=== PATIENT | female | born 1945 | race Caucasian/White ===

== ENCOUNTER 2016-10-07 06:43 | Day surgery (SDC) | payer MEDICARE, BC ==
[2016-10-01 14:56] VITALS: BMI 36.3
[~2016-10-07 06:43] MED LIST: LACTATED RINGERS 1,000 ML IV SCH
[2016-10-07 07:17] VITALS: RESP 18; TEMP 97.2
[2016-10-07] MEDS: LACTATED RINGERS 1,000 ML IV ONE ×2 (07:25→07:41)
[2016-10-07 07:26] LABS: Glucose,Whole Blood 101 mg/dL (75-99)
[2016-10-07] MEDS ORDERED: PROPOFOL 10 MG/ML 20 ML VIAL IV ONE (07:43)
--- NOTE | 2016-10-07 07:50 | P.GSHP ---
History of Present Illness H&P Date: 10/07/16 Chief Complaint: GERD This a 71-year-old female who presents today for EGD. She has had a history of GERD. Patient has had a previous sleeve gastrectomy. - Constitutional Constitutional: Reports as per HPI Past Medical History Past Medical History: Cancer, Diabetes Mellitus, Eye Disorder, GERD/Reflux, Hyperlipidemia, Thyroid Disorder Additional Past Medical History / Comment(s): hx glaucoma, Basal cell skin cancer, hx insufficient circulation rt leg, Hx of thyroid nodules, varicose veins, bundle branch block, SLIGHT HEAD COLD History of Any Multi-Drug Resistant Organisms: None Reported Past Surgical History: Bariatric Surgery, Breast Surgery, Cholecystectomy, Hysterectomy Additional Past Surgical History / Comment(s): Lap band-later removed, gastric sleeve, tummy tuck, skin cancer removal, upper and lower eyelids, right labia reduction 2008, bilateral reduction upper thighs 2009, thyroid biopsy, Right Thyroidectomy., Colonoscopy, Bronchoscopy, EGD. ira eye lid surgery, reducton rt labia, mult breast lumpectomy Past Anesthesia/Blood Transfusion Reactions: Family History of Problems w/ Anesthesia, Motion Sickness Additional Past Anesthesia/Blood Transfusion Reaction / Comment(s): mother= ponv Past Psychological History: No Psychological Hx Reported Smoking Status: Never smoker Past Alcohol Use History: None Reported Past Drug Use History: None Reported - Past Family History Mother Family Medical History: Cancer, Deep Vein Thrombosis (DVT) Additional Family Medical History / Comment(s): breast ca, Father Family Medical History: Cancer Additional Family Medical History / Comment(s): leukemia Daughter(s) Family Medical History: Cancer Additional Family Medical History / Comment(s): from breast ca Medications and Allergies Home Medications Medication Instructions Recorded Confirmed Type Aspirin 81 mg PO DAILY 02/01/15 10/01/16 History Atorvastatin [Lipitor] 20 mg PO DAILY 02/01/15 10/01/16 History Cholecalciferol [Vitamin D3] 2,000 unit PO DAILY 02/01/15 10/01/16 History Cyanocobalamin [Vitamin B-12] 500 mcg PO DAILY 02/01/15 10/01/16 History Losartan [Cozaar] 25 mg PO DAILY 02/01/15 10/01/16 History Omeprazole 40 mg PO AC-BRKFST 02/01/15 10/01/16 History sitaGLIPtin [Januvia] 100 mg PO DAILY 02/01/15 10/01/16 History Ranitidine HCl [Zantac] 150 mg PO HS 02/19/15 10/01/16 History Ciclesonide [Alvesco] 1 puff INHALATION BID PRN 01/08/16 10/01/16 History Glimepiride [Amaryl] 0.5 mg PO DAILY 03/14/16 10/01/16 History Multivitamin [Children's 1 each PO DAILY 03/17/16 10/01/16 History Multivitamins] Thyroid,Pork [[place] Thyroid] 15 mg PO DAILY 05/12/16 10/01/16 History Biotin Gel 1,000 mcg PO DAILY 06/24/16 10/01/16 History Calcium Carbonate [Tums] 750 mg PO DIRECTED PRN 06/24/16 10/01/16 History Allergies Allergy/AdvReac Type Severity Reaction Status Date / Time adhesive Allergy Rash/Hives Verified 09/23/16 14:48 adhesive tape Allergy Rash/Hives Verified 09/23/16 14:48 Penicillins Allergy Diarrhea Verified 09/23/16 14:48 canagliflozin [From Invokana] AdvReac BLADDER Verified 10/01/16 14:52 INFECTION metformin AdvReac Nausea & Verified 09/23/16 14:48 Vomiting Surgical - Exam Vital Signs Temp Pulse Resp BP Pulse Ox 97.2 F L 79 18 152/85 98 10/07/16 07:16 10/07/16 07:16 10/07/16 07:16 10/07/16 07:16 10/07/16 07:16 - General well developed, no distress - Eyes PERRL - ENT normal pinna - Neck no masses - Respiratory normal expansion - Abdomen Abdomen: soft, non tender Results - Labs Abnormal Lab Results - Last 24 Hours (Table) 10/07/16 Range/Units 07:23 POC Glucose (mg/dL) 101 H (75-99) mg/dL Assessment and Plan Plan: GERD. We'll perform EGD.
--- NOTE | 2016-10-07 08:08 | P.OP ---
Date of Procedure: 10/07/16 Preoperative Diagnosis: GERD Postoperative Diagnosis: GERD Procedure(s) Performed: EGD Implants: Anesthesia: MAC Surgeon: Paul Kumar Pathology: none sent Condition: stable Disposition: PACU Indications for Procedure: Operative Findings: Description of Procedure: The patient's placed on the endoscopy table in the lateral position. She received IV sedation. The gastroscope some placed oropharynx and passed into the esophagus and into the stomach. The scope was then placed through the pylorus. The first and second portion of the duodenum appeared normal. Scope was then brought back the antrum this appeared normal. Scope was then brought back through the gastric sleeve. There appeared to be no evidence of obstruction. A 20 mm balloon was placed in the gastric sleeve and brought back and forth through the sleeve without any difficulty. Just below the GE junction there was a small gastric pouch the balloon was placed at this level as well and there is no significant obstruction seen. The GE junction was at 40 cm. The distal esophagus. Minimal inflamed. The proximal esophagus appeared normal. Scope was withdrawn for patient.
[2016-10-07 08:39] VITALS: BP 133/72; PULSE 61
== END 2016-10-07 08:49 | disposition home or self-care (01) ==
LOC: ORWHC2ENDO 06:43
PROVIDERS: ATTEND Surgery
DX: K21.9 Gastro-esophageal reflux disease without esophagitis (principal); Z98.84 Bariatric surgery status; E11.9 Type 2 diabetes mellitus without complications; E78.5 Hyperlipidemia, unspecified; E07.9 Disorder of thyroid, unspecified; Z79.82 Long term (current) use of aspirin; Z79.899 Other long term (current) drug therapy; Z79.84 Long term (current) use of oral hypoglycemic drugs; Z88.0 Allergy status to penicillin; Z88.8 Allergy status to other drugs, medicaments and biological substances; Z91.09 Other allergy status, other than to drugs and biological substances
CPT/HCPCS: 43235; J2704; C1726; 43249; 99153

== ENCOUNTER 2016-10-17 05:32 | Emergency (ER) | payer MEDICARE, BC ==
[2016-10-17] MEDS ORDERED: SODIUM CHLORIDE 0.9% 1,000 ML IV STA (05:42)
[2016-10-17] MEDS ORDERED: SODIUM CHLORIDE 0.9% 500 ML IV STA (05:42)
[2016-10-17] MEDS ORDERED: FAMOTIDINE 20 MG/2 ML VIAL IV STA (05:43)
--- NOTE | 2016-10-17 05:50 | ED ---
General Adult HPI - General Source: patient, EMS, RN notes reviewed Mode of arrival: EMS Limitations: no limitations <Babar Garcia - Last Filed: 10/17/16 05:48> <eH Gonzales - Last Filed: 10/17/16 08:28> - General Chief complaint: Nausea/Vomiting/Diarrhea Stated complaint: N/V Time Seen by Provider: 10/17/16 05:37 - History of Present Illness Initial comments: Patient is a pleasant 71-year-old female presenting to the emergency department complaining of tremors. Symptoms have been present for a few months. Patient states she just decided she wanted to know why this is happening today. Patient states symptoms are intermittent. Patient states symptoms usually last for a couple of hours then go away. Tremors are diffuse. Patient has a history of a gastric sleeve and does have some chronic nausea and spitting up. No confusion. No weakness. Patient denies feeling anxious. No fevers. (Babar Garcia) - Related Data Home Medications Medication Instructions Recorded Confirmed Aspirin 81 mg PO DAILY 02/01/15 10/01/16 Atorvastatin [Lipitor] 20 mg PO DAILY 02/01/15 10/01/16 Cholecalciferol [Vitamin D3] 2,000 unit PO DAILY 02/01/15 10/01/16 Cyanocobalamin [Vitamin B-12] 500 mcg PO DAILY 02/01/15 10/01/16 Losartan [Cozaar] 25 mg PO DAILY 02/01/15 10/01/16 Omeprazole 40 mg PO AC-BRKFST 02/01/15 10/01/16 sitaGLIPtin [Januvia] 100 mg PO DAILY 02/01/15 10/17/16 Ranitidine HCl [Zantac] 150 mg PO HS 02/19/15 10/01/16 Ciclesonide [Alvesco] 1 puff INHALATION BID PRN 01/08/16 10/01/16 Glimepiride [Amaryl] 0.5 mg PO DAILY 03/14/16 10/01/16 Multivitamin [Children's 1 each PO DAILY 03/17/16 10/01/16 Multivitamins] Thyroid,Pork [[place] Thyroid] 15 mg PO DAILY 05/12/16 10/01/16 Biotin Gel 1,000 mcg PO DAILY 09/20/16 12/28/16 Calcium Carbonate [Tums] 750 mg PO DIRECTED PRN 06/24/16 10/01/16 Previous Rx's Medication Instructions Recorded Levofloxacin [Levaquin] 750 mg PO DAILY #7 tab 10/17/16 Allergies Allergy/AdvReac Type Severity Reaction Status Date / Time adhesive Allergy Rash/Hives Verified 10/17/16 05:45 adhesive tape Allergy Rash/Hives Verified 10/17/16 05:45 Penicillins Allergy Diarrhea Verified 10/17/16 05:45 canagliflozin [From Invokana] AdvReac BLADDER Verified 10/17/16 05:45 INFECTION metformin AdvReac Nausea & Verified 10/17/16 05:45 Vomiting Review of Systems ROS Other: All systems not noted in ROS Statement are negative. Constitutional: Denies: fever, chills Eyes: Denies: eye pain ENT: Denies: ear pain Respiratory: Reports: cough. Denies: dyspnea Cardiovascular: Denies: chest pain Endocrine: Reports: fatigue Gastrointestinal: Reports: nausea. Denies: abdominal pain Genitourinary: Denies: dysuria Musculoskeletal: Denies: back pain Skin: Denies: rash Neurological: Denies: headache, weakness <Babar Garcia - Last Filed: 10/17/16 05:48> ROS Other: All systems not noted in ROS Statement are negative. <He Gonzales - Last Filed: 10/17/16 08:28> ROS Statement: Those systems with pertinent positive or pertinent negative responses have been documented in the HPI. Past Medical History Past Medical History: Cancer, Diabetes Mellitus, Eye Disorder, GERD/Reflux, Hyperlipidemia, Thyroid Disorder Additional Past Medical History / Comment(s): hx glaucoma, Basal cell skin cancer, hx insufficient circulation rt leg, Hx of thyroid nodules, varicose veins, bundle branch block, SLIGHT HEAD COLD History of Any Multi-Drug Resistant Organisms: None Reported Past Surgical History: Bariatric Surgery, Breast Surgery, Cholecystectomy, Hysterectomy Additional Past Surgical History / Comment(s): Lap band-later removed, gastric sleeve, tummy tuck, skin cancer removal, upper and lower eyelids, right labia reduction 2008, bilateral reduction upper thighs 2009, thyroid biopsy, Right Thyroidectomy., Colonoscopy, Bronchoscopy, EGD. ira eye lid surgery, reducton rt labia, mult breast lumpectomy Past Anesthesia/Blood Transfusion Reactions: Family History of Problems w/ Anesthesia, Motion Sickness Additional Past Anesthesia/Blood Transfusion Reaction / Comment(s): mother= ponv Past Psychological History: No Psychological Hx Reported Smoking Status: Never smoker Past Alcohol Use History: None Reported Past Drug Use History: None Reported - Past Family History Mother Family Medical History: Cancer, Deep Vein Thrombosis (DVT) Additional Family Medical History / Comment(s): breast ca, Father Family Medical History: Cancer Additional Family Medical History / Comment(s): leukemia Daughter(s) Family Medical History: Cancer Additional Family Medical History / Comment(s): from breast ca <Babar Garcia - Last Filed: 10/17/16 05:48> General Exam Limitations: no limitations General appearance: alert, in no apparent distress Head exam: Present: atraumatic Eye exam: Present: normal appearance, PERRL, EOMI. Absent: nystagmus ENT exam: Present: normal oropharynx Neck exam: Present: normal inspection Respiratory exam: Present: normal lung sounds bilaterally Cardiovascular Exam: Present: regular rate, normal rhythm GI/Abdominal exam: Present: soft. Absent: tenderness Extremities exam: Present: normal inspection Neurological exam: Present: alert, oriented X3, CN II-XII intact, other ( Resting tremor is present). Absent: motor sensory deficit Expanded Motor strength exam: RUE: 5, LUE: 5, RLE: 5, LLE: 5 Psychiatric exam: Present: normal affect, normal mood Skin exam: Absent: rash <Babar Garcia - Last Filed: 10/17/16 05:48> Medical Decision Making - Lab Data Result diagrams: 10/17/16 05:58 10/17/16 05:58 <He Gonzales - Last Filed: 10/17/16 08:28> - Lab Data Lab Results 10/17/16 10/17/16 10/17/16 Range/Units 05:58 05:58 05:58 WBC 7.8 (3.8-10.6) k/uL RBC 4.96 (3.80-5.40) m/uL Hgb 14.8 (11.4-16.0) gm/dL Hct 46.0 (34.0-46.0) % MCV 92.7 (80.0-100.0) fL MCH 29.8 (25.0-35.0) pg MCHC 32.1 (31.0-37.0) g/dL RDW 12.6 (11.5-15.5) % Plt Count 268 (150-450) k/uL Neutrophils % (Manual) 57.0 % Band Neutrophils % 22.5 % Lymphocytes % (Manual) 14.0 % Monocytes % (Manual) 4.5 % Eosinophils % (Manual) 2.0 % Neutrophils # (Manual) 6.2 (1.3-7.7) k/uL Lymphocytes # (Manual) 1.1 (1.0-4.8) k/uL Monocytes # (Manual) 0.4 (0-1.0) k/uL Eosinophils # (Manual) 0.2 (0-0.7) k/uL Nucleated RBCs 0 (0-0) /100 WBC Large Platelets Present Polychromasia Present Anisocytosis (manual) Present PT (9.0-12.0) sec INR (<1.1) APTT (22.0-30.0) sec Sodium 144 (137-145) mmol/L Potassium 4.3 (3.5-5.1) mmol/L Chloride 108 H (98-107) mmol/L Carbon Dioxide 22 (22-30) mmol/L Anion Gap 14 mmol/L BUN 12 (7-17) mg/dL Creatinine 0.79 (0.52-1.04) mg/dL Est GFR (MDRD) Af Amer >60 (>60 ml/min/1.73 sqM) Est GFR (MDRD) Non-Af >60 (>60 ml/min/1.73 sqM) Glucose 192 H (74-99) mg/dL Calcium 9.3 (8.4-10.2) mg/dL Ionized Calcium [place] 5.1 (4.5-5.3) mg/dL Phosphorus 3.2 (2.5-4.5) mg/dL Magnesium 1.8 (1.6-2.3) mg/dL Total Bilirubin 0.7 (0.2-1.3) mg/dL AST 18 (14-36) U/L ALT 27 (9-52) U/L Alkaline Phosphatase 92 (38-126) U/L Total Creatine Kinase 54 (30-135) U/L CK-MB (CK-2) 0.9 (0.0-2.4) ng/mL CK-MB (CK-2) Rel Index 1.7 Troponin I <0.012 (0.000-0.034) ng/mL Total Protein 7.2 (6.3-8.2) g/dL Albumin 4.0 (3.5-5.0) g/dL TSH 3.260 (0.465-4.680) mIU/L Free T4 0.94 (0.78-2.19) ng/dL Free T3 pg/mL 3.0 (2.8-5.3) pg/ml Urine Color Urine Appearance (Clear) Urine pH (5.0-8.0) Ur Specific [place] (1.001-1.035) Urine Protein (Negative) Urine Glucose (UA) (Negative) Urine Ketones (Negative) Urine Blood (Negative) Urine Nitrate (Negative) Urine Bilirubin (Negative) Urine Urobilinogen (<2.0) mg/dL Ur Leukocyte Esterase (Negative) 10/17/16 10/17/16 Range/Units 05:58 06:49 WBC (3.8-10.6) k/uL RBC (3.80-5.40) m/uL Hgb (11.4-16.0) gm/dL Hct (34.0-46.0) % MCV (80.0-100.0) fL MCH (25.0-35.0) pg MCHC (31.0-37.0) g/dL RDW (11.5-15.5) % Plt Count (150-450) k/uL Neutrophils % (Manual) % Band Neutrophils % % Lymphocytes % (Manual) % Monocytes % (Manual) % Eosinophils % (Manual) % Neutrophils # (Manual) (1.3-7.7) k/uL Lymphocytes # (Manual) (1.0-4.8) k/uL Monocytes # (Manual) (0-1.0) k/uL Eosinophils # (Manual) (0-0.7) k/uL Nucleated RBCs (0-0) /100 WBC Large Platelets Polychromasia Anisocytosis (manual) PT 10.4 (9.0-12.0) sec INR 1.0 (<1.1) APTT 19.7 L (22.0-30.0) sec Sodium (137-145) mmol/L Potassium (3.5-5.1) mmol/L Chloride (98-107) mmol/L Carbon Dioxide (22-30) mmol/L Anion Gap mmol/L BUN (7-17) mg/dL Creatinine (0.52-1.04) mg/dL Est GFR (MDRD) Af Amer (>60 ml/min/1.73 sqM) Est GFR (MDRD) Non-Af (>60 ml/min/1.73 sqM) Glucose (74-99) mg/dL Calcium (8.4-10.2) mg/dL Ionized Calcium [place] (4.5-5.3) mg/dL Phosphorus (2.5-4.5) mg/dL Magnesium (1.6-2.3) mg/dL Total Bilirubin (0.2-1.3) mg/dL AST (14-36) U/L ALT (9-52) U/L Alkaline Phosphatase (38-126) U/L Total Creatine Kinase (30-135) U/L CK-MB (CK-2) (0.0-2.4) ng/mL CK-MB (CK-2) Rel Index Troponin I (0.000-0.034) ng/mL Total Protein (6.3-8.2) g/dL Albumin (3.5-5.0) g/dL TSH (0.465-4.680) mIU/L Free T4 (0.78-2.19) ng/dL Free T3 pg/mL (2.8-5.3) pg/ml Urine Color Yellow Urine Appearance Clear (Clear) Urine pH 5.5 (5.0-8.0) Ur Specific [place] 1.012 (1.001-1.035) Urine Protein Negative (Negative) Urine Glucose (UA) Trace H (Negative) Urine Ketones Negative (Negative) Urine Blood Negative (Negative) Urine Nitrate Negative (Negative) Urine Bilirubin Negative (Negative) Urine Urobilinogen <2.0 (<2.0) mg/dL Ur Leukocyte Esterase Negative (Negative) Disposition <Babar Garcia - Last Filed: 10/17/16 05:48> <He Gonzales - Last Filed: 10/17/16 08:28> Clinical Impression: Pneumonia, Tremor Disposition: HOME SELF-CARE Condition: Fair Instructions: Pneumonia (ED), Tremors (ED) Prescriptions: Levofloxacin [Levaquin] 750 mg PO DAILY #7 tab Referrals: Johann Burnette III, MD [Primary Care Provider] - 1-2 days
[2016-10-17 06:15] LABS: CH 30.2; CHCM 32.7; HDW 2.41; HGB 14.8 gm/dL (11.4-16.0); Immature Gran Flag Slight; MCH 29.8 pg (25.0-35.0); MCHC 32.1 g/dL (31.0-37.0); MCV 92.7 fL (80.0-100.0); Mean Platelet Volume 8.1; RBC 4.96 m/uL (3.80-5.40); RDW 12.6 % (11.5-15.5); WBC 7.8 k/uL (3.8-10.6); WBC (Perox) 7.67
[2016-10-17 06:18] LABS: Ionized Calcium 5.1 mg/dL (4.5-5.3)
[2016-10-17 06:27] LABS: ALT 27 U/L (9-52); AST 18 U/L (14-36); Alkaline Phosphatase 92 U/L (38-126); Anion Gap 14 mmol/L; Blood Urea Nitrogen 12 mg/dL (7-17); Calcium 9.3 mg/dL (8.4-10.2); Carbon Dioxide 22 mmol/L (22-30); Chloride 108 mmol/L (98-107); Glucose 192 mg/dL (74-99); Magnesium 1.8 mg/dL (1.6-2.3); Non-African American GFR(MDRD) >60 (>60 ml/min/1.73 sqM); Phosphorous 3.2 mg/dL (2.5-4.5); Potassium 4.3 mmol/L (3.5-5.1); Sodium 144 mmol/L (137-145); Total Bilirubin 0.7 mg/dL (0.2-1.3); Total Protein 7.2 g/dL (6.3-8.2)
[2016-10-17 06:32] LABS: Prothrombin Time 10.4 sec (9.0-12.0)
--- NOTE | 2016-10-17 06:32 | XR ---
EXAMINATION TYPE: XR chest 2V DATE OF EXAM: 10/17/2016 6:28 AM COMPARISON: NONE HISTORY: Nausea and weakness TECHNIQUE: Frontal and lateral views of the chest are obtained. FINDINGS: 2 views of the chest show some patchy pneumonic consolidation in the left lower lobe. The other lung cunningham are clear. There is no heart failure. Heart size is normal. There are no hilar mass es. There are chest leads. Bony thorax is intact. IMPRESSION: Left lower lobe pneumonia. Normal heart.
[2016-10-17 06:38] LABS: Creatine Kinase 54 U/L (30-135)
[2016-10-17 06:47] LABS: Partial Thromboplastin Time 19.7 sec (22.0-30.0)
[2016-10-17 06:51] LABS: Creatine Kinase MB 0.9 ng/mL (0.0-2.4); Troponin I <0.012 ng/mL (0.000-0.034)
[2016-10-17] MEDS ORDERED: LORazepam 2 MG/ML SYRINGE IV STA (06:51)
[2016-10-17 06:55] LABS: Add Differential Manual Differential
[2016-10-17 07:00] LABS: Appearance,Urine Clear (Clear); Bilirubin,Urine Negative (Negative); Glucose,Urine (UA) Trace (Negative); Ketones,Urine Negative (Negative); Leukocyte Esterase,Urine Negative (Negative); Nitrite,Urine Negative (Negative); PH, Urine 5.5 (5.0-8.0); Protein,Urine Negative (Negative); Specific Gravity,Urine 1.012 (1.001-1.035); UA Billing (MACRO vs. MICRO) CHEM; Urobilinogen,Urine <2.0 mg/dL (<2.0)
--- NOTE | 2016-10-17 07:01 | CT ---
EXAMINATION TYPE: CT brain wo con DATE OF EXAM: 10/17/2016 6:43 AM COMPARISON: None HISTORY: C/O tremors CT DLP: 1082 mGycm Automated exposure control for dose reduction was used. FINDINGS: Ventricles and sulci are normal for age. There is no mass effect or midline shift. There is no sign o f intracranial hemorrhage. There is hyperostosis of the frontal bone which is usually of no clinical significance. There is rounded mucosal thickening in the posterior ethmoid sinus. IMPRESSION: No acute intracranial abnormality. Posterior ethmoid sinusitis.
[2016-10-17 07:05] LABS: Band Neutrophils % 22.5 %; Nucleated Red Blood Cells 0 /100 WBC (0-0); Total Cells Counted 200
[2016-10-17 07:07] LABS: Large Platelets Present
[2016-10-17 07:08] LABS: Polychromasia Present
[2016-10-17 07:11] VITALS: RESP 16
[2016-10-17] MEDS ORDERED: LEVOFLOXACIN 750 MG TAB PO STA (08:26)
[2016-10-17] MEDS ORDERED: ACETAMINOPHEN TAB 500 MG TAB PO STA (09:02)
[2016-10-17 09:06] VITALS: BP 117/58; PULSE 100; TEMP 101.5
== END 2016-10-17 09:05 | disposition home or self-care (01) ==
LOC: EC 05:32
DX: J18.9 Pneumonia, unspecified organism (principal); R25.1 Tremor, unspecified; E11.9 Type 2 diabetes mellitus without complications; Z79.84 Long term (current) use of oral hypoglycemic drugs; E78.5 Hyperlipidemia, unspecified; K21.9 Gastro-esophageal reflux disease without esophagitis; E07.9 Disorder of thyroid, unspecified; Z98.84 Bariatric surgery status; Z79.82 Long term (current) use of aspirin; Z79.899 Other long term (current) drug therapy; Z88.0 Allergy status to penicillin
CPT/HCPCS: 36415; 70450; 71020; 80053; 81003; 82330; 82550; 82553; 83735; 84100; 84439; 84443; 84481; 84484; 85025; 85610; 85730; 96361; 96374; 99285

== ENCOUNTER → 2016-10-20 | Outpatient (CLI) | payer MEDICARE, BC ==
[2016-10-20 15:03] VITALS: BP 182/79; PULSE 82; RESP 16; TEMP 98; BMI 36.6
--- NOTE | 2016-10-20 16:39 | P.HPBAR ---
Bariatric H&P - History & Physicial H&P Date: 10/20/16 History & Physicial: Visit/CC: Stretch follow-up Patient initial contact: Initial weight: 138.799 kg Initial weight in pounds: 305.99 Height: 5 ft 2.5 in Initial BMI: 55.0 Last weight: Current weight: 92.193 kg Current weight in pounds: 203.00 Current BMI: 36.6 [place] body weight (based on NIH guidelines): 51.029 kg Excess body weight loss: 53.2% The patient is a 71 year-old F who presents for Bariatric Assessment. The patient states she feels better after a EGD with balloon dilatation. She's had minimal GERD symptoms. She's had almost no dysphagia since her EGD with balloon dilatation. Past Medical History Past Medical History: Cancer, Diabetes Mellitus, Eye Disorder, GERD/Reflux, Hyperlipidemia, Thyroid Disorder Additional Past Medical History / Comment(s): hx glaucoma, Basal cell skin cancer, hx insufficient circulation rt leg, Hx of thyroid nodules, varicose veins, bundle branch block, SLIGHT HEAD COLD History of Any Multi-Drug Resistant Organisms: None Reported Past Surgical History: Bariatric Surgery, Breast Surgery, Cholecystectomy, Hysterectomy Additional Past Surgical History / Comment(s): Lap band-later removed, gastric sleeve, tummy tuck, skin cancer removal, upper and lower eyelids, right labia reduction 2008, bilateral reduction upper thighs 2009, thyroid biopsy, Right Thyroidectomy., Colonoscopy, Bronchoscopy, EGD. ira eye lid surgery, reducton rt labia, mult breast lumpectomy Past Anesthesia/Blood Transfusion Reactions: Family History of Problems w/ Anesthesia, Motion Sickness Additional Past Anesthesia/Blood Transfusion Reaction / Comm: mother= ponv Past Psychological History: No Psychological Hx Reported Smoking Status: Never smoker Past Alcohol Use History: None Reported Past Drug Use History: None Reported - Past Family History Mother Family Medical History: Cancer, Deep Vein Thrombosis (DVT) Additional Family Medical History / Comment(s): breast ca, Father Family Medical History: Cancer Additional Family Medical History / Comment(s): leukemia Daughter(s) Family Medical History: Cancer Additional Family Medical History / Comment(s): from breast ca Surgical - Exam Vital Signs Temp Pulse Resp BP 98.0 F 82 16 182/79 10/20/16 15:00 10/20/16 15:00 10/20/16 15:00 10/20/16 15:00 - General well developed, no distress - Eyes PERRL - ENT normal pinna - Abdomen Abdomen: soft, non tender Bariatric Assessment & Plan Plan: Status post sleeve gastrectomy. Patient is known to have a small hiatal hernia. Her GERD symptoms are minimal on this admission. She'll be observed. If needed we will perform another EGD with balloon dilatation. She'll follow- up in one month. Bariatric Checklist Checklist: Plan: Checklist: EGD: 1. Hiatal hernia: 2. H. Pylori: HgbA1c: Vitamin D: Smoking: Never smoker Primary care physician referral: Psychiatry clearance: Cardiology clearance: Sleep study: Diet journal: VTE risk score: VTE risk level: Rehab needs at discharge:
== END | disposition home or self-care (01) ==
LOC: BARWHC3 13:24
PROVIDERS: ATTEND Surgery
DX: Z48.815 Encounter for surgical aftercare following surgery on the digestive system (principal); Z98.84 Bariatric surgery status; K21.9 Gastro-esophageal reflux disease without esophagitis; K44.9 Diaphragmatic hernia without obstruction or gangrene; Z68.36 Body mass index [BMI] 36.0-36.9, adult
CPT/HCPCS: 99211

== ENCOUNTER → 2016-10-27 | Outpatient (CLI) | payer MEDICARE, BC ==
--- NOTE | 2016-10-27 09:45 | XR ---
EXAMINATION TYPE: XR chest 2V DATE OF EXAM: 10/27/2016 8:31 AM HISTORY: Shortness of breath. COMPARISON: 10/17/2016 TECHNIQUE: Single view of the chest is submitted. FINDINGS: Demonstrated are scattered senescent parenchymal change. There is resolution of left lower lobe infiltrate. The heart is stable. Hilar and mediastinal structures are within normal limits. Degenerative changes are seen of the dorsal spine. IMPRESSION: 1. Chronic changes without evidence for acute pulmonary disease.
== END | disposition home or self-care (01) ==
LOC: RADXRMAIN 08:18
PROVIDERS: ATTEND Nurse Practitioner Family
DX: J18.1 Lobar pneumonia, unspecified organism (principal)
CPT/HCPCS: 71020

== ENCOUNTER → 2016-12-01 | Outpatient (CLI) | payer MEDICARE, BC ==
[2016-12-01 15:00] VITALS: BP 162/78; PULSE 73; TEMP 97.8; BMI 37.1
--- NOTE | 2016-12-01 15:51 | P.HPBAR ---
Bariatric H&P - History & Physicial H&P Date: 12/01/16 History & Physicial: Visit/CC: follow up visit Patient initial contact: Initial weight: 138.799 kg Initial weight in pounds: 305.99 Height: 5 ft 2.5 in Initial BMI: 55.0 Last weight: Current weight: 93.667 kg Current weight in pounds: 206.50 Current BMI: 37.1 [place] body weight (based on NIH guidelines): 51.029 kg Excess body weight loss: 51.4% The patient is a 71 year-old F who presents for Bariatric Assessment. Patient presents today for follow-up. She's had issues with GERD in the past. Patient has had a recent EGD with balloon dilatation her sleep. She states her GERD symptoms have improved. Review of Systems Constitutional: Reports as per HPI Past Medical History Past Medical History: Cancer, Diabetes Mellitus, Eye Disorder, GERD/Reflux, Hyperlipidemia, Thyroid Disorder Additional Past Medical History / Comment(s): hx glaucoma, Basal cell skin cancer, hx insufficient circulation rt leg, Hx of thyroid nodules, varicose veins, bundle branch block, SLIGHT HEAD COLD History of Any Multi-Drug Resistant Organisms: None Reported Past Surgical History: Bariatric Surgery, Breast Surgery, Cholecystectomy, Hysterectomy Additional Past Surgical History / Comment(s): Lap band-later removed, gastric sleeve, tummy tuck, skin cancer removal, upper and lower eyelids, right labia reduction 2008, bilateral reduction upper thighs 2009, thyroid biopsy, Right Thyroidectomy., Colonoscopy, Bronchoscopy, EGD. ira eye lid surgery, reducton rt labia, mult breast lumpectomy Past Anesthesia/Blood Transfusion Reactions: Family History of Problems w/ Anesthesia, Motion Sickness Additional Past Anesthesia/Blood Transfusion Reaction / Comm: mother= ponv Past Psychological History: No Psychological Hx Reported Smoking Status: Never smoker Past Alcohol Use History: None Reported Past Drug Use History: None Reported - Past Family History Mother Family Medical History: Cancer, Deep Vein Thrombosis (DVT) Additional Family Medical History / Comment(s): breast ca, Father Family Medical History: Cancer Additional Family Medical History / Comment(s): leukemia Daughter(s) Family Medical History: Cancer Additional Family Medical History / Comment(s): from breast ca Surgical - Exam Vital Signs Temp Pulse BP 97.8 F 73 162/78 12/01/16 14:55 12/01/16 14:55 12/01/16 14:55 - General well developed, no distress - Eyes PERRL - ENT normal pinna - Neck no masses - Respiratory normal expansion - Cardiovascular Rhythm: regular - Abdomen Abdomen: soft, non tender Bariatric Assessment & Plan Plan: Improving GERD after balloon dilatation of gastric sleeve. Patient will continue Prilosec and Zantac when necessary. She'll follow-up in one month. Bariatric Checklist Checklist: Plan: Checklist: EGD: 1. Hiatal hernia: 2. H. Pylori: HgbA1c: Vitamin D: Smoking: Never smoker Primary care physician referral: dr rodas Psychiatry clearance: Cardiology clearance: Sleep study: Diet journal: VTE risk score: VTE risk level: Rehab needs at discharge:
[2016-12-01 16:11] LABS: CH 30.3; CHCM 32.5; HCT 47.1 % (34.0-46.0); HDW 2.37; HGB 15.1 gm/dL (11.4-16.0); MCH 30.1 pg (25.0-35.0); MCHC 32.1 g/dL (31.0-37.0); MCV 93.6 fL (80.0-100.0); Mean Platelet Volume 7.8; RBC 5.03 m/uL (3.80-5.40); RDW 12.9 % (11.5-15.5)
[2016-12-01 16:16] LABS: ALT 29 U/L (9-52); AST 20 U/L (14-36); Alkaline Phosphatase 89 U/L (38-126); Anion Gap 12 mmol/L; Blood Urea Nitrogen 14 mg/dL (7-17); Calcium 9.7 mg/dL (8.4-10.2); Carbon Dioxide 28 mmol/L (22-30); Chloride 103 mmol/L (98-107); Glucose 97 mg/dL (74-99); Non-African American GFR(MDRD) >60 (>60 ml/min/1.73 sqM); Sodium 143 mmol/L (137-145); Total Bilirubin 0.6 mg/dL (0.2-1.3); Total Protein 7.9 g/dL (6.3-8.2)
[2016-12-01 17:03] LABS: Vitamin B12 882 pg/mL
[2016-12-01 20:27] LABS: Hemoglobin A1C 6.8 % (4.2-6.1)
== END | disposition home or self-care (01) ==
LOC: BARWHC3 13:48
PROVIDERS: ATTEND Surgery
DX: Z48.815 Encounter for surgical aftercare following surgery on the digestive system (principal); E44.0 Moderate protein-calorie malnutrition; E66.01 Morbid (severe) obesity due to excess calories; E55.9 Vitamin D deficiency, unspecified; Z68.37 Body mass index [BMI] 37.0-37.9, adult; K21.9 Gastro-esophageal reflux disease without esophagitis; Z79.899 Other long term (current) drug therapy; Z98.84 Bariatric surgery status
CPT/HCPCS: 84425; 80053; 82607; 83036; 84443; 84590; 85027; 82306; G0463; 99211

== ENCOUNTER 2016-12-29 08:39 | Day surgery (SDC) | payer MEDICARE, BC ==
[2016-12-26 09:22] VITALS: BMI 36.5
[2016-12-29 08:57] VITALS: RESP 16; TEMP 98.2
[2016-12-29] MEDS ORDERED: LIDOCAINE 1% 20 ML VIAL (10MG/ML) FOR IV START INTRADERMA ONE (08:57)
[2016-12-29 09:13] LABS: Glucose,Whole Blood 115 mg/dL (75-99)
[2016-12-29] MEDS ORDERED: MIDAZOLAM 2 MG/2 ML VIAL ONE (09:21)
[2016-12-29] MEDS ORDERED: fentaNYL (PF) 50 MCG/ML 2 ML AMP ONE (09:21)
[2016-12-29] MEDS ORDERED: PROPOFOL 10 MG/ML 20 ML VIAL IV ONE (09:21)
--- NOTE | 2016-12-29 09:29 | P.GSHP ---
History of Present Illness H&P Date: 12/29/16 Chief Complaint: GERD This a 71-year-old female who presents today for EGD. She has had issues with reflux. Patient's previous history of LAP-BAND conversion to gastric sleeve. - Constitutional Constitutional: Reports as per HPI Past Medical History Past Medical History: Cancer, Diabetes Mellitus, GERD/Reflux, Hyperlipidemia, Thyroid Disorder Additional Past Medical History / Comment(s): Hx of Basal cell skin cancer, thyroid nodules, Pneumonia (nov 2016) History of Any Multi-Drug Resistant Organisms: None Reported Past Surgical History: Bariatric Surgery, Breast Surgery, Cholecystectomy, Hysterectomy Additional Past Surgical History / Comment(s): Lap band-inserted and removed, gastric sleeve, tummy tuck, skin cancer removal, right labia reduction , bilateral reduction upper thighs , thyroid biopsy, Right Thyroidectomy., Colonoscopy, Bronchoscopy, EGD. ira eye lid surgery, mult breast lumpectomy. Past Anesthesia/Blood Transfusion Reactions: Family History of Problems w/ Anesthesia, Motion Sickness, Postoperative Nausea & Vomiting (PONV) Additional Past Anesthesia/Blood Transfusion Reaction / Comment(s): mother= ponv Past Psychological History: No Psychological Hx Reported Smoking Status: Never smoker Past Alcohol Use History: None Reported Past Drug Use History: None Reported - Past Family History Mother Family Medical History: Cancer, Deep Vein Thrombosis (DVT) Additional Family Medical History / Comment(s): breast ca, Father Family Medical History: Cancer Additional Family Medical History / Comment(s): leukemia Daughter(s) Family Medical History: Cancer Additional Family Medical History / Comment(s): from breast ca Medications and Allergies Home Medications Medication Instructions Recorded Confirmed Type Aspirin 81 mg PO DAILY 02/01/15 12/26/16 History Atorvastatin [Lipitor] 20 mg PO DAILY 02/01/15 12/29/16 History Cholecalciferol [Vitamin D3] 2,000 unit PO DAILY 02/01/15 12/29/16 History Cyanocobalamin [Vitamin B-12] 500 mcg PO DAILY 02/01/15 12/29/16 History Omeprazole 40 mg PO AC-BRKFST 02/01/15 12/29/16 History sitaGLIPtin [Januvia] 100 mg PO AC-LUNCH 02/01/15 12/29/16 History Ranitidine HCl [Zantac] 150 mg PO HS 02/19/15 12/29/16 History Ciclesonide [Alvesco] 1 puff INHALATION BID PRN 01/08/16 12/26/16 History Glimepiride [Amaryl] 0.5 mg PO QAM 03/14/16 12/29/16 History Thyroid,Pork [[place] Thyroid] 15 mg PO DAILY 05/12/16 12/29/16 History Calcium Carbonate [Tums] 750 mg PO QID PRN 06/24/16 12/29/16 History Biotin 5 mg PO DAILY 12/26/16 12/29/16 History Hydrocodone/Chlorphen P-Stirex 1 dose PO HS PRN 12/26/16 12/29/16 History [Hydrocodone-Chlorphen ER Susp] Losartan Potassium [Cozaar] 25 mg PO AC-LUNCH 12/26/16 12/29/16 History Multivitamins, Thera [Multivitamin 1 tab PO DAILY 12/26/16 12/29/16 History (formulary)] Allergies Allergy/AdvReac Type Severity Reaction Status Date / Time adhesive Allergy Rash/Hives Verified 12/26/16 09:05 adhesive tape Allergy Rash/Hives Verified 12/26/16 09:05 Penicillins Allergy Diarrhea Verified 12/26/16 09:05 canagliflozin [From Invokana] AdvReac BLADDER Verified 12/26/16 09:05 INFECTION metformin AdvReac Nausea & Verified 12/26/16 09:05 Vomiting Surgical - Exam Vital Signs Temp Pulse Resp BP Pulse Ox 98.2 F 81 16 168/76 98 12/29/16 08:54 12/29/16 08:54 12/29/16 08:54 12/29/16 08:54 12/29/16 08:54 - General well developed, no distress - Eyes PERRL - ENT normal pinna - Neck no masses - Respiratory normal expansion - Cardiovascular Rhythm: regular - Abdomen Abdomen: soft, non tender Results - Labs Abnormal Lab Results - Last 24 Hours (Table) 12/29/16 Range/Units 08:56 POC Glucose (mg/dL) 115 H (75-99) mg/dL Assessment and Plan Plan: GERD. We'll perform EGD.
--- NOTE | 2016-12-29 09:48 | P.OP ---
Date of Procedure: 12/29/16 Preoperative Diagnosis: GERD Postoperative Diagnosis: GERD Procedure(s) Performed: EGD with balloon dilation of gastric sleeve Anesthesia: MAC Surgeon: Paul Kumar Pathology: other (Antrum) Condition: stable Disposition: PACU Description of Procedure: The patient's placed on the endoscopy table lateral position. She received IV sedation. The gastroscope some placed oropharynx and passed into the esophagus and into the stomach. The patient previously gastrectomy. Scope was then placed through the pylorus. The first and second portion of duodenum appeared normal. The scope was then brought back the antrum there is mild inflammation. A biopsies performed. Scope was then brought back to the gastric sleeve. There is no obvious stricture. However due the patient's symptoms of GERD. A 20 mm balloon was placed across the gastric sleeve near the incisura and this was held in position for 3 minutes. The scope was then brought back slowly GE junction. There appeared to be a small hiatal hernia. The balloon was then placed across the GE junction and inflated 20 mm and held in position for 3 minutes. The balloon was then withdrawn. The distal esophagus and proximal esophagus appeared normal. Scope was withdrawn for patient.
[2016-12-29 10:38] VITALS: BP 131/75; PULSE 68
== END 2016-12-29 10:51 | disposition home or self-care (01) ==
LOC: ORWHC2ENDO 08:39
PROVIDERS: ATTEND Surgery
DX: K21.9 Gastro-esophageal reflux disease without esophagitis (principal); K29.50 Unspecified chronic gastritis without bleeding; Z98.84 Bariatric surgery status; E11.9 Type 2 diabetes mellitus without complications; Z79.84 Long term (current) use of oral hypoglycemic drugs; E78.5 Hyperlipidemia, unspecified; E07.9 Disorder of thyroid, unspecified; Z79.899 Other long term (current) drug therapy; Z88.0 Allergy status to penicillin; Z88.8 Allergy status to other drugs, medicaments and biological substances; Z79.82 Long term (current) use of aspirin; Z91.09 Other allergy status, other than to drugs and biological substances
CPT/HCPCS: 88305; 88342; 43239; 43245; J2250; J3010; J2704; 43249

== ENCOUNTER 2017-01-02 11:47 | Day surgery (SDC) | payer MEDICARE, BC ==
[2016-12-30 14:03] VITALS: BMI 36.5
[~2017-01-02 11:47] MED LIST changes: +DEXAMETHASONE SOD PHOSPHATE 10 MG/ML 1 ML VIAL IV ONE; +HEPARIN SODIUM,PORCINE 5,000 UNIT/ML 1 ML VIAL SQ ONE; +HYDROmorphone 1 MG/ML 1 ML SYRINGE IVP PRN; +MIDAZOLAM 2 MG/2 ML VIAL IV PRN; +ONDANSETRON 4 MG/2 ML VIAL IVP ONE; +Pre Op ABX Message 1 EACH MISC MISCELLANE ONE
[2017-01-02 12:06] VITALS: RESP 16; TEMP 97.5
[2017-01-02] MEDS ORDERED: LIDOCAINE 1% 20 ML VIAL (10MG/ML) FOR IV START INTRADERMA ONE (12:19)
[2017-01-02 12:30] LABS: Glucose,Whole Blood 105 mg/dL (75-99)
[2017-01-02] MEDS ORDERED: BUPIVACAIN-EPI 0.25%-1:200,000 30 ML VIAL SQ ONE (12:59)
--- NOTE | 2017-01-02 13:00 | P.GSHP ---
History of Present Illness H&P Date: 01/02/17 Chief Complaint: Multiple skin lesions of left forehead left neck and left torso This is a 71-year-old female who has a history of basal cell carcinoma. Patient is developed several new skin lesions which are suspicious she presents today for excision. Patient has a skin lesion of her left forehead, left neck 2 and left torso - Constitutional Constitutional: Reports as per HPI Past Medical History Past Medical History: Cancer, Diabetes Mellitus, GERD/Reflux, Hyperlipidemia, Thyroid Disorder Additional Past Medical History / Comment(s): Hx of Basal cell skin cancer, thyroid nodules, Pneumonia (nov 2016) History of Any Multi-Drug Resistant Organisms: None Reported Past Surgical History: Bariatric Surgery, Breast Surgery, Cholecystectomy, Hysterectomy Additional Past Surgical History / Comment(s): Lap band-inserted and removed, gastric sleeve, tummy tuck, skin cancer removal, right labia reduction , bilateral reduction upper thighs , thyroid biopsy, Right Thyroidectomy., Colonoscopy, Bronchoscopy, EGD. ira eye lid surgery, mult breast lumpectomy., EGD AND DILATION (12/29/16) Past Anesthesia/Blood Transfusion Reactions: Family History of Problems w/ Anesthesia, Motion Sickness, Postoperative Nausea & Vomiting (PONV) Additional Past Anesthesia/Blood Transfusion Reaction / Comment(s): mother= ponv Past Psychological History: No Psychological Hx Reported Smoking Status: Never smoker Past Alcohol Use History: None Reported Past Drug Use History: None Reported - Past Family History Mother Family Medical History: Cancer, Deep Vein Thrombosis (DVT) Additional Family Medical History / Comment(s): breast ca, Father Family Medical History: Cancer Additional Family Medical History / Comment(s): leukemia Daughter(s) Family Medical History: Cancer Additional Family Medical History / Comment(s): from breast ca Medications and Allergies Home Medications Medication Instructions Recorded Confirmed Type Aspirin 81 mg PO DAILY 02/01/15 01/02/17 History Atorvastatin [Lipitor] 20 mg PO DAILY 02/01/15 01/02/17 History Cholecalciferol [Vitamin D3] 2,000 unit PO DAILY 02/01/15 01/02/17 History Cyanocobalamin [Vitamin B-12] 500 mcg PO DAILY 02/01/15 01/02/17 History Omeprazole 40 mg PO AC-BRKFST 02/01/15 01/02/17 History sitaGLIPtin [Januvia] 100 mg PO AC-LUNCH 02/01/15 01/02/17 History Ranitidine HCl [Zantac] 150 mg PO HS 02/19/15 01/02/17 History Ciclesonide [Alvesco] 1 puff INHALATION BID PRN 01/08/16 01/02/17 History Glimepiride [Amaryl] 0.5 mg PO QAM 03/14/16 01/02/17 History Thyroid,Pork [[place] Thyroid] 15 mg PO DAILY 05/12/16 01/02/17 History Calcium Carbonate [Tums] 750 mg PO QID PRN 06/24/16 01/02/17 History Biotin 5 mg PO DAILY 12/26/16 01/02/17 History Hydrocodone/Chlorphen P-Stirex 1 dose PO HS PRN 12/26/16 01/02/17 History [Hydrocodone-Chlorphen ER Susp] Losartan Potassium [Cozaar] 25 mg PO AC-LUNCH 12/26/16 01/02/17 History Multivitamins, Thera [Multivitamin 1 tab PO DAILY 12/26/16 01/02/17 History (formulary)] Allergies Allergy/AdvReac Type Severity Reaction Status Date / Time adhesive Allergy Rash/Hives Verified 01/02/17 12:02 adhesive tape Allergy Rash/Hives Verified 01/02/17 12:02 Penicillins Allergy Diarrhea Verified 01/02/17 12:02 canagliflozin [From Invokana] AdvReac BLADDER Verified 01/02/17 12:02 INFECTION metformin AdvReac Nausea & Verified 01/02/17 12:02 Vomiting Surgical - Exam Vital Signs Temp Pulse Resp BP Pulse Ox 97.5 F L 83 16 167/84 97 01/02/17 12:05 01/02/17 12:05 01/02/17 12:05 01/02/17 12:05 01/02/17 12:05 - General well developed, no distress - Eyes PERRL - ENT normal pinna - Neck no masses - Respiratory normal expansion - Cardiovascular Rhythm: regular - Abdomen Abdomen: soft, non tender - Neurologic 1 cm skin lesion of left forearm, 1 cm skin lesion of left neck, 1.5 cm skin lesion of left neck, 2 cm skin lesion of left torso near lateral edge of left inframammary crease Results - Labs Abnormal Lab Results - Last 24 Hours (Table) 01/02/17 Range/Units 12:12 POC Glucose (mg/dL) 105 H (75-99) mg/dL Assessment and Plan Plan: Suspicious skin lesions. We'll perform excisional biopsy of left forehead, left neck 2 and left torso skin lesion.
[2017-01-02] MEDS ORDERED: KETAMINE 10 MG/ML 20 ML VIAL ONE (13:16)
[2017-01-02] MEDS ORDERED: LIDOCAINE 1% INJ 10MG/ML (20 ML MDV) ONE (13:16)
[2017-01-02] MEDS ORDERED: fentaNYL (PF) 50 MCG/ML 2 ML AMP ONE (13:16)
[2017-01-02] MEDS ORDERED: MIDAZOLAM 2 MG/2 ML VIAL ONE (13:16)
[2017-01-02] MEDS ORDERED: PROPOFOL 10 MG/ML 20 ML VIAL IV ONE (13:16)
--- NOTE | 2017-01-02 14:40 | P.OP ---
Date of Procedure: 01/02/17 Preoperative Diagnosis: Multiple skin lesions of left forehead, left neck and torso Postoperative Diagnosis: Defer to pathology Procedure(s) Performed: Excision of skin lesions of left forehead, left neck 2, left torso Anesthesia: MAC Surgeon: Paul Kumar Pathology: other (Multiple skin lesions) Condition: stable Disposition: PACU Description of Procedure: The patient's placed on the operating table in the supine position. She received IV sedation. Her skin lesions were prepped and draped usual sterile fashion. The skin lesion sites were anesthetized 1% local Xylocaine. The left forehead skin lesion was excised first the lesion measures pressure 1 cm diameter. Using a 15 blade in elliptical skin incision was made around the skin lesion. Cautery was then used for hemostasis. The skin lesion was sharply dissected from some taste tissues. The skin was closed with 5-0 nylon. Next the left neck skin lesions were excised. The patient had 2 skin lesions in the left neck measuring approximately 1.5 cm in diameter. Using a 15 blade the skin lesions were incised and then the subcutaneous tissue tissues were divided using electrocautery. The superior and inferior skin lesion were excised identically. Skin was closed with 3-0 Monocryl and Dermabond dressing. Next the Next the left chest wall skin lesion was examined and it was in the left lateral inframammary crease. Using a 15 blade the skin was incised there is approximately 3 x 2 cm skin lesion. The Bovie was used for hemostasis. The specimens of pathology. And then the skin was closed interrupted 3-0 Monocryl suture. Dermabond was applied. Patient top she will was sent to recovery sedation.
[2017-01-02 14:46] VITALS: BP 117/72; PULSE 83
== END 2017-01-02 15:07 | disposition home or self-care (01) ==
LOC: OR 11:47
PROVIDERS: ATTEND Surgery
DX: L82.1 Other seborrheic keratosis (principal); L57.8 Other skin changes due to chronic exposure to nonionizing radiation; L08.9 Local infection of the skin and subcutaneous tissue, unspecified; Z85.828 Personal history of other malignant neoplasm of skin; I10 Essential (primary) hypertension; E78.5 Hyperlipidemia, unspecified; E11.9 Type 2 diabetes mellitus without complications; E07.9 Disorder of thyroid, unspecified; K21.9 Gastro-esophageal reflux disease without esophagitis; Z98.84 Bariatric surgery status; Z88.0 Allergy status to penicillin; Z88.8 Allergy status to other drugs, medicaments and biological substances; Z79.84 Long term (current) use of oral hypoglycemic drugs; Z79.82 Long term (current) use of aspirin; Z79.899 Other long term (current) drug therapy; Z80.3 Family history of malignant neoplasm of breast; Z80.6 Family history of leukemia
CPT/HCPCS: 11441; 11422; 11404; 88305; J2250; J1644; J1100; J2405; J2001; J3010; J2704

== ENCOUNTER → 2017-01-12 | Outpatient (CLI) | payer MEDICARE, BC ==
[2017-01-12 08:19] VITALS: BP 148/78; PULSE 94; TEMP 98.2
[2017-01-12 08:37] VITALS: BMI 38.0
--- NOTE | 2017-01-12 08:46 | P.HPBAR ---
Bariatric H&P - History & Physicial H&P Date: 01/12/17 History & Physicial: Visit/CC: folow up visit Patient initial contact: Initial weight: 138.799 kg Initial weight in pounds: 305.99 Height: 5 ft 2.25 in Initial BMI: 55.5 Last weight: Current weight: 94.982 kg Current weight in pounds: 209.40 Current BMI: 38.0 [place] body weight (based on NIH guidelines): 50.462 kg Excess body weight loss: 49.5% The patient is a 71 year-old F who presents for Bariatric Assessment. The patient presents today for sleeve gastrectomy follow-up. She states her GERD symptoms have improved since her last EGD with balloon dilatation. Her weight has been stable at 209 pounds. Her initial preoperative weight was 306 pounds. Review of Systems Constitutional: Reports as per HPI Past Medical History Past Medical History: Cancer, Diabetes Mellitus, GERD/Reflux, Hyperlipidemia, Thyroid Disorder Additional Past Medical History / Comment(s): Hx of Basal cell skin cancer, thyroid nodules, Pneumonia (nov 2016) History of Any Multi-Drug Resistant Organisms: None Reported Past Surgical History: Bariatric Surgery, Breast Surgery, Cholecystectomy, Hysterectomy Additional Past Surgical History / Comment(s): Lap band-inserted and removed, gastric sleeve, tummy tuck, skin cancer removal, right labia reduction , bilateral reduction upper thighs , thyroid biopsy, Right Thyroidectomy., Colonoscopy, Bronchoscopy, EGD. ira eye lid surgery, mult breast lumpectomy., EGD AND DILATION (12/29/16) Past Anesthesia/Blood Transfusion Reactions: Family History of Problems w/ Anesthesia, Motion Sickness, Postoperative Nausea & Vomiting (PONV) Additional Past Anesthesia/Blood Transfusion Reaction / Comm: mother= ponv Past Psychological History: No Psychological Hx Reported Smoking Status: Never smoker Past Alcohol Use History: None Reported Past Drug Use History: None Reported - Past Family History Mother Family Medical History: Cancer, Deep Vein Thrombosis (DVT) Additional Family Medical History / Comment(s): breast ca, Father Family Medical History: Cancer Additional Family Medical History / Comment(s): leukemia Daughter(s) Family Medical History: Cancer Additional Family Medical History / Comment(s): from breast ca Surgical - Exam Vital Signs Temp Pulse BP 98.2 F 94 148/78 01/12/17 08:16 01/12/17 08:16 01/12/17 08:16 - General well developed - Eyes PERRL - Respiratory normal expansion - Cardiovascular Rhythm: regular - Abdomen Abdomen: soft, non tender Bariatric Assessment & Plan Plan: Patient is a well. Her GERD symptoms have improved. She is currently being treated with omeprazole. She'll follow-up in 2 months. Bariatric Checklist Checklist: Plan: Checklist: EGD: 1. Hiatal hernia: 2. H. Pylori: HgbA1c: Vitamin D: Smoking: Never smoker Primary care physician referral: dr rodas Psychiatry clearance: Cardiology clearance: Sleep study: Diet journal: VTE risk score: VTE risk level: Rehab needs at discharge:
== END | disposition home or self-care (01) ==
LOC: BARWHC3 08:00
PROVIDERS: ATTEND Surgery
DX: Z09 Encounter for follow-up examination after completed treatment for conditions other than malignant neoplasm (principal); E11.9 Type 2 diabetes mellitus without complications; E78.5 Hyperlipidemia, unspecified; Z98.84 Bariatric surgery status; Z85.828 Personal history of other malignant neoplasm of skin
CPT/HCPCS: 99211

== ENCOUNTER 2017-01-29 13:21 | Inpatient (IN) | payer MEDICARE, BC ==
[2017-01-29] MEDS ORDERED: ONDANSETRON 4 MG/2 ML VIAL IVP STA (13:40)
[2017-01-29] MEDS ORDERED: SODIUM CHLORIDE 0.9% 1,000 ML IV STA (13:40)
--- NOTE | 2017-01-29 13:46 | ED ---
Nausea/Vomiting/Diarrhea HPI - General Source: patient, RN notes reviewed Mode of arrival: ambulatory Limitations: no limitations <Domo Lewis - Last Filed: 01/29/17 14:57> <Faustino Manning - Last Filed: 01/29/17 15:03> - General Chief complaint: Nausea/Vomiting/Diarrhea Stated complaint: vomiting-sent by Dr. Aceves Seen by Provider: 01/29/17 13:33 - History of Present Illness Initial comments: 72-year-old female presents emergency Department chief complaint nausea vomiting started last night. Patient states has been persistent. Patient states every time she tries to eat or drink some liquids back up. Patient has no specific abdominal pain. Patient has had gastric surgery in which she'll LAP -BAND and then a gastric sleeve by Dr. Kumar. She also had multiple other abdominal surgeries including cholecystectomy and hysterectomy. Patient states that she's had no fever but states that she has had some chills very achy feeling. Patient denies any chest pain or shortness of breath. Patient denies headache, dizziness. She states she just generally does not feel well. (Domo Lewis) - Related Data Home Medications Medication Instructions Recorded Confirmed Aspirin 81 mg PO DAILY 02/01/15 01/29/17 Atorvastatin [Lipitor] 20 mg PO DAILY 02/01/15 01/29/17 Cholecalciferol [Vitamin D3] 1,000 unit PO DAILY 02/01/15 01/29/17 Cyanocobalamin [Vitamin B-12] 500 mcg PO DAILY 02/01/15 01/29/17 Omeprazole 40 mg PO DAILY 02/01/15 01/29/17 sitaGLIPtin [Januvia] 100 mg PO DAILY 02/01/15 01/29/17 Ranitidine HCl [Zantac] 150 mg PO HS 02/19/15 01/29/17 Ciclesonide [Alvesco] 1 puff INHALATION RT-BID PRN 01/08/16 01/29/17 Glimepiride [Amaryl] 0.5 mg PO QAM 03/14/16 01/29/17 Thyroid,Pork [[place] Thyroid] 15 mg PO DAILY 05/12/16 01/29/17 Calcium Carbonate [Tums] 750 mg PO QID PRN 09/20/16 04/27/17 Biotin 5 mg PO DAILY 12/26/16 01/29/17 Losartan Potassium [Cozaar] 25 mg PO DAILY 12/26/16 01/29/17 Multivitamins, Thera [Multivitamin 1 tab PO DAILY 12/26/16 01/29/17 (formulary)] Allergies Allergy/AdvReac Type Severity Reaction Status Date / Time adhesive Allergy Rash/Hives Verified 01/29/17 14:15 adhesive tape Allergy Rash/Hives Verified 01/29/17 14:15 Penicillins Allergy Diarrhea Verified 01/29/17 14:15 canagliflozin [From Invokana] AdvReac BLADDER Verified 01/29/17 14:15 INFECTION metformin AdvReac Nausea & Verified 01/29/17 14:15 Vomiting Review of Systems ROS Other: All systems not noted in ROS Statement are negative. <Domo Lewis - Last Filed: 01/29/17 14:57> ROS Other: All systems not noted in ROS Statement are negative. <Faustino Manning - Last Filed: 01/29/17 15:03> ROS Statement: Those systems with pertinent positive or pertinent negative responses have been documented in the HPI. Past Medical History Past Medical History: Cancer, Diabetes Mellitus, GERD/Reflux, Hyperlipidemia, Thyroid Disorder Additional Past Medical History / Comment(s): Hx of Basal cell skin cancer, thyroid nodules, Pneumonia (nov 2016) History of Any Multi-Drug Resistant Organisms: None Reported Past Surgical History: Bariatric Surgery, Breast Surgery, Cholecystectomy, Hysterectomy Additional Past Surgical History / Comment(s): Lap band-inserted and removed, gastric sleeve, tummy tuck, skin cancer removal, right labia reduction , bilateral reduction upper thighs , thyroid biopsy, Right Thyroidectomy., Colonoscopy, Bronchoscopy, EGD. ira eye lid surgery, mult breast lumpectomy., EGD AND DILATION (12/29/16) Past Anesthesia/Blood Transfusion Reactions: Family History of Problems w/ Anesthesia, Motion Sickness, Postoperative Nausea & Vomiting (PONV) Additional Past Anesthesia/Blood Transfusion Reaction / Comment(s): mother= ponv Past Psychological History: No Psychological Hx Reported Smoking Status: Never smoker Past Alcohol Use History: None Reported Past Drug Use History: None Reported - Past Family History Mother Family Medical History: Cancer, Deep Vein Thrombosis (DVT) Additional Family Medical History / Comment(s): breast ca, Father Family Medical History: Cancer Additional Family Medical History / Comment(s): leukemia Daughter(s) Family Medical History: Cancer Additional Family Medical History / Comment(s): from breast ca <Domo Lewis - Last Filed: 01/29/17 14:57> General Exam Limitations: no limitations General appearance: alert, in no apparent distress ENT exam: Present: normal oropharynx Neck exam: Present: normal inspection, full ROM. Absent: tenderness, meningismus, lymphadenopathy Respiratory exam: Present: normal lung sounds bilaterally. Absent: respiratory distress, wheezes, rales, rhonchi, stridor Cardiovascular Exam: Present: regular rate, normal rhythm, normal heart sounds. Absent: systolic murmur, diastolic murmur, rubs, gallop, clicks GI/Abdominal exam: Present: soft, tenderness (Minimal diffuse), normal bowel sounds. Absent: distended, guarding, rebound, rigid Back exam: Absent: CVA tenderness (R), CVA tenderness (L) Skin exam: Present: warm, dry, intact, normal color. Absent: rash <Domo Lewis M - Last Filed: 01/29/17 14:57> General appearance: alert, in no apparent distress Head exam: Present: atraumatic, normocephalic, normal inspection Eye exam: Present: normal appearance, PERRL, EOMI. Absent: scleral icterus, conjunctival injection, periorbital swelling ENT exam: Present: normal exam, mucous membranes moist Neck exam: Present: normal inspection. Absent: tenderness, meningismus, lymphadenopathy Respiratory exam: Present: normal lung sounds bilaterally. Absent: respiratory distress, wheezes, rales, rhonchi, stridor Cardiovascular Exam: Present: regular rate, normal rhythm, normal heart sounds. Absent: systolic murmur, diastolic murmur, rubs, gallop, clicks GI/Abdominal exam: Present: soft, normal bowel sounds. Absent: distended, tenderness, guarding, rebound, rigid Extremities exam: Present: normal inspection, full ROM, normal capillary refill. Absent: tenderness, pedal edema, joint swelling, calf tenderness Back exam: Present: normal inspection Neurological exam: Present: alert, oriented X3, CN II-XII intact Psychiatric exam: Present: normal affect, normal mood Skin exam: Present: warm, dry, intact, normal color. Absent: rash <Roskopp,Faustino B - Last Filed: 01/29/17 15:03> Course <Domo Lewis - Last Filed: 01/29/17 14:57> <Faustino Manning - Last Filed: 01/29/17 15:03> Vital Signs 01/29/17 13:29 Temperature 98.0 F Pulse Rate 108 H Respiratory 18 Rate Blood Pressure 104/58 O2 Sat by Pulse 95 Oximetry - Reevaluation(s) Reevaluation #1: 01/29/17 15:03 Patient has improvement with breathing treatments (Faustino Manning) Medical Decision Making - Lab Data Result diagrams: 01/29/17 14:03 01/29/17 14:03 <Domo Lewis - Last Filed: 01/29/17 14:57> - Lab Data Result diagrams: 01/29/17 14:03 01/29/17 14:03 <Faustino Manning - Last Filed: 01/29/17 15:03> - Medical Decision Making 72-year-old female presented emergency department for nausea vomiting not feeling well, shaking. Patient appears to have left lower lobe pneumonia. Patient does have an elevated white count. Patient is dehydrated. Patient states she is feeling somewhat improved but not much better. Patient be admitted this time for IV hydration, IV antibiotics. (Domo Lewis) 72 female the ER for nausea vomiting cough congestion x-ray positive for nausea , patient will be admitted for IV antibiotics. She was symptom control (Faustino Manning) - Lab Data Lab Results 01/29/17 01/29/17 01/29/17 Range/Units 13:45 14:03 14:03 WBC 14.6 H (3.8-10.6) k/uL RBC 4.82 (3.80-5.40) m/uL Hgb 14.5 (11.4-16.0) gm/dL Hct 43.7 (34.0-46.0) % MCV 90.7 (80.0-100.0) fL MCH 30.2 (25.0-35.0) pg MCHC 33.3 (31.0-37.0) g/dL RDW 13.1 (11.5-15.5) % Plt Count 237 (150-450) k/uL Sodium 140 (137-145) mmol/L Potassium 4.3 (3.5-5.1) mmol/L Chloride 106 (98-107) mmol/L Carbon Dioxide 22 (22-30) mmol/L Anion Gap 12 mmol/L BUN 14 (7-17) mg/dL Creatinine 0.93 (0.52-1.04) mg/dL Est GFR (MDRD) Af Amer >60 (>60 ml/min/1.73 sqM) Est GFR (MDRD) Non-Af 59 (>60 ml/min/1.73 sqM) Glucose 221 H (74-99) mg/dL Calcium 9.7 (8.4-10.2) mg/dL Total Bilirubin 1.4 H (0.2-1.3) mg/dL AST 55 H (14-36) U/L ALT 50 (9-52) U/L Alkaline Phosphatase 83 (38-126) U/L Troponin I (0.000-0.034) ng/mL Total Protein 7.4 (6.3-8.2) g/dL Albumin 4.1 (3.5-5.0) g/dL Amylase 72 (30-110) U/L Lipase 107 (23-300) U/L Urine Color Urine Appearance (Clear) Urine pH (5.0-8.0) Ur Specific [place] (1.001-1.035) Urine Protein (Negative) Urine Glucose (UA) (Negative) Urine Ketones (Negative) Urine Blood (Negative) Urine Nitrite (Negative) Urine Bilirubin (Negative) Urine Urobilinogen (<2.0) mg/dL Ur Leukocyte Esterase (Negative) Urine RBC (0-5) /hpf Urine WBC (0-5) /hpf Ur Squamous Epith Cells (0-4) /hpf Hyaline Casts (0-2) /lpf Urine Mucus (None) /hpf Influenza Type A RNA Not Detected (Not Detectd) Influenza Type B (PCR) Not Detected (Not Detectd) 01/29/17 01/29/17 Range/Units 14:03 14:03 WBC (3.8-10.6) k/uL RBC (3.80-5.40) m/uL Hgb (11.4-16.0) gm/dL Hct (34.0-46.0) % MCV (80.0-100.0) fL MCH (25.0-35.0) pg MCHC (31.0-37.0) g/dL RDW (11.5-15.5) % Plt Count (150-450) k/uL Sodium (137-145) mmol/L Potassium (3.5-5.1) mmol/L Chloride (98-107) mmol/L Carbon Dioxide (22-30) mmol/L Anion Gap mmol/L BUN (7-17) mg/dL Creatinine (0.52-1.04) mg/dL Est GFR (MDRD) Af Amer (>60 ml/min/1.73 sqM) Est GFR (MDRD) Non-Af (>60 ml/min/1.73 sqM) Glucose (74-99) mg/dL Calcium (8.4-10.2) mg/dL Total Bilirubin (0.2-1.3) mg/dL AST (14-36) U/L ALT (9-52) U/L Alkaline Phosphatase (38-126) U/L Troponin I <0.012 (0.000-0.034) ng/mL Total Protein (6.3-8.2) g/dL Albumin (3.5-5.0) g/dL Amylase (30-110) U/L Lipase (23-300) U/L Urine Color Yellow Urine Appearance Cloudy H (Clear) Urine pH 7.0 (5.0-8.0) Ur Specific [place] 1.016 (1.001-1.035) Urine Protein 1+ H (Negative) Urine Glucose (UA) Negative (Negative) Urine Ketones 2+ H (Negative) Urine Blood Negative (Negative) Urine Nitrite Negative (Negative) Urine Bilirubin Negative (Negative) Urine Urobilinogen <2.0 (<2.0) mg/dL Ur Leukocyte Esterase Negative (Negative) Urine RBC 1 (0-5) /hpf Urine WBC 3 (0-5) /hpf Ur Squamous Epith Cells 4 (0-4) /hpf Hyaline Casts 13 H (0-2) /lpf Urine Mucus Rare H (None) /hpf Influenza Type A RNA (Not Detectd) Influenza Type B (PCR) (Not Detectd) Disposition <Domo Lewis - Last Filed: 01/29/17 14:57> <Faustino Manning - Last Filed: 01/29/17 15:03> Clinical Impression: Left lower lobe pneumonia, Dehydration, Nausea & vomiting Disposition: ADMITTED IP TO THIS [facility] Condition: Fair Referrals: Johann Burnette III, MD [Primary Care Provider] - 1-2 days
[2017-01-29 14:24] LABS: ALT 50 U/L (9-52); AST 55 U/L (14-36); Alkaline Phosphatase 83 U/L (38-126); Amylase 72 U/L (30-110); Anion Gap 12 mmol/L; Appearance,Urine Cloudy (Clear); Bilirubin,Urine Negative (Negative); Blood Urea Nitrogen 14 mg/dL (7-17); Calcium 9.7 mg/dL (8.4-10.2); Carbon Dioxide 22 mmol/L (22-30); Chloride 106 mmol/L (98-107); Glucose 221 mg/dL (74-99); Glucose,Urine (UA) Negative (Negative); Ketones,Urine 2+ (Negative); Leukocyte Esterase,Urine Negative (Negative); Mucus,Urine Rare /hpf; Nitrite,Urine Negative (Negative); Non-African American GFR(MDRD) 59 (>60 ml/min/1.73 sqM); Particle Count 7159; Potassium 4.3 mmol/L (3.5-5.1); Protein,Urine 1+ (Negative); RBC,Urine 1 /hpf (0-5); Sodium 140 mmol/L (137-145); Specific Gravity,Urine 1.016 (1.001-1.035); Squamous Epithelial Cell,Urine 4 /hpf (0-4); Total Bilirubin 1.4 mg/dL (0.2-1.3); Total Protein 7.4 g/dL (6.3-8.2); UA Billing (MACRO vs. MICRO) MICRO; Urobilinogen,Urine <2.0 mg/dL (<2.0); WBC,Urine 3 /hpf (0-5)
[2017-01-29 14:38] LABS: CH 29.9; CHCM 33.1; HCT 43.7 % (34.0-46.0); HDW 2.31; HGB 14.5 gm/dL (11.4-16.0); Immature Gran Flag Moderate; MCH 30.2 pg (25.0-35.0); MCHC 33.3 g/dL (31.0-37.0); MCV 90.7 fL (80.0-100.0); RBC 4.82 m/uL (3.80-5.40); RDW 13.1 % (11.5-15.5); WBC 14.6 k/uL (3.8-10.6); WBC (Perox) 14.78
--- NOTE | 2017-01-29 14:43 | XR ---
EXAMINATION TYPE: XR KUB DATE OF EXAM: 01/29/2017 2:29 PM COMPARISON: NONE INDICATION: Pain TECHNIQUE: Single view abdomen upright view FINDINGS: There is limited bowel gas present. No suspicious air-fluid levels are present. Psoas margins are normal. No organomegaly is present. IMPRESSION: 1. Unremarkable Abdomen
--- NOTE | 2017-01-29 14:44 | XR ---
EXAMINATION TYPE: XR chest 2V DATE OF EXAM: 01/29/2017 2:29 PM COMPARISON: 10/27/2016 HISTORY: 72-year-old female with pain TECHNIQUE: PA and lateral views FINDINGS: The cardiomediastinal silhouette, aorta, and pulmonary vasculature are within normal limits. Mild int erstitial prominence has a chronic appearance. However, there is patchy infiltrate seen at the lower left lung new from prior. No pleural effusion. IMPRESSION: Correlate for developing left basilar pneumonia.
[2017-01-29] MEDS ORDERED: LEVOFLOXACIN 750MG-D5W PMX 750 MG in DEXTROSE/WATER 1 150ML.BAG IVPB STA (14:58)
[2017-01-29] MEDS ORDERED: PNEUMONIA PROTOCOL UTILIZED 1 EACH MISC PO PRN (14:58)
[2017-01-29 15:04] LABS: Add Differential Manual Differential
[2017-01-29 15:08] LABS: Nucleated Red Blood Cells 0 /100 WBC (0-0); Total Cells Counted 100
[2017-01-29 15:09] LABS: Manual Review Performed
[2017-01-29] MEDS: SODIUM CHLORIDE 0.9% 1,000 ML IV SCH (15:35)
[2017-01-29] MEDS: ALBUTEROL NEBULIZED 2.5 MG/3 ML INHALATION PRN ×2 (15:58→19:26)
[2017-01-29 17:03] LABS: Glucose,Whole Blood 179 mg/dL (75-99)
[2017-01-29] MEDS: INSULIN LISPRO (humaLOG) 300 UNIT/3 ML VIAL SQ SCH ×2 (17:49→21:38)
[2017-01-29 18:49] VITALS: BMI 37.2
[2017-01-29 18:49] LABS: Hemoglobin A1C 6.9 % (4.2-6.1)
[2017-01-29 18:57] LABS: INR 1.1 (<1.1); Prothrombin Time 11.3 sec (9.0-12.0)
[2017-01-29] MEDS ORDERED: CALCIUM CARBONATE 500 MG CHEWABLE PO PRN (19:00)
[2017-01-29] MEDS ORDERED: SODIUM CHLORIDE 0.9% 500 ML IV ONE (19:13)
[2017-01-29 20:32] LABS: Glucose,Whole Blood 126 mg/dL (75-99)
[2017-01-29] MEDS: PANTOPRAZOLE 40 MG TABLET PO SCH (20:53)
[2017-01-29] MEDS ORDERED: FAMOTIDINE 20 MG TAB PO SCH (21:00)
[2017-01-30] MEDS: SODIUM CHLORIDE 0.9% 1,000 ML IV SCH ×2 (03:43→12:06)
[2017-01-30] MEDS ORDERED: THYROID, PORK 30 MG TAB PO SCH (06:30)
[2017-01-30 07:44] LABS: Glucose,Whole Blood 86 mg/dL (75-99)
[2017-01-30 08:40] VITALS: BP 123/69; PULSE 88; RESP 19; TEMP 98.4
[2017-01-30] MEDS ORDERED: GLIMEPIRIDE 0.5 MG TAB PO SCH (09:00)
[2017-01-30] MEDS ORDERED: ASPIRIN 81 MG CHEW PO SCH (09:00)
[2017-01-30] MEDS ORDERED: ATORVASTATIN 20 MG TAB PO SCH (09:00)
[2017-01-30] MEDS ORDERED: LOSARTAN 25 MG TAB PO SCH (09:00)
[2017-01-30] MEDS ORDERED: NON-FORMULARY DRUG (Biotin [Biotin] 5 MG) PO SCH (09:00)
[2017-01-30] MEDS ORDERED: LINAGLIPTIN 5 MG TABLET PO SCH (09:00)
[2017-01-30] MEDS: INSULIN LISPRO (humaLOG) 300 UNIT/3 ML VIAL SQ SCH ×2 (09:22→12:04)
[2017-01-30] MEDS: PANTOPRAZOLE 40 MG TABLET PO SCH (09:24)
--- NOTE | 2017-01-30 10:35 | XR ---
EXAMINATION TYPE: XR chest 2V DATE OF EXAM: 01/30/2017 10:13 AM COMPARISON: 01/29/2017 TECHNIQUE: PA and lateral views submitted. HISTORY: Pneumonia FINDINGS: Subsegmental consolidation persists within the left lower lobe. No pleural effusion or pneumothorax. Heart size normal. No overt failure. Hypertrophic and degenerative change of the spine. IMPRESSION: 1. There are persistent subsegmental changes involving the left lower lobe. Atelectasis versus early infiltrate. Correlate clinically.
[2017-01-30] MEDS ORDERED: CYANOCOBALAMIN 500 MCG TAB PO SCH (12:00)
[2017-01-30] MEDS ORDERED: MULTIVITAMINS, THERA 1 EACH TAB PO SCH (12:00)
[2017-01-30] MEDS ORDERED: CHOLECALCIFEROL 1,000 UNIT TAB PO SCH (12:00)
[2017-01-30 12:01] LABS: Glucose,Whole Blood 106 mg/dL (75-99)
--- NOTE | 2017-01-30 13:19 | HP ---
DATE OF ADMISSION: 01/29/2017 This dictation is both H&P and discharge summary. HISTORY AND PHYSICAL EXAMINATION/DISCHARGE SUMMARY: The patient is a 72-year-old came in with complaints of nausea, vomiting which started yesterday, which lasted for about 12 hours. Denied any abdominal pain. Patient had gastroesophageal sleeve surgery because of which she called Dr. Kumar who asked her to go to the ER and get IV fluid hydration and patient was found to have low-grade fever and some atelectasis on the chest x-ray of the lung, because of which patient was admitted for possibility of pneumonia. Although I looked up the images of the chest x-ray. My suspicion is low for pneumonia and patient does not have any clinical signs of symptoms. Patient has very minimal cough with whitish sputum production. Patient has an atelectasis in the left lower lung field. Patient does not have any clinical bronchophony or egophony. Patient mostly does not have pneumonia. Her low-grade fever may be related to gastroenteritis and lactic acidosis, may be related to intravascular volume depletion. She received IV fluids and nausea, vomiting, resolved. Patient will be discharge today. We will empirically give her 5 more days of levofloxacin. Although the suspicion is low, I cannot completely rule out pneumonia. Because of that reason, I will go ahead and give her 5 more days of antibiotic completing seven day course of therapy. REVIEW OF SYSTEMS: CONSTITUTIONAL: No fever, no malaise, no fatigue. HEENT: No recent visual problems or hearing problems. Denied any sore throat. CARDIOVASCULAR: No chest pain, orthopnea, PND, no palpitations, no syncope. PULMONARY: As described in HPI. GASTROINTESTINAL: As described in HPI. NEUROLOGICAL: No headaches, no weakness, no numbness. HEMATOLOGICAL: Denies any bleeding or petechiae. GENITOURINARY: Denies any burning micturition, frequency, or urgency. MUSCULOSKELETAL/RHEUMATOLOGICAL: Denies any joint pain, swelling, or any muscle pain. ENDOCRINE: Denies any polyuria or polydipsia. The rest of the 14 point review of systems is negative. Medications: 1. Aspirin. 2. Atorvastatin. 3. Cyanocobalamin. 4. Omeprazole. 5. Januvia. 6. Ranitidine. 7. ( ). 8. Glimepiride. 9. [place] thyroid. 10. Calcium bicarbonate. 11. Losartan. 12. Multivitamins. ALLERGIES: ADHESIVE TAPE, PENICILLIN, INVOKANA, METFORMIN. PAST MEDICAL HISTORY: Significant for diabetes mellitus, gastroesophageal reflux disease, hyperlipidemia, hypothyroidism. Patient has basal cell cancer and thyroid nodule in the past. Patient had of bariatric surgery, breast surgery, gastric band surgery followed by gastric sleeve. SOCIAL HISTORY: Denied any smoking, alcohol abuse or any drug abuse. FAMILY HISTORY: Mother had DVT and breast cancer. Father had leukemia and daughter of breast cancer. PHYSICAL EXAMINATION: Temperature 98.4, pulse of 88, respiratory rate of 19, blood pressure is 123/69, saturating at 94% on room air. GENERAL: The patient is alert and oriented x3, not in any acute distress. Well developed, well nourished. HEENT: Pupils are round and equally reacting to light. EOMI. No scleral icterus. No conjunctival pallor. Normocephalic, atraumatic. No pharyngeal erythema. No thyromegaly. CARDIOVASCULAR: S1 and S2 present. No murmurs, rubs, or gallops. PULMONARY: Chest is clear to auscultation, no wheezing or crackles. ABDOMEN: Soft, nontender, nondistended, normoactive bowel sounds. No palpable organomegaly. MUSCULOSKELETAL: No joint swelling or deformity. EXTREMITIES: No cyanosis, clubbing, or pedal edema. NEUROLOGICAL: Gross neurological examination did not reveal any focal deficits. SKIN: No rashes. LABORATORY DATA: CBC, CMP are abnormal for leukocytosis of 14,600, which is reactive secondary to gastroenteritis, UA showed rare mucus, 2+ ketones, which appears to be starvation ketosis, hemoglobin Alc is 6.9, lactic acid yesterday was 2.4, now 1.0. ASSESSMENT AND PLAN: 1. Systemic inflammatory syndrome secondary to probable gastroenteritis which resolved at this point of time and patient will be discharged today to follow up with primary care physician Dr. Tray Burnette as an outpatient. 2. Low probability of community-acquired pneumonia, empiric antibiotics as mentioned above. 3. Type 2 diabetes mellitus. 4. Patient's blood sugars are fairly controlled and hemoglobin A1C is at the target of 6.9 and patient will continue her home regimen. Follow with Dr. Burnette as outpatient and ADA 1800 calorie diet. 5. Gastroesophageal reflux disease. 6. Possible hypertension. 7. Hyperthyroidism. Patient will be discharged today. DISCHARGE DIET: Cardiac and ADA 1800 calorie diet. Follow-up with Dr. Tray Burnette in 3 to 5 days and patient will be discharged on very on 5 more days of levofloxacin as mentioned above. This dictation is both H&P and discharge summary. As mentioned above my suspicion is significantly low for pneumonia.
[2017-01-30] MEDS ORDERED: LEVOFLOXACIN 750MG-D5W PMX 750 MG in DEXTROSE/WATER 1 150ML.BAG IVPB SCH (15:00)
[2017-01-31] MEDS ORDERED: LEVOFLOXACIN 750 MG TAB PO SCH (09:00)
== END 2017-01-30 14:16 | disposition home or self-care (01) | DRG 391 ==
LOC: EC 13:21 → 4MS4W 15:03
PROVIDERS: ADMIT Hospitalist; ATTEND Hospitalist
DX: K52.9 Noninfective gastroenteritis and colitis, unspecified (principal); J18.9 Pneumonia, unspecified organism; J98.11 Atelectasis; E11.9 Type 2 diabetes mellitus without complications; E86.0 Dehydration; E03.9 Hypothyroidism, unspecified; E78.5 Hyperlipidemia, unspecified; K21.9 Gastro-esophageal reflux disease without esophagitis; I10 Essential (primary) hypertension; Z79.82 Long term (current) use of aspirin; Z79.899 Other long term (current) drug therapy; Z79.84 Long term (current) use of oral hypoglycemic drugs; Z85.828 Personal history of other malignant neoplasm of skin; Z88.0 Allergy status to penicillin; Z88.8 Allergy status to other drugs, medicaments and biological substances
CPT/HCPCS: 36415; 71020; 74000; 80053; 81001; 82150; 83036; 83605; 83690; 84484; 85025; 85610; 87040; 87502; 94640; 96361; 96365; 96366; 96375; 99285

== ENCOUNTER → 2017-02-04 | Outpatient (CLI) | payer MEDICARE, BC ==
--- NOTE | 2017-02-04 12:29 | XR ---
EXAMINATION TYPE: XR chest 2V DATE OF EXAM: 02/04/2017 9:59 AM COMPARISON: Prior chest x-ray 30 January 2017 HISTORY: Lobar pneumonia TECHNIQUE: Frontal and lateral views of the chest are obtained. FINDINGS: There is no pleural effusion, or pneumothorax seen. The cardiac silhouette size is within normal limits. Patient is rotated. Patchy density again noted at the left lung base. The osseous s tructures are intact. IMPRESSION: There is some improvement in aeration as compared to prior exam.
== END | disposition home or self-care (01) ==
LOC: RADXRMAIN 09:46
PROVIDERS: ATTEND Nurse Practitioner Family
DX: J18.1 Lobar pneumonia, unspecified organism (principal)
CPT/HCPCS: 71020

== ENCOUNTER → 2017-02-10 | Outpatient (CLI) | payer MEDICARE, BC ==
--- NOTE | 2017-02-10 11:35 | XR ---
EXAMINATION TYPE: XR chest 2V DATE OF EXAM: 02/10/2017 9:51 AM COMPARISON: Prior chest x-ray 04 Feb 2017 HISTORY: Asthma, lobar pneumonia TECHNIQUE: Frontal and lateral views of the chest are obtained. FINDINGS: There is improved aeration as compared to previous exam. No other significant changes. IMPRESSION: Improved aeration.
== END | disposition home or self-care (01) ==
LOC: RADXRMAIN 09:37
PROVIDERS: ATTEND Family Medicine
DX: J45.909 Unspecified asthma, uncomplicated (principal); J18.1 Lobar pneumonia, unspecified organism
CPT/HCPCS: 71020

== ENCOUNTER → 2017-02-27 | Outpatient (CLI) | payer MEDICARE, BC ==
--- NOTE | 2017-02-27 13:08 | CT ---
EXAMINATION TYPE: CT chest wo con DATE OF EXAM: 02/27/2017 12:03 PM COMPARISON: NONE HISTORY: Abnormal findings on lung field CT DLP: 556.4 mGycm Automated exposure control for dose reduction was used. FINDINGS: Patient is status post right hemithyroidectomy, suspect goiter present on the left. There are coronar y artery calcifications, possible mitral annular calcification, aortic root calcification. Pulmonary artery is somewhat prominent. Postop change noted to the gastroesophageal junction, there may be dist al esophageal dilation or hiatal hernia. Minimal bronchiectasis present at the left lung base. No significant residual airspace disease. No en dobronchial lesion, pleural or pericardial effusion. Patient is post cholecystectomy. No mediastinal, axillary, or hilar adenopathy. Degenerative disc changes in the visualized spine. IMPRESSION: BRONCHIECTASIS. POSTOP CHANGES. CORRELATE FOR POSSIBLE PULMONARY ARTERY HYPERTENSION. CORONARY ARTERY DISEASE AND ADDITIONAL FINDINGS ABOVE.
== END | disposition home or self-care (01) ==
LOC: RADCTMAIN 11:30
PROVIDERS: ATTEND Family Medicine
DX: J47.9 Bronchiectasis, uncomplicated (principal); I25.10 Atherosclerotic heart disease of native coronary artery without angina pectoris
CPT/HCPCS: 71250

== ENCOUNTER 2017-03-13 09:20 | Inpatient (IN) | payer MEDICARE, BC ==
[2017-03-13] MEDS ORDERED: SODIUM CHLORIDE 0.9% 1,000 ML IV STA (10:13)
[2017-03-13] MEDS ORDERED: ONDANSETRON 4 MG/2 ML VIAL IVP STA (10:13)
[2017-03-13] MEDS ORDERED: SODIUM CHLORIDE 0.9% 500 ML IV STA (10:13)
[2017-03-13] MEDS ORDERED: PANTOPRAZOLE 40 MG/10 ML VIAL IVP STA (10:14)
[2017-03-13] MEDS ORDERED: ACETAMINOPHEN IV (For NPO) 1,000 MG in SALINE 100 100ML.BAG IVPB STA (10:20)
--- NOTE | 2017-03-13 10:20 | ED ---
General Adult HPI <Chivo Koroma - Last Filed: 03/13/17 12:16> - General Source: patient, RN notes reviewed Mode of arrival: ambulatory Limitations: no limitations <Alec Lopez - Last Filed: 03/13/17 12:39> - General Chief complaint: Nausea/Vomiting/Diarrhea Stated complaint: Vomiting Time Seen by Provider: 03/13/17 10:07 - History of Present Illness Initial comments: Patient 72-year-old female who presents emergency room today with a chief complaint of increased abdominal pain with symptoms of nausea vomiting. Does admit to a history of a gastric sleeve. States that she's had some symptoms of nausea vomiting that started yesterday. Does admit to some acid reflux type pain locally to the epigastric area that radiates up. Patient does admit that she had similar symptoms approximately a month ago was hospitalized due to sepsis and pneumonia at that time. Patient denies any other complaints or symptoms at this time. Patient denies any recent shortness of breath, chest pain , back pain, numbness or tingling, dysuria or hematuria, constipation or diarrhea, headaches or visual changes, or any other complaints. (Alec Lopez) - Related Data Home Medications Medication Instructions Recorded Confirmed Aspirin 81 mg PO DAILY 02/01/15 03/13/17 Atorvastatin [Lipitor] 20 mg PO DAILY 02/01/15 03/13/17 Cyanocobalamin [Vitamin B-12] 500 mcg PO DAILY 02/01/15 03/13/17 Omeprazole 40 mg PO DAILY 02/01/15 03/13/17 sitaGLIPtin [Januvia] 100 mg PO DAILY 02/01/15 03/13/17 Ranitidine HCl [Zantac] 150 mg PO HS 02/19/15 03/13/17 Ciclesonide [Alvesco] 1 puff INHALATION RT-BID PRN 01/08/16 03/13/17 Glimepiride [Amaryl] 0.5 mg PO QAM 03/14/16 03/13/17 Thyroid,Pork [[place] Thyroid] 15 mg PO DAILY 05/12/16 03/13/17 Calcium Carbonate [Tums] 750 mg PO QID PRN 06/24/16 03/13/17 Losartan Potassium [Cozaar] 25 mg PO DAILY 03/24/17 06/09/17 Multivitamins, Thera [Multivitamin 1 tab PO DAILY 12/26/16 03/13/17 (formulary)] Biotin 10,000 mcg PO DAILY 03/13/17 03/13/17 Cholecalciferol (Vitamin D3) 10,000 unit PO DAILY 03/13/17 03/13/17 [Vitamin D3] Allergies Allergy/AdvReac Type Severity Reaction Status Date / Time adhesive Allergy Rash/Hives Verified 03/13/17 10:17 adhesive tape Allergy Rash/Hives Verified 03/13/17 10:17 Penicillins Allergy Diarrhea Verified 03/13/17 10:17 canagliflozin [From Invokana] AdvReac BLADDER Verified 03/13/17 10:17 INFECTION metformin AdvReac Nausea & Verified 03/13/17 10:17 Vomiting Review of Systems ROS Other: All systems not noted in ROS Statement are negative. <Chivo Koroma - Last Filed: 03/13/17 12:16> ROS Other: All systems not noted in ROS Statement are negative. <Alec Lopez - Last Filed: 03/13/17 12:39> ROS Statement: Those systems with pertinent positive or pertinent negative responses have been documented in the HPI. Past Medical History Past Medical History: Cancer, Diabetes Mellitus, GERD/Reflux, Hyperlipidemia, Pneumonia, Thyroid Disorder Additional Past Medical History / Comment(s): Hx of Basal cell skin cancer, thyroid nodules, Pneumonia (nov 2016) History of Any Multi-Drug Resistant Organisms: None Reported Past Surgical History: Bariatric Surgery, Breast Surgery, Cholecystectomy, Hysterectomy Additional Past Surgical History / Comment(s): Lap band-inserted and removed, gastric sleeve, tummy tuck, skin cancer removal, right labia reduction , bilateral reduction upper thighs , thyroid biopsy, Right Thyroidectomy., Colonoscopy, Bronchoscopy, EGD. ira eye lid surgery, mult breast lumpectomy., EGD AND DILATION (12/29/16) Past Anesthesia/Blood Transfusion Reactions: Family History of Problems w/ Anesthesia, Motion Sickness, Postoperative Nausea & Vomiting (PONV) Additional Past Anesthesia/Blood Transfusion Reaction / Comment(s): mother= ponv Past Psychological History: No Psychological Hx Reported Smoking Status: Never smoker Past Alcohol Use History: None Reported Past Drug Use History: None Reported - Past Family History Mother Family Medical History: Cancer, Deep Vein Thrombosis (DVT) Additional Family Medical History / Comment(s): breast ca, Father Family Medical History: Cancer Additional Family Medical History / Comment(s): leukemia Daughter(s) Family Medical History: Cancer Additional Family Medical History / Comment(s): from breast ca <Alec Lopez - Last Filed: 03/13/17 12:39> General Exam <Chivo Koroma - Last Filed: 03/13/17 12:16> Limitations: no limitations <Alec Lopez - Last Filed: 03/13/17 12:39> - General Exam Comments Initial Comments: General: The patient is awake and alert, in no distress, and does not appear acutely ill. Eye: Pupils are equal, round and reactive to light, extra-ocular movements are intact. No nystagmus. There is normal conjunctiva bilaterally. No signs of icterus. Ears, nose, mouth and throat: There are moist mucous membranes and no oral lesions. Neck: The neck is supple, there is no tenderness or JVD. Cardiovascular: There is a regular rate and rhythm. No murmur, rub or gallop is appreciated. Respiratory: Lungs are clear to auscultation, respirations are non-labored, breath sounds are equal. No wheezes, stridor, rales, or rhonchi. Gastrointestinal: Normal appearance them. Normal bowel sounds. Abdomen soft on palpation. Patient does have tenderness epigastric. No rebound tenderness. No guarding. No CVA tenderness. Musculoskeletal: Normal ROM, no tenderness. Strength 5/5. Sensation intact. Pulses equal bilaterally 2+. Neurological: A&O x 3. CN II-XII intact, There are no obvious motor or sensory deficits. Coordination appears grossly intact. Speech is normal. Skin: Skin is warm and dry and no rashes or lesions are noted. Psychiatric: Cooperative, appropriate mood & affect, normal judgment. (Alec Lopez) Medical Decision Making - Lab Data Result diagrams: 03/13/17 10:20 03/13/17 10:20 <Chivo Koroma - Last Filed: 03/13/17 12:16> - Lab Data Result diagrams: 03/13/17 10:20 03/13/17 10:20 <Alec Lopez - Last Filed: 03/13/17 12:39> - Medical Decision Making The patient was seen and examined. All diagnostics were reviewed. This felt as though she would benefit from admission to the hospital. The case will be discussed with internal medicine in the near future. The case is discussed with the PA and I agree with the findings as documented. (Chivo Koroma) - Lab Data Lab Results 03/13/17 03/13/17 03/13/17 Range/Units 10:20 10:20 10:20 WBC 14.2 H (3.8-10.6) k/uL RBC 5.10 (3.80-5.40) m/uL Hgb 15.5 (11.4-16.0) gm/dL Hct 47.8 H (34.0-46.0) % MCV 93.8 (80.0-100.0) fL MCH 30.4 (25.0-35.0) pg MCHC 32.5 (31.0-37.0) g/dL RDW 13.3 (11.5-15.5) % Plt Count 202 (150-450) k/uL Neutrophils % 91 % Lymphocytes % 4 % Monocytes % 4 % Eosinophils % 1 % Basophils % 0 % Neutrophils # 12.8 H (1.3-7.7) k/uL Lymphocytes # 0.5 L (1.0-4.8) k/uL Monocytes # 0.5 (0-1.0) k/uL Eosinophils # 0.2 (0-0.7) k/uL Basophils # 0.0 (0-0.2) k/uL Manual Slide Review Performed Poikilocytosis (manual Present PT (9.0-12.0) sec INR (<1.1) APTT (22.0-30.0) sec Sodium 141 (137-145) mmol/L Potassium 4.2 (3.5-5.1) mmol/L Chloride 106 (98-107) mmol/L Carbon Dioxide 21 L (22-30) mmol/L Anion Gap 14 mmol/L BUN 13 (7-17) mg/dL Creatinine 0.78 (0.52-1.04) mg/dL Est GFR (MDRD) Af Amer >60 (>60 ml/min/1.73 sqM) Est GFR (MDRD) Non-Af >60 (>60 ml/min/1.73 sqM) Glucose 169 H (74-99) mg/dL Plasma Lactic Acid Evin (0.7-2.0) mmol/L Calcium 9.5 (8.4-10.2) mg/dL Total Bilirubin 1.2 (0.2-1.3) mg/dL AST 24 (14-36) U/L ALT 19 (9-52) U/L Alkaline Phosphatase 86 (38-126) U/L Total Creatine Kinase 76 (30-135) U/L CK-MB (CK-2) 1.5 (0.0-2.4) ng/mL CK-MB (CK-2) Rel Index 2.0 Troponin I <0.012 (0.000-0.034) ng/mL Total Protein 7.6 (6.3-8.2) g/dL Albumin 4.3 (3.5-5.0) g/dL Amylase 79 (30-110) U/L Urine Color Urine Appearance (Clear) Urine pH (5.0-8.0) Ur Specific [place] (1.001-1.035) Urine Protein (Negative) Urine Glucose (UA) (Negative) Urine Ketones (Negative) Urine Blood (Negative) Urine Nitrite (Negative) Urine Bilirubin (Negative) Urine Urobilinogen (<2.0) mg/dL Ur Leukocyte Esterase (Negative) Urine RBC (0-5) /hpf Urine WBC (0-5) /hpf Ur Squamous Epith Cells (0-4) /hpf Urine Mucus (None) /hpf 03/13/17 03/13/17 03/13/17 Range/Units 10:20 10:20 11:33 WBC (3.8-10.6) k/uL RBC (3.80-5.40) m/uL Hgb (11.4-16.0) gm/dL Hct (34.0-46.0) % MCV (80.0-100.0) fL MCH (25.0-35.0) pg MCHC (31.0-37.0) g/dL RDW (11.5-15.5) % Plt Count (150-450) k/uL Neutrophils % % Lymphocytes % % Monocytes % % Eosinophils % % Basophils % % Neutrophils # (1.3-7.7) k/uL Lymphocytes # (1.0-4.8) k/uL Monocytes # (0-1.0) k/uL Eosinophils # (0-0.7) k/uL Basophils # (0-0.2) k/uL Manual Slide Review Poikilocytosis (manual PT 10.0 (9.0-12.0) sec INR 1.0 (<1.1) APTT 18.1 L (22.0-30.0) sec Sodium (137-145) mmol/L Potassium (3.5-5.1) mmol/L Chloride (98-107) mmol/L Carbon Dioxide (22-30) mmol/L Anion Gap mmol/L BUN (7-17) mg/dL Creatinine (0.52-1.04) mg/dL Est GFR (MDRD) Af Amer (>60 ml/min/1.73 sqM) Est GFR (MDRD) Non-Af (>60 ml/min/1.73 sqM) Glucose (74-99) mg/dL Plasma Lactic Acid Evin 2.1 H (0.7-2.0) mmol/L Calcium (8.4-10.2) mg/dL Total Bilirubin (0.2-1.3) mg/dL AST (14-36) U/L ALT (9-52) U/L Alkaline Phosphatase (38-126) U/L Total Creatine Kinase (30-135) U/L CK-MB (CK-2) (0.0-2.4) ng/mL CK-MB (CK-2) Rel Index Troponin I (0.000-0.034) ng/mL Total Protein (6.3-8.2) g/dL Albumin (3.5-5.0) g/dL Amylase (30-110) U/L Urine Color Yellow Urine Appearance Cloudy H (Clear) Urine pH 6.5 (5.0-8.0) Ur Specific [place] 1.025 (1.001-1.035) Urine Protein 1+ H (Negative) Urine Glucose (UA) Negative (Negative) Urine Ketones Negative (Negative) Urine Blood Negative (Negative) Urine Nitrite Negative (Negative) Urine Bilirubin Negative (Negative) Urine Urobilinogen <2.0 (<2.0) mg/dL Ur Leukocyte Esterase Negative (Negative) Urine RBC 1 (0-5) /hpf Urine WBC 2 (0-5) /hpf Ur Squamous Epith Cells 7 H (0-4) /hpf Urine Mucus Rare H (None) /hpf Disposition <Chivo Koroma - Last Filed: 03/13/17 12:16> Time of Disposition: 12:09 <Alec Lopez - Last Filed: 03/13/17 12:39> Clinical Impression: Pneumonia Disposition: ADMITTED IP TO THIS HOSP Condition: Good Referrals: Johann Burnette III, MD [Primary Care Provider] - 1-2 days
[2017-03-13] MEDS ORDERED: ACETAMINOPHEN IV (For NPO) 1,000 MG in SALINE 1 100ML.BAG IVPB STA (10:27)
[2017-03-13 10:42] LABS: Basophils % (A) 0 %; CH 30.7; CHCM 32.8; Eosinophils # (A) 0.2 k/uL (0-0.7); Eosinophils % (A) 1 %; HCT 47.8 % (34.0-46.0); HDW 2.32; HGB 15.5 gm/dL (11.4-16.0); Immature Gran Flag Slight; Luc # (Auto) 0.08; Luc % (Auto) 1; Lymphocytes # (A) 0.5 k/uL (1.0-4.8); Lymphocytes % (A) 4 %; MCH 30.4 pg (25.0-35.0); MCHC 32.5 g/dL (31.0-37.0); MCV 93.8 fL (80.0-100.0); Mean Platelet Volume 7.3; Monocytes # (A) 0.5 k/uL (0-1.0); Monocytes % (A) 4 %; Neutrophils # (A) 12.8 k/uL (1.3-7.7); Neutrophils % (A) 91 %; RDW 13.3 % (11.5-15.5); WBC 14.2 k/uL (3.8-10.6); WBC (Perox) 13.68
--- NOTE | 2017-03-13 11:00 | XR ---
EXAMINATION TYPE: XR chest 2V DATE OF EXAM: 03/13/2017 COMPARISON: Chest x-ray February 10, 2017. HISTORY: Chest pain per order. Fever. TECHNIQUE: Frontal and lateral views of the chest are obtained. FINDINGS: There is new airspace opacity left lower lung confirmed on 2 views more prominent in the l ingula of the left lower lobe component is suspected. No pleural effusion or pneumothorax is seen bi laterally. New silhouetting of left heart border is noted. Right lung remains clear. The cardiac silh ouette size is within normal limits. The osseous structures are intact. IMPRESSION: New lingular and to lesser degree left lower lobe infiltrates.
[2017-03-13 11:02] LABS: ALT 19 U/L (9-52); AST 24 U/L (14-36); Alkaline Phosphatase 86 U/L (38-126); Amylase 79 U/L (30-110); Anion Gap 14 mmol/L; Blood Urea Nitrogen 13 mg/dL (7-17); Calcium 9.5 mg/dL (8.4-10.2); Carbon Dioxide 21 mmol/L (22-30); Chloride 106 mmol/L (98-107); Glucose 169 mg/dL (74-99); Non-African American GFR(MDRD) >60 (>60 ml/min/1.73 sqM); Potassium 4.2 mmol/L (3.5-5.1); Sodium 141 mmol/L (137-145); Total Bilirubin 1.2 mg/dL (0.2-1.3); Total Protein 7.6 g/dL (6.3-8.2)
[2017-03-13 11:03] LABS: Manual Review Performed
--- NOTE | 2017-03-13 11:04 | XR ---
Abdomen HISTORY: Nausea and vomiting and fever Comparison to chest x-ray same date Frontal view of the abdomen on 2 images There is abnormal increased density seen along the lingula. Surgical clips are present in the right u pper quadrant. There is no pneumoperitoneum or bowel obstruction. The right hemidiaphragm is elevated . No bowel obstruction or pneumoperitoneum IMPRESSION: Left upper lobe pneumonia. Follow-up is recommended.
[2017-03-13 11:05] LABS: Creatine Kinase 76 U/L (30-135)
[2017-03-13 11:16] LABS: Partial Thromboplastin Time 18.1 sec (22.0-30.0)
[2017-03-13 11:17] LABS: Creatine Kinase MB 1.5 ng/mL (0.0-2.4); Troponin I <0.012 ng/mL (0.000-0.034)
[2017-03-13 11:53] LABS: Appearance,Urine Cloudy (Clear); Bilirubin,Urine Negative (Negative); Glucose,Urine (UA) Negative (Negative); Ketones,Urine Negative (Negative); Leukocyte Esterase,Urine Negative (Negative); Mucus,Urine Rare /hpf; Nitrite,Urine Negative (Negative); PH, Urine 6.5 (5.0-8.0); Particle Count 5030; Protein,Urine 1+ (Negative); RBC,Urine 1 /hpf (0-5); Specific Gravity,Urine 1.025 (1.001-1.035); Squamous Epithelial Cell,Urine 7 /hpf (0-4); UA Billing (MACRO vs. MICRO) MICRO; Urobilinogen,Urine <2.0 mg/dL (<2.0); WBC,Urine 2 /hpf (0-5)
[2017-03-13] MEDS ORDERED: LEVOFLOXACIN 750MG-D5W PMX 750 MG in DEXTROSE/WATER 1 150ML.BAG IVPB STA (12:10)
[2017-03-13] MEDS ORDERED: PNEUMONIA PROTOCOL UTILIZED 1 EACH MISC PO PRN (12:10)
[2017-03-13] MEDS ORDERED: IV VANCOMYCIN PER PHARMACY 1 EACH MISC MISCELLANE PRN ×2 (12:20→12:21)
[2017-03-13] MEDS ORDERED: VANCOMYCIN 1,000 MG in SODIUM CHLORIDE 0.9% 250 ML IVPB STA (12:20)
[2017-03-13] MEDS ORDERED: VANCOMYCIN 1,500 MG in SODIUM CHLORIDE 0.9% 250 ML IVPB STA (12:21)
[2017-03-13] MEDS ORDERED: SODIUM CHLORIDE 0.9% 500 ML IV ONE (12:31)
[2017-03-13 14:04] LABS: Glucose,Whole Blood 153 mg/dL (75-99)
[2017-03-13] MEDS: INSULIN LISPRO (humaLOG) 300 UNIT/3 ML VIAL SQ SCH ×2 (17:37→22:43)
[2017-03-13 17:39] LABS: Glucose,Whole Blood 107 mg/dL (75-99)
[2017-03-13 21:06] LABS: Glucose,Whole Blood 109 mg/dL (75-99)
[2017-03-13] MEDS ORDERED: ALPRAZolam 0.25 MG TAB PO PRN (23:18)
[2017-03-13] MEDS ORDERED: HYDROmorphone 1 MG/ML 1 ML SYRINGE IVP PRN (23:18)
[2017-03-13] MEDS ORDERED: HYDROcodone/APAP 5-325MG 1 EACH TAB PO PRN (23:18)
[2017-03-13] MEDS ORDERED: TEMAZEPAM 15 MG CAP PO PRN (23:18)
[2017-03-14] MEDS: VANCOMYCIN 1,500 MG in SODIUM CHLORIDE 0.9% 250 ML IVPB SCH ×2 (00:23→16:27)
[2017-03-14] MEDS: PANTOPRAZOLE 40 MG/10 ML VIAL IVP SCH ×3 (00:23→21:38)
[2017-03-14] MEDS: CALCIUM CARBONATE 500 MG CHEWABLE PO PRN ×4 (04:15→18:40)
[2017-03-14] MEDS: THYROID, PORK 30 MG TAB PO SCH (06:33)
[2017-03-14 07:20] LABS: Glucose,Whole Blood 100 mg/dL (75-99)
[2017-03-14] MEDS: LEVALBUTEROL NEB (CONC) 1.25 MG/0.5 ML AMP INHALATION SCH ×3 (07:28→19:37)
[2017-03-14] MEDS ORDERED: PANTOPRAZOLE 40 MG TABLET PO SCH (07:30)
[2017-03-14] MEDS: INSULIN LISPRO (humaLOG) 300 UNIT/3 ML VIAL SQ SCH ×4 (08:28→21:39)
--- NOTE | 2017-03-14 08:39 | HP ---
DATE OF ADMISSION: 03/13/2017 CHIEF COMPLAINT: Vomiting, and as well as cough and shaking chills. HISTORY OF PRESENT ILLNESS: This 72-year-old woman with a past history of multiple medical problems including hyperlipidemia, history of degenerative joint disease. History of bariatric surgery history of gastric surgery, lap bandings have been removed, history of colonoscopy, history of EGD being followed by Dr. Burnette in the outpatient setting, was recently admitted with pneumonia. The patient vomiting. The patient also had surgery and gastric dilatation by Dr. Kumar. The patient also shaking and chills and the patient was came to [facility] and was admitted for further evaluation and treatment. The patient also had evidence of pneumonia in the left lingular area and left lower lobe and the patient admitted to the hospital for further evaluation and treatment. There is no history of fever, rigors or chills. No history of headache, loss of consciousness or seizures at this time. PAST MEDICAL HISTORY: History of history of bariatric surgery, history of gastric sleeve band, lap band, diabetes, GERD, pneumonia, hypothyroidism, basal cell carcinoma history, history of sepsis. Medications prior to admission home medications are: 1. Alvesco 1 puff b.i.d. p.r.n. 2. TUMS 750 mg q.i.d. p.r.n. 3. Januvia 100 mg p.o. daily. 4. Armor thyroid 150 mg p.o. daily. 5. Zantac 150 mg q6h p.r.n. 6. Omeprazole 40 mg p.o. b.i.d. 7. Multivitamins one p.o. daily. 9. Amaryl 0.5 mg in the morning. . 10. Vitamin B12 500 mcg p.o. daily. 11. Vitamin D3 10,000 daily. 12. Biotin 10,000 daily. 13. Lipitor 20 mg daily. 14. Aspirin 81 mg daily. ALLERGIES: ADHESIVE TAPES, PENICILLIN, INVOKANA, METFORMIN. FAMILY HISTORY: History of cancer, DVT, breast cancer. SOCIAL HISTORY: No history of smoking, no history of alcohol intake. REVIEW OF SYSTEMS: ENT: No diminished hearing or diminished vision. CARDIOVASCULAR: No angina or palpitations. RESPIRATORY: No cough. No hemoptysis. GI: As mentioned earlier. : No dysuria. Nervous system: No numbness or weakness. ALLERGY/IMMUNOLOGY: No asthma or hayfever. MUSCULOSKELETAL: As mentioned earlier. HEMATOLOGY/ONCOLOGY: No history of anemia. ENDOCRINE: Diabetes mellitus. CONSTITUTIONAL: As mentioned earlier. DERMATOLOGY: Negative. RHEUMATOLOGY: Negative. PSYCHIATRY: As mentioned earlier. PHYSICAL EXAMINATION: The patient is alert and oriented times three. Pulse is 86. Blood pressure 96/54, respiratory rate 16, temperature 98.7. Pulse ox is 95% on room air. HEENT: Conjunctivae normal. NECK: No jugular venous distention. CARDIOVASCULAR: S1, S2 muffled. RESPIRATORY: breath sounds diminished at the bases. Bilateral scattered rhonchi and crackles. ABDOMEN: Soft, nontender. No mass palpable. Legs: No edema. No swelling. CENTRAL NERVOUS SYSTEM: Higher functions as mentioned. Moves all four limbs. LYMPHATICS: No lymph nodes palpable in the neck, axillae or groin. SKIN: No ulcer, rash or bleeding. LABS: WBC 14.2, hemoglobin is 15.5, sodium 141, potassium 4.2, plasma lactic acid 2.1. ASSESSMENT: 1. Left-sided pneumonia, left lower lobe and left lingular area with systemic inflammatory response syndrome. 2. Vomiting, possibly gastroesophageal reflux disease. 3. Increased WBC. 4. Diabetes mellitus type 2. 5. Increased plasma lactic acid. 6. History of gastroesophageal reflux disease. 7. History of hyperlipidemia. 8. History of pneumonia, possibly aspiration. 9. History of basal cell carcinoma. 10. History of thyroid nodule. 11. History of bariatric surgery with lap band and subsequent gastric sleeve. 12. Esophagogastroduodenoscopy and dilatations. 13. Obesity with body mass index of 37.9. 14. FULL CODE. RECOMMENDATIONS AND DISCUSSION: In this 72 -year-old woman who presented with multiple complex medical issues, we will monitor the patient closely, continue the current medications. Continue symptomatic treatment. We will continue with broad-spectrum IV antibiotics. Continue to monitor. Would also recommend proton pump inhibitors. Other than that, I would also recommend pulmonary consultation and surgery consultation as well. Prognosis guarded because of multiple complex medical issues. Further recommendations to follow. A copy of this will be forwarded to Dr. Burnette who is the primary physician. She orders for further details. JUDY
[2017-03-14] MEDS ORDERED: NON-FORMULARY DRUG (Biotin [Biotin] 10,000 MCG) PO SCH (09:00)
[2017-03-14] MEDS ORDERED: GLIMEPIRIDE 0.5 MG TAB PO SCH (09:00)
[2017-03-14] MEDS ORDERED: NICOTINE 14MG/24HR PATCH TRANSDERM SCH (09:00)
[2017-03-14 09:26] LABS: Anion Gap 8 mmol/L; Blood Urea Nitrogen 10 mg/dL (7-17); Calcium 8.8 mg/dL (8.4-10.2); Carbon Dioxide 23 mmol/L (22-30); Chloride 109 mmol/L (98-107); Glucose 101 mg/dL (74-99); Non-African American GFR(MDRD) >60 (>60 ml/min/1.73 sqM); Potassium 3.9 mmol/L (3.5-5.1); Sodium 140 mmol/L (137-145)
[2017-03-14 09:56] LABS: Basophils % (A) 0 %; CH 30.3; Eosinophils # (A) 0.1 k/uL (0-0.7); Eosinophils % (A) 1 %; HCT 38.6 % (34.0-46.0); HDW 2.38; HGB 12.9 gm/dL (11.4-16.0); Luc # (Auto) 0.19; Luc % (Auto) 2; Lymphocytes # (A) 2.4 k/uL (1.0-4.8); Lymphocytes % (A) 21 %; MCH 30.7 pg (25.0-35.0); MCHC 33.4 g/dL (31.0-37.0); Mean Platelet Volume 7.5; Monocytes # (A) 0.4 k/uL (0-1.0); Monocytes % (A) 4 %; Neutrophils # (A) 8.4 k/uL (1.3-7.7); Neutrophils % (A) 73 %; RBC 4.19 m/uL (3.80-5.40); WBC 11.5 k/uL (3.8-10.6); WBC (Perox) 12.25
--- NOTE | 2017-03-14 10:08 | P.GSCN ---
History of Present Illness Consult date: 03/14/17 Reason for Consult: Reflux History of present illness: Patient is known to our service. She underwent prior laparoscopic gastric banding and subsequent conversion to sleeve gastrectomy. Apparently she has had intermittent issues of chronic reflux. She has had at least 2 upper endoscopies this year alone where she had dilations performed. She describes ongoing complaints of frequent reflux disease. This usually happens at night. She has had frequent pneumonias. She was hospitalized this admission with a left lower lobe pneumonia. We were consulted for the possibility of aspiration pneumonia and possible upper endoscopy. Patient denies abdominal pain. No chest pain. Review of Systems The patient denies any acute changes in his vision or hearing, no dysphagia or odynophagia, no chest pain, no dysuria or hematuria, no headache, no runny nose , no rectal bleeding or melena, no unexplained weight loss Past Medical History Past Medical History: Cancer, Diabetes Mellitus, GERD/Reflux, Hyperlipidemia, Pneumonia, Thyroid Disorder Additional Past Medical History / Comment(s): Hx of Basal cell skin cancer, thyroid nodules, Pneumonia (nov 2016) History of Any Multi-Drug Resistant Organisms: None Reported Past Surgical History: Bariatric Surgery, Breast Surgery, Cholecystectomy, Hysterectomy Additional Past Surgical History / Comment(s): Lap band-inserted and removed, gastric sleeve, tummy tuck, skin cancer removal, right labia reduction , bilateral reduction upper thighs , thyroid biopsy, Right Thyroidectomy., Colonoscopy, Bronchoscopy, EGD. ira eye lid surgery, mult breast lumpectomy., EGD AND DILATION (12/29/16) Past Anesthesia/Blood Transfusion Reactions: Family History of Problems w/ Anesthesia, Motion Sickness, Postoperative Nausea & Vomiting (PONV) Additional Past Anesthesia/Blood Transfusion Reaction / Comm: mother= ponv Past Psychological History: No Psychological Hx Reported Smoking Status: Never smoker Past Alcohol Use History: None Reported Past Drug Use History: None Reported - Past Family History Mother Family Medical History: Cancer, Deep Vein Thrombosis (DVT) Additional Family Medical History / Comment(s): breast ca, Father Family Medical History: Cancer Additional Family Medical History / Comment(s): leukemia Daughter(s) Family Medical History: Cancer Additional Family Medical History / Comment(s): from breast ca Medications and Allergies Home Medications Medication Instructions Recorded Confirmed Type Aspirin 81 mg PO DAILY 02/01/15 03/13/17 History Atorvastatin [Lipitor] 20 mg PO DAILY 02/01/15 03/13/17 History Cyanocobalamin [Vitamin B-12] 500 mcg PO DAILY 02/01/15 03/13/17 History Omeprazole 40 mg PO DAILY 02/01/15 03/13/17 History sitaGLIPtin [Januvia] 100 mg PO DAILY 02/01/15 03/13/17 History Ranitidine HCl [Zantac] 150 mg PO HS 02/19/15 03/13/17 History Ciclesonide [Alvesco] 1 puff INHALATION RT-BID PRN 01/08/16 03/13/17 History Glimepiride [Amaryl] 0.5 mg PO QAM 03/14/16 03/13/17 History Thyroid,Pork [[place] Thyroid] 15 mg PO DAILY 05/12/16 03/13/17 History Calcium Carbonate [Tums] 750 mg PO QID PRN 06/24/16 03/13/17 History Losartan Potassium [Cozaar] 25 mg PO DAILY 12/26/16 03/13/17 History Multivitamins, Thera [Multivitamin 1 tab PO DAILY 12/26/16 03/13/17 History (formulary)] Biotin 10,000 mcg PO DAILY 03/13/17 03/13/17 History Cholecalciferol (Vitamin D3) 10,000 unit PO DAILY 03/13/17 03/13/17 History [Vitamin D3] Allergies Allergy/AdvReac Type Severity Reaction Status Date / Time adhesive Allergy Rash/Hives Verified 03/13/17 10:17 adhesive tape Allergy Rash/Hives Verified 03/13/17 10:17 Penicillins Allergy Diarrhea Verified 03/13/17 10:17 canagliflozin [From Invokana] AdvReac BLADDER Verified 03/13/17 10:17 INFECTION metformin AdvReac Nausea & Verified 03/13/17 10:17 Vomiting Surgical - Exam Vital Signs Temp Pulse Resp BP Pulse Ox 100.3 F H 105 H 18 104/70 95 03/13/17 09:39 03/13/17 09:39 03/13/17 09:39 03/13/17 09:39 03/13/17 09:39 Physical exam: General: Well-developed, well-nourished HEENT: Normocephalic, sclerae nonicteric Abdomen: Nontender, nondistended Extremities: No edema Neuro: Alert and oriented Results - Labs 03/14/17 08:12 03/14/17 08:12 Abnormal Lab Results - Last 24 Hours (Table) 03/13/17 03/13/17 03/13/17 Range/Units 10:20 10:20 10:20 WBC 14.2 H (3.8-10.6) k/uL Hct 47.8 H (34.0-46.0) % Neutrophils # 12.8 H (1.3-7.7) k/uL Lymphocytes # 0.5 L (1.0-4.8) k/uL APTT (22.0-30.0) sec Chloride (98-107) mmol/L Carbon Dioxide 21 L (22-30) mmol/L Glucose 169 H (74-99) mg/dL POC Glucose (mg/dL) (75-99) mg/dL Hemoglobin A1c (4.2-6.1) % Plasma Lactic Acid Evin 2.1 H (0.7-2.0) mmol/L Urine Appearance (Clear) Urine Protein (Negative) Ur Squamous Epith Cells (0-4) /hpf Urine Mucus (None) /hpf 03/13/17 03/13/17 03/13/17 Range/Units 10:20 10:20 11:33 WBC (3.8-10.6) k/uL Hct (34.0-46.0) % Neutrophils # (1.3-7.7) k/uL Lymphocytes # (1.0-4.8) k/uL APTT 18.1 L (22.0-30.0) sec Chloride (98-107) mmol/L Carbon Dioxide (22-30) mmol/L Glucose (74-99) mg/dL POC Glucose (mg/dL) (75-99) mg/dL Hemoglobin A1c 7.0 H (4.2-6.1) % Plasma Lactic Acid Evin (0.7-2.0) mmol/L Urine Appearance Cloudy H (Clear) Urine Protein 1+ H (Negative) Ur Squamous Epith Cells 7 H (0-4) /hpf Urine Mucus Rare H (None) /hpf 03/13/17 03/13/17 03/13/17 Range/Units 14:01 17:36 21:05 WBC (3.8-10.6) k/uL Hct (34.0-46.0) % Neutrophils # (1.3-7.7) k/uL Lymphocytes # (1.0-4.8) k/uL APTT (22.0-30.0) sec Chloride (98-107) mmol/L Carbon Dioxide (22-30) mmol/L Glucose (74-99) mg/dL POC Glucose (mg/dL) 153 H 107 H 109 H (75-99) mg/dL Hemoglobin A1c (4.2-6.1) % Plasma Lactic Acid Evin (0.7-2.0) mmol/L Urine Appearance (Clear) Urine Protein (Negative) Ur Squamous Epith Cells (0-4) /hpf Urine Mucus (None) /hpf 03/14/17 03/14/17 03/14/17 Range/Units 07:02 08:12 08:12 WBC 11.5 H (3.8-10.6) k/uL Hct (34.0-46.0) % Neutrophils # 8.4 H (1.3-7.7) k/uL Lymphocytes # (1.0-4.8) k/uL APTT (22.0-30.0) sec Chloride 109 H (98-107) mmol/L Carbon Dioxide (22-30) mmol/L Glucose 101 H (74-99) mg/dL POC Glucose (mg/dL) 100 H (75-99) mg/dL Hemoglobin A1c (4.2-6.1) % Plasma Lactic Acid Evin (0.7-2.0) mmol/L Urine Appearance (Clear) Urine Protein (Negative) Ur Squamous Epith Cells (0-4) /hpf Urine Mucus (None) /hpf Diabetes panel 03/13/17 03/13/17 03/14/17 Range/Units 10:20 10:20 08:12 Sodium 141 140 (137-145) mmol/L Potassium 4.2 3.9 (3.5-5.1) mmol/L Chloride 106 109 H (98-107) mmol/L Carbon Dioxide 21 L 23 (22-30) mmol/L BUN 13 10 (7-17) mg/dL Creatinine 0.78 0.79 (0.52-1.04) mg/dL Glucose 169 H 101 H (74-99) mg/dL Hemoglobin A1c 7.0 H (4.2-6.1) % Calcium 9.5 8.8 (8.4-10.2) mg/dL AST 24 (14-36) U/L ALT 19 (9-52) U/L Alkaline Phosphatase 86 (38-126) U/L Total Protein 7.6 (6.3-8.2) g/dL Albumin 4.3 (3.5-5.0) g/dL Calcium panel 03/13/17 03/14/17 Range/Units 10:20 08:12 Calcium 9.5 8.8 (8.4-10.2) mg/dL Albumin 4.3 (3.5-5.0) g/dL Pituitary panel 03/13/17 03/14/17 Range/Units 10:20 08:12 Sodium 141 140 (137-145) mmol/L Potassium 4.2 3.9 (3.5-5.1) mmol/L Chloride 106 109 H (98-107) mmol/L Carbon Dioxide 21 L 23 (22-30) mmol/L BUN 13 10 (7-17) mg/dL Creatinine 0.78 0.79 (0.52-1.04) mg/dL Glucose 169 H 101 H (74-99) mg/dL Calcium 9.5 8.8 (8.4-10.2) mg/dL Adrenal panel 03/13/17 03/14/17 Range/Units 10:20 08:12 Sodium 141 140 (137-145) mmol/L Potassium 4.2 3.9 (3.5-5.1) mmol/L Chloride 106 109 H (98-107) mmol/L Carbon Dioxide 21 L 23 (22-30) mmol/L BUN 13 10 (7-17) mg/dL Creatinine 0.78 0.79 (0.52-1.04) mg/dL Glucose 169 H 101 H (74-99) mg/dL Calcium 9.5 8.8 (8.4-10.2) mg/dL Total Bilirubin 1.2 (0.2-1.3) mg/dL AST 24 (14-36) U/L ALT 19 (9-52) U/L Alkaline Phosphatase 86 (38-126) U/L Total Protein 7.6 (6.3-8.2) g/dL Albumin 4.3 (3.5-5.0) g/dL Assessment and Plan (1) GERD (gastroesophageal reflux disease) Narrative/Plan: Continue diet for now. We'll tentative schedule for upper endoscopy with possible dilation on Thursday. Status: Acute
[2017-03-14] MEDS: CHOLECALCIFEROL 1,000 UNIT TAB PO SCH (10:26)
[2017-03-14] MEDS: CYANOCOBALAMIN 500 MCG TAB PO SCH (10:27)
[2017-03-14] MEDS: LINAGLIPTIN 5 MG TABLET PO SCH (10:27)
[2017-03-14] MEDS: ASPIRIN 81 MG CHEW PO SCH (10:27)
[2017-03-14] MEDS: LOSARTAN 25 MG TAB PO SCH (10:27)
[2017-03-14] MEDS: ATORVASTATIN 20 MG TAB PO SCH (10:27)
[2017-03-14] MEDS: MULTIVITAMINS, THERA 1 EACH TAB PO SCH (10:27)
[2017-03-14] MEDS: GLIMEPIRIDE 1 MG TAB PO SCH (11:00)
[2017-03-14 11:36] LABS: Glucose,Whole Blood 120 mg/dL (75-99)
[2017-03-14] MEDS: LEVOFLOXACIN 750MG-D5W PMX 750 MG in DEXTROSE/WATER 1 150ML.BAG IVPB SCH (13:55)
--- NOTE | 2017-03-14 13:56 | P.CNPUL ---
History of Present Illness Consult date: 03/14/17 Reason for consult: pneumonia History of present illness: 72-year-old female patient is presenting to the hospital because of a increased nausea and vomiting abdominal discomfort. The patient was throwing up bilious material. She has had similar events in the past and the last bout occurred around January 2017. Noted the patient has had previous pediatric surgeries. She initially had the lap band and following that the patient had a gastric sleeve procedure. She's been having on and off symptoms of nausea vomiting and this recurred again yesterday. She admits also to have some acid reflux and some epigastric discomfort. Noted the patient has been admitted for a similar complaint in the past and back then she had a left lower lobe pneumonia/lingular pneumonia. The same suspected today knowing that the chest x -ray showing a infiltration of the left cardiac border involving the lingular and the left lower lobe segment. She is a bit congested and slightly short of breath. No significant sputum production. No hypoxemia. No pleurisy or chest pain. CAT scan of the chest that was done on 02/27/2017 was essentially within normal limits. Aspiration in this setting is suspected based on the above- mentioned clinical scenario. Patient is currently on Levaquin. Hemodynamically stable. No hemoptysis. Note that the patient last endoscopy was done on 12/29/2016 and at that time the patient was found not to have any obvious stricture. There was evidence of GERD. A balloon dilatation was done across the gastric sleeve and across the GE junction. Review of Systems All systems: negative Constitutional: Denies chills, Denies fever Eyes: denies blurred vision, denies pain Ears, nose, mouth and throat: Denies headache, Denies sore throat Cardiovascular: Denies chest pain, Denies shortness of breath Respiratory: Denies cough Gastrointestinal: Denies abdominal pain, Denies diarrhea, Denies nausea, Denies vomiting Genitourinary: Denies dysuria, Denies hematuria Musculoskeletal: Denies myalgias Integumentary: Denies pruritus, Denies rash Neurological: Denies numbness, Denies weakness Psychiatric: Denies anxiety, Denies depression Endocrine: Denies fatigue, Denies weight change Past Medical History Past Medical History: Cancer, Diabetes Mellitus, GERD/Reflux, Hyperlipidemia, Pneumonia, Thyroid Disorder Additional Past Medical History / Comment(s): Hx of Basal cell skin cancer, thyroid nodules, Pneumonia (nov 2016), morbid obesity with a previous. It surgery involving an initial lab and following that the patient had gastric sleeve, esophageal stricture status post balloon dilatation, GERD History of Any Multi-Drug Resistant Organisms: None Reported Past Surgical History: Bariatric Surgery, Breast Surgery, Cholecystectomy, Hysterectomy Additional Past Surgical History / Comment(s): Lap band-inserted and removed, gastric sleeve, tummy tuck, skin cancer removal, right labia reduction , bilateral reduction upper thighs , thyroid biopsy, Right Thyroidectomy., Colonoscopy, Bronchoscopy, EGD. ira eye lid surgery, mult breast lumpectomy., EGD AND DILATION (12/29/16) Past Anesthesia/Blood Transfusion Reactions: Family History of Problems w/ Anesthesia, Motion Sickness, Postoperative Nausea & Vomiting (PONV) Additional Past Anesthesia/Blood Transfusion Reaction / Comment(s): mother= ponv Past Psychological History: No Psychological Hx Reported Smoking Status: Never smoker Past Alcohol Use History: None Reported Past Drug Use History: None Reported - Past Family History Mother Family Medical History: Cancer, Deep Vein Thrombosis (DVT) Additional Family Medical History / Comment(s): breast ca, Father Family Medical History: Cancer Additional Family Medical History / Comment(s): leukemia Daughter(s) Family Medical History: Cancer Additional Family Medical History / Comment(s): from breast ca Medications and Allergies Home Medications Medication Instructions Recorded Confirmed Type Aspirin 81 mg PO DAILY 02/01/15 03/13/17 History Atorvastatin [Lipitor] 20 mg PO DAILY 02/01/15 03/13/17 History Cyanocobalamin [Vitamin B-12] 500 mcg PO DAILY 02/01/15 03/13/17 History Omeprazole 40 mg PO DAILY 02/01/15 03/13/17 History sitaGLIPtin [Januvia] 100 mg PO DAILY 02/01/15 03/13/17 History Ranitidine HCl [Zantac] 150 mg PO HS 02/19/15 03/13/17 History Ciclesonide [Alvesco] 1 puff INHALATION RT-BID PRN 01/08/16 03/13/17 History Glimepiride [Amaryl] 0.5 mg PO QAM 03/14/16 03/13/17 History Thyroid,Pork [[place] Thyroid] 15 mg PO DAILY 05/12/16 03/13/17 History Calcium Carbonate [Tums] 750 mg PO QID PRN 06/24/16 03/13/17 History Losartan Potassium [Cozaar] 25 mg PO DAILY 12/26/16 03/13/17 History Multivitamins, Thera [Multivitamin 1 tab PO DAILY 12/26/16 03/13/17 History (formulary)] Biotin 10,000 mcg PO DAILY 03/13/17 03/13/17 History Cholecalciferol (Vitamin D3) 10,000 unit PO DAILY 03/13/17 03/13/17 History [Vitamin D3] Allergies Allergy/AdvReac Type Severity Reaction Status Date / Time adhesive Allergy Rash/Hives Verified 03/13/17 10:17 adhesive tape Allergy Rash/Hives Verified 03/13/17 10:17 Penicillins Allergy Diarrhea Verified 03/13/17 10:17 canagliflozin [From Invokana] AdvReac BLADDER Verified 03/13/17 10:17 INFECTION metformin AdvReac Nausea & Verified 03/13/17 10:17 Vomiting Physical Exam Vitals: Vital Signs Temp Pulse Pulse Resp BP BP Pulse Ox 03/14/17 07:40 84 03/14/17 07:30 84 03/14/17 07:00 97.4 F L 81 16 126/69 95 03/13/17 23:00 98.6 F 75 17 112/57 95 03/13/17 13:55 98.7 F 86 16 96/55 95/55 95 Intake and Output 03/13/17 03/14/17 03/14/17 22:59 06:59 14:59 Other: Voiding Method Toilet # Voids 1 1 1 The patient appeared well nourished and normally developed. Vital signs as documented. Head exam is unremarkable. No scleral icterus or corneal arcus noted. Neck is without jugular venous distension, thyromegaly, or carotid bruits. Carotid upstrokes are brisk bilaterally. Lungs are clear to auscultation and percussion. Cardiac exam reveals the PMI to be normally sized and situated. Rhythm is regular. First and second heart sounds normal. No murmurs, rubs or gallops. Abdominal exam reveals normal bowel sounds, no masses , no organomegaly and no aortic enlargement. Extremities are nonedematous and both femoral and pedal pulses are normal. Results - Laboratory Findings CBC and BMP: 03/14/17 08:12 03/14/17 08:12 PT/INR, D-dimer PT 10.0 sec (9.0-12.0) 03/13/17 10:20 INR 1.0 (<1.1) 03/13/17 10:20 Abnormal lab findings: Abnormal Labs 03/13/17 03/13/17 03/13/17 10:20 10:20 10:20 WBC 14.2 H Hct 47.8 H Neutrophils # 12.8 H Lymphocytes # 0.5 L APTT Chloride Carbon Dioxide 21 L Glucose 169 H POC Glucose (mg/dL) Hemoglobin A1c Plasma Lactic Acid Evin 2.1 H Urine Appearance Urine Protein Ur Squamous Epith Cells Urine Mucus 03/13/17 03/13/17 03/13/17 10:20 10:20 11:33 WBC Hct Neutrophils # Lymphocytes # APTT 18.1 L Chloride Carbon Dioxide Glucose POC Glucose (mg/dL) Hemoglobin A1c 7.0 H Plasma Lactic Acid Evin Urine Appearance Cloudy H Urine Protein 1+ H Ur Squamous Epith Cells 7 H Urine Mucus Rare H 03/13/17 03/13/17 03/13/17 14:01 17:36 21:05 WBC Hct Neutrophils # Lymphocytes # APTT Chloride Carbon Dioxide Glucose POC Glucose (mg/dL) 153 H 107 H 109 H Hemoglobin A1c Plasma Lactic Acid Evin Urine Appearance Urine Protein Ur Squamous Epith Cells Urine Mucus 03/14/17 03/14/17 03/14/17 07:02 08:12 08:12 WBC 11.5 H Hct Neutrophils # 8.4 H Lymphocytes # APTT Chloride 109 H Carbon Dioxide Glucose 101 H POC Glucose (mg/dL) 100 H Hemoglobin A1c Plasma Lactic Acid Evin Urine Appearance Urine Protein Ur Squamous Epith Cells Urine Mucus 03/14/17 11:34 WBC Hct Neutrophils # Lymphocytes # APTT Chloride Carbon Dioxide Glucose POC Glucose (mg/dL) 120 H Hemoglobin A1c Plasma Lactic Acid Evin Urine Appearance Urine Protein Ur Squamous Epith Cells Urine Mucus - Diagnostic Findings Chest x-ray: image reviewed Assessment and Plan Plan: Assessment 1 recurrent left lower lobe/lingular infiltration. Rule out episodes of aspiration based on the above-mentioned gastrointestinal complications postoperative surgery. 2 morbid obesity with a previous. It surgery involving an initial lab been and following that the patient a gastric sleeve 3 EGD and balloon dilatation of a gastric sleeve performed in December 2016 4 GERD 5 suspect recurrent aspiration 6 skin cancer resected 7 thyroid nodules 8 hyperlipidemia Plan Continue current treatment. EGD within next 24-48 hours. Modified barium swallow to rule out any aspiration. Continue same antibiotic coverage. Repeat chest x-ray with next 24 hours. We will continue to follow. Condition is stable for now.
[2017-03-14 16:58] LABS: Glucose,Whole Blood 102 mg/dL (75-99)
[2017-03-14 21:39] LABS: Glucose,Whole Blood 105 mg/dL (75-99)
[2017-03-15] MEDS: CALCIUM CARBONATE 500 MG CHEWABLE PO PRN ×2 (05:26→20:56)
[2017-03-15] MEDS: THYROID, PORK 30 MG TAB PO SCH (06:41)
[2017-03-15 07:36] LABS: Glucose,Whole Blood 101 mg/dL (75-99)
[2017-03-15] MEDS: LEVALBUTEROL NEB (CONC) 1.25 MG/0.5 ML AMP INHALATION SCH ×3 (08:09→20:28)
[2017-03-15] MEDS: LINAGLIPTIN 5 MG TABLET PO SCH (08:49)
[2017-03-15] MEDS: LOSARTAN 25 MG TAB PO SCH (08:49)
[2017-03-15] MEDS: CYANOCOBALAMIN 500 MCG TAB PO SCH (08:49)
[2017-03-15] MEDS: MULTIVITAMINS, THERA 1 EACH TAB PO SCH (08:49)
[2017-03-15] MEDS: ATORVASTATIN 20 MG TAB PO SCH (08:49)
[2017-03-15] MEDS: CHOLECALCIFEROL 1,000 UNIT TAB PO SCH (08:49)
[2017-03-15] MEDS: ASPIRIN 81 MG CHEW PO SCH (08:49)
[2017-03-15] MEDS: GLIMEPIRIDE 1 MG TAB PO SCH (08:49)
[2017-03-15] MEDS: PANTOPRAZOLE 40 MG/10 ML VIAL IVP SCH ×2 (08:50→20:52)
[2017-03-15] MEDS: VANCOMYCIN 1,500 MG in SODIUM CHLORIDE 0.9% 250 ML IVPB SCH ×2 (08:50→23:40)
[2017-03-15] MEDS: INSULIN LISPRO (humaLOG) 300 UNIT/3 ML VIAL SQ SCH ×4 (08:50→21:26)
[2017-03-15 09:05] LABS: Basophils % (A) 0 %; CH 30.6; CHCM 32.6; Eosinophils # (A) 0.2 k/uL (0-0.7); Eosinophils % (A) 3 %; HCT 37.9 % (34.0-46.0); HDW 2.27; Luc # (Auto) 0.13; Luc % (Auto) 2; Lymphocytes # (A) 1.6 k/uL (1.0-4.8); Lymphocytes % (A) 20 %; MCH 29.9 pg (25.0-35.0); MCHC 31.8 g/dL (31.0-37.0); MCV 94.1 fL (80.0-100.0); Mean Platelet Volume 7.3; Monocytes # (A) 0.5 k/uL (0-1.0); Monocytes % (A) 6 %; Neutrophils # (A) 5.4 k/uL (1.3-7.7); Neutrophils % (A) 69 %; RBC 4.02 m/uL (3.80-5.40); RDW 13.3 % (11.5-15.5); WBC 7.8 k/uL (3.8-10.6); WBC (Perox) 8.47
[2017-03-15 09:22] LABS: Anion Gap 9 mmol/L; Blood Urea Nitrogen 8 mg/dL (7-17); Calcium 8.9 mg/dL (8.4-10.2); Carbon Dioxide 24 mmol/L (22-30); Chloride 108 mmol/L (98-107); Glucose 108 mg/dL (74-99); Non-African American GFR(MDRD) >60 (>60 ml/min/1.73 sqM); Potassium 3.9 mmol/L (3.5-5.1); Sodium 141 mmol/L (137-145)
--- NOTE | 2017-03-15 09:38 | PN ---
DATE OF SERVICE: 03/14/2017 This 72-year-old woman presented with multiple medical including vomiting as well as coughing. Possible pneumonia. Dr. Christensen is following the patient closely, Dr. Mai as well. Otherwise we are planning EGD and possible dilatation because of the recurrent symptoms. No chest pain or palpitations. No fever. On exam, alert, oriented x3. Pulse is 84, blood pressure 130/72, respirations 16, temperature 97.3, pulse ox 94% on room air. HEENT: Conjunctivae normal. NECK: Supple. No JVD. CARDIOVASCULAR: S1 and S2 muffled. LUNGS: Breath sounds diminished at the bases. Bilateral scattered rhonchi and crackles. Coarse expiratory wheeze. ABDOMEN: Soft. Nontender. EXTREMITIES: Legs no edema. BULB WEEDER: No focal deficits. LABS: 11.5, hemoglobin 12. ASSESSMENT: 1. Left-sided pneumonia, left lower lobe and left lingular area with systemic inflammatory response syndrome. 2. Vomiting, possibly gastroesophageal reflux disease. 3. Increased WBC. 4. Diabetes mellitus type 2. 5. Increased plasma lactic acid. 6. History of gastroesophageal reflux disease. 7. History of hyperlipidemia. 8. History of pneumonia, possibly aspiration. 9. History of basal cell carcinoma. 10. History of thyroid nodule. 11. History of bariatric sleeve with lap band and subsequent gastric sleeve. 12. Esophagogastroduodenoscopy and dilatation. 13. Obesity with body mass index of 37.9. 14. FULL CODE. RECOMMENDATIONS: In this 72-year-old woman who presented with multiple complex medical issues, we will monitor the patient closely, continue with the current medications, continue with the symptomatic treatment. Otherwise at this time I would recommend continue with empiric antibiotics. Dr. Christensen's input is appreciated. Guarded prognosis due to multiple complex medical issues. Further recommendations to follow.
[2017-03-15] MEDS: LEVOFLOXACIN 750MG-D5W PMX 750 MG in DEXTROSE/WATER 1 150ML.BAG IVPB SCH (12:13)
[2017-03-15 12:14] LABS: Glucose,Whole Blood 88 mg/dL (75-99)
--- NOTE | 2017-03-15 12:48 | P.PN ---
Subjective Principal diagnosis: GERD Patient doing about the same. Denies vomiting. Some reflux last night. Objective - Vital Signs Vital signs: Vital Signs Temp 97.4 F L 03/15/17 07:00 Pulse 74 03/15/17 07:00 Resp 16 03/15/17 07:00 BP 133/76 03/15/17 07:00 Pulse Ox 95 03/15/17 07:00 Intake & Output 03/14/17 03/15/17 03/15/17 18:59 06:59 18:59 Intake Total 600 240 Balance 600 240 Intake: Oral 600 240 Other: # Voids 2 1 - Exam Abdomen: Soft, nontender, nondistended - Labs CBC & Chem 7: 03/15/17 07:47 03/15/17 07:47 Labs: Abnormal Lab Results - Last 24 Hours (Table) 03/14/17 03/14/17 03/15/17 Range/Units 16:55 20:57 07:04 Chloride (98-107) mmol/L Glucose (74-99) mg/dL POC Glucose (mg/dL) 102 H 105 H 101 H (75-99) mg/dL 03/15/17 Range/Units 07:47 Chloride 108 H (98-107) mmol/L Glucose 108 H (74-99) mg/dL POC Glucose (mg/dL) (75-99) mg/dL Microbiology - Last 24 Hours (Table) 03/13/17 10:20 Blood Culture - Preliminary Blood No Growth after 48 hours 03/14/17 11:15 Gram Stain - Preliminary Sputum Assessment and Plan (1) GERD (gastroesophageal reflux disease) Narrative/Plan: We'll schedule for upper endoscopy tomorrow. Status: Acute
--- NOTE | 2017-03-15 13:17 | P.PN ---
Subjective 72-year-old female patient is presenting to the hospital because of a increased nausea and vomiting abdominal discomfort. The patient was throwing up bilious material. She has had similar events in the past and the last bout occurred around January 2017. Noted the patient has had previous pediatric surgeries. She initially had the lap band and following that the patient had a gastric sleeve procedure. She's been having on and off symptoms of nausea vomiting and this recurred again yesterday. She admits also to have some acid reflux and some epigastric discomfort. Noted the patient has been admitted for a similar complaint in the past and back then she had a left lower lobe pneumonia/lingular pneumonia. The same suspected today knowing that the chest x -ray showing a infiltration of the left cardiac border involving the lingular and the left lower lobe segment. She is a bit congested and slightly short of breath. No significant sputum production. No hypoxemia. No pleurisy or chest pain. CAT scan of the chest that was done on 02/27/2017 was essentially within normal limits. Aspiration in this setting is suspected based on the above- mentioned clinical scenario. Patient is currently on Levaquin. Hemodynamically stable. No hemoptysis. Note that the patient last endoscopy was done on 12/29/2016 and at that time the patient was found not to have any obvious stricture. There was evidence of GERD. A balloon dilatation was done across the gastric sleeve and across the GE junction. On 03/15/2017 the patient has no new complaints. She'll be having an EGD tomorrow. The patient will also have a follow-up chest x-ray in the morning. Afebrile.Further distress at this point. Objective - Vital Signs Vital signs: Vital Signs Temp 97.4 F L 03/15/17 07:00 Pulse 74 03/15/17 07:00 Resp 16 03/15/17 07:00 BP 133/76 03/15/17 07:00 Pulse Ox 95 03/15/17 07:00 Intake & Output 03/14/17 03/15/17 03/15/17 18:59 06:59 18:59 Intake Total 600 240 Balance 600 240 Intake: Oral 600 240 Other: # Voids 2 1 - Exam The patient appeared well nourished and normally developed. Vital signs as documented. Head exam is unremarkable. No scleral icterus or corneal arcus noted. Neck is without jugular venous distension, thyromegaly, or carotid bruits. Carotid upstrokes are brisk bilaterally. Lungs are clear to auscultation and percussion. Cardiac exam reveals the PMI to be normally sized and situated. Rhythm is regular. First and second heart sounds normal. No murmurs, rubs or gallops. Abdominal exam reveals normal bowel sounds, no masses , no organomegaly and no aortic enlargement. Extremities are nonedematous and both femoral and pedal pulses are normal. - Labs CBC & Chem 7: 03/15/17 07:47 03/15/17 07:47 Labs: Abnormal Lab Results - Last 24 Hours (Table) 03/14/17 03/14/17 03/15/17 Range/Units 16:55 20:57 07:04 Chloride (98-107) mmol/L Glucose (74-99) mg/dL POC Glucose (mg/dL) 102 H 105 H 101 H (75-99) mg/dL 03/15/17 Range/Units 07:47 Chloride 108 H (98-107) mmol/L Glucose 108 H (74-99) mg/dL POC Glucose (mg/dL) (75-99) mg/dL Microbiology - Last 24 Hours (Table) 03/13/17 10:20 Blood Culture - Preliminary Blood No Growth after 48 hours 03/14/17 11:15 Gram Stain - Preliminary Sputum Assessment and Plan Plan: Assessment 1 recurrent left lower lobe/lingular infiltration. Rule out episodes of aspiration based on the above-mentioned gastrointestinal complications postoperative surgery. 2 morbid obesity with a previous. It surgery involving an initial lab been and following that the patient a gastric sleeve 3 EGD and balloon dilatation of a gastric sleeve performed in December 2016 4 GERD 5 suspect recurrent aspiration 6 skin cancer resected 7 thyroid nodules 8 hyperlipidemia Plan Continue current treatment. EGD in a.m. Follow-up chest x-ray in a.m. Echocardiogram in a.m.
[2017-03-15] MEDS ORDERED: ACETAMINOPHEN TAB 325 MG TAB PO PRN (15:58)
[2017-03-15 17:11] LABS: Glucose,Whole Blood 88 mg/dL (75-99)
[2017-03-15 21:14] LABS: Glucose,Whole Blood 132 mg/dL (75-99)
[2017-03-15] MEDS ORDERED: VANCOMYCIN TROUGH DUE 1 EACH MISC MISCELLANE ONE (23:00)
[2017-03-16 02:33] LABS: Glucose,Whole Blood 103 mg/dL (75-99)
[2017-03-16] MEDS: THYROID, PORK 30 MG TAB PO SCH (04:56)
[2017-03-16 07:27] LABS: Glucose,Whole Blood 116 mg/dL (75-99)
[2017-03-16 07:39] VITALS: PULSE 76; RESP 19; TEMP 96.5
--- NOTE | 2017-03-16 08:07 | XR ---
EXAMINATION TYPE: XR chest 2V DATE OF EXAM: 03/16/2017 COMPARISON: Prior chest x-ray 03/13/2017 HISTORY: Follow-up pneumonia TECHNIQUE: Frontal and lateral views of the chest are obtained. FINDINGS: There is no pleural effusion, or pneumothorax seen. There is improvement in aeration. The cardiac silhouette size is within normal limits. Prominent lung volume could be indicative of COPD. The osseous structures are intact. IMPRESSION: There is improvement in aeration.
[2017-03-16] MEDS: LEVALBUTEROL NEB (CONC) 1.25 MG/0.5 ML AMP INHALATION SCH (08:24)
[2017-03-16 08:38] LABS: Basophils % (A) 1 %; CH 30.5; CHCM 33.7; Eosinophils # (A) 0.3 k/uL (0-0.7); Eosinophils % (A) 5 %; HCT 39.9 % (34.0-46.0); HDW 2.44; HGB 13.4 gm/dL (11.4-16.0); Luc # (Auto) 0.19; Luc % (Auto) 3; Lymphocytes # (A) 1.5 k/uL (1.0-4.8); Lymphocytes % (A) 24 %; MCH 30.6 pg (25.0-35.0); MCHC 33.7 g/dL (31.0-37.0); Mean Platelet Volume 6.8; Monocytes # (A) 0.4 k/uL (0-1.0); Monocytes % (A) 6 %; Neutrophils % (A) 62 %; RBC 4.39 m/uL (3.80-5.40); RDW 12.8 % (11.5-15.5); WBC 6.5 k/uL (3.8-10.6); WBC (Perox) 6.81
[2017-03-16 09:04] LABS: Anion Gap 12 mmol/L; Blood Urea Nitrogen 11 mg/dL (7-17); Calcium 9.4 mg/dL (8.4-10.2); Carbon Dioxide 24 mmol/L (22-30); Chloride 106 mmol/L (98-107); Glucose 116 mg/dL (74-99); Non-African American GFR(MDRD) >60 (>60 ml/min/1.73 sqM); Potassium 4.2 mmol/L (3.5-5.1); Sodium 142 mmol/L (137-145)
[2017-03-16] MEDS: ASPIRIN 81 MG CHEW PO SCH (09:09)
[2017-03-16] MEDS: INSULIN LISPRO (humaLOG) 300 UNIT/3 ML VIAL SQ SCH ×2 (09:09→12:29)
[2017-03-16] MEDS: PANTOPRAZOLE 40 MG/10 ML VIAL IVP SCH (09:12)
--- NOTE | 2017-03-16 10:46 | ECHOF ---
Referral Reason:Look for pulmonary hypertension MEASUREMENTS -------- HEIGHT: 160.0 cm WEIGHT: 95.3 kg BP: 153/85 RVIDd: 2.9 cm (< 3.3) IVSd: 1.2 cm (0.6 - 1.1) LVIDd: 4.1 cm (3.9 - 5.3) LVPWd: 1.3 cm (0.6 - 1.1) IVSs: 1.6 cm LVIDs: 2.5 cm LVPWs: 1.6 cm LA Diam: 3.7 cm (2.7 - 3.8) LAESV Index (A-L): 24.90 ml/m Ao Diam: 3.3 cm (2.0 - 3.7) AV Cusp: 2.3 cm (1.5 - 2.6) MV EXCURSION: 11.388 mm (> 18.000) MV EF SLOPE: 29 mm/s (70 - 150) EPSS: 0.4 cm MV E Ar: 0.90 m/s MV DecT: 259 ms MV A Ar: 1.23 m/s MV E/A Ratio: 0.73 RAP: 5.00 mmHg RVSP: 21.42 mmHg FINDINGS -------- Sinus rhythm. This was a technically good study. The left ventricular size is normal. There is mild concentric left ventricular hypertrophy. Overall left ventricular systolic function is normal with, an EF between 60 - 65 %. The right ventricle is normal in size and function. Normal LA size by volume 22+/-6 ml/m2. The right atrium is normal in size. The aortic valve is trileaflet and appears structurally normal. Mild mitral annular calcification present. No regurgitation noted The pulmonic valve was not well visualized. The aortic root size is normal. Normal inferior vena cava with normal inspiratory collapse consistent with estimated right atrial pressure of 5 mmHg. The pericardium is normal. CONCLUSIONS -------- 1. Sinus rhythm. 2. Mild mitral annular calcification present. 3. No regurgitation noted 4. The pulmonic valve was not well visualized. 5. The aortic root size is normal. 6. Normal inferior vena cava with normal inspiratory collapse consistent with estimated right atrial pressure of 5 mmHg. 7. The pericardium is normal. 8. This was a technically good study. 9. The left ventricular size is normal. 10. There is mild concentric left ventricular hypertrophy. 11. Overall left ventricular systolic function is normal with, an EF between 60 - 65 %. 12. The right ventricle is normal in size and function. 13. Normal LA size by volume 22+/-6 ml/m2. 14. The right atrium is normal in size. 15. The aortic valve is trileaflet and appears structurally normal. DIRECTOR OF CASEWORK DEPARTMENT: Marine Noyola RDCS
[2017-03-16] MEDS ORDERED: IV FLUID CONTINUATION 1,000 ML IV ONE (11:41)
[2017-03-16] MEDS ORDERED: LIDOCAINE 1% INJ 10MG/ML (20 ML MDV) ONE (11:42)
[2017-03-16] MEDS ORDERED: PROPOFOL 10 MG/ML 20 ML VIAL IV ONE (11:42)
[2017-03-16 11:44] VITALS: BP 126/69
--- NOTE | 2017-03-16 12:02 | P.OP ---
Date of Procedure: 03/16/17 Preoperative Diagnosis: Pneumonia Postoperative Diagnosis: Mild dysphagia Procedure(s) Performed: EGD with balloon dilatation Implants: Anesthesia: KELVIN Surgeon: Paul Kumar Pathology: none sent Condition: stable Disposition: PACU Indications for Procedure: Operative Findings: Description of Procedure: The patient's placed on the endoscopy table in the lateral position. She received IV sedation. The gastroscope some placed oropharynx passed in the esophagus and into the stomach. The patient appears gastric sleeve. Scope was positioned into the pylorus and into the first and second portion of duodenum. There is no evidence of any gastric outlet obstruction first second portion duodenum appeared normal. The scope summer back and the antrum this. Scope was then brought back and at the angle of His sure there is a slight angle of the gastric sleeve. There is no obstruction however. Scope summer brought back on within the gastric sleeve and into the level of GE junction. At this point a 20 mm balloon was placed across the level of the incisura. The balloon was held position for 3 minutes. There is no evidence of any obvious fracture. This the balloon was then withdrawn. The scope was withdrawn. The remainder of the gastric sleeve appeared normal. The GE junction was at 40 cm. The distal esophagus appeared normal. The proximal esophagus appeared normal. Scope was withdrawn for patient.
[2017-03-16 12:21] LABS: Glucose,Whole Blood 89 mg/dL (75-99)
[2017-03-16] MEDS: LEVOFLOXACIN 750MG-D5W PMX 750 MG in DEXTROSE/WATER 1 150ML.BAG IVPB SCH (12:27)
--- NOTE | 2017-03-16 13:19 | P.PN ---
Subjective Principal diagnosis: Recurrent left lower lobe pneumonia 72-year-old female patient is presenting to the hospital because of a increased nausea and vomiting abdominal discomfort. The patient was throwing up bilious material. She has had similar events in the past and the last bout occurred around January 2017. Noted the patient has had previous bariatric surgeries. She initially had the lap band and following that the patient had a gastric sleeve procedure. She's been having on and off symptoms of nausea vomiting and this recurred again yesterday. She admits also to have some acid reflux and some epigastric discomfort. Noted the patient has been admitted for a similar complaint in the past and back then she had a left lower lobe pneumonia/lingular pneumonia. The same suspected today knowing that the chest x -ray showing a infiltration of the left cardiac border involving the lingular and the left lower lobe segment. She is a bit congested and slightly short of breath. No significant sputum production. No hypoxemia. No pleurisy or chest pain. CAT scan of the chest that was done on 02/27/2017 was essentially within normal limits. Aspiration in this setting is suspected based on the above- mentioned clinical scenario. Patient is currently on Levaquin. Hemodynamically stable. No hemoptysis. Note that the patient last endoscopy was done on 12/29/2016 and at that time the patient was found not to have any obvious stricture. There was evidence of GERD. A balloon dilatation was done across the gastric sleeve and across the GE junction. On 03/15/2017 the patient has no new complaints. She'll be having an EGD tomorrow. The patient will also have a follow-up chest x-ray in the morning. Afebrile.Further distress at this point. On 03/16/2017, patient seems to be doing well, her chest x-ray showed definite improvement in aeration of the left lower lobe, no evidence of infiltrate noted. Clinically the patient is doing well, and the relatively asymptomatic. CBC is normal basic metabolic profile is normal. Patient is likely to have further GI workup ostomy EGD today. Objective - Vital Signs Vital signs: Vital Signs Temp 96.5 F L 03/16/17 11:44 Pulse 76 03/16/17 11:44 Resp 19 03/16/17 11:44 BP 126/69 03/16/17 11:44 Pulse Ox 97 03/16/17 11:44 Intake & Output 03/15/17 03/16/17 03/16/17 18:59 06:59 18:59 Intake Total 560 450 50 Balance 560 450 50 Intake: IV 50 Oral 560 200 Lipid 250 Vancomycin 1,500 mg In 250 Sodium Chloride 0.9% 250 ml @ 125 mls/hr IVPB Q16H [facility] Rx#:[id number] Other: # Voids 2 2 - Exam Physical Exam: Revealed a 72-year-old female in no distress. HEENT:[Neck is supple.] [No neck masses.] [No thyromegaly.] [No JVD.] Chest: [Clear throughout, no crackles, no rhonchi, no wheezes.] Cardiac Exam: [Normal S1 and S2, no S3 gallop, no murmur.] Abdomen: [Soft, nontender, no megaly, no rebound, no guarding, normal bowel sounds.] Extremities: [No clubbing, no edema, no cyanosis.] Neurological Exam: [No focal neurologic deficit.] - Labs CBC & Chem 7: 03/16/17 08:05 03/16/17 08:05 Labs: Abnormal Lab Results - Last 24 Hours (Table) 03/15/17 03/16/17 03/16/17 Range/Units 21:12 02:30 07:25 Glucose (74-99) mg/dL POC Glucose (mg/dL) 132 H 103 H 116 H (75-99) mg/dL 03/16/17 Range/Units 08:05 Glucose 116 H (74-99) mg/dL POC Glucose (mg/dL) (75-99) mg/dL Microbiology - Last 24 Hours (Table) 03/13/17 10:20 Blood Culture - Preliminary Blood No Growth after 72 hours Assessment and Plan Plan: 1 recurrent left lower lobe/lingular infiltration. Rule out episodes of aspiration based on the above-mentioned gastrointestinal complications postoperative surgery. 2 morbid obesity with a previous. It surgery involving an initial lab been and following that the patient a gastric sleeve 3 EGD and balloon dilatation of a gastric sleeve performed in December 2016 4 GERD 5 suspect recurrent aspiration 6 skin cancer resected 7 thyroid nodules 8 hyperlipidemia Recommendation: Continue present treatment plan, x-ray is reassuring, her echocardiogram is relatively unremarkable, EGD is pending, consider discharge planning in the next 24 hours. Time with Patient: Less than 30
[2017-03-16] MEDS: GLIMEPIRIDE 1 MG TAB PO SCH (13:28)
[2017-03-16] MEDS: CHOLECALCIFEROL 1,000 UNIT TAB PO SCH (13:29)
[2017-03-16] MEDS: LOSARTAN 25 MG TAB PO SCH (13:29)
[2017-03-16] MEDS: MULTIVITAMINS, THERA 1 EACH TAB PO SCH (13:29)
[2017-03-16] MEDS: CYANOCOBALAMIN 500 MCG TAB PO SCH (13:29)
[2017-03-16] MEDS: LINAGLIPTIN 5 MG TABLET PO SCH (13:29)
[2017-03-16] MEDS: ATORVASTATIN 20 MG TAB PO SCH (13:29)
[2017-03-16] MEDS ORDERED: VANCOMYCIN 1,750 MG in SODIUM CHLORIDE 0.9% 250 ML IVPB SCH (14:00)
--- NOTE | 2017-03-16 14:14 | FL ---
EXAMINATION TYPE: FL barium swallow w video DATE OF EXAM: 03/16/2017 COMPARISON: NONE HISTORY: Silent aspiration TECHNIQUE: Fluoroscopy. FINDINGS: Fluoroscopic guidance was provided for the procedure performed in conjunction with the [facility] pathology department. Please see complete report forthcoming from the Speech Pathology departmen t. Various consistencies from thin liquid to solids were administered. Exam was somewhat limited to compensate for patient's history of gastric bypass. No aspiration or penetration was evident. No significant pooling was observed in the vallecula. There was normal propulsion of the bolus. IMPRESSION: 1. Unremarkable modified barium swallow as performed.
--- NOTE | 2017-03-16 15:32 | PN ---
DATE OF SERVICE: 03/15/2017 This 72-year-old woman was admitted with multiple medical problems including left side pneumonia, suspected aspiration. The patient also suspected to have gastroesophageal stenosis also. No chest pain, no palpitations. No fever. On exam, alert and oriented x3. Pulse 77, blood pressure 153/85, respirations 18, temperature 97.4, pulse ox 97% on room air. HEENT: Conjunctivae normal. Oral mucosa moist. NECK: No jugular venous distention. No carotid bruit. CARDIOVASCULAR: S1 and S2. RESPIRATORY: Breath sounds diminished at the bases. A few scattered rhonchi, much improved. ABDOMEN: Soft, nontender. LEGS: No edema. NERVOUS SYSTEM: No focal deficits. LABS: CBC within normal limits. Otherwise glucose 132. Vancomycin 12. ASSESSMENT: 1. Left-sided pneumonia, left lower lobe infiltrate with systemic inflammatory response syndrome, possibly aspiration. 2. Vomiting, possible acute gastroesophageal reflux disease. 3. Rule out gastroesophageal stenosis. 4. Increased WBC. 5. Diabetes mellitus type 2. 6. Increased plasma lactic acid. 7. History of gastroesophageal reflux disease. 8. History of hyperlipidemia. 9. History of pneumonia, possibly aspiration. 10. History of basal cell carcinoma. 11. History of thyroid nodules. 12. History of bariatric sleeve with lap band and subsequent gastric sleeve. 13. Esophagogastroduodenoscopy and dilatation history. 14. Obesity with body mass index of 37.9. 15. FULL CODE. RECOMMENDATIONS AND DISCUSSION: I recommend to continue the current medications, continue monitoring and symptomatic treatment. Dr. Christensen is planning esophagogastroduodenoscopy tomorrow. Continue to monitor. Possible dilatation. Continue the antibiotics. The pulmonary ( ) is improving significantly. Further recommendations to follow.
--- NOTE | 2017-03-17 10:26 | DS ---
DATE OF ADMISSION: 03/13/2017 DATE OF DISCHARGE: 03/16/2017 FINAL DIAGNOSES: 1. Left sided pneumonia. Left lower lobe infiltrate with systemic inflammatory response syndrome, possibly aspiration pneumonia. 2. Vomiting, possible acute gastroesophageal reflux disease. 3. Status post EGD and dilatation by Dr. Kumar. 4. Increased WBC. 5. Diabetes mellitus, type 2. 6. Increased plasma lactic acid. 7. Gastroesophageal reflux disease. 8. Hyperlipidemia. 9. History of pneumonia, possibly aspiration. 10. History of basal cell carcinoma. 11. History of thyroid nodules. 12. History of bariatric surgery with the lab band and subsequently gastric sleeve. 13. History of EGD and dilatations previously. 14. Obesity with body mass index of 37.9. 15. FULL CODE. DISCHARGE DISPOSITION: The patient will be discharged in a stable condition with guarded prognosis. HISTORY OF PRESENT ILLNESS: This 72 -year-old woman with past medical history of multiple medical problems, admitted with pneumonia. The patient underwent EGD and dilatation by Dr. Kumar. Symptomatically improved significantly. Barium swallow was also done, which showed no acute abnormality. A 2-D echo with Doppler showed ejection fraction 60 to 65%. The patient will be discharged in a stable condition with guarded prognosis with the following advice and medications. On exam, vital signs stable. Cardiovascular: S1, S2. Abdomen: Soft. Central nervous system: No focal deficits. 1. Discharge diet is cardiac. 2. Activity limited until follow-up. 3. Follow-up with Dr. Burnette in 2 to 3 days. 4. Follow-up with Dr. Kumar as recommended. 5. Aspirin 81 mg p.o. daily. 6. Lipitor 20 mg daily. 7. Biotin 10,000 daily. 8. TUMS 750 p.o. q.i.d. 9. Vitamin D3 10,000. 10. Alvesco 1 puff p.r.n. 11. Vitamin B12 500 mcg p.o. daily. 12. Amaryl 0.5 mg in the morning.. 13. Levaquin 500 mg p.o. daily for 3 days. 14. Cozaar 25 mg p.o. daily. 15. Multivitamin one p.o. daily. 16. Omeprazole 40 mg daily. 17. Zantac 150 mg q.h.s. 18. Januvia 100 mg p.o. daily. 19. [place] Thyroid 150 mg p.o. daily. Once again, the patient will be discharged in a stable condition with guarded prognosis.
== END 2017-03-16 14:01 | disposition home or self-care (01) | DRG 179 ==
LOC: EC 09:20 → 4MS4W 12:20
PROVIDERS: ADMIT Hospitalist; ATTEND Hospitalist
PROC: 0D768ZZ Dilation of Stomach, Via Natural or Artificial Opening Endoscopic (ICD-10-PCS; principal; 2017-03-16 07:30)
DX: J69.0 Pneumonitis due to inhalation of food and vomit (principal); E66.01 Morbid (severe) obesity due to excess calories; E11.9 Type 2 diabetes mellitus without complications; R13.10 Dysphagia, unspecified; E78.5 Hyperlipidemia, unspecified; K21.9 Gastro-esophageal reflux disease without esophagitis; E03.9 Hypothyroidism, unspecified; E04.1 Nontoxic single thyroid nodule; M19.91 Primary osteoarthritis, unspecified site; Z85.828 Personal history of other malignant neoplasm of skin; Z98.84 Bariatric surgery status; Z68.37 Body mass index [BMI] 37.0-37.9, adult; Z87.01 Personal history of pneumonia (recurrent); Z79.82 Long term (current) use of aspirin; Z79.84 Long term (current) use of oral hypoglycemic drugs; Z79.899 Other long term (current) drug therapy; Z88.0 Allergy status to penicillin; Z88.8 Allergy status to other drugs, medicaments and biological substances; Z91.048 Other nonmedicinal substance allergy status
CPT/HCPCS: 36415; 43249; 71020; 74000; 74230; 80048; 80053; 80202; 81001; 82150; 82550; 82553; 83036; 83605; 84484; 85025; 85610; 85730; 87040; 87070; 87205; 93005; 93306; 94640; 96361; 96365; 96375; 99285

== ENCOUNTER → 2017-04-20 | Outpatient (CLI) | payer MEDICARE, BC ==
--- NOTE | 2017-04-20 12:50 | US ---
EXAMINATION TYPE: US thyroid st tissue head/neck DATE OF EXAM: 04/20/2017 COMPARISON: 01/21/2016 CLINICAL HISTORY: E04.1 Thyroid Nodule. GLAND SIZE: Right Lobe: Surgically absent cm Left Lobe: 5.3 x 1.7 x 1.9 cm Overall Parenchyma: heterogeneous Isthmus Thickness: cm NODULES RIGHT: # of nodules measured on right: surgically absent LEFT: # of nodules measured on left: 3 1. 0.8 X 0.5 x 0.8 cm hypoechoic solid nodule at the lower pole with well-defined margins; . This nodule is wider than tall and shows intranodular vascularity. Prior size: 0.7 x 0.5 x 0.6 cm 2. 1.6 X 1.0 x 1.0 cm hypoechoic solid nodule at the mid pole with well-defined margins; . This nod ule is wider than tall and shows no intranodular vascularity. Prior size: unsure if this correlates with prior 3. 1.1 X 0.7 x 0.7 cm hypoechoic solid nodule at the lower pole with well-defined margins; . This nodule is wider than tall and shows no intranodular vascularity. Prior size: 0.8 x 0.7 x 0.8 cm ISTHMUS: # of nodules measured in the isthmus: 0 Bilateral neck scanned, no evidence of lymphadenopathy. Left lobe is diffusely heterogeneous, difficulty in discerning separate nodules. IMPRESSION: Enlarged and heterogenous left thyroid lobe with areas of nodularity as discussed above.
--- NOTE | 2017-04-21 14:04 | MM ---
Reason for exam: screening (asymptomatic). Last mammogram was performed 1 year and 3 months ago. History: Patient is postmenopausal and has history of other cancer at age 67. Family history of premenopausal breast cancer in mother at age 45 and premenopausal breast cancer in daughter at age 27. Benign left mammotome panel of the left breast, January 07, 2011. Benign excisional biopsy of the left breast, January 05, 2007. Benign stereotactic core biopsy of the left breast, February 22, 1998. Core biopsy of the right breast. Excisional biopsy of the left breast. Excisional biopsy of the right breast. Took hormonal contraceptives for 4 years beginning at age 21. Took estrogen for 6 years beginning at age 48. Physical Findings: A clinical breast exam by your physician is recommended on an annual basis and results should be correlated with mammographic findings. MG 3D Screening Mammo W/Cad Bilateral CC and MLO view(s) were taken. Prior study comparison: January 21, 2016, bilateral MG 3d screening mammo w/cad. January 25, 2015, right breast MG work up mamm w CAD RT. The breast tissue is almost entirely fat. Finding: There are typically benign grouped/clustered calcifications in the right breast. Previous mammotome biopsy in the left breast. No significant changes in finding since January 21, 2016 and January 25, 2015. ASSESSMENT: Benign, BI-RAD 2 RECOMMENDATION: Routine screening mammogram of both breasts in 1 year.
== END | disposition home or self-care (01) ==
LOC: RADMAMWWP 11:27
PROVIDERS: ATTEND Surgery
DX: Z12.31 Encounter for screening mammogram for malignant neoplasm of breast (principal); E04.2 Nontoxic multinodular goiter
CPT/HCPCS: 77063; 76536; G0202

== ENCOUNTER → 2017-04-27 | Outpatient (CLI) | payer MEDICARE, BC ==
[2017-04-27 13:36] VITALS: BP 161/75; PULSE 72; RESP 16; TEMP 98.2; BMI 36.8
--- NOTE | 2017-04-27 17:16 | P.HPBAR ---
Bariatric H&P - History & Physicial H&P Date: 04/27/17 History & Physicial: Visit/CC: Sleeve follow-up Patient initial contact: Initial weight: 138.799 kg Initial weight in pounds: 305.99 Height: 5 ft 2.5 in Initial BMI: 55.0 Last weight: Current weight: 92.986 kg Current weight in pounds: 205.00 Current BMI: 36.8 [place] body weight (based on NIH guidelines): 51.029 kg Excess body weight loss: 52.1% The patient is a 72 year-old F who presents for Bariatric Assessment. Patient resents today for sleeve gastric a fall. She states she's had slightly worsened GERD and dysphagia. Past Medical History Past Medical History: Cancer, Diabetes Mellitus, GERD/Reflux, Hyperlipidemia, Pneumonia, Thyroid Disorder Additional Past Medical History / Comment(s): Hx of Basal cell skin cancer, thyroid nodules, Pneumonia (nov 2016), morbid obesity with a previous. It surgery involving an initial lab and following that the patient had gastric sleeve, esophageal stricture status post balloon dilatation, GERD History of Any Multi-Drug Resistant Organisms: None Reported Past Surgical History: Bariatric Surgery, Breast Surgery, Cholecystectomy, Hysterectomy Additional Past Surgical History / Comment(s): Lap band-inserted and removed, gastric sleeve, tummy tuck, skin cancer removal, right labia reduction , bilateral reduction upper thighs , thyroid biopsy, Right Thyroidectomy., Colonoscopy, Bronchoscopy, EGD. ira eye lid surgery, mult breast lumpectomy., EGD AND DILATION (12/29/16) Past Anesthesia/Blood Transfusion Reactions: Family History of Problems w/ Anesthesia, Motion Sickness, Postoperative Nausea & Vomiting (PONV) Additional Past Anesthesia/Blood Transfusion Reaction / Comm: mother= ponv Past Psychological History: No Psychological Hx Reported Smoking Status: Never smoker Past Alcohol Use History: None Reported Past Drug Use History: None Reported - Past Family History Mother Family Medical History: Cancer, Deep Vein Thrombosis (DVT) Additional Family Medical History / Comment(s): breast ca, Father Family Medical History: Cancer Additional Family Medical History / Comment(s): leukemia Daughter(s) Family Medical History: Cancer Additional Family Medical History / Comment(s): from breast ca Surgical - Exam Vital Signs Temp Pulse Resp BP 98.2 F 72 16 161/75 04/27/17 13:34 04/27/17 13:34 04/27/17 13:34 04/27/17 13:34 - General well developed - Abdomen Abdomen: soft, non tender Bariatric Assessment & Plan Plan: Status post sleeve gastrectomy. Patient's GERD and dysphagia symptoms of increased. She'll be scheduled for EGD with balloon dilatation of gastric sleeve. Bariatric Checklist Checklist: Plan: Checklist: EGD: 1. Hiatal hernia: 2. H. Pylori: HgbA1c: Vitamin D: Smoking: Never smoker Primary care physician referral: dr rodas Psychiatry clearance: Cardiology clearance: Sleep study: Diet journal: VTE risk score: VTE risk level: Rehab needs at discharge:
== END | disposition home or self-care (01) ==
LOC: BARWHC3 13:02
PROVIDERS: ATTEND Surgery
DX: Z48.815 Encounter for surgical aftercare following surgery on the digestive system (principal); K21.9 Gastro-esophageal reflux disease without esophagitis; Z98.84 Bariatric surgery status
CPT/HCPCS: 99211

== ENCOUNTER 2017-05-07 06:44 | Day surgery (SDC) | payer MEDICARE, BC ==
[2017-05-04 13:23] VITALS: BMI 36.3
[~2017-05-07 06:44] MED LIST changes: -DEXAMETHASONE SOD PHOSPHATE 10 MG/ML 1 ML VIAL IV ONE; -HEPARIN SODIUM,PORCINE 5,000 UNIT/ML 1 ML VIAL SQ ONE; -HYDROmorphone 1 MG/ML 1 ML SYRINGE IVP PRN; +LIDOCAINE 1% 20 ML VIAL (10MG/ML) FOR IV START INTRADERMA PRN; -MIDAZOLAM 2 MG/2 ML VIAL IV PRN; -ONDANSETRON 4 MG/2 ML VIAL IVP ONE; -Pre Op ABX Message 1 EACH MISC MISCELLANE ONE
[2017-05-07 07:14] VITALS: TEMP 97
[2017-05-07 07:17] LABS: Glucose,Whole Blood 96 mg/dL (75-99)
[2017-05-07] MEDS ORDERED: PROPOFOL 10 MG/ML 20 ML VIAL IV ONE (07:46)
[2017-05-07] MEDS ORDERED: LIDOCAINE 1% INJ 10MG/ML (20 ML MDV) ONE (07:46)
--- NOTE | 2017-05-07 07:53 | P.GSHP ---
History of Present Illness H&P Date: 05/07/17 Chief Complaint: Dysphagia 's is a 72-year-old female who presents today for EGD. She's had issues with some dysphagia and GERD. Patient previous history of sleeve gastrectomy Past Medical History Past Medical History: Cancer, Diabetes Mellitus, GERD/Reflux, Hyperlipidemia, Pneumonia, Thyroid Disorder Additional Past Medical History / Comment(s): Hx of Basal cell skin cancer, thyroid nodules, Pneumonia (nov 2016), esophageal stricture status post balloon dilatation, GERD History of Any Multi-Drug Resistant Organisms: None Reported Past Surgical History: Bariatric Surgery, Breast Surgery, Cholecystectomy, Hysterectomy Additional Past Surgical History / Comment(s): Lap band-inserted and removed, gastric sleeve, tummy tuck, skin cancer removal, right labia reduction , bilateral reduction upper thighs , thyroid biopsy, Right Thyroidectomy, Colonoscopy, Bronchoscopy, EGD. ira eye lid surgery, mult breast bx, EGD AND DILATION (12/29/16) Past Anesthesia/Blood Transfusion Reactions: Family History of Problems w/ Anesthesia, Motion Sickness, Postoperative Nausea & Vomiting (PONV) Additional Past Anesthesia/Blood Transfusion Reaction / Comment(s): mother= ponv Smoking Status: Never smoker - Past Family History Mother Family Medical History: Cancer, Deep Vein Thrombosis (DVT) Additional Family Medical History / Comment(s): breast ca, Father Family Medical History: Cancer Additional Family Medical History / Comment(s): leukemia Daughter(s) Family Medical History: Cancer Additional Family Medical History / Comment(s): from breast ca Medications and Allergies Home Medications Medication Instructions Recorded Confirmed Type Aspirin 81 mg PO DAILY 02/01/15 05/07/17 History Atorvastatin [Lipitor] 20 mg PO DAILY 02/01/15 05/07/17 History Cyanocobalamin [Vitamin B-12] 500 mcg PO DAILY 02/01/15 05/07/17 History Omeprazole 40 mg PO DAILY 02/01/15 05/07/17 History sitaGLIPtin [Januvia] 100 mg PO DAILY 02/01/15 05/07/17 History Ranitidine HCl [Zantac] 150 mg PO HS 02/19/15 05/07/17 History Ciclesonide [Alvesco] 1 puff INHALATION RT-BID PRN 01/08/16 05/07/17 History Glimepiride [Amaryl] 0.5 mg PO QAM 03/14/16 05/07/17 History Thyroid,Pork [[place] Thyroid] 15 mg PO DAILY 05/12/16 05/07/17 History Calcium Carbonate [Tums] 750 mg PO QID PRN 06/24/16 05/07/17 History Losartan Potassium [Cozaar] 25 mg PO DAILY 12/26/16 05/07/17 History Multivitamins, Thera [Multivitamin 1 tab PO DAILY 12/26/16 05/07/17 History (formulary)] Biotin 10,000 mcg PO DAILY 03/13/17 05/07/17 History Cholecalciferol (Vitamin D3) 10,000 unit PO DAILY 03/13/17 05/07/17 History [Vitamin D3] Metoprolol Tartrate [Lopressor] 12.5 mg PO QAM 05/04/17 05/07/17 History Ondansetron [Zofran] 4 mg PO Q8HR PRN 05/04/17 05/07/17 History Allergies Allergy/AdvReac Type Severity Reaction Status Date / Time adhesive Allergy Rash/Hives Verified 05/04/17 13:08 adhesive tape Allergy Rash/Hives Verified 05/04/17 13:08 Penicillins Allergy Diarrhea Verified 05/04/17 13:08 canagliflozin [From Invokana] AdvReac BLADDER Verified 05/04/17 13:09 INFECTION metformin AdvReac Nausea & Verified 05/04/17 13:09 Vomiting/diarrhea/stomach cramps Surgical - Exam Vital Signs Temp Pulse Resp BP Pulse Ox 97.0 F L 78 18 151/72 99 05/07/17 07:06 05/07/17 07:06 05/07/17 07:06 05/07/17 07:06 05/07/17 07:06 - General well developed, no distress - Eyes PERRL - ENT normal pinna - Neck no masses - Respiratory normal expansion - Cardiovascular Rhythm: regular - Abdomen Abdomen: soft, non tender Assessment and Plan Plan: Dysphagia, GERD. We'll perform EGD.
--- NOTE | 2017-05-07 08:06 | P.OP ---
Date of Procedure: 05/07/17 Preoperative Diagnosis: Dysphagia Postoperative Diagnosis: Hiatal hernia No significant sleeve obstruction Procedure(s) Performed: EGD with dilation Implants: Anesthesia: MAC Surgeon: Paul Kumar Pathology: other (Antrum) Condition: stable Disposition: PACU Indications for Procedure: Operative Findings: Description of Procedure: The patient's placed on the endoscopy table in the lateral position. She received IV sedation. The gastroscope some placed oropharynx passed into the esophagus and into the stomach. Scope was then placed through the pylorus. First and second portion duodenum appeared normal. There is no evidence of pyloric obstruction. A biopsy the antrum was performed. The antrum appeared minimally inflamed. The scope was then brought back through the gastric sleeve. There is no evidence of any significant obstruction. A 20 mm balloon was placed across the lower part of the sleeve which cover the incisura. The sleeve was dilated this area. There is no evidence of any obstruction. The sleeve was then examined and the remainder some appeared normal. The patient had a hiatal hernia. The proximal sleeve was dilated. There is no significant obstruction. The GE junction was dilated. And once again there is no significant obstruction. The GE junction was at 36 cm. The scope was then withdrawn. There is no evidence of any injury to the stomach or esophagus. Patient top procedure well and sent to recovery in stable condition.
[2017-05-07 08:19] LABS: Glucose,Whole Blood 100 mg/dL (75-99)
[2017-05-07 08:28] VITALS: BP 144/83; PULSE 57; RESP 18
== END 2017-05-07 08:38 | disposition home or self-care (01) ==
LOC: ORWHC2ENDO 06:44
PROVIDERS: ATTEND Surgery
DX: K29.50 Unspecified chronic gastritis without bleeding (principal); K44.9 Diaphragmatic hernia without obstruction or gangrene; R13.10 Dysphagia, unspecified; K21.9 Gastro-esophageal reflux disease without esophagitis; Z98.84 Bariatric surgery status; Z87.19 Personal history of other diseases of the digestive system; E11.9 Type 2 diabetes mellitus without complications; E78.5 Hyperlipidemia, unspecified; I10 Essential (primary) hypertension; E04.1 Nontoxic single thyroid nodule; Z85.828 Personal history of other malignant neoplasm of skin; Z79.82 Long term (current) use of aspirin; Z79.899 Other long term (current) drug therapy; Z88.0 Allergy status to penicillin; Z91.048 Other nonmedicinal substance allergy status
CPT/HCPCS: 88305; 88342; 43239; 43249; J2001; J2704; C1726

== ENCOUNTER 2017-06-12 09:56 | Inpatient (IN) | payer MEDICARE, BC ==
[2017-06-12] MEDS ORDERED: ACETAMINOPHEN TAB 500 MG TAB PO STA (11:17)
[2017-06-12] MEDS ORDERED: SODIUM CHLORIDE 0.9% 500 ML IV STA (11:17)
[2017-06-12] MEDS ORDERED: IPRATROPIUM-ALBUTEROL 3 ML NEB INHALATION STA (11:17)
[2017-06-12] MEDS ORDERED: KETOROLAC 30 MG/ML 1 ML VIAL IVP STA (11:18)
--- NOTE | 2017-06-12 11:22 | ED ---
General Adult HPI - General Chief complaint: Upper Respiratory Infection Stated complaint: Poss Pneumonia Time Seen by Provider: 06/12/17 11:12 Source: patient Mode of arrival: ambulatory Limitations: no limitations - History of Present Illness Initial comments: This 72-year-old white female presents with the complaint of not feeling well. She apparently developed some chills in the middle of the night. This has persisted. She denies any known fever but presents with a temperature of 101.4. She complains of slight shortness of breath but no chest pain. She has a chronic cough but states that it might of been slightly worse this morning. She's had a phlegm-like noncolored production. She has had occasional back pain and general myalgias. She states that the only time that she has had similar incidents is when she has had pneumonia. She denies any abdominal pain or urinary symptoms. She denies any history of COPD or other pulmonary problems other than pneumonia. No other complaints or modifying factors. - Related Data Home Medications Medication Instructions Recorded Confirmed Aspirin 81 mg PO DAILY 02/01/15 06/12/17 Atorvastatin [Lipitor] 20 mg PO DAILY 02/01/15 06/12/17 Cyanocobalamin [Vitamin B-12] 500 mcg PO DAILY 02/01/15 06/12/17 Omeprazole 40 mg PO DAILY 02/01/15 06/12/17 sitaGLIPtin [Januvia] 100 mg PO DAILY 02/01/15 06/12/17 Ranitidine HCl [Zantac] 150 mg PO HS 02/19/15 06/12/17 Glimepiride [Amaryl] 0.5 mg PO QAM 03/14/16 06/12/17 Thyroid,Pork [[place] Thyroid] 15 mg PO DAILY 05/12/16 06/12/17 Losartan Potassium [Cozaar] 25 mg PO DAILY 12/26/16 06/12/17 Multivitamins, Thera [Multivitamin 1 tab PO DAILY 12/26/16 06/12/17 (formulary)] Biotin 10,000 mcg PO DAILY 03/13/17 06/12/17 Cholecalciferol (Vitamin D3) 10,000 unit PO DAILY 03/13/17 06/12/17 [Vitamin D3] Metoprolol Tartrate [Lopressor] 12.5 mg PO QAM 05/04/17 06/12/17 Ondansetron [Zofran] 4 mg PO Q8HR PRN 05/04/17 06/12/17 [place]-HYDROcod 8-10mg/5ml 5 ml PO Q12HR PRN 06/12/17 06/12/17 [Tussionex] Tums Extra Strength 750 mg PO QID 06/12/17 06/12/17 Allergies Allergy/AdvReac Type Severity Reaction Status Date / Time adhesive Allergy Rash/Hives Verified 06/12/17 10:51 adhesive tape Allergy Rash/Hives Verified 06/12/17 10:51 Penicillins Allergy Diarrhea Verified 06/12/17 10:51 canagliflozin [From Invokana] AdvReac BLADDER Verified 06/12/17 10:51 INFECTION metformin AdvReac Nausea & Verified 06/12/17 10:51 Vomiting/diarrhea/stomach cramps Review of Systems ROS Statement: Those systems with pertinent positive or pertinent negative responses have been documented in the HPI. ROS Other: All systems not noted in ROS Statement are negative. Past Medical History Past Medical History: Cancer, Diabetes Mellitus, GERD/Reflux, Hyperlipidemia, Pneumonia, Thyroid Disorder Additional Past Medical History / Comment(s): Hx of Basal cell skin cancer, thyroid nodules, Pneumonia (nov 2016), esophageal stricture status post balloon dilatation, GERD History of Any Multi-Drug Resistant Organisms: None Reported Past Surgical History: Bariatric Surgery, Breast Surgery, Cholecystectomy, Hysterectomy Additional Past Surgical History / Comment(s): Lap band-inserted and removed, gastric sleeve, tummy tuck, skin cancer removal, right labia reduction , bilateral reduction upper thighs , thyroid biopsy, Right Thyroidectomy, Colonoscopy, Bronchoscopy, EGD. ira eye lid surgery, mult breast bx, EGD AND DILATION (12/29/16) Past Anesthesia/Blood Transfusion Reactions: Family History of Problems w/ Anesthesia, Motion Sickness, Postoperative Nausea & Vomiting (PONV) Additional Past Anesthesia/Blood Transfusion Reaction / Comment(s): mother= ponv Past Psychological History: No Psychological Hx Reported Smoking Status: Never smoker - Past Family History Mother Family Medical History: Cancer, Deep Vein Thrombosis (DVT) Additional Family Medical History / Comment(s): breast ca, Father Family Medical History: Cancer Additional Family Medical History / Comment(s): leukemia Daughter(s) Family Medical History: Cancer Additional Family Medical History / Comment(s): from breast ca General Exam - General Exam Comments Initial Comments: GENERAL: The patient is well nourished and well hydrated. VITAL SIGNS: Heart rate, blood pressure, respiratory rate reviewed as recorded in nurse's notes. EYES: Pupils are round and reactive. Extraocular movements are intact. No conjunctival / lid redness or swelling. ENT: No external evidence of injury, swelling, or ecchymosis. Airway is patent. Throat is clear. NECK: Nontender. No swelling or evidence of injury. No subcutaneous emphysema. Trachea is midline. No thyroid mass. HEART: Regular rate and rhythm. Good peripheral pulses. LUNGS/CHEST: Breath sounds clear and equal bilaterally. No rales, rhonchi, or wheezes. No ecchymosis, subcutaneous emphysema, or tenderness. ABDOMEN: Abdomen soft without tenderness. No palpable masses or organomegaly. No peritoneal signs. No abdominal wall swelling or ecchymosis. EXTREMITIES: No extremity tenderness. Normal muscle tone and function. No thoracolumbar tenderness. NEUROLOGIC: Sensation is grossly intact. Cranial nerve exam reveals face is symmetrical, tongue is midline, speech is clear. SKIN: No abrasions or ecchymosis is noted. No induration or masses noted. PSYCHIATRIC: Alert and oriented. Appropriate behavior and judgment. Limitations: no limitations Course Vital Signs 06/12/17 06/12/17 06/12/17 10:35 11:45 11:54 Temperature 99.7 F H Pulse Rate 91 85 88 Respiratory 18 Rate Blood Pressure 118/69 O2 Sat by Pulse 94 L Oximetry Medical Decision Making - Medical Decision Making The patient was seen and examined. All diagnostics were reviewed. An IV is established and she is hydrated. She also receives Toradol, Tylenol, and a DuoNeb breathing treatment. She is feeling somewhat improved on recheck. Her x -ray does show a left mid to lower lobe pneumonia. Levaquin is started. She has not been admitted to the hospital in the last 2 months. She also has a leukocytosis on her labs. The urinalysis is equivocal for a urinary tract infection. Blood and urine cultures are taken and are pending. Her pulse ox was 94%. It is felt as though she benefit from admission to the hospital for further treatment. She is agreeable. Case is discussed with Dr. Eugene and he is agreeable to admission as well. - Lab Data Result diagrams: 06/12/17 11:45 06/12/17 11:45 Lab Results 06/12/17 06/12/17 06/12/17 Range/Units 11:45 11:45 11:45 WBC 15.9 H (3.8-10.6) k/uL RBC 5.13 (3.80-5.40) m/uL Hgb 15.6 (11.4-16.0) gm/dL Hct 47.1 H (34.0-46.0) % MCV 91.8 (80.0-100.0) fL MCH 30.4 (25.0-35.0) pg MCHC 33.1 (31.0-37.0) g/dL RDW 14.0 (11.5-15.5) % Plt Count 197 (150-450) k/uL Neutrophils % (Manual) 81 % Band Neutrophils % 10 % Lymphocytes % (Manual) 3 % Monocytes % (Manual) 6 % Neutrophils # (Manual) 14.40 H (1.3-7.7) k/uL Lymphocytes # (Manual) 0.48 L (1.0-4.8) k/uL Monocytes # (Manual) 0.95 (0-1.0) k/uL Nucleated RBCs 0 (0-0) /100 WBC Toxic Vacuolation Present Anisocytosis (manual) Present Sodium 140 (137-145) mmol/L Potassium 4.8 (3.5-5.1) mmol/L Chloride 105 (98-107) mmol/L Carbon Dioxide 26 (22-30) mmol/L Anion Gap 9 mmol/L BUN 12 (7-17) mg/dL Creatinine 0.92 (0.52-1.04) mg/dL Est GFR (MDRD) Af Amer >60 (>60 ml/min/1.73 sqM) Est GFR (MDRD) Non-Af >60 (>60 ml/min/1.73 sqM) Glucose 142 H (74-99) mg/dL Calcium 9.6 (8.4-10.2) mg/dL Urine Color Yellow Urine Appearance Cloudy H (Clear) Urine pH 5.5 (5.0-8.0) Ur Specific Comfort 1.027 (1.001-1.035) Urine Protein 1+ H (Negative) Urine Glucose (UA) Negative (Negative) Urine Ketones 1+ H (Negative) Urine Blood Negative (Negative) Urine Nitrite Negative (Negative) Urine Bilirubin Negative (Negative) Urine Urobilinogen 2.0 (<2.0) mg/dL Ur Leukocyte Esterase Small H (Negative) Urine RBC 1 (0-5) /hpf Urine WBC 6 H (0-5) /hpf Ur Squamous Epith Cells 8 H (0-4) /hpf Urine Bacteria Rare H (None) /hpf Urine Mucus Moderate H (None) /hpf Disposition Clinical Impression: Fever, Community acquired pneumonia, Back pain, Leukocytosis Disposition: ADMITTED IP TO THIS HOSP Condition: Fair Referrals: Johann Burnette III, MD [Primary Care Provider] - 1-2 days Time of Disposition: 13:15
[2017-06-12 12:05] LABS: Appearance,Urine Cloudy (Clear); Bacteria,Urine Rare /hpf; Bilirubin,Urine Negative (Negative); Glucose,Urine (UA) Negative (Negative); Ketones,Urine 1+ (Negative); Leukocyte Esterase,Urine Small (Negative); Mucus,Urine Moderate /hpf; Nitrite,Urine Negative (Negative); PH, Urine 5.5 (5.0-8.0); Particle Count 9137; Protein,Urine 1+ (Negative); RBC,Urine 1 /hpf (0-5); Specific Gravity,Urine 1.027 (1.001-1.035); Squamous Epithelial Cell,Urine 8 /hpf (0-4); UA Billing (MACRO vs. MICRO) MICRO; WBC,Urine 6 /hpf (0-5)
[2017-06-12 12:11] LABS: Anion Gap 9 mmol/L; Blood Urea Nitrogen 12 mg/dL (7-17); CH 31.5; CHCM 34.4; Calcium 9.6 mg/dL (8.4-10.2); Carbon Dioxide 26 mmol/L (22-30); Chloride 105 mmol/L (98-107); Glucose 142 mg/dL (74-99); HCT 47.1 % (34.0-46.0); HDW 2.41; HGB 15.6 gm/dL (11.4-16.0); Immature Gran Flag Slight; MCH 30.4 pg (25.0-35.0); MCHC 33.1 g/dL (31.0-37.0); MCV 91.8 fL (80.0-100.0); Mean Platelet Volume 8.2; Non-African American GFR(MDRD) >60 (>60 ml/min/1.73 sqM); Potassium 4.8 mmol/L (3.5-5.1); RBC 5.13 m/uL (3.80-5.40); Sodium 140 mmol/L (137-145); WBC 15.9 k/uL (3.8-10.6)
--- NOTE | 2017-06-12 12:11 | XR ---
EXAMINATION TYPE: XR chest 2V DATE OF EXAM: 06/12/2017 COMPARISON: Chest x-ray March 16, 2017. CT chest February 27, 2017. HISTORY: Fever, cough, and congestion. TECHNIQUE: Frontal and lateral views of the chest are obtained. FINDINGS: There is new patchy multifocal airspace opacities in the left mid to lower lung lateral as pect with at least lower lobe involvement confirmed on lateral view. Right lung appears clear. No pl eural effusion or pneumothorax is seen bilaterally. The cardiac silhouette size is within normal limi ts. The osseous structures are intact. IMPRESSION: New multifocal left mid to lower lung infiltrates
[2017-06-12 13:04] LABS: Add Differential Manual Differential
[2017-06-12 13:05] LABS: Band Neutrophils % 10 %; Nucleated Red Blood Cells 0 /100 WBC (0-0); Total Cells Counted 100
[2017-06-12 13:06] LABS: Toxic Vacuolation Present
[2017-06-12] MEDS ORDERED: LEVOFLOXACIN 750MG-D5W PMX 750 MG in DEXTROSE/WATER 1 150ML.BAG IVPB STA (13:12)
[2017-06-12] MEDS ORDERED: PNEUMONIA PROTOCOL UTILIZED 1 EACH MISC PO PRN (13:16)
[2017-06-12] MEDS ORDERED: ONDANSETRON 4 MG TAB PO PRN (13:19)
[2017-06-12] MEDS ORDERED: CHLORPHEN-HYDROcod 8-10mg/5ml 5 ML ORAL.SYRG PO PRN (13:19)
[2017-06-12] MEDS: IPRATROPIUM-ALBUTEROL 3 ML NEB INHALATION SCH ×2 (17:13→21:08)
[2017-06-12 17:19] LABS: Glucose,Whole Blood 155 mg/dL (75-99)
[2017-06-12] MEDS: INSULIN LISPRO (humaLOG) 300 UNIT/3 ML VIAL SQ SCH ×2 (18:38→22:02)
[2017-06-12] MEDS: CALCIUM CARBONATE 500 MG CHEWABLE PO SCH ×2 (18:39→22:01)
[2017-06-12] MEDS: ACETAMINOPHEN TAB 325 MG TAB PO PRN (20:00)
[2017-06-12 20:36] LABS: Glucose,Whole Blood 80 mg/dL (75-99)
[2017-06-12] MEDS: FAMOTIDINE 20 MG TAB PO SCH (22:01)
[2017-06-12] MEDS ORDERED: SODIUM CHLORIDE 0.9% 1,000 ML IV ONE (22:49)
[2017-06-13 07:26] LABS: Glucose,Whole Blood 88 mg/dL (75-99)
[2017-06-13] MEDS: INSULIN LISPRO (humaLOG) 300 UNIT/3 ML VIAL SQ SCH ×4 (07:44→21:33)
[2017-06-13] MEDS: GLIMEPIRIDE 1 MG TAB PO SCH (07:46)
[2017-06-13] MEDS: PANTOPRAZOLE 40 MG TABLET PO SCH (07:46)
[2017-06-13] MEDS: ASPIRIN 81 MG CHEW PO SCH (07:47)
[2017-06-13] MEDS: ATORVASTATIN 20 MG TAB PO SCH (07:47)
[2017-06-13] MEDS: CALCIUM CARBONATE 500 MG CHEWABLE PO SCH ×4 (07:48→21:33)
[2017-06-13] MEDS: CYANOCOBALAMIN 500 MCG TAB PO SCH (07:49)
[2017-06-13] MEDS: METOPROLOL TARTRATE 12.5 MG TAB PO SCH (07:49)
[2017-06-13] MEDS: LINAGLIPTIN 5 MG TABLET PO SCH (07:49)
[2017-06-13] MEDS: ENOXAPARIN 40 MG/0.4 ML SYRINGE SQ SCH (07:49)
[2017-06-13] MEDS: LOSARTAN 25 MG TAB PO SCH (07:50)
[2017-06-13] MEDS: THYROID, PORK 30 MG TAB PO SCH (07:50)
[2017-06-13] MEDS: IPRATROPIUM-ALBUTEROL 3 ML NEB INHALATION SCH ×4 (08:46→19:40)
[2017-06-13] MEDS ORDERED: NON-FORMULARY DRUG (Biotin [Biotin] 10,000 MCG) PO SCH (09:00)
[2017-06-13] MEDS ORDERED: CHOLECALCIFEROL 1,000 UNIT TAB PO SCH (09:00)
[2017-06-13 10:30] LABS: Hemoglobin A1C 6.9 % (4.2-6.1)
--- NOTE | 2017-06-13 11:38 | HP ---
HISTORY AND PHYSICAL DATE OF SERVICE: 06/12/2007. CHIEF COMPLAINT: Cough and fever and possible pneumonia. HISTORY OF PRESENT ILLNESS: This 72-year-old woman with a past medical history of multiple medical problems, including diabetes, hypertension, hyperlipidemia, history pneumonia, history basal cell skin cancer, bariatric surgery being followed by Dr. Mai and Dr. Burnette in the outpatient setting was not feeling well last night. The patient developed some chills in the middle of the night. The patient also had fever up to 101.4. The patient came to [facility] and admitted for further evaluation and treatment. The patient had some sputum production also. Left lower pneumonia is suspected. Patient previously had scar tissue in that area. During the previous admission the patient was seen by Dr. Kumar who performed EGD and dilatation. There is no history of any fever, rigors, chills. No history of headache, loss of consciousness, seizures at this time. PAST MEDICAL HISTORY: History of diabetes, GERD, hyperlipidemia, history pneumonia, history of basal cell skin cancer, bariatric surgery. MEDICATIONS: Medications prior to admission include: 1. Vitamin D 3000 daily. 2. Omeprazole 40 mg daily. 4. Zofran 4 mg q.p.m. 5. Lopressor 12.5 mg daily. 6. Zantac 150 mg p.o. daily. 7. Vitamin B 500 mcg. 8. Biotin 78680 mcg p.o. daily. 9. [place] Thyroid 50 mg. 11.Multivitamins 1 p.o. daily. 12.Cozaar 25 mg. 13.Aspirin 81 mg daily. 14.TUMS 750 mg q.i.d. 15.Januvia 100 mg daily. 16.Lipitor 20 mg p.o. daily. ALLERGIES: PENICILLIN, INVOKANA, METFORMIN. FAMILY HISTORY: History of cancer, DVT, breast cancer in the family. SOCIAL HISTORY: No history of smoking, no history of alcohol intake. REVIEW OF SYSTEMS: ENT: No diminished hearing or vision. CARDIOVASCULAR: No angina. RESPIRATORY: As mentioned earlier. GI: No nausea. : No dysuria. NERVOUS SYSTEM: No numbness or weakness. ALLERGY/IMMUNOLOGY: No asthma or hayfever. MUSCULOSKELETAL: As mentioned earlier. HEMATOLOGY/ONCOLOGY: No history of anemia. ENDOCRINE: No history of diabetes or hypothyroidism. CONSTITUTIONAL: As mentioned earlier. DERMATOLOGY: Negative. RHEUMATOLOGY: Negative. PSYCHIATRY: As mentioned earlier. PHYSICAL EXAM: Patient alert and oriented x3. Pulse 74, blood pressure 90/51, respirations 16, temperature 98.4, pulse ox 98% on 2 L. HEENT: Conjunctivae normal. CARDIAC: S1, S2 muffled. RESPIRATORY: Breath sounds diminished in the bases. Bilateral scattered rhonchi and crackles. ABDOMEN: Soft, nontender. No mass palpable. No mass palpable. LEGS: No edema. NERVOUS SYSTEM: Higher functions as mentioned. Moves all four limbs. No focal deficits. LYMPHATICS: No lymphadenopathy in the neck, axillae or groin. SKIN: No ulcer, rash or bleeding. LABS: WBC 15.9, otherwise sodium 140. UA noted. ASSESSMENT: 1. Possible aspiration pneumonia left side with early sepsis. 2. Possible urinary tract infection. 3. Diabetes mellitus type 2. 4. Gastroesophageal reflux disease. 5. Hyperlipidemia. 6. History of pneumonia. 7. History of basal cell cancer. 8. History of bariatric surgery. 9. History of EGD and dilatation per Dr. Kumar. 10.History of aspiration pneumonia. 11.History of lap band and subsequent gastric sleeve. 12.History of thyroid nodules. 13.FULL CODE. RECOMMENDATIONS AND DISCUSSION: This 72-year-old woman presented with multiple complex medical issues, will monitor the patient closely. Continue the current medications and symptomatic treatment. Will initiate broad-spectrum IV antibiotics. Otherwise consult Dr. Romero, and as well as Dr. Kumar for evaluation. Follow cultures. Resume the home medications. DVT prophylaxis. Prognosis guarded because of multiple complex medical issues. Further recommendations to follow. Copy of dictation forwarded to Dr. Burnette and Dr. Mai. MMHAILYL / IJN: [id number] / [facility] CENTERDeuce
[2017-06-13 11:57] LABS: Glucose,Whole Blood 109 mg/dL (75-99)
[2017-06-13] MEDS: MULTIVITAMINS, THERA 1 EACH TAB PO SCH (11:58)
[2017-06-13] MEDS: CHOLECALCIFEROL 1,000 UNIT TAB PO SCH (11:58)
--- NOTE | 2017-06-13 12:49 | P.CNPUL ---
History of Present Illness Consult date: 06/13/17 Requesting physician: Shekhar Eugene Reason for consult: dyspnea, cough, abnormal CXR/CT Chief complaint: Fever, chills, shortness of breath History of present illness: This is a very pleasant 72-year-old female patient who follows with Dr. Burnette is her primary care physician. She has a history of severe gastroesophageal reflux disease. She's had previous lap band insertion and removal and subsequent gastric sleeve placed. She has has a history of esophageal stricture status post balloon dilatation. She has diabetes Low, hyperlipidemia, hypothyroidism. She also follows with Dr. Mai in our office. She had a bronchoscopy approximately 3 years ago for chronic cough which did not reveal any significant findings. Since that time she had been good from the pulmonary standpoint. November of this year she developed pneumonia. She states this is her fifth round of pneumonia. She presented yesterday with complaints of chills and weakness, shortness of breath which are very similar to previous pneumonias. Her chest x-ray does reveal new left mid to lower lung infiltrates. She was admitted for the same. She is seen today in consultation on the regular medical floor. She is awake and alert in no acute distress. She is maintaining O2 saturations in the 90s on room air. She has a dry nonproductive cough. He did present with a T-max of 101.4. She is currently afebrile. Count 15.9. She has been initiated on Levaquin. Review of Systems 14 point review of system was conducted. All negative other than as mentioned in HPI. Past Medical History Past Medical History: Cancer, Diabetes Mellitus, GERD/Reflux, Hyperlipidemia, Pneumonia, Thyroid Disorder Additional Past Medical History / Comment(s): Hx of Basal cell skin cancer, thyroid nodules, Pneumonia (nov 2016), esophageal stricture status post balloon dilatation, GERD History of Any Multi-Drug Resistant Organisms: None Reported Past Surgical History: Bariatric Surgery, Breast Surgery, Cholecystectomy, Hysterectomy Additional Past Surgical History / Comment(s): Lap band-inserted and removed, gastric sleeve, tummy tuck, skin cancer removal, right labia reduction , bilateral reduction upper thighs , thyroid biopsy, Right Thyroidectomy, Colonoscopy, Bronchoscopy, EGD. ira eye lid surgery, mult breast bx, EGD AND DILATION (12/29/16),"GLAUCOMA-HIGH SIDE OR NORMAL-NO MEDS YET" Past Anesthesia/Blood Transfusion Reactions: Family History of Problems w/ Anesthesia, Motion Sickness, Postoperative Nausea & Vomiting (PONV) Additional Past Anesthesia/Blood Transfusion Reaction / Comment(s): mother= ponv , CLAUSTERPHOBIC Smoking Status: Never smoker - Past Family History Mother Family Medical History: Cancer, Deep Vein Thrombosis (DVT) Additional Family Medical History / Comment(s): breast ca, Father Family Medical History: Cancer Additional Family Medical History / Comment(s): leukemia Daughter(s) Family Medical History: Cancer Additional Family Medical History / Comment(s): from breast ca Medications and Allergies Home Medications Medication Instructions Recorded Confirmed Type Aspirin 81 mg PO DAILY 02/01/15 06/12/17 History Atorvastatin [Lipitor] 20 mg PO DAILY 02/01/15 06/12/17 History Cyanocobalamin [Vitamin B-12] 500 mcg PO DAILY 02/01/15 06/12/17 History Omeprazole 40 mg PO DAILY 02/01/15 06/12/17 History sitaGLIPtin [Januvia] 100 mg PO DAILY 02/01/15 06/12/17 History Ranitidine HCl [Zantac] 150 mg PO HS 02/19/15 06/12/17 History Glimepiride [Amaryl] 0.5 mg PO QAM 03/14/16 06/12/17 History Thyroid,Pork [[place] Thyroid] 15 mg PO DAILY 05/12/16 06/12/17 History Losartan Potassium [Cozaar] 25 mg PO DAILY 12/26/16 06/12/17 History Multivitamins, Thera [Multivitamin 1 tab PO DAILY 12/26/16 06/12/17 History (formulary)] Biotin 10,000 mcg PO DAILY 03/13/17 06/12/17 History Cholecalciferol (Vitamin D3) 1,000 unit PO DAILY 03/13/17 06/12/17 History [Vitamin D3] Metoprolol Tartrate [Lopressor] 12.5 mg PO QAM 05/04/17 06/12/17 History Ondansetron [Zofran] 4 mg PO Q8HR PRN 05/04/17 06/12/17 History CHLORPHEN-HYDROcod 8-10mg/5ml 5 ml PO Q12HR PRN 06/12/17 06/12/17 History [Tussionex] Tums Extra Strength 750 mg PO QID 06/12/17 06/12/17 History Allergies Allergy/AdvReac Type Severity Reaction Status Date / Time adhesive Allergy Rash/Hives Verified 06/12/17 10:51 adhesive tape Allergy Rash/Hives Verified 06/12/17 10:51 Penicillins Allergy Diarrhea Verified 06/12/17 10:51 canagliflozin [From Invokana] AdvReac BLADDER Verified 06/12/17 10:51 INFECTION metformin AdvReac Nausea & Verified 06/12/17 10:51 Vomiting/diarrhea/stomach cramps Physical Exam Vitals: Vital Signs Temp Pulse Pulse Resp BP BP BP 06/13/17 08:56 76 06/13/17 08:48 68 06/13/17 06:49 97.8 F 76 16 119/59 06/13/17 00:17 103/51 06/13/17 00:00 69 16 06/12/17 23:00 97.3 F L 69 16 06/12/17 22:04 79/44 86/44 06/12/17 21:18 92 06/12/17 21:09 90 06/12/17 17:24 90 06/12/17 17:14 90 06/12/17 15:00 98.3 F 74 16 90/51 06/12/17 14:09 99.1 F 75 20 92/50 Pulse Ox 06/13/17 08:56 06/13/17 08:48 97 06/13/17 06:49 96 06/13/17 00:17 06/13/17 00:00 06/12/17 23:00 94 L 06/12/17 22:04 06/12/17 21:18 06/12/17 21:09 06/12/17 17:24 06/12/17 17:14 98 06/12/17 15:00 98 06/12/17 14:09 97 Intake and Output 06/12/17 06/13/17 06/13/17 22:59 06:59 14:59 Intake Total 100 1000 Balance 100 1000 Intake: Intake, IV Titration 1000 Amount Sodium Chloride 0.9% 1, 1000 000 ml @ 999 mls/hr IV . Q1H1M ONE Rx#:[id number] Oral 100 Other: Voiding Method Toilet Toilet Toilet # Voids 2 4 4 Weight 92.986 kg 92.986 kg Patient Weight 06/14/17 06:59 Weight 92.986 kg GENERAL EXAM: Alert, active, comfortable in no apparent distress. HEAD: Normocephalic. EYES: Normal reaction of pupils, equal size. NOSE: Clear with pink turbinates. THROAT: No erythema or exudates. NECK: No masses, no JVD. CHEST: No chest wall deformity. LUNGS: Equal air entry with you crackles in the left posterior base. CVS: S1 and S2 normal with no audible murmurs, regular rhythm. ABDOMEN: No hepatosplenomegaly, normal bowel sounds, no guarding or rigidity. SPINE: No scoliosis or deformity SKIN: No rashes CENTRAL NERVOUS SYSTEM: No focal deficits, tone is normal in all 4 extremities. Extremities: There is no peripheral edema. No clubbing, no cyanosis. Peripheral pulses are intact. Results - Laboratory Findings CBC and BMP: 06/12/17 11:45 06/12/17 11:45 Abnormal lab findings: Abnormal Labs 06/12/17 06/12/17 06/12/17 11:45 11:45 11:45 WBC 15.9 H Hct 47.1 H Neutrophils # (Manual) 14.40 H Lymphocytes # (Manual) 0.48 L Glucose 142 H POC Glucose (mg/dL) Hemoglobin A1c Urine Appearance Cloudy H Urine Protein 1+ H Urine Ketones 1+ H Ur Leukocyte Esterase Small H Urine WBC 6 H Ur Squamous Epith Cells 8 H Urine Bacteria Rare H Urine Mucus Moderate H 06/12/17 06/12/17 06/13/17 17:17 23:15 11:26 WBC Hct Neutrophils # (Manual) Lymphocytes # (Manual) Glucose POC Glucose (mg/dL) 155 H 109 H Hemoglobin A1c 6.9 H Urine Appearance Urine Protein Urine Ketones Ur Leukocyte Esterase Urine WBC Ur Squamous Epith Cells Urine Bacteria Urine Mucus - Diagnostic Findings Chest x-ray: image reviewed (Left mid and lower lobe infiltrates.) Assessment and Plan Plan: Impression: #1 Left and lower lobe pneumonia, suspect community-acquired however aspiration cannot be ruled out in a patient with significant GERD symptoms. #2 Leukocytosis secondary to above. #3 Febrile illness secondary to above. #4 Significant gastroesophageal reflux disease in a patient with previous LAP- BAND with subsequent removal and gastric sleeve. She is also had EGD and balloon dilatation in December 2016. She did undergo EGD in May 2017 and had dilation of the distal gastric sleeve. There was no noted obstruction. There was a hiatal hernia detected. #5 Recent suspect recurrent aspiration. She did have a modified barium swallow performed in March 2017 that was unremarkable however. #6 History of basal cell skin cancer, resected. #7 Thyroid nodules. #8 Obesity. #9 Hyperlipidemia. Plan: The patient was seen and evaluated by Dr. Romero. Her chest x-ray and labs were reviewed. We will continue with her current medications in form of Levaquin. She remained on bronchodilators. Clinically she is doing well. Maintaining good O2 saturations in the upper 90s on room air. She is on Lovenox for DVT prophylaxis. She is on Protonix. She also takes Tums 750 mg 4 times a day. We'll increase her activity as tolerated. We will repeat a chest x-ray in the a.m. We'll continue to follow. Time with Patient: Greater than 30
[2017-06-13] MEDS ORDERED: LEVOFLOXACIN 750MG-D5W PMX 750 MG in DEXTROSE/WATER 1 150ML.BAG IVPB SCH ×2 (14:00→16:00)
--- NOTE | 2017-06-13 14:18 | P.GSCN ---
History of Present Illness Consult date: 06/13/17 Reason for Consult: Pneumonia History of present illness: This is a 72-year-old female well-known to myself. Patient's. History of bariatric surgery. Patient had a previous gastric sleeve. She states she was admitted to the hospital for observation. She is found have a fever. She has a left lobe pneumonia. She denies a significant dysphagia or GERD. Past Medical History Past Medical History: Cancer, Diabetes Mellitus, GERD/Reflux, Hyperlipidemia, Pneumonia, Thyroid Disorder Additional Past Medical History / Comment(s): Hx of Basal cell skin cancer, thyroid nodules, Pneumonia (nov 2016), esophageal stricture status post balloon dilatation, GERD History of Any Multi-Drug Resistant Organisms: None Reported Past Surgical History: Bariatric Surgery, Breast Surgery, Cholecystectomy, Hysterectomy Additional Past Surgical History / Comment(s): Lap band-inserted and removed, gastric sleeve, tummy tuck, skin cancer removal, right labia reduction , bilateral reduction upper thighs , thyroid biopsy, Right Thyroidectomy, Colonoscopy, Bronchoscopy, EGD. ira eye lid surgery, mult breast bx, EGD AND DILATION (12/29/16),"GLAUCOMA-HIGH SIDE OR NORMAL-NO MEDS YET" Past Anesthesia/Blood Transfusion Reactions: Family History of Problems w/ Anesthesia, Motion Sickness, Postoperative Nausea & Vomiting (PONV) Additional Past Anesthesia/Blood Transfusion Reaction / Comm: mother= ponv, CLAUSTERPHOBIC Smoking Status: Never smoker - Past Family History Mother Family Medical History: Cancer, Deep Vein Thrombosis (DVT) Additional Family Medical History / Comment(s): breast ca, Father Family Medical History: Cancer Additional Family Medical History / Comment(s): leukemia Daughter(s) Family Medical History: Cancer Additional Family Medical History / Comment(s): from breast ca Medications and Allergies Home Medications Medication Instructions Recorded Confirmed Type Aspirin 81 mg PO DAILY 02/01/15 06/12/17 History Atorvastatin [Lipitor] 20 mg PO DAILY 02/01/15 06/12/17 History Cyanocobalamin [Vitamin B-12] 500 mcg PO DAILY 02/01/15 06/12/17 History Omeprazole 40 mg PO DAILY 02/01/15 06/12/17 History sitaGLIPtin [Januvia] 100 mg PO DAILY 02/01/15 06/12/17 History Ranitidine HCl [Zantac] 150 mg PO HS 02/19/15 06/12/17 History Glimepiride [Amaryl] 0.5 mg PO QAM 03/14/16 06/12/17 History Thyroid,Pork [[place] Thyroid] 15 mg PO DAILY 05/12/16 06/12/17 History Losartan Potassium [Cozaar] 25 mg PO DAILY 12/26/16 06/12/17 History Multivitamins, Thera [Multivitamin 1 tab PO DAILY 12/26/16 06/12/17 History (formulary)] Biotin 10,000 mcg PO DAILY 03/13/17 06/12/17 History Cholecalciferol (Vitamin D3) 1,000 unit PO DAILY 03/13/17 06/12/17 History [Vitamin D3] Metoprolol Tartrate [Lopressor] 12.5 mg PO QAM 05/04/17 06/12/17 History Ondansetron [Zofran] 4 mg PO Q8HR PRN 05/04/17 06/12/17 History CHLORPHEN-HYDROcod 8-10mg/5ml 5 ml PO Q12HR PRN 06/12/17 06/12/17 History [Tussionex] Tums Extra Strength 750 mg PO QID 06/12/17 06/12/17 History Allergies Allergy/AdvReac Type Severity Reaction Status Date / Time adhesive Allergy Rash/Hives Verified 06/12/17 10:51 adhesive tape Allergy Rash/Hives Verified 06/12/17 10:51 Penicillins Allergy Diarrhea Verified 06/12/17 10:51 canagliflozin [From Invokana] AdvReac BLADDER Verified 06/12/17 10:51 INFECTION metformin AdvReac Nausea & Verified 06/12/17 10:51 Vomiting/diarrhea/stomach cramps Surgical - Exam Vital Signs Temp Pulse Resp BP Pulse Ox 101.4 F H 91 18 114/54 96 06/12/17 10:35 06/12/17 10:35 06/12/17 10:35 06/12/17 10:35 06/12/17 10:35 - General well developed, no distress - Eyes PERRL - ENT normal pinna - Neck no masses - Abdomen Abdomen: soft, non tender Results - Labs 06/12/17 11:45 06/12/17 11:45 Abnormal Lab Results - Last 24 Hours (Table) 06/12/17 06/12/17 06/13/17 Range/Units 17:17 23:15 11:26 POC Glucose (mg/dL) 155 H 109 H (75-99) mg/dL Hemoglobin A1c 6.9 H (4.2-6.1) % Diabetes panel 06/12/17 Range/Units 23:15 Hemoglobin A1c 6.9 H (4.2-6.1) % Assessment and Plan Plan: Pneumonia History of laparoscopic sleeve gastrectomy. Patient has minimal GERD. She has no significant dysphagia at this time. Patient will be observed. She'll follow-up in the bandage clinic as an outpatient.
[2017-06-13 15:37] LABS: Basophils % (A) 0 %; CH 30.2; CHCM 32.4; Eosinophils # (A) 0.2 k/uL (0-0.7); Eosinophils % (A) 1 %; HCT 40.2 % (34.0-46.0); HDW 2.34; HGB 13.5 gm/dL (11.4-16.0); Luc # (Auto) 0.15; Luc % (Auto) 1; Lymphocytes % (A) 16 %; MCH 31.5 pg (25.0-35.0); MCHC 33.6 g/dL (31.0-37.0); MCV 93.7 fL (80.0-100.0); Mean Platelet Volume 7.9; Monocytes # (A) 0.6 k/uL (0-1.0); Monocytes % (A) 5 %; Neutrophils # (A) 9.4 k/uL (1.3-7.7); Neutrophils % (A) 76 %; RBC 4.29 m/uL (3.80-5.40); RDW 13.2 % (11.5-15.5); WBC 12.3 k/uL (3.8-10.6); WBC (Perox) 11.98
[2017-06-13 15:48] LABS: Potassium 4.3 mmol/L (3.5-5.1)
[2017-06-13 17:23] LABS: Glucose,Whole Blood 78 mg/dL (75-99)
--- NOTE | 2017-06-13 17:44 | PN ---
PROGRESS NOTE DATE OF SERVICE: 06/13/2017 This 72-year-old woman who was admitted with aspiration pneumonia possibly with early sepsis is being closely monitored. No chest pain. No palpitations. No fever. PHYSICAL EXAMINATION: On exam, alert, oriented x3. Pulse 76, blood pressure 119/59, respirations 16, temperature 97.8, pulse ox 96% on room air. HEENT: Conjunctivae normal. NECK: No jugular venous distention. CARDIOVASCULAR: S1 and S2, muffled. RESPIRATORY: Breath sounds diminished at the bases. A few rhonchi. ABDOMEN: Soft, nontender. LEGS: No edema. NERVOUS SYSTEM: No focal deficits. LABS: Labs are WBC 15.9. UA noted. Cultures are negative so far. ASSESSMENT: 1. Acute aspiration pneumonia on left side with early sepsis, present on admission. 2. Possible urinary tract infection. 3. Diabetes mellitus type 2. 4. Gastroesophageal reflux disease. 5. Hyperlipidemia. 6. History pneumonia. 7. History of basal cell cancer. 8. History of bariatric surgery. 9. History of EGD with dilatation per Dr. Kumar. 10.History of aspiration pneumonia. 11.History of lap band and subsequent gastric sleeve. 12.History of thyroid nodules. 13.FULL CODE. RECOMMENDATIONS AND DISCUSSION: In this 72-year-old woman who presented with multiple complex medical issues, will monitor the patient closely. Continue the current medications, continue symptomatic treatment with broad-spectrum antibiotics and surgical evaluation and pulmonary evaluation. Guarded prognosis because of multiple complex medical issues. Further recommendations to follow. MMODL / IJN: [id number] /
[2017-06-13 20:17] LABS: Glucose,Whole Blood 90 mg/dL (75-99)
[2017-06-13] MEDS: FAMOTIDINE 20 MG TAB PO SCH (21:32)
[2017-06-14 06:21] VITALS: BP 131/63; TEMP 98.6
[2017-06-14 06:44] LABS: Basophils % (A) 0 %; CH 30.7; CHCM 33.5; Eosinophils # (A) 0.2 k/uL (0-0.7); Eosinophils % (A) 2 %; HCT 38.9 % (34.0-46.0); HDW 2.34; Luc # (Auto) 0.16; Luc % (Auto) 2; Lymphocytes # (A) 1.3 k/uL (1.0-4.8); Lymphocytes % (A) 15 %; MCH 30.7 pg (25.0-35.0); MCHC 33.3 g/dL (31.0-37.0); Monocytes # (A) 0.6 k/uL (0-1.0); Monocytes % (A) 7 %; Neutrophils # (A) 6.5 k/uL (1.3-7.7); Neutrophils % (A) 74 %; RBC 4.22 m/uL (3.80-5.40); RDW 13.9 % (11.5-15.5); WBC 8.8 k/uL (3.8-10.6); WBC (Perox) 9.21
[2017-06-14 06:58] LABS: Calcium 9.5 mg/dL (8.4-10.2); Potassium 4.6 mmol/L (3.5-5.1)
[2017-06-14] MEDS: IPRATROPIUM-ALBUTEROL 3 ML NEB INHALATION SCH ×2 (07:22→11:31)
[2017-06-14 07:25] VITALS: PULSE 68; RESP 14
[2017-06-14 07:28] LABS: Glucose,Whole Blood 81 mg/dL (75-99)
--- NOTE | 2017-06-14 07:38 | XR ---
EXAMINATION TYPE: XR chest 2V DATE OF EXAM: 06/14/2017 HISTORY: Follow up LML, LLL infiltrates. REFERENCE: Previous study dated 06/12/2017. FINDINGS: There is improved aeration of the left lung. The heart is not enlarged. Pleural spaces are clear. IMPRESSION: IMPROVING LEFT-SIDED INFILTRATE.
[2017-06-14] MEDS: PANTOPRAZOLE 40 MG TABLET PO SCH (08:00)
[2017-06-14] MEDS: ASPIRIN 81 MG CHEW PO SCH (08:00)
[2017-06-14] MEDS: INSULIN LISPRO (humaLOG) 300 UNIT/3 ML VIAL SQ SCH ×2 (08:01→12:00)
[2017-06-14] MEDS: GLIMEPIRIDE 1 MG TAB PO SCH (08:01)
[2017-06-14] MEDS: THYROID, PORK 30 MG TAB PO SCH (08:01)
[2017-06-14] MEDS: ATORVASTATIN 20 MG TAB PO SCH (08:02)
[2017-06-14] MEDS: METOPROLOL TARTRATE 12.5 MG TAB PO SCH (08:02)
[2017-06-14] MEDS: CALCIUM CARBONATE 500 MG CHEWABLE PO SCH ×2 (08:02→12:21)
[2017-06-14] MEDS: CYANOCOBALAMIN 500 MCG TAB PO SCH (08:02)
[2017-06-14] MEDS: LINAGLIPTIN 5 MG TABLET PO SCH (08:03)
[2017-06-14] MEDS: ENOXAPARIN 40 MG/0.4 ML SYRINGE SQ SCH (08:03)
[2017-06-14] MEDS: LOSARTAN 25 MG TAB PO SCH (08:03)
[2017-06-14] MEDS: ACETAMINOPHEN TAB 325 MG TAB PO PRN (08:11)
--- NOTE | 2017-06-14 09:06 | P.PN ---
Progress Note - Text The patient is doing better. She has no shortness of breath. She is tolerating her diet. On exam her vital signs are stable. Her abdomen soft. Patiently discharged home. She'll follow-up myself in the bandage clinic in several weeks.
[2017-06-14 11:07] LABS: Glucose,Whole Blood 88 mg/dL (75-99)
[2017-06-14] MEDS: MULTIVITAMINS, THERA 1 EACH TAB PO SCH (12:20)
[2017-06-14] MEDS: CHOLECALCIFEROL 1,000 UNIT TAB PO SCH (12:21)
--- NOTE | 2017-06-14 13:31 | P.PN ---
Subjective Principal diagnosis: Acute left lower lobe pneumonia This is a very pleasant 72-year-old female patient who follows with Dr. Burnette is her primary care physician. She has a history of severe gastroesophageal reflux disease. She's had previous lap band insertion and removal and subsequent gastric sleeve placed. She has has a history of esophageal stricture status post balloon dilatation. She has diabetes Low, hyperlipidemia, hypothyroidism. She also follows with Dr. Mai in our office. She had a bronchoscopy approximately 3 years ago for chronic cough which did not reveal any significant findings. Since that time she had been good from the pulmonary standpoint. November of this year she developed pneumonia. She states this is her fifth round of pneumonia. She presented yesterday with complaints of chills and weakness, shortness of breath which are very similar to previous pneumonias. Her chest x-ray does reveal new left mid to lower lung infiltrates. She was admitted for the same. She is seen today in consultation on the regular medical floor. She is awake and alert in no acute distress. She is maintaining O2 saturations in the 90s on room air. She has a dry nonproductive cough. He did present with a T-max of 101.4. She is currently afebrile. Count 15.9. She has been initiated on Levaquin. Patient was reevaluated today on 06/14/2017, doing quite well, relatively asymptomatic. No fever, no chills, no cough no wheezing no shortness of breath over the last 24 hours. Chest x-ray is already showing improved left sided infiltrate. Hence the patient can be switched to oral Levaquin and discharged home today. Objective - Vital Signs Vital signs: Vital Signs Temp 98.6 F 06/14/17 06:20 Pulse 68 06/14/17 07:32 Resp 14 06/14/17 07:32 BP 131/63 06/14/17 06:20 Pulse Ox 97 06/14/17 07:22 Intake & Output 06/13/17 06/14/17 06/14/17 18:59 06:59 18:59 Intake Total 1640 940 810 Balance 1640 940 810 Weight 92.986 kg 92.986 kg Intake: Intake, IV Titration 1000 Amount Sodium Chloride 0.9% 1, 1000 000 ml @ 999 mls/hr IV . Q1H1M ONE Rx#:[id number] Oral 640 940 810 Other: Voiding Method Toilet Toilet Toilet # Voids 3 2 3 # Bowel Movements 1 - Exam GENERAL EXAM: Alert, active, comfortable in no apparent distress. HEAD: Normocephalic. EYES: Normal reaction of pupils, equal size. NOSE: Clear with pink turbinates. THROAT: No erythema or exudates. NECK: No masses, no JVD. CHEST: No chest wall deformity. LUNGS: Equal air entry no crackles, no rhonchi, no wheezes. CVS: S1 and S2 normal with no audible murmurs, regular rhythm. ABDOMEN: No hepatosplenomegaly, normal bowel sounds, no guarding or rigidity. SPINE: No scoliosis or deformity SKIN: No rashes CENTRAL NERVOUS SYSTEM: No focal deficits, tone is normal in all 4 extremities. Extremities: There is no peripheral edema. No clubbing, no cyanosis. Peripheral pulses are intact. - Labs CBC & Chem 7: 06/14/17 06:09 06/14/17 06:09 Labs: Abnormal Lab Results - Last 24 Hours (Table) 06/13/17 06/13/17 06/14/17 Range/Units 15:25 15:25 06:09 WBC 12.3 H (3.8-10.6) k/uL Neutrophils # 9.4 H (1.3-7.7) k/uL Chloride 109 H (98-107) mmol/L Creatinine 1.30 H 1.10 H (0.52-1.04) mg/dL Glucose 73 L (74-99) mg/dL Assessment and Plan Plan: #1 Left and lower lobe pneumonia, suspect community-acquired however aspiration cannot be ruled out in a patient with significant GERD symptoms. #2 Leukocytosis secondary to above. #3 Febrile illness secondary to above. #4 Significant gastroesophageal reflux disease in a patient with previous LAP- BAND with subsequent removal and gastric sleeve. She is also had EGD and balloon dilatation in December 2016. She did undergo EGD in May 2017 and had dilation of the distal gastric sleeve. There was no noted obstruction. There was a hiatal hernia detected. #5 Recent suspect recurrent aspiration. She did have a modified barium swallow performed in March 2017 that was unremarkable however. #6 History of basal cell skin cancer, resected. #7 Thyroid nodules. #8 Obesity. #9 Hyperlipidemia. Recommendation: Patient can be placed on oral Levaquin for the next 10 days, discharge home today, follow up outpatient basis with Dr. Mai. Time with Patient: Less than 30
[2017-06-14] MEDS ORDERED: LEVOFLOXACIN 750MG-D5W PMX 750 MG in DEXTROSE/WATER 1 150ML.BAG IVPB SCH (14:00)
--- NOTE | 2017-06-14 18:42 | P.DS ---
Providers Date of admission: 06/12/17 13:16 Attending physician: Shekhar Eugene Consults: 06/12/17 20:31 Consult Physician Routine Consulting Provider: Dorothy Romero Consult Reason/Comments: pneumonia Do you want consulting provider notified?: Yes, Notify in am 06/12/17 20:33 Consult Physician Routine Consulting Provider: Paul Kumar Consult Reason/Comments: EGD Do you want consulting provider notified?: Yes, Notify in am Primary care physician: Johann Burnette [place] [facility] Course: This 72-year-old woman with a past medical history multiple medical problems was admitted with early aspiration pneumonia on the left side with early sepsis. Patient was given antibiotic promptly. Patient improved significantly. Patient also had UTI. Seen by multiple consultants including Dr. Epps and Dr. Mondragon for surgery. Patient did have recent with palpitations previously. Outpatient follow-up is recommended. Patient improved significantly. Patient be discharged in a stable condition with guarded prognosis. Patient be followed by Dr. Burnette in the outpatient setting. On exam vitals stable. Cardio S1 and S2 normal. Respirator system few rhonchi. Abdomen soft nontender. Final diagnosis 1. Acute aspiration pneumonia on the left side with early sepsis present on admission. 2. Possible UTI. 3. Diabetes was type II. 4. GERD. 5. Hyperlipidemia. 6. History of pneumonia. 7. History of basal cell cancer. 8. History of bariatric surgery. 9. History of EGD with multiple dilations for Dr. Kumar. 10. History of aspiration pneumonia. 11. History of lap band and a subsequent gastric sleeve. 12. History of thyroid nodule. 13. Full code. Patient Condition at Discharge: Fair Plan - Discharge Summary New Discharge Prescriptions: New Albuterol Inhaler [Ventolin Hfa Inhaler] 2 puff INHALATION Q6HR #1 inhaler Levofloxacin [Levaquin] 500 mg PO DAILY #4 tab Continue Cyanocobalamin [Vitamin B-12] 500 mcg PO DAILY Omeprazole 40 mg PO DAILY sitaGLIPtin [Januvia] 100 mg PO DAILY Atorvastatin [Lipitor] 20 mg PO DAILY Aspirin 81 mg PO DAILY Ranitidine HCl [Zantac] 150 mg PO HS Glimepiride [Amaryl] 0.5 mg PO QAM Thyroid,Pork [[place] Thyroid] 15 mg PO DAILY Losartan Potassium [Cozaar] 25 mg PO DAILY Multivitamins, Thera [Multivitamin (formulary)] 1 tab PO DAILY Biotin 10,000 mcg PO DAILY Cholecalciferol (Vitamin D3) [Vitamin D3] 1,000 unit PO DAILY Ondansetron [Zofran] 4 mg PO Q8HR PRN PRN Reason: Nausea Metoprolol Tartrate [Lopressor] 12.5 mg PO QAM CHLORPHEN-HYDROcod 8-10mg/5ml [Tussionex] 5 ml PO Q12HR PRN PRN Reason: Cough Tums Extra Strength 750 mg PO QID Discharge Medication List Aspirin 81 mg PO DAILY 02/01/15 [History] Atorvastatin [Lipitor] 20 mg PO DAILY 02/01/15 [History] Cyanocobalamin [Vitamin B-12] 500 mcg PO DAILY 02/01/15 [History] Omeprazole 40 mg PO DAILY 02/01/15 [History] sitaGLIPtin [Januvia] 100 mg PO DAILY 02/01/15 [History] Ranitidine HCl [Zantac] 150 mg PO HS 02/19/15 [History] Glimepiride [Amaryl] 0.5 mg PO QAM 03/14/16 [History] Thyroid,Pork [[place] Thyroid] 15 mg PO DAILY 05/12/16 [History] Losartan Potassium [Cozaar] 25 mg PO DAILY 12/26/16 [History] Multivitamins, Thera [Multivitamin (formulary)] 1 tab PO DAILY 12/26/16 [History ] Biotin 10,000 mcg PO DAILY 03/13/17 [History] Cholecalciferol (Vitamin D3) [Vitamin D3] 1,000 unit PO DAILY 03/13/17 [History] Metoprolol Tartrate [Lopressor] 12.5 mg PO QAM 05/04/17 [History] Ondansetron [Zofran] 4 mg PO Q8HR PRN 05/04/17 [History] CHLORPHEN-HYDROcod 8-10mg/5ml [Tussionex] 5 ml PO Q12HR PRN 06/12/17 [History] Tums Extra Strength 750 mg PO QID 06/12/17 [History] Albuterol Inhaler [Ventolin Hfa Inhaler] 2 puff INHALATION Q6HR #1 inhaler 06/14 [Rx] Levofloxacin [Levaquin] 500 mg PO DAILY #4 tab 06/14/17 [Rx] Follow up Appointment(s)/Referral(s): Johann Burnette III, MD [Primary Care Provider] - 1-2 days (patient will call for appointment/ office is closed at this time) Paul Kumar MD [STAFF PHYSICIAN] - 2 Weeks (patient will make own appointment due to office is closed at this time) Patient Instructions/Handouts: Albuterol (By breathing), Levofloxacin (By mouth ), Fever in Adults (GEN), Community Acquired Pneumonia (DC), Leukocytosis (DC), Back Pain (GEN) Activity/Diet/Wound Care/Special Instructions: diet cardiac act as tolerated Discharge Disposition: HOME SELF-CARE
== END 2017-06-14 14:32 | disposition home or self-care (01) | DRG 871 ==
LOC: EC 09:56 → 5MS5E 13:16
PROVIDERS: ADMIT Hospitalist; ATTEND Hospitalist
DX: A41.9 Sepsis, unspecified organism (principal); J69.0 Pneumonitis due to inhalation of food and vomit; N39.0 Urinary tract infection, site not specified; E11.9 Type 2 diabetes mellitus without complications; I10 Essential (primary) hypertension; E04.2 Nontoxic multinodular goiter; Z85.828 Personal history of other malignant neoplasm of skin; E89.0 Postprocedural hypothyroidism; E66.9 Obesity, unspecified; Z68.36 Body mass index [BMI] 36.0-36.9, adult; E78.5 Hyperlipidemia, unspecified; H40.9 Unspecified glaucoma; K21.9 Gastro-esophageal reflux disease without esophagitis; K44.9 Diaphragmatic hernia without obstruction or gangrene; Z79.82 Long term (current) use of aspirin; Z79.84 Long term (current) use of oral hypoglycemic drugs; Z79.899 Other long term (current) drug therapy; Z80.3 Family history of malignant neoplasm of breast; Z80.6 Family history of leukemia; Z87.01 Personal history of pneumonia (recurrent); Z98.84 Bariatric surgery status; Z88.0 Allergy status to penicillin; Z88.8 Allergy status to other drugs, medicaments and biological substances
CPT/HCPCS: 36415; 71020; 80048; 81001; 83036; 83605; 85025; 94640; 94760; 96374; 99284

== ENCOUNTER → 2017-08-24 | Outpatient (CLI) | payer MEDICARE, BC ==
[2017-08-24 15:56] VITALS: BP 136/61; PULSE 72; TEMP 98.2; BMI 36.9
--- NOTE | 2017-08-24 16:52 | P.HPBAR ---
Bariatric H&P - History & Physicial H&P Date: 08/24/17 History & Physicial: Visit/CC: Patient initial contact: Initial weight: 138.799 kg Initial weight in pounds: 305.99 Height: 5 ft 2 in Initial BMI: 56.0 Last weight: Current weight: 91.671 kg Current weight in pounds: 202.10 Current BMI: 36.9 [place] body weight (based on NIH guidelines): 49.895 kg Excess body weight loss: 53.0% The patient is a 72 year-old F who presents for Bariatric Assessment. She presents today for follow-up. She has complaints of GERD. She states her GERD has worsened. She states she has reflux of liquids at night. Patient is a known hiatal hernia. Past Medical History Past Medical History: Cancer, Diabetes Mellitus, GERD/Reflux, Hyperlipidemia, Pneumonia, Thyroid Disorder Additional Past Medical History / Comment(s): Hx of Basal cell skin cancer, thyroid nodules, Pneumonia (nov 2016), esophageal stricture status post balloon dilatation, GERD History of Any Multi-Drug Resistant Organisms: None Reported Past Surgical History: Bariatric Surgery, Breast Surgery, Cholecystectomy, Hysterectomy Additional Past Surgical History / Comment(s): Lap band-inserted and removed, gastric sleeve, tummy tuck, skin cancer removal, right labia reduction , bilateral reduction upper thighs , thyroid biopsy, Right Thyroidectomy, Colonoscopy, Bronchoscopy, EGD. ira eye lid surgery, mult breast bx, EGD AND DILATION (12/29/16),"GLAUCOMA-HIGH SIDE OR NORMAL-NO MEDS YET" Past Anesthesia/Blood Transfusion Reactions: Family History of Problems w/ Anesthesia, Motion Sickness, Postoperative Nausea & Vomiting (PONV) Additional Past Anesthesia/Blood Transfusion Reaction / Comm: mother= ponv, CLAUSTERPHOBIC Past Psychological History: No Psychological Hx Reported Smoking Status: Never smoker Past Alcohol Use History: None Reported Past Drug Use History: None Reported - Past Family History Mother Family Medical History: Cancer, Deep Vein Thrombosis (DVT) Additional Family Medical History / Comment(s): breast ca, Father Family Medical History: Cancer Additional Family Medical History / Comment(s): leukemia Daughter(s) Family Medical History: Cancer Additional Family Medical History / Comment(s): from breast ca Surgical - Exam Vital Signs Temp Pulse BP 98.2 F 72 136/61 08/24/17 15:53 08/24/17 15:53 08/24/17 15:53 - General well developed, no distress - Eyes PERRL - ENT normal pinna - Neck no masses - Respiratory normal expansion - Cardiovascular Rhythm: regular - Abdomen Abdomen: soft, non tender Bariatric Assessment & Plan Plan: GERD. Patient was scheduled for laparoscopic repair of hiatal hernia. I went over the risks and benefits of procedure. Also discussed through that she may have extensive adhesions preventing me from performing the surgery. Patient scheduled for surgery sometime in the next 2 weeks. Bariatric Checklist Checklist: Plan: Checklist: EGD: 1. Hiatal hernia: 2. H. Pylori: HgbA1c: Vitamin D: Smoking: Never smoker Primary care physician referral: dr rodas Psychiatry clearance: Cardiology clearance: Sleep study: Diet journal: VTE risk score: VTE risk level: Rehab needs at discharge:
== END | disposition home or self-care (01) ==
LOC: BARWHC3 15:30
PROVIDERS: ATTEND Surgery
DX: K21.9 Gastro-esophageal reflux disease without esophagitis (principal); E11.9 Type 2 diabetes mellitus without complications; E78.5 Hyperlipidemia, unspecified; Z98.84 Bariatric surgery status
CPT/HCPCS: 99211

== ENCOUNTER → 2017-09-04 | Outpatient (CLI) | payer MEDICARE, BC ==
[2017-09-04 11:08] LABS: Basophils % (A) 1 %; CH 30.2; Eosinophils # (A) 0.2 k/uL (0-0.7); Eosinophils % (A) 4 %; HCT 45.3 % (34.0-46.0); HDW 2.43; HGB 14.3 gm/dL (11.4-16.0); Luc # (Auto) 0.15; Luc % (Auto) 3; Lymphocytes # (A) 1.7 k/uL (1.0-4.8); Lymphocytes % (A) 31 %; MCH 29.9 pg (25.0-35.0); MCHC 31.5 g/dL (31.0-37.0); MCV 94.9 fL (80.0-100.0); Monocytes # (A) 0.3 k/uL (0-1.0); Monocytes % (A) 6 %; Neutrophils # (A) 3.1 k/uL (1.3-7.7); Neutrophils % (A) 56 %; RBC 4.77 m/uL (3.80-5.40); RDW 12.6 % (11.5-15.5); WBC 5.6 k/uL (3.8-10.6); WBC (Perox) 5.38
[2017-09-04 11:23] LABS: ALT 25 U/L (9-52); AST 15 U/L (14-36); Alkaline Phosphatase 72 U/L (38-126); Anion Gap 10 mmol/L; Blood Urea Nitrogen 14 mg/dL (7-17); Calcium 9.5 mg/dL (8.4-10.2); Carbon Dioxide 26 mmol/L (22-30); Chloride 107 mmol/L (98-107); Glucose 139 mg/dL (74-99); Non-African American GFR(MDRD) >60 (>60 ml/min/1.73 sqM); Potassium 4.5 mmol/L (3.5-5.1); Sodium 143 mmol/L (137-145); Total Bilirubin 0.5 mg/dL (0.2-1.3); Total Protein 7.1 g/dL (6.3-8.2)
== END | disposition home or self-care (01) ==
LOC: LABPAT 09:33
PROVIDERS: ATTEND Surgery
DX: Z01.810 Encounter for preprocedural cardiovascular examination (principal); Z01.812 Encounter for preprocedural laboratory examination
CPT/HCPCS: 80053; 85025; 93005

== ENCOUNTER → 2017-10-12 | Outpatient (CLI) | payer MEDICARE, BC ==
[2017-10-12 14:31] VITALS: BP 140/66; PULSE 61; RESP 16; TEMP 98.2; BMI 34.9
--- NOTE | 2017-10-12 16:56 | P.HPBAR ---
Bariatric H&P - History & Physicial H&P Date: 10/12/17 History & Physicial: Visit/CC: hernia repair follow up Patient initial contact: Initial weight: 138.799 kg Initial weight in pounds: 305.99 Height: 5 ft 2.5 in Initial BMI: 55.0 Last weight: Current weight: 88.195 kg Current weight in pounds: 194.00 Current BMI: 34.9 [place] body weight (based on NIH guidelines): 51.029 kg Excess body weight loss: 57.8% The patient is a 72 year-old F who presents for Bariatric Assessment. The patient states that she has had minimal GERD. She's had a recent hiatal hernia repair. She has no further dysphagia. Past Medical History Past Medical History: Cancer, Diabetes Mellitus, GERD/Reflux, Hyperlipidemia, Pneumonia, Thyroid Disorder Additional Past Medical History / Comment(s): Hx of Basal cell skin cancer, thyroid nodules, Pneumonia (nov 2016), esophageal stricture status post balloon dilatation, GERD History of Any Multi-Drug Resistant Organisms: None Reported Past Surgical History: Bariatric Surgery, Breast Surgery, Cholecystectomy, Hysterectomy Additional Past Surgical History / Comment(s): Lap band-inserted and removed, gastric sleeve, tummy tuck, skin cancer removal, right labia reduction , bilateral reduction upper thighs , thyroid biopsy, Right Thyroidectomy, Colonoscopy, Bronchoscopy, EGD. ira eye lid surgery, mult breast bx, EGD AND DILATION (12/29/16),"GLAUCOMA-HIGH SIDE OR NORMAL-NO MEDS YET" Past Anesthesia/Blood Transfusion Reactions: Family History of Problems w/ Anesthesia, Motion Sickness, Postoperative Nausea & Vomiting (PONV) Additional Past Anesthesia/Blood Transfusion Reaction / Comm: mother= ponv, CLAUSTERPHOBIC Past Psychological History: No Psychological Hx Reported Smoking Status: Never smoker Past Alcohol Use History: None Reported Past Drug Use History: None Reported - Past Family History Mother Family Medical History: Cancer, Deep Vein Thrombosis (DVT) Additional Family Medical History / Comment(s): breast ca, Father Family Medical History: Cancer Additional Family Medical History / Comment(s): leukemia Daughter(s) Family Medical History: Cancer Additional Family Medical History / Comment(s): from breast ca Surgical - Exam Vital Signs Temp Pulse Resp BP 98.2 F 61 16 140/66 10/12/17 14:28 10/12/17 14:28 10/12/17 14:28 10/12/17 14:28 - General well developed, no distress - Eyes PERRL - Abdomen Abdomen: soft, non tender Bariatric Assessment & Plan Plan: Patient is doing well from her sleeve yesterday. Her GERD symptoms are minimal on observed. She'll follow-up in one month. Bariatric Checklist Checklist: Plan: Checklist: EGD: 1. Hiatal hernia: 2. H. Pylori: HgbA1c: Vitamin D: Smoking: Never smoker Primary care physician referral: dr rodas Psychiatry clearance: Cardiology clearance: Sleep study: Diet journal: VTE risk score: VTE risk level: Rehab needs at discharge:
== END | disposition home or self-care (01) ==
LOC: BARWHC3 13:57
PROVIDERS: ATTEND Surgery
DX: Z09 Encounter for follow-up examination after completed treatment for conditions other than malignant neoplasm (principal); E11.9 Type 2 diabetes mellitus without complications; E78.5 Hyperlipidemia, unspecified; Z98.890 Other specified postprocedural states; Z98.84 Bariatric surgery status
CPT/HCPCS: 99211

== ENCOUNTER → 2017-11-09 | Outpatient (CLI) | payer MEDICARE, BC ==
[2017-11-09 13:30] VITALS: BP 146/63; PULSE 61; TEMP 98.2; BMI 36.2
--- NOTE | 2017-11-09 15:56 | P.HPBAR ---
Bariatric H&P - History & Physicial H&P Date: 11/09/17 History & Physicial: Visit/CC: follow up Patient initial contact: Initial weight: 138.799 kg Initial weight in pounds: 306.00 Height: 5 ft 2 in Initial BMI: 56.0 Last weight: Current weight: 89.947 kg Current weight in pounds: 198.30 Current BMI: 36.2 [place] body weight (based on NIH guidelines): 49.895 kg Excess body weight loss: 54.9% The patient is a 72 year-old F who presents for Bariatric Assessment. The patient presents today for sleeve gastric prefall. Patient's had some minimal GERD. She states her GERD is much improved compared to her GERD before her hiatal hernias repaired. Past Medical History Past Medical History: Cancer, Diabetes Mellitus, GERD/Reflux, Hyperlipidemia, Pneumonia, Thyroid Disorder Additional Past Medical History / Comment(s): Hx of Basal cell skin cancer, thyroid nodules, Pneumonia (nov 2016), esophageal stricture status post balloon dilatation, GERD History of Any Multi-Drug Resistant Organisms: None Reported Past Surgical History: Bariatric Surgery, Breast Surgery, Cholecystectomy, Hysterectomy Additional Past Surgical History / Comment(s): Lap band-inserted and removed, gastric sleeve, tummy tuck, skin cancer removal, right labia reduction , bilateral reduction upper thighs , thyroid biopsy, Right Thyroidectomy, Colonoscopy, Bronchoscopy, EGD. ira eye lid surgery, mult breast bx, EGD AND DILATION (12/29/16),"GLAUCOMA-HIGH SIDE OR NORMAL-NO MEDS YET" Past Anesthesia/Blood Transfusion Reactions: Family History of Problems w/ Anesthesia, Motion Sickness, Postoperative Nausea & Vomiting (PONV) Additional Past Anesthesia/Blood Transfusion Reaction / Comm: mother= ponv, CLAUSTERPHOBIC Past Psychological History: No Psychological Hx Reported Smoking Status: Never smoker Past Alcohol Use History: None Reported Past Drug Use History: None Reported - Past Family History Mother Family Medical History: Cancer, Deep Vein Thrombosis (DVT) Additional Family Medical History / Comment(s): breast ca, Father Family Medical History: Cancer Additional Family Medical History / Comment(s): leukemia Daughter(s) Family Medical History: Cancer Additional Family Medical History / Comment(s): from breast ca Surgical - Exam Vital Signs Temp Pulse BP 98.2 F 61 146/63 11/09/17 13:27 11/09/17 13:27 11/09/17 13:27 - General well developed, no distress - Eyes PERRL - ENT normal pinna - Neck no masses - Respiratory normal expansion - Cardiovascular Rhythm: regular - Abdomen Abdomen: soft, non tender Bariatric Assessment & Plan Plan: The patient is doing well. Her GERD symptoms are minimal O be observed. She' ll follow-up in 1 week's. Bariatric Checklist Checklist: Plan: Checklist: EGD: 1. Hiatal hernia: 2. H. Pylori: HgbA1c: Vitamin D: Smoking: Never smoker Primary care physician referral: dr rodas Psychiatry clearance: Cardiology clearance: Sleep study: Diet journal: VTE risk score: VTE risk level: Rehab needs at discharge:
== END ==
LOC: BARWHC3 12:31
PROVIDERS: ATTEND Surgery
DX: Z48.815 Encounter for surgical aftercare following surgery on the digestive system (principal); K21.9 Gastro-esophageal reflux disease without esophagitis; Z98.84 Bariatric surgery status; Z68.36 Body mass index [BMI] 36.0-36.9, adult
CPT/HCPCS: 99211

== ENCOUNTER → 2018-01-18 | Outpatient (CLI) | payer MEDICARE, BC ==
[2018-01-18 14:49] VITALS: BP 136/72; PULSE 63; TEMP 98.3; BMI 36.3
--- NOTE | 2018-01-18 16:19 | FL ---
EXAMINATION TYPE: FL barium swallow DATE OF EXAM: 01/18/2018 LIMITED UGI-ESOPHAGRAM: CLINICAL HISTORY: History of lap band 2006 compared into gastric sleeve 2013 with Luis Alberto fundoplicat ion surgery 2017 presents with persistent dysphagia and reflux-like symptoms per patient. TECHNIQUE: Limited esophagram is performed utilizing 20 oz of barium. A total of 1 minute 58 seconds of fluoroscopic time was utilized during procedure. 33 spot images were saved. FINDINGS: The patient swallowed contrast without difficulty or delay. Esophageal peristalsis and mo tility are felt satisfactory. There is good flow of contrast along the diaphragmatic hiatus into the stomach, there is no evidence of contrast extravasation to suggest leak. No persistent hiatal hernia is seen. There is mild delay of flow into proximal and distal anastomosis at gastric sleeve. There is eventual flow into duodenal sweep. There are several episodes of reflux into mid to distal esophagus noted during real-time performance of study. IMPRESSION: No evidence of leak or significant obstruction status post Luis Alberto fundoplication and sandra manuela sleeve surgery. Persistent Gastroesophageal reflux is confirmed. Images saved to PACS for surgeon to review size of opening at GE junction at site of Luis Alberto surgery.
--- NOTE | 2018-01-18 16:55 | P.HPBAR ---
Bariatric H&P - History & Physicial H&P Date: 01/18/18 History & Physicial: Visit/CC: follow up Patient initial contact: Initial weight: 138.799 kg Initial weight in pounds: 306.00 Height: 5 ft 2.5 in Initial BMI: 55.0 Last weight: Current weight: 91.626 kg Current weight in pounds: 202.00 Current BMI: 36.3 [place] body weight (based on NIH guidelines): 51.029 kg Excess body weight loss: 53.7% The patient is a 72 year-old F who presents for Bariatric Assessment. The patient presents today for sleeve gastric a fall. She has complaints of GERD. She's had some mild dysphagia. Past Medical History Past Medical History: Cancer, Diabetes Mellitus, GERD/Reflux, Hyperlipidemia, Pneumonia, Thyroid Disorder Additional Past Medical History / Comment(s): Hx of Basal cell skin cancer, thyroid nodules, Pneumonia (nov 2016), esophageal stricture status post balloon dilatation, GERD History of Any Multi-Drug Resistant Organisms: None Reported Past Surgical History: Bariatric Surgery, Breast Surgery, Cholecystectomy, Hysterectomy Additional Past Surgical History / Comment(s): Lap band-inserted and removed, gastric sleeve, tummy tuck, skin cancer removal, right labia reduction , bilateral reduction upper thighs , thyroid biopsy, Right Thyroidectomy, Colonoscopy, Bronchoscopy, EGD. ira eye lid surgery, mult breast bx, EGD AND DILATION (12/29/16),"GLAUCOMA-HIGH SIDE OR NORMAL-NO MEDS YET" Past Anesthesia/Blood Transfusion Reactions: Family History of Problems w/ Anesthesia, Motion Sickness, Postoperative Nausea & Vomiting (PONV) Additional Past Anesthesia/Blood Transfusion Reaction / Comm: mother= ponv, CLAUSTERPHOBIC Past Psychological History: No Psychological Hx Reported Smoking Status: Never smoker Past Alcohol Use History: None Reported Past Drug Use History: None Reported - Past Family History Mother Family Medical History: Cancer, Deep Vein Thrombosis (DVT) Additional Family Medical History / Comment(s): breast ca, Father Family Medical History: Cancer Additional Family Medical History / Comment(s): leukemia Daughter(s) Family Medical History: Cancer Additional Family Medical History / Comment(s): from breast ca Surgical - Exam Vital Signs Temp Pulse BP 98.3 F 63 136/72 01/18/18 14:44 01/18/18 14:44 01/18/18 14:44 - General well developed, no distress - Eyes PERRL - ENT normal pinna - Neck no masses - Respiratory normal expansion - Cardiovascular Rhythm: regular - Abdomen Abdomen: soft, non tender Bariatric Assessment & Plan Plan: GERD. Patient esophagram performed there is no evidence of any recurrent hiatal hernia. Patient will undergo EGD to GERD symptoms. Bariatric Checklist Checklist: Plan: Checklist: EGD: 1. Hiatal hernia: 2. H. Pylori: HgbA1c: Vitamin D: Smoking: Never smoker Primary care physician referral: dr rodas Psychiatry clearance: Cardiology clearance: Sleep study: Diet journal: VTE risk score: VTE risk level: Rehab needs at discharge:
== END | disposition home or self-care (01) ==
LOC: BARWHC3 14:01
PROVIDERS: ATTEND Surgery
DX: Z09 Encounter for follow-up examination after completed treatment for conditions other than malignant neoplasm (principal); K21.9 Gastro-esophageal reflux disease without esophagitis; R13.10 Dysphagia, unspecified; E11.9 Type 2 diabetes mellitus without complications; E78.5 Hyperlipidemia, unspecified; Z85.828 Personal history of other malignant neoplasm of skin; Z90.49 Acquired absence of other specified parts of digestive tract; Z98.84 Bariatric surgery status; Z90.710 Acquired absence of both cervix and uterus
CPT/HCPCS: 74220; G0463; 99211

== ENCOUNTER 2018-01-22 08:28 | Day surgery (SDC) | payer MEDICARE, BC ==
[2018-01-21 09:48] VITALS: BMI 35.4
[~2018-01-22 08:28] MED LIST changes: -LIDOCAINE 1% 20 ML VIAL (10MG/ML) FOR IV START INTRADERMA PRN; +MIDAZOLAM 2 MG/2 ML VIAL IV PRN
[2018-01-22] MEDS ORDERED: LIDOCAINE 1% 20 ML VIAL (10MG/ML) FOR IV START INTRADERMA ONE (08:35)
[2018-01-22 08:53] VITALS: RESP 16; TEMP 97.4
[2018-01-22 08:54] LABS: Glucose,Whole Blood 122 mg/dL (75-99)
[2018-01-22] MEDS ORDERED: PROPOFOL 10 MG/ML 20 ML VIAL IV ONE (10:13)
[2018-01-22] MEDS ORDERED: LIDOCAINE 1% INJ 10MG/ML (20 ML MDV) ONE (10:13)
--- NOTE | 2018-01-22 10:18 | P.GSHP ---
History of Present Illness H&P Date: 01/22/18 Chief Complaint: GERD This a 73-year-old female who's had issues with GERD. Patient presents for EGD. She appears previous history of a hiatal hernia And sleeve gastrectomy. Past Medical History Past Medical History: Cancer, Diabetes Mellitus, GERD/Reflux, Hyperlipidemia, Pneumonia, Thyroid Disorder Additional Past Medical History / Comment(s): Hx of Basal cell skin cancer, thyroid nodules, Pneumonia (nov 2016), esophageal stricture status post balloon dilatation, GERD History of Any Multi-Drug Resistant Organisms: None Reported Past Surgical History: Bariatric Surgery, Breast Surgery, Cholecystectomy, Hysterectomy Additional Past Surgical History / Comment(s): Lap band-inserted and removed, gastric sleeve, tummy tuck, skin cancer removal, right labia reduction , bilateral reduction upper thighs , thyroid biopsy, Right Thyroidectomy, Colonoscopy, Bronchoscopy, EGD. ira eye lid surgery, mult breast bx, EGD AND DILATION (12/29/16),"GLAUCOMA-HIGH SIDE OR NORMAL-NO MEDS YET", Hiatal hernia surgery. Past Anesthesia/Blood Transfusion Reactions: Family History of Problems w/ Anesthesia, Motion Sickness, Postoperative Nausea & Vomiting (PONV) Additional Past Anesthesia/Blood Transfusion Reaction / Comment(s): mother= ponv , CLAUSTERPHOBIC Smoking Status: Never smoker - Past Family History Son(s) Family Medical History: Cancer Additional Family Medical History / Comment(s): Sq. cell Mother Family Medical History: Cancer, Deep Vein Thrombosis (DVT) Additional Family Medical History / Comment(s): breast ca, Father Family Medical History: Cancer Additional Family Medical History / Comment(s): leukemia Daughter(s) Family Medical History: Cancer Additional Family Medical History / Comment(s): from breast ca Medications and Allergies Home Medications Medication Instructions Recorded Confirmed Type Aspirin 81 mg PO DAILY 02/01/15 01/22/18 History Atorvastatin [Lipitor] 20 mg PO DAILY 02/01/15 01/22/18 History Cyanocobalamin [Vitamin B-12] 500 mcg PO DAILY 02/01/15 01/22/18 History Omeprazole 40 mg PO BID 02/01/15 01/22/18 History sitaGLIPtin [Januvia] 100 mg PO DAILY 02/01/15 01/22/18 History Glimepiride [Amaryl] 0.5 mg PO DAILY 03/14/16 01/22/18 History Thyroid,Pork [[place] Thyroid] 15 mg PO DAILY 05/12/16 01/22/18 History Losartan Potassium [Cozaar] 25 mg PO DAILY 12/26/16 01/22/18 History Multivitamins, Thera [Multivitamin 1 tab PO DAILY 12/26/16 01/22/18 History (formulary)] Biotin 10,000 mcg PO DAILY 03/13/17 01/22/18 History Metoprolol Tartrate [Lopressor] 12.5 mg PO DAILY 05/04/17 01/22/18 History Ondansetron [Zofran] 4 mg PO Q8HR PRN 05/04/17 01/22/18 History CHLORPHEN-HYDROcod 8-10mg/5ml 5 ml PO Q12HR PRN 06/12/17 01/22/18 History [Tussionex] Albuterol Inhaler [Ventolin Hfa 2 puff INHALATION RT-Q4H 09/04/17 01/22/18 History Inhaler] Ascorbic Acid [Vitamin C] 1,000 mg PO DAILY 09/04/17 01/22/18 History Calcium Carbonate [Tums] 750 mg PO QID PRN 09/04/17 01/22/18 History Mylanta (Unknown Dose) 1 dose PO QID PRN 09/04/17 01/22/18 History Cholecalciferol (Vitamin D3) 2,000 unit PO DAILY 09/11/17 01/22/18 History [Vitamin D3] HYDROcodone/APAP 5-325MG [[place] 1 tab PO Q4HR PRN #30 tab 09/11/17 01/22/18 Rx 5-325] Allergies Allergy/AdvReac Type Severity Reaction Status Date / Time adhesive Allergy Rash/Hives Verified 01/21/18 09:34 adhesive tape Allergy Rash/Hives Verified 01/21/18 09:34 Penicillins Allergy Diarrhea Verified 01/21/18 09:34 canagliflozin [From Invokana] AdvReac BLADDER Verified 01/21/18 09:34 INFECTION metformin AdvReac Nausea & Verified 01/21/18 09:34 Vomiting/diarrhea/stomach cramps Surgical - Exam Vital Signs Temp Pulse Resp BP Pulse Ox 97.4 F L 78 16 163/69 94 L 01/22/18 08:43 01/22/18 08:43 01/22/18 08:43 01/22/18 08:43 01/22/18 08:43 - General well developed, no distress - Eyes PERRL - ENT normal pinna - Neck no masses - Respiratory normal expansion - Cardiovascular Rhythm: regular - Abdomen Abdomen: soft, non tender Results - Labs Abnormal Lab Results - Last 24 Hours (Table) 01/22/18 Range/Units 08:51 POC Glucose (mg/dL) 122 H (75-99) mg/dL Assessment and Plan Assessment: GERD. We'll perform EGD.
--- NOTE | 2018-01-22 10:31 | P.OP ---
Date of Procedure: 01/22/18 Preoperative Diagnosis: GERD Dysphagia Postoperative Diagnosis: GERD Dysphagia Procedure(s) Performed: EGD with balloon dilatation of gastric sleeve Anesthesia: MAC Surgeon: Paul Kumar Pathology: other (Antrum) Condition: stable Disposition: PACU Description of Procedure: The patient's placed on the endoscopy table in the lateral position. She received IV sedation. The gastroscope placed oropharynx and passed into the esophagus and into the stomach. Scope was then placed through the pylorus. First and second portion of the duodenum appeared normal. Scope was then brought back the antrum this. Minimally inflated biopsies performed. The scope was then brought back through the gastric sleeve and at the level of the incisura was unclear if there was a twist or a mild stricture. A 20 mm balloon was placed across the level of the incisura and the balloon was dilated. After the sleeve his dilated the balloon was taken down there is known to any injury to the stomach. Scope was withdrawn and then the balloon was dilated at the GE junction. There is no evidence of any obstruction. The distal esophagus appeared normal. The proximal esophagus appeared normal. The scope was then withdrawn from patient.
[2018-01-22 10:49] VITALS: BP 136/67; PULSE 64
== END 2018-01-22 11:08 | disposition home or self-care (01) ==
LOC: ORWHC2ENDO 08:28
PROVIDERS: ATTEND Surgery
DX: K29.50 Unspecified chronic gastritis without bleeding (principal); K95.89 Other complications of other bariatric procedure; K92.89 Other specified diseases of the digestive system; Z90.3 Acquired absence of stomach [part of]; K21.9 Gastro-esophageal reflux disease without esophagitis; E11.9 Type 2 diabetes mellitus without complications; E78.5 Hyperlipidemia, unspecified; E89.0 Postprocedural hypothyroidism; H40.9 Unspecified glaucoma; I10 Essential (primary) hypertension; Z90.49 Acquired absence of other specified parts of digestive tract; Z85.828 Personal history of other malignant neoplasm of skin; Z79.84 Long term (current) use of oral hypoglycemic drugs; Z79.82 Long term (current) use of aspirin; Z79.899 Other long term (current) drug therapy; Z88.0 Allergy status to penicillin; Z88.8 Allergy status to other drugs, medicaments and biological substances; Z91.048 Other nonmedicinal substance allergy status
CPT/HCPCS: 88305; 43239; 43245; 43249; J2001; J2704; C1726

== ENCOUNTER → 2018-02-08 | Outpatient (CLI) | payer MEDICARE, BC ==
[2018-02-08 13:22] VITALS: BP 128/60; PULSE 61; RESP 16; TEMP 98.3; BMI 36.7
--- NOTE | 2018-02-08 15:20 | P.HPBAR ---
Bariatric H&P - History & Physicial H&P Date: 02/08/18 History & Physicial: Visit/CC: sleeve follow-up Patient initial contact: Initial weight: 138.799 kg Initial weight in pounds: 306.00 Height: 5 ft 2.5 in Initial BMI: 55.0 Last weight: Current weight: 92.533 kg Current weight in pounds: 204.00 Current BMI: 36.7 [place] body weight (based on NIH guidelines): 51.029 kg Excess body weight loss: 52.7% The patient is a 73 year-old F who presents for Bariatric Assessment. Patient presents today for sleeve gastrectomy fall. Patient states her GERD since of improved. She still has some complaints of GERD. Past Medical History Past Medical History: Cancer, Diabetes Mellitus, GERD/Reflux, Hyperlipidemia, Pneumonia, Thyroid Disorder Additional Past Medical History / Comment(s): Hx of Basal cell skin cancer, thyroid nodules, Pneumonia (nov 2016), esophageal stricture status post balloon dilatation, GERD History of Any Multi-Drug Resistant Organisms: None Reported Past Surgical History: Bariatric Surgery, Breast Surgery, Cholecystectomy, Hysterectomy Additional Past Surgical History / Comment(s): Lap band-inserted and removed, gastric sleeve, tummy tuck, skin cancer removal, right labia reduction , bilateral reduction upper thighs , thyroid biopsy, Right Thyroidectomy, Colonoscopy, Bronchoscopy, EGD. ira eye lid surgery, mult breast bx, EGD AND DILATION (12/29/16),"GLAUCOMA-HIGH SIDE OR NORMAL-NO MEDS YET", Hiatal hernia surgery. Past Anesthesia/Blood Transfusion Reactions: Family History of Problems w/ Anesthesia, Motion Sickness, Postoperative Nausea & Vomiting (PONV) Additional Past Anesthesia/Blood Transfusion Reaction / Comm: mother= ponv, CLAUSTERPHOBIC Past Psychological History: No Psychological Hx Reported Smoking Status: Never smoker Past Alcohol Use History: None Reported Past Drug Use History: None Reported - Past Family History Son(s) Family Medical History: Cancer Additional Family Medical History / Comment(s): Sq. cell Mother Family Medical History: Cancer, Deep Vein Thrombosis (DVT) Additional Family Medical History / Comment(s): breast ca, Father Family Medical History: Cancer Additional Family Medical History / Comment(s): leukemia Daughter(s) Family Medical History: Cancer Additional Family Medical History / Comment(s): from breast ca Surgical - Exam Vital Signs Temp Pulse Resp BP 98.3 F 61 16 128/60 02/08/18 13:19 02/08/18 13:19 02/08/18 13:19 02/08/18 13:19 - General well developed, no distress - Eyes PERRL - ENT normal pinna - Neck no masses - Respiratory normal expansion - Abdomen Abdomen: soft, non tender Bariatric Assessment & Plan Plan: GERD, obesity of BMI 37. Patient on Carafate to her medical treatment of GERD. She'll follow-up in 8 weeks Bariatric Checklist Checklist: Plan: Checklist: EGD: 1. Hiatal hernia: 2. H. Pylori: HgbA1c: Vitamin D: Smoking: Never smoker Primary care physician referral: dr rodas Psychiatry clearance: Cardiology clearance: Sleep study: Diet journal: VTE risk score: VTE risk level: Rehab needs at discharge:
== END | disposition home or self-care (01) ==
LOC: BARWHC3 12:29
PROVIDERS: ATTEND Surgery
DX: Z09 Encounter for follow-up examination after completed treatment for conditions other than malignant neoplasm (principal); K21.9 Gastro-esophageal reflux disease without esophagitis; E66.9 Obesity, unspecified; E11.9 Type 2 diabetes mellitus without complications; E78.5 Hyperlipidemia, unspecified; J18.9 Pneumonia, unspecified organism; Z85.828 Personal history of other malignant neoplasm of skin; Z90.49 Acquired absence of other specified parts of digestive tract; Z98.84 Bariatric surgery status; Z68.37 Body mass index [BMI] 37.0-37.9, adult
CPT/HCPCS: 99211

== ENCOUNTER → 2018-03-29 | Outpatient (CLI) | payer MEDICARE, BC ==
[2018-03-29 13:52] VITALS: BP 135/76; PULSE 65; TEMP 97.9; BMI 38.2
--- NOTE | 2018-03-29 13:54 | P.HPBAR ---
Bariatric H&P - History & Physicial H&P Date: 03/29/18 History & Physicial: Visit/CC: follow up visit Patient initial contact: Initial weight: 138.799 kg Initial weight in pounds: 306.00 Height: 5 ft 2.5 in Initial BMI: 55.0 Last weight: Current weight: 96.388 kg Current weight in pounds: 212.50 Current BMI: 38.2 [place] body weight (based on NIH guidelines): 51.029 kg Excess body weight loss: 48.3% The patient is a 73 year-old F who presents for Bariatric Assessment. Patient presents today for gastric sleeve follow-up. She states her GERD has improved. She's had some weight gain since her last visit. She has gained 8 pounds. She has denies any dysphagia. Past Medical History Past Medical History: Cancer, Diabetes Mellitus, GERD/Reflux, Hyperlipidemia, Pneumonia, Thyroid Disorder Additional Past Medical History / Comment(s): Hx of Basal cell skin cancer, thyroid nodules, Pneumonia (nov 2016), esophageal stricture status post balloon dilatation, GERD History of Any Multi-Drug Resistant Organisms: None Reported Past Surgical History: Bariatric Surgery, Breast Surgery, Cholecystectomy, Hysterectomy Additional Past Surgical History / Comment(s): Lap band-inserted and removed, gastric sleeve, tummy tuck, skin cancer removal, right labia reduction , bilateral reduction upper thighs , thyroid biopsy, Right Thyroidectomy, Colonoscopy, Bronchoscopy, EGD. ira eye lid surgery, mult breast bx, EGD AND DILATION (12/29/16),"GLAUCOMA-HIGH SIDE OR NORMAL-NO MEDS YET", Hiatal hernia surgery. Past Anesthesia/Blood Transfusion Reactions: Family History of Problems w/ Anesthesia, Motion Sickness, Postoperative Nausea & Vomiting (PONV) Additional Past Anesthesia/Blood Transfusion Reaction / Comm: mother= ponv, CLAUSTERPHOBIC Past Psychological History: No Psychological Hx Reported Smoking Status: Never smoker Past Alcohol Use History: None Reported Past Drug Use History: None Reported - Past Family History Son(s) Family Medical History: Cancer Additional Family Medical History / Comment(s): Sq. cell Mother Family Medical History: Cancer, Deep Vein Thrombosis (DVT) Additional Family Medical History / Comment(s): breast ca, Father Family Medical History: Cancer Additional Family Medical History / Comment(s): leukemia Daughter(s) Family Medical History: Cancer Additional Family Medical History / Comment(s): from breast ca Surgical - Exam Vital Signs Temp Pulse BP 97.9 F 65 135/76 03/29/18 13:49 03/29/18 13:49 03/29/18 13:49 - General well developed, no distress - Eyes PERRL - Abdomen Abdomen: soft, non tender Bariatric Assessment & Plan Plan: Morbid obesity. Patient's BMI is 30. Her GERD has improved. She will start taking Metrazol 40 mg by mouth daily instead of twice a day. She'll follow-up in 4 weeks. Bariatric Checklist Checklist: Plan: Checklist: EGD: 1. Hiatal hernia: 2. H. Pylori: HgbA1c: Vitamin D: Smoking: Never smoker Primary care physician referral: dr rodas Psychiatry clearance: Cardiology clearance: Sleep study: Diet journal: VTE risk score: VTE risk level: Rehab needs at discharge:
== END | disposition home or self-care (01) ==
LOC: BARWHC3 12:57
PROVIDERS: ATTEND Surgery
DX: Z48.815 Encounter for surgical aftercare following surgery on the digestive system (principal); E66.01 Morbid (severe) obesity due to excess calories; K21.9 Gastro-esophageal reflux disease without esophagitis; Z68.30 Body mass index [BMI] 30.0-30.9, adult; Z79.899 Other long term (current) drug therapy; Z98.84 Bariatric surgery status; Z85.828 Personal history of other malignant neoplasm of skin
CPT/HCPCS: 99211

== ENCOUNTER → 2018-05-05 | Outpatient (CLI) | payer MEDICARE, BC ==
--- NOTE | 2018-05-05 08:41 | US ---
EXAMINATION TYPE: US thyroid st tissue head/neck DATE OF EXAM: 05/05/2018 COMPARISON: US 04/20/2017 CLINICAL HISTORY: E04.1 THYROID NODULE. Trouble swallowing GLAND SIZE: Right Lobe: Surgically absent Left Lobe: 5.6 x 1.9 x 1.8 cm Overall Parenchyma: heterogeneous Isthmus Thickness: 0.4 cm NODULES RIGHT: # of nodules measured on right: 0 LEFT: # of nodules measured on left: 3 1. 0.9 X 0.6 x 0.9 cm hypoechoic solid nodule at the lower pole with well-defined margins; . This nodule is wider than tall and shows intranodular vascularity. Prior size: 0.8 x 0.5 x 0.8 cm 2. 1.6 X 1.1 x 1.3 cm hypoechoic mixed nodule at the lower pole with well-defined margins; . This n odule is wider than tall and shows intranodular vascularity. Prior size: 1.6 x 1.0 x 1.0 cm - difficult to correlate with previous 3. 1.1 X 0.9 x 1.0 cm hypoechoic solid nodule at the lower pole with poorly defined margins; . This nodule is wider than tall and shows intranodular vascularity. Prior size: 1.1 x 0.7 x 0.7 cm ISTHMUS: # of nodules measured in the isthmus: 0 Left lobe enlarged and diffusely heterogeneous. Within the right neck, probable lymph node visualized measuring 0.9 x 0.4 x 0.5 cm. Within the left neck, probable lymph node measuring 1.7 x 0.5 x 0.8 c m IMPRESSION: Similar size of the multiple left thyroid nodules with diffuse enlargement and heterogeneity of the l eft thyroid lobe. Continued surveillance is recommended.
--- NOTE | 2018-05-07 07:52 | MM ---
Reason for exam: screening (asymptomatic). Last mammogram was performed 1 year ago. History: Patient is postmenopausal and has history of other cancer at age 67. Family history of premenopausal breast cancer in mother at age 45 and premenopausal breast cancer in daughter at age 27. Benign left mammotome panel of the left breast, January 07, 2011. Benign excisional biopsy of the left breast, January 05, 2007. Benign stereotactic core biopsy of the left breast, February 22, 1998. Core biopsy of the right breast. Excisional biopsy of the left breast. Excisional biopsy of the right breast. Took hormonal contraceptives for 4 years beginning at age 21. Took estrogen for 6 years beginning at age 48. Physical Findings: A clinical breast exam by your physician is recommended on an annual basis and results should be correlated with mammographic findings. MG 3D Screening Mammo W/Cad Bilateral CC, MLO, and XCCL view(s) were taken. Prior study comparison: April 20, 2017, bilateral MG 3d screening mammo w/cad. January 21, 2016, bilateral MG 3d screening mammo w/cad. There are scattered fibroglandular densities. Stable calcifications in the right breast. Previous mammotome biopsy in the left breast x 2. No significant changes when compared with prior studies. ASSESSMENT: Benign, BI-RAD 2 RECOMMENDATION: Routine screening mammogram of both breasts in 1 year.
== END | disposition home or self-care (01) ==
LOC: RADMAMWWP 07:21
PROVIDERS: ATTEND Surgery
DX: Z12.31 Encounter for screening mammogram for malignant neoplasm of breast (principal); E04.2 Nontoxic multinodular goiter
CPT/HCPCS: 76536; 77063; 77067

== ENCOUNTER 2018-06-18 06:25 | Day surgery (SDC) | payer MEDICARE, BC ==
[2018-06-15 10:19] VITALS: BMI 37.2
[~2018-06-18 06:25] MED LIST changes: +DEXAMETHASONE SOD PHOSPHATE 10 MG/ML 1 ML VIAL IV ONE; +HEPARIN SODIUM,PORCINE 5,000 UNIT/ML 1 ML VIAL SQ ONE; +HYDROmorphone 0.5 MG/0.5 ML SYRINGE IVP PRN; +LIDOCAINE 1% 20 ML VIAL (10MG/ML) FOR IV START INTRADERMA PRN; -MIDAZOLAM 2 MG/2 ML VIAL IV PRN; +ONDANSETRON 4 MG/2 ML VIAL IVP ONE; +Pre Op ABX Message 1 EACH MISC MISCELLANE ONE; +SCOPOLAMINE 1.5MG/72HR PATCH TRANSDERM ONE
[2018-06-18 06:52] VITALS: TEMP 98.1
[2018-06-18 07:09] LABS: Glucose,Whole Blood 118 mg/dL (75-99)
--- NOTE | 2018-06-18 08:31 | P.GSHP ---
History of Present Illness H&P Date: 06/18/18 Chief Complaint: Skin lesions forehead This a 71-year-old female who presents today for excision of skin lesions on her for a. Patient has skin lesions on the right lateral, left lateral and midline area foreheadache.. Past Medical History Past Medical History: Cancer, Diabetes Mellitus, GERD/Reflux, Hyperlipidemia, Hypertension, Pneumonia, Thyroid Disorder Additional Past Medical History / Comment(s): Hx of Basal cell skin cancer, thyroid nodules, Pneumonia mult times 2016, esophageal stricture status post balloon dilatation, GERD, glaucoma pressures high side of normal, no meds History of Any Multi-Drug Resistant Organisms: None Reported Past Surgical History: Bariatric Surgery, Breast Surgery, Cholecystectomy, Hysterectomy Additional Past Surgical History / Comment(s): Lap band-inserted and removed, gastric sleeve, tummy tuck, skin cancer removal, right labia reduction , bilateral reduction upper thighs , thyroid biopsy, Right Thyroidectomy, Colonoscopy, Bronchoscopy, EGD. ira eye lid surgery, mult breast bx, EGD AND DILATION Hiatal hernia surgery. Past Anesthesia/Blood Transfusion Reactions: Family History of Problems w/ Anesthesia, Motion Sickness, Postoperative Nausea & Vomiting (PONV) Additional Past Anesthesia/Blood Transfusion Reaction / Comment(s): mother= ponv , CLAUSTERPHOBIC Smoking Status: Never smoker - Past Family History Son(s) Family Medical History: Cancer Additional Family Medical History / Comment(s): Sq. cell Mother Family Medical History: Cancer, Deep Vein Thrombosis (DVT) Additional Family Medical History / Comment(s): breast ca, Father Family Medical History: Cancer Additional Family Medical History / Comment(s): leukemia Daughter(s) Family Medical History: Cancer Additional Family Medical History / Comment(s): from breast ca Medications and Allergies Home Medications Medication Instructions Recorded Confirmed Type Aspirin 81 mg PO DAILY 02/01/15 06/15/18 History Atorvastatin [Lipitor] 20 mg PO DAILY 02/01/15 06/15/18 History Cyanocobalamin [Vitamin B-12] 500 mcg PO DAILY 02/01/15 06/15/18 History Omeprazole 40 mg PO BID 02/01/15 06/15/18 History sitaGLIPtin [Januvia] 100 mg PO DAILY 02/01/15 06/15/18 History Glimepiride [Amaryl] 0.5 mg PO DAILY 03/14/16 06/15/18 History Thyroid,Pork [[place] Thyroid] 15 mg PO DAILY 05/12/16 06/15/18 History Losartan Potassium [Cozaar] 25 mg PO DAILY 12/26/16 06/15/18 History Multivitamins, Thera [Multivitamin 1 tab PO DAILY 12/26/16 06/15/18 History (formulary)] Biotin 10,000 mcg PO DAILY 03/13/17 06/15/18 History Metoprolol Tartrate [Lopressor] 12.5 mg PO DAILY 05/04/17 06/15/18 History Ondansetron [Zofran] 4 mg PO Q8HR PRN 05/04/17 06/15/18 History CHLORPHEN-HYDROcod 8-10mg/5ml 5 ml PO Q12HR PRN 06/12/17 06/15/18 History [Tussionex] Albuterol Inhaler [Ventolin Hfa 2 puff INHALATION RT-Q4H 09/04/17 06/18/18 History Inhaler] Ascorbic Acid [Vitamin C] 1,000 mg PO DAILY 09/04/17 06/15/18 History Calcium Carbonate [Tums] 750 mg PO QID PRN 09/04/17 06/15/18 History Cholecalciferol (Vitamin D3) 2,000 unit PO DAILY 09/11/17 06/15/18 History [Vitamin D3] Allergies Allergy/AdvReac Type Severity Reaction Status Date / Time adhesive Allergy Rash/Hives Verified 06/18/18 06:46 adhesive tape Allergy Rash/Hives Verified 06/18/18 06:46 Penicillins Allergy Diarrhea Verified 06/18/18 06:46 canagliflozin [From Invokana] AdvReac BLADDER Verified 06/18/18 06:46 INFECTION metformin AdvReac Nausea & Verified 06/18/18 06:46 Vomiting/diarrhea/stomach cramps Surgical - Exam Vital Signs Temp Pulse Resp BP Pulse Ox 98.1 F 63 18 138/69 100 06/18/18 06:51 06/18/18 06:51 06/18/18 06:51 06/18/18 06:51 06/18/18 06:51 - General well developed, no distress - Eyes PERRL - ENT normal pinna - Neck no masses - Respiratory normal expansion - Cardiovascular Rhythm: regular - Abdomen Abdomen: soft, non tender - Integumentary Skin lesions on forehead measuring approximately 1 cm diameter. Results - Labs Abnormal Lab Results - Last 24 Hours (Table) 06/18/18 Range/Units 06:58 POC Glucose (mg/dL) 118 H (75-99) mg/dL Assessment and Plan Assessment: Skin lesions of forehead. We'll perform excision.
[2018-06-18] MEDS ORDERED: fentaNYL (PF) 50 MCG/ML 2 ML AMP ONE (08:38)
[2018-06-18] MEDS ORDERED: KETAMINE 10 MG/ML 20 ML VIAL ONE (08:38)
[2018-06-18] MEDS ORDERED: MIDAZOLAM 2 MG/2 ML VIAL ONE (08:38)
[2018-06-18] MEDS ORDERED: PROPOFOL 10 MG/ML 20 ML VIAL IV ONE (08:38)
[2018-06-18] MEDS ORDERED: BUPIVACAIN-EPI 0.5%-1:200,000 30 ML VIAL SQ ONE (09:16)
--- NOTE | 2018-06-18 09:57 | P.OP ---
Date of Procedure: 06/18/18 Preoperative Diagnosis: Forehead skin lesions 3 Postoperative Diagnosis: Defer to pathology Procedure(s) Performed: Excision of forehead skin lesions 3 Anesthesia: MAC Surgeon: Paul Kumar Estimated Blood Loss (ml): 5 Pathology: other (Skin lesion 3) Condition: stable Disposition: PACU Description of Procedure: Patient's placed on the operative table in supine position. She received IV sedation. Her forehead was prepped and draped usual sterile fashion. The patient had 3 skin lesions. The skin lesions were anesthetized 1% local Xylocaine. The right lateral skin lesion was anesthetized 1% local Xylocaine. Then using elliptical skin incision lesion was excised. Electrocautery was used for hemostasis. Skin was closed interrupted 3-0 Monocryl suture. The lesion measured 3 x 2 cm. Next the middle forehead skin lesion was excised. It measured 1 x 2 cm. Elliptical skin incision was made with 15 blade. And then using electrocautery hemostasis was achieved. The specimen sent to pathology. The skin was closed with interrupted 3-0 Monocryl suture. Next the right lateral forehead skin lesion was excised. Elliptical skin incision was made. The specimen measured 3 x 2 cm. Hemostasis was achieved with left cautery. The skin was closed interrupted 3-0 Monocryl suture. Dermabond was applied. Patient top she will was sent to recovery room stable condition.
[2018-06-18 10:16] VITALS: RESP 16
[2018-06-18 10:26] VITALS: BP 159/92; PULSE 60
== END 2018-06-18 10:45 | disposition home or self-care (01) ==
LOC: OR 06:25
PROVIDERS: ATTEND Surgery
DX: L82.1 Other seborrheic keratosis (principal); Z85.828 Personal history of other malignant neoplasm of skin; E11.9 Type 2 diabetes mellitus without complications; Z79.84 Long term (current) use of oral hypoglycemic drugs; K21.9 Gastro-esophageal reflux disease without esophagitis; E78.5 Hyperlipidemia, unspecified; I10 Essential (primary) hypertension; Z98.84 Bariatric surgery status; E89.0 Postprocedural hypothyroidism; E07.9 Disorder of thyroid, unspecified; H40.9 Unspecified glaucoma; Z79.82 Long term (current) use of aspirin; Z79.899 Other long term (current) drug therapy; Z88.0 Allergy status to penicillin; Z88.8 Allergy status to other drugs, medicaments and biological substances; Z91.09 Other allergy status, other than to drugs and biological substances
CPT/HCPCS: 88305; 11444 ×2; 11442; J2250; J1644; J1100; J2405; J3010; J2704

== ENCOUNTER → 2018-07-19 | Outpatient (CLI) | payer MEDICARE, BC ==
[2018-07-19 15:15] VITALS: BP 134/78; PULSE 73; RESP 16; TEMP 98.4; BMI 38.7
--- NOTE | 2018-07-19 16:22 | P.HPBAR ---
Bariatric H&P - History & Physicial H&P Date: 07/19/18 History & Physicial: Visit/CC: sleeve follow-up Patient initial contact: Initial weight: 138.799 kg Initial weight in pounds: 306.00 Height: 5 ft 2.5 in Initial BMI: 55.0 Last weight: Current weight: 97.522 kg Current weight in pounds: 215.00 Current BMI: 38.7 [place] body weight (based on NIH guidelines): 51.029 kg Excess body weight loss: 47.0% The patient is a 73 year-old F who presents for Bariatric Assessment. Patient presents today for sleeve gastric her fall. She has her GERD is improved. She denies a significant dysphagia. Past Medical History Past Medical History: Cancer, Diabetes Mellitus, GERD/Reflux, Hyperlipidemia, Hypertension, Pneumonia, Thyroid Disorder Additional Past Medical History / Comment(s): Hx of Basal cell skin cancer, thyroid nodules, Pneumonia mult times 2016, esophageal stricture status post balloon dilatation, GERD, glaucoma pressures high side of normal, no meds History of Any Multi-Drug Resistant Organisms: None Reported Past Surgical History: Bariatric Surgery, Breast Surgery, Cholecystectomy, Hysterectomy Additional Past Surgical History / Comment(s): Lap band-inserted and removed, gastric sleeve, tummy tuck, skin cancer removal, right labia reduction , bilateral reduction upper thighs , thyroid biopsy, Right Thyroidectomy, Colonoscopy, Bronchoscopy, EGD. ira eye lid surgery, mult breast bx, EGD AND DILATION Hiatal hernia surgery. Past Anesthesia/Blood Transfusion Reactions: Family History of Problems w/ Anesthesia, Motion Sickness, Postoperative Nausea & Vomiting (PONV) Additional Past Anesthesia/Blood Transfusion Reaction / Comm: mother= ponv, CLAUSTERPHOBIC Past Psychological History: No Psychological Hx Reported Smoking Status: Never smoker Past Alcohol Use History: None Reported Past Drug Use History: None Reported - Past Family History Son(s) Family Medical History: Cancer Additional Family Medical History / Comment(s): Sq. cell Mother Family Medical History: Cancer, Deep Vein Thrombosis (DVT) Additional Family Medical History / Comment(s): breast ca, Father Family Medical History: Cancer Additional Family Medical History / Comment(s): leukemia Daughter(s) Family Medical History: Cancer Additional Family Medical History / Comment(s): from breast ca Surgical - Exam Vital Signs Temp Pulse Resp BP 98.4 F 73 16 134/78 07/19/18 15:12 07/19/18 15:12 07/19/18 15:12 07/19/18 15:12 - General well developed, no distress - Eyes PERRL - ENT normal pinna - Neck no masses - Respiratory normal expansion - Cardiovascular Rhythm: regular - Abdomen Abdomen: soft, non tender Bariatric Assessment & Plan Plan: Status post sleeve yesterday. Patient is doing quite well. Her GERD has improved. She'll follow-up in 2 months. Bariatric Checklist Checklist: Plan: Checklist: EGD: 1. Hiatal hernia: 2. H. Pylori: HgbA1c: Vitamin D: Smoking: Never smoker Primary care physician referral: dr rodas Psychiatry clearance: Cardiology clearance: Sleep study: Diet journal: VTE risk score: VTE risk level: Rehab needs at discharge:
== END ==
LOC: BARWHC3 13:59
PROVIDERS: ATTEND Surgery
DX: Z48.815 Encounter for surgical aftercare following surgery on the digestive system (principal); Z98.84 Bariatric surgery status
CPT/HCPCS: 99211

== ENCOUNTER → 2018-09-20 | Outpatient (CLI) | payer MEDICARE, BC ==
[2018-09-20 13:02] VITALS: BP 129/70; PULSE 72; TEMP 98.4; BMI 39.2
--- NOTE | 2018-09-24 14:50 | P.HPBAR ---
Bariatric H&P - History & Physicial H&P Date: 09/20/18 History & Physicial: Visit/CC: follow up visit Patient initial contact: Initial weight: 138.799 kg Initial weight in pounds: 306.00 Height: 5 ft 2.5 in Initial BMI: 55.0 Last weight: Current weight: 98.883 kg Current weight in pounds: 218.00 Current BMI: 39.2 [place] body weight (based on NIH guidelines): 51.029 kg Excess body weight loss: 45.4% The patient is a 73 year-old F who presents for Bariatric Assessment. Patient presents today for sleeve gastrectomy follow-up. She states her GERD as improved slightly. She states she is careful with what she eats. Her weight has remained stable however she has had a steady creep up in weight over the last 1 year. Past Medical History Past Medical History: Cancer, Diabetes Mellitus, GERD/Reflux, Hyperlipidemia, Hypertension, Pneumonia, Thyroid Disorder Additional Past Medical History / Comment(s): Hx of Basal cell skin cancer, thyroid nodules, Pneumonia mult times 2016, esophageal stricture status post balloon dilatation, GERD, glaucoma pressures high side of normal, no meds History of Any Multi-Drug Resistant Organisms: None Reported Past Surgical History: Bariatric Surgery, Breast Surgery, Cholecystectomy, Hysterectomy Additional Past Surgical History / Comment(s): Lap band-inserted and removed, gastric sleeve, tummy tuck, skin cancer removal, right labia reduction , bilateral reduction upper thighs , thyroid biopsy, Right Thyroidectomy, Colonoscopy, Bronchoscopy, EGD. ira eye lid surgery, mult breast bx, EGD AND DILATION Hiatal hernia surgery. Past Anesthesia/Blood Transfusion Reactions: Family History of Problems w/ Anesthesia, Motion Sickness, Postoperative Nausea & Vomiting (PONV) Additional Past Anesthesia/Blood Transfusion Reaction / Comm: mother= ponv, CLAUSTERPHOBIC Past Psychological History: No Psychological Hx Reported Smoking Status: Never smoker Past Alcohol Use History: None Reported Past Drug Use History: None Reported - Past Family History Son(s) Family Medical History: Cancer Additional Family Medical History / Comment(s): Sq. cell Mother Family Medical History: Cancer, Deep Vein Thrombosis (DVT) Additional Family Medical History / Comment(s): breast ca, Father Family Medical History: Cancer Additional Family Medical History / Comment(s): leukemia Daughter(s) Family Medical History: Cancer Additional Family Medical History / Comment(s): from breast ca Surgical - Exam Vital Signs Temp Pulse BP 98.4 F 72 129/70 09/20/18 12:59 09/20/18 12:59 09/20/18 12:59 - General well developed, no distress - Eyes PERRL - Abdomen Abdomen: soft, non tender Bariatric Assessment & Plan Plan: Morbid obesity BMI 39. Patient will continue omeprazole for her GERD. She will follow-up in 4 weeks. Bariatric Checklist Checklist: Plan: Checklist: EGD: 1. Hiatal hernia: 2. H. Pylori: HgbA1c: Vitamin D: Smoking: Never smoker Primary care physician referral: dr rodas Psychiatry clearance: Cardiology clearance: Sleep study: Diet journal: VTE risk score: VTE risk level: Rehab needs at discharge:
== END | disposition home or self-care (01) ==
LOC: BARWHC3 12:24
PROVIDERS: ATTEND Surgery
DX: Z09 Encounter for follow-up examination after completed treatment for conditions other than malignant neoplasm (principal); E66.01 Morbid (severe) obesity due to excess calories; K21.9 Gastro-esophageal reflux disease without esophagitis; Z68.39 Body mass index [BMI] 39.0-39.9, adult; Z85.828 Personal history of other malignant neoplasm of skin; Z90.49 Acquired absence of other specified parts of digestive tract; Z90.710 Acquired absence of both cervix and uterus; Z98.84 Bariatric surgery status; Z98.890 Other specified postprocedural states
CPT/HCPCS: 99211

== ENCOUNTER → 2018-12-20 | Outpatient (CLI) | payer BC, MEDICARE ==
[2018-12-20 13:28] VITALS: BP 138/73; PULSE 70; RESP 16; TEMP 97.5; BMI 38.7
--- NOTE | 2018-12-20 16:29 | P.HPBAR ---
Bariatric H&P - History & Physicial H&P Date: 12/20/18 History & Physicial: Visit/CC: sleeve follow-up Patient initial contact: Initial weight: 138.799 kg Initial weight in pounds: 306.00 Height: 5 ft 2.5 in Initial BMI: 55.0 Last weight: Current weight: 97.522 kg Current weight in pounds: 215.00 Current BMI: 38.7 [place] body weight (based on NIH guidelines): 51.029 kg Excess body weight loss: 47.0% The patient is a 73 year-old F who presents for Bariatric Assessment. Patient presents today for sleeve gastrectomy follow-up. She has some mild quite GERD. She has been tolerating food without any dysphagia. She has complaints of a chronic sinus drainage. Past Medical History Past Medical History: Cancer, Diabetes Mellitus, GERD/Reflux, Hyperlipidemia, Hypertension, Pneumonia, Thyroid Disorder Additional Past Medical History / Comment(s): Hx of Basal cell skin cancer, thyroid nodules, Pneumonia mult times 2016, esophageal stricture status post balloon dilatation, GERD, glaucoma pressures high side of normal, no meds History of Any Multi-Drug Resistant Organisms: None Reported Past Surgical History: Bariatric Surgery, Breast Surgery, Cholecystectomy, Hysterectomy Additional Past Surgical History / Comment(s): Lap band-inserted and removed, gastric sleeve, tummy tuck, skin cancer removal, right labia reduction , bilateral reduction upper thighs , thyroid biopsy, Right Thyroidectomy, Colonoscopy, Bronchoscopy, EGD. ira eye lid surgery, mult breast bx, EGD AND DILATION Hiatal hernia surgery. Past Anesthesia/Blood Transfusion Reactions: Family History of Problems w/ Anesthesia, Motion Sickness, Postoperative Nausea & Vomiting (PONV) Additional Past Anesthesia/Blood Transfusion Reaction / Comm: mother= ponv, CLAUSTERPHOBIC Past Psychological History: No Psychological Hx Reported Smoking Status: Never smoker Past Alcohol Use History: None Reported Past Drug Use History: None Reported - Past Family History Son(s) Family Medical History: Cancer Additional Family Medical History / Comment(s): Sq. cell Mother Family Medical History: Cancer, Deep Vein Thrombosis (DVT) Additional Family Medical History / Comment(s): breast ca, Father Family Medical History: Cancer Additional Family Medical History / Comment(s): leukemia Daughter(s) Family Medical History: Cancer Additional Family Medical History / Comment(s): from breast ca Surgical - Exam Vital Signs Temp Pulse Resp BP 97.5 F L 70 16 138/73 12/20/18 13:23 12/20/18 13:23 12/20/18 13:23 12/20/18 13:23 - General well developed, well nourished, no distress - Eyes PERRL - ENT normal pinna - Neck no masses - Respiratory normal expansion - Cardiovascular Rhythm: regular - Abdomen Abdomen: soft, non tender Bariatric Assessment & Plan Plan: Resolving morbid obesity. Patient's girth is minimal will be observed. She will follow-up in 3 months. Bariatric Checklist Checklist: Plan: Checklist: EGD: 1. Hiatal hernia: 2. H. Pylori: HgbA1c: Vitamin D: Smoking: Never smoker Primary care physician referral: dr rodas Psychiatry clearance: Cardiology clearance: Sleep study: Diet journal: VTE risk score: VTE risk level: Rehab needs at discharge:
== END | disposition home or self-care (01) ==
LOC: BARWHC3 12:37
PROVIDERS: ATTEND Surgery
DX: Z09 Encounter for follow-up examination after completed treatment for conditions other than malignant neoplasm (principal); K21.9 Gastro-esophageal reflux disease without esophagitis; J32.9 Chronic sinusitis, unspecified; E11.9 Type 2 diabetes mellitus without complications; E78.5 Hyperlipidemia, unspecified; I10 Essential (primary) hypertension; Z85.828 Personal history of other malignant neoplasm of skin; Z98.84 Bariatric surgery status; Z90.49 Acquired absence of other specified parts of digestive tract; Z90.710 Acquired absence of both cervix and uterus; Z98.890 Other specified postprocedural states; Z68.38 Body mass index [BMI] 38.0-38.9, adult
CPT/HCPCS: 99211

== ENCOUNTER 2018-12-24 20:49 | Emergency (ER) | payer MEDICARE ==
[2018-12-24] MEDS ORDERED: ACETAMINOPHEN TAB 325 MG TAB PO STA (21:22)
[2018-12-24] MEDS ORDERED: SODIUM CHLORIDE 0.9% 500 ML 500 ML IV STA (21:34)
[2018-12-24 21:51] LABS: INR 0.9 (<1.2); Partial Thromboplastin Time 22.5 sec (22.0-30.0); Prothrombin Time 9.7 sec (9.0-12.0)
--- NOTE | 2018-12-24 21:51 | ED ---
Fever HPI - General Chief Complaint: Fever Stated Complaint: chills,vomitng,chest pain, neck pain, fever,cough Time Seen by Provider: 12/24/18 21:21 Source: patient, family Mode of arrival: ambulatory Limitations: no limitations - History of Present Illness Initial Comments: This patient is a 73-year-old woman who presents with complaint of fever and co ugh, and congestion. The patient states she has been having issues with an upper respiratory infection over a month now. The patient states that today she started having fever and it was up to 102 at home. The patient states that she is having a nonproductive cough. No dyspnea. She has had a little bit of chest and back pain that she believes is related to the cough. MD Complaint: fever Onset/Timin -: days(s) Temperature Source: oral Associated Symptoms: chills, rhinorrhea, nasal congestion, cough, chest pain Treatments Prior to Arrival: Ibuprofen - Related Data Home Medications Medication Instructions Recorded Confirmed Aspirin 81 mg PO DAILY 02/01/15 12/24/18 Atorvastatin [Lipitor] 20 mg PO DAILY 02/01/15 12/24/18 Cyanocobalamin [Vitamin B-12] 500 mcg PO DAILY 02/01/15 12/24/18 Omeprazole 40 mg PO DAILY 02/01/15 12/24/18 sitaGLIPtin [Januvia] 100 mg PO DAILY 02/01/15 12/24/18 Glimepiride [Amaryl] 0.5 mg PO DAILY 03/14/16 12/24/18 Thyroid,Pork [[place] Thyroid] 15 mg PO DAILY 05/12/16 12/24/18 Losartan Potassium [Cozaar] 25 mg PO DAILY 12/26/16 12/24/18 Multivitamins, Thera [Multivitamin 1 tab PO DAILY 12/26/16 12/24/18 (formulary)] Biotin 10,000 mcg PO DAILY 03/13/17 12/24/18 Metoprolol Tartrate [Lopressor] 12.5 mg PO DAILY 05/04/17 12/24/18 CHLORPHEN-HYDROcod 8-10mg/5ml 5 ml PO Q12HR PRN 06/12/17 12/24/18 [Tussionex] Ascorbic Acid [Vitamin C] 1,000 mg PO DAILY 09/04/17 12/24/18 Calcium Carbonate [Tums] 750 mg PO QID PRN 09/04/17 12/24/18 Cholecalciferol (Vitamin D3) 2,000 unit PO DAILY 09/11/17 12/24/18 [Vitamin D3] Montelukast [Singulair] 10 mg PO DAILY 12/21/18 12/24/18 Fluticasone Nasal [place] [Flonase 1 spr EA NOSTRIL DAILY 12/24/18 12/24/18 Nasal [place]] Ranitidine HCl [Zantac] 150 mg PO DAILY 12/24/18 12/24/18 Allergies Allergy/AdvReac Type Severity Reaction Status Date / Time adhesive Allergy Rash/Hives Verified 12/24/18 21:47 adhesive tape Allergy Rash/Hives Verified 12/24/18 21:47 Penicillins Allergy Diarrhea Verified 12/24/18 21:47 canagliflozin [From Invokana] AdvReac BLADDER Verified 12/24/18 21:47 INFECTION metformin AdvReac Nausea & Verified 12/24/18 21:47 Vomiting/diarrhea/stomach cramps Review of Systems ROS Statement: Those systems with pertinent positive or pertinent negative responses have been documented in the HPI. ROS Other: All systems not noted in ROS Statement are negative. Constitutional: Reports: fever, chills ENT: Reports: congestion. Denies: ear pain Respiratory: Reports: cough. Denies: dyspnea, wheezes, hemoptysis Cardiovascular: Reports: as per HPI, chest pain. Denies: palpitations, orthopnea, edema, syncope Gastrointestinal: Denies: abdominal pain, vomiting, diarrhea Genitourinary: Denies: dysuria Musculoskeletal: Reports: back pain Skin: Denies: rash Neurological: Denies: headache, weakness, numbness Past Medical History Past Medical History: Cancer, Diabetes Mellitus, GERD/Reflux, Hyperlipidemia, Hypertension, Pneumonia, Thyroid Disorder Additional Past Medical History / Comment(s): Hx of Basal cell skin cancer, thyroid nodules, Pneumonia mult times 2017, esophageal stricture status post balloon dilatation, GERD, glaucoma pressures high side of normal, no meds History of Any Multi-Drug Resistant Organisms: None Reported Past Surgical History: Bariatric Surgery, Breast Surgery, Cholecystectomy, Hysterectomy Additional Past Surgical History / Comment(s): Lap band-inserted and removed, gastric sleeve, tummy tuck, skin cancer removal, right labia reduction , bilateral reduction upper thighs , thyroid biopsy, Right Thyroidectomy, Colonoscopy, Bronchoscopy, EGD. ira eye lid surgery, mult breast bx, EGD AND DILATION Hiatal hernia surgery. Past Anesthesia/Blood Transfusion Reactions: Family History of Problems w/ Anesthesia, Motion Sickness, Postoperative Nausea & Vomiting (PONV) Additional Past Anesthesia/Blood Transfusion Reaction / Comment(s): mother= ponv, CLAUSTERPHOBIC Past Psychological History: No Psychological Hx Reported Smoking Status: Never smoker Past Alcohol Use History: None Reported Past Drug Use History: None Reported - Past Family History Son(s) Family Medical History: Cancer Additional Family Medical History / Comment(s): Sq. cell Mother Family Medical History: Cancer, Deep Vein Thrombosis (DVT) Additional Family Medical History / Comment(s): breast ca, Father Family Medical History: Cancer Additional Family Medical History / Comment(s): leukemia Daughter(s) Family Medical History: Cancer Additional Family Medical History / Comment(s): from breast ca General Exam Limitations: no limitations General appearance: alert, in no apparent distress Head exam: Present: atraumatic, normocephalic Eye exam: Present: normal appearance. Absent: scleral icterus, conjunctival injection Neck exam: Present: normal inspection Respiratory exam: Present: normal lung sounds bilaterally, chest wall tenderness. Absent: respiratory distress, wheezes, rales, rhonchi, stridor, accessory muscle use, decreased breath sounds, prolonged expiratory Cardiovascular Exam: Present: normal rhythm, tachycardia (Rate approximately 112 exam), normal heart sounds. Absent: systolic murmur, diastolic murmur, rubs, gallop GI/Abdominal exam: Present: soft. Absent: distended, tenderness, guarding, rebound, rigid, mass Extremities exam: Present: normal inspection, normal capillary refill. Absent: pedal edema, calf tenderness Back exam: Present: normal inspection. Absent: CVA tenderness (R), CVA tenderness (L) Neurological exam: Present: alert Skin exam: Present: warm, dry, intact, normal color. Absent: rash Course Vital Signs 12/24/18 12/24/18 12/24/18 21:06 21:07 21:10 Temperature 99.8 F H Pulse Rate 120 H 121 H Respiratory 22 Rate Blood Pressure 150/78 150/78 O2 Sat by Pulse 91 L 92 L 93 L Oximetry 03/12/24/18 12/24/18 21:20 21:30 21:40 Temperature Pulse Rate 115 H 116 H 112 H Respiratory Rate Blood Pressure 145/69 145/69 142/65 O2 Sat by Pulse 91 L 91 L 91 L Oximetry 12/24/18 12/24/18 12/24/18 21:50 22:00 22:10 Temperature Pulse Rate 109 H 117 H 108 H Respiratory Rate Blood Pressure 134/66 134/66 149/69 O2 Sat by Pulse 92 L 94 L 94 L Oximetry 12/24/18 12/24/18 12/24/18 22:20 22:30 22:40 Temperature Pulse Rate 108 H 105 H 104 H Respiratory Rate Blood Pressure 124/70 124/70 113/63 O2 Sat by Pulse 94 L 94 L 94 L Oximetry 12/24/18 22:50 Temperature Pulse Rate 105 H Respiratory 20 Rate Blood Pressure 112/60 O2 Sat by Pulse 94 L Oximetry Medical Decision Making - Lab Data Result diagrams: 12/24/18 21:00 12/24/18 21:00 Lab Results 12/24/18 12/24/18 12/24/18 Range/Units 21:00 21:00 21:00 WBC 15.7 H (3.8-10.6) k/uL RBC 4.74 (3.80-5.40) m/uL Hgb 13.9 (11.4-16.0) gm/dL Hct 43.9 (34.0-46.0) % MCV 92.4 (80.0-100.0) fL MCH 29.4 (25.0-35.0) pg MCHC 31.8 (31.0-37.0) g/dL RDW 13.2 (11.5-15.5) % Plt Count 299 (150-450) k/uL Neutrophils % 91 % Lymphocytes % 3 % Monocytes % 3 % Eosinophils % 1 % Basophils % 0 % Neutrophils # 14.3 H (1.3-7.7) k/uL Lymphocytes # 0.5 L (1.0-4.8) k/uL Monocytes # 0.5 (0-1.0) k/uL Eosinophils # 0.2 (0-0.7) k/uL Basophils # 0.0 (0-0.2) k/uL PT (9.0-12.0) sec INR (<1.2) APTT (22.0-30.0) sec Sodium 138 (137-145) mmol/L Potassium 4.6 (3.5-5.1) mmol/L Chloride 104 (98-107) mmol/L Carbon Dioxide 23 (22-30) mmol/L Anion Gap 11 mmol/L BUN 10 (7-17) mg/dL Creatinine 0.70 (0.52-1.04) mg/dL Est GFR (CKD-EPI)AfAm >90 (>60 ml/min/1.73 sqM) Est GFR (CKD-EPI)NonAf 87 (>60 ml/min/1.73 sqM) Glucose 198 H (74-99) mg/dL Plasma Lactic Acid Evin 2.0 (0.7-2.0) mmol/L Calcium 9.9 (8.4-10.2) mg/dL Total Bilirubin 0.9 (0.2-1.3) mg/dL AST 22 (14-36) U/L ALT 29 (9-52) U/L Alkaline Phosphatase 103 (38-126) U/L Troponin I (0.000-0.034) ng/mL Total Protein 7.3 (6.3-8.2) g/dL Albumin 4.0 (3.5-5.0) g/dL Urine Color Urine Appearance (Clear) Urine pH (5.0-8.0) Ur Specific [place] (1.001-1.035) Urine Protein (Negative) Urine Glucose (UA) (Negative) Urine Ketones (Negative) Urine Blood (Negative) Urine Nitrite (Negative) Urine Bilirubin (Negative) Urine Urobilinogen (<2.0) mg/dL Ur Leukocyte Esterase (Negative) Urine RBC (0-5) /hpf Urine WBC (0-5) /hpf Ur Squamous Epith Cells (0-4) /hpf Amorphous Sediment (None) /hpf Urine Bacteria (None) /hpf Urine Mucus (None) /hpf Influenza Type A RNA (Not Detectd) Influenza Type B (PCR) (Not Detectd) 12/24/18 12/24/18 12/24/18 Range/Units 21:00 21:00 21:00 WBC (3.8-10.6) k/uL RBC (3.80-5.40) m/uL Hgb (11.4-16.0) gm/dL Hct (34.0-46.0) % MCV (80.0-100.0) fL MCH (25.0-35.0) pg MCHC (31.0-37.0) g/dL RDW (11.5-15.5) % Plt Count (150-450) k/uL Neutrophils % % Lymphocytes % % Monocytes % % Eosinophils % % Basophils % % Neutrophils # (1.3-7.7) k/uL Lymphocytes # (1.0-4.8) k/uL Monocytes # (0-1.0) k/uL Eosinophils # (0-0.7) k/uL Basophils # (0-0.2) k/uL PT 9.7 (9.0-12.0) sec INR 0.9 (<1.2) APTT 22.5 (22.0-30.0) sec Sodium (137-145) mmol/L Potassium (3.5-5.1) mmol/L Chloride (98-107) mmol/L Carbon Dioxide (22-30) mmol/L Anion Gap mmol/L BUN (7-17) mg/dL Creatinine (0.52-1.04) mg/dL Est GFR (CKD-EPI)AfAm (>60 ml/min/1.73 sqM) Est GFR (CKD-EPI)NonAf (>60 ml/min/1.73 sqM) Glucose (74-99) mg/dL Plasma Lactic Acid [place] (0.7-2.0) mmol/L Calcium (8.4-10.2) mg/dL Total Bilirubin (0.2-1.3) mg/dL AST (14-36) U/L ALT (9-52) U/L Alkaline Phosphatase (38-126) U/L Troponin I <0.012 (0.000-0.034) ng/mL Total Protein (6.3-8.2) g/dL Albumin (3.5-5.0) g/dL Urine Color Urine Appearance (Clear) Urine pH (5.0-8.0) Ur Specific [place] (1.001-1.035) Urine Protein (Negative) Urine Glucose (UA) (Negative) Urine Ketones (Negative) Urine Blood (Negative) Urine Nitrite (Negative) Urine Bilirubin (Negative) Urine Urobilinogen (<2.0) mg/dL Ur Leukocyte Esterase (Negative) Urine RBC (0-5) /hpf Urine WBC (0-5) /hpf Ur Squamous Epith Cells (0-4) /hpf Amorphous Sediment (None) /hpf Urine Bacteria (None) /hpf Urine Mucus (None) /hpf Influenza Type A RNA Not Detected (Not Detectd) Influenza Type B (PCR) Not Detected (Not Detectd) 12/24/18 Range/Units 21:52 WBC (3.8-10.6) k/uL RBC (3.80-5.40) m/uL Hgb (11.4-16.0) gm/dL Hct (34.0-46.0) % MCV (80.0-100.0) fL MCH (25.0-35.0) pg MCHC (31.0-37.0) g/dL RDW (11.5-15.5) % Plt Count (150-450) k/uL Neutrophils % % Lymphocytes % % Monocytes % % Eosinophils % % Basophils % % Neutrophils # (1.3-7.7) k/uL Lymphocytes # (1.0-4.8) k/uL Monocytes # (0-1.0) k/uL Eosinophils # (0-0.7) k/uL Basophils # (0-0.2) k/uL PT (9.0-12.0) sec INR (<1.2) APTT (22.0-30.0) sec Sodium (137-145) mmol/L Potassium (3.5-5.1) mmol/L Chloride (98-107) mmol/L Carbon Dioxide (22-30) mmol/L Anion Gap mmol/L BUN (7-17) mg/dL Creatinine (0.52-1.04) mg/dL Est GFR (CKD-EPI)AfAm (>60 ml/min/1.73 sqM) Est GFR (CKD-EPI)NonAf (>60 ml/min/1.73 sqM) Glucose (74-99) mg/dL Plasma Lactic Acid [place] (0.7-2.0) mmol/L Calcium (8.4-10.2) mg/dL Total Bilirubin (0.2-1.3) mg/dL AST (14-36) U/L ALT (9-52) U/L Alkaline Phosphatase (38-126) U/L Troponin I (0.000-0.034) ng/mL Total Protein (6.3-8.2) g/dL Albumin (3.5-5.0) g/dL Urine Color Yellow Urine Appearance Turbid H (Clear) Urine pH 5.5 (5.0-8.0) Ur Specific [place] 1.025 (1.001-1.035) Urine Protein 1+ H (Negative) Urine Glucose (UA) Trace H (Negative) Urine Ketones 1+ H (Negative) Urine Blood Negative (Negative) Urine Nitrite Negative (Negative) Urine Bilirubin Negative (Negative) Urine Urobilinogen 2.0 (<2.0) mg/dL Ur Leukocyte Esterase Large H (Negative) Urine RBC 2 (0-5) /hpf Urine WBC 25 H (0-5) /hpf Ur Squamous Epith Cells 14 H (0-4) /hpf Amorphous Sediment Rare H (None) /hpf Urine Bacteria Moderate H (None) /hpf Urine Mucus Many H (None) /hpf Influenza Type A RNA (Not Detectd) Influenza Type B (PCR) (Not Detectd) - EKG Data -: EKG Interpreted by Ct EKG shows normal: sinus rhythm, axis (Normal), intervals (SC interval 154 ms. QTC 491 ms, both normal. QRS duration 136 ms, prolonged consistent with the right bundle branch block), QRS complexes (Right bundle-branch block), ST-T waves (Normal) Rate: tachycardia (Rate 113 bpm) Disposition Clinical Impression: Fever, Upper respiratory infection Disposition: HOME SELF-CARE Condition: Good Instructions (If sedation given, give patient instructions): Fever in Adults (ED), Upper Respiratory Infection (ED) Is patient prescribed a controlled substance at d/c from ED?: No Referrals: Johann Burnette III, MD [Primary Care Provider] - 1-2 days Abdifatah Burroughs DO [Doctor of Osteopathic Medicine] - 1-2 days
[2018-12-24 22:00] LABS: Basophils % (A) 0 %; Eosinophils # (A) 0.2 k/uL (0-0.7); Eosinophils % (A) 1 %; HCT 43.9 % (34.0-46.0); HGB 13.9 gm/dL (11.4-16.0); Lymphocytes # (A) 0.5 k/uL (1.0-4.8); Lymphocytes % (A) 3 %; MCH 29.4 pg (25.0-35.0); MCHC 31.8 g/dL (31.0-37.0); MCV 92.4 fL (80.0-100.0); Mean Platelet Volume 6.5; Monocytes # (A) 0.5 k/uL (0-1.0); Monocytes % (A) 3 %; Neutrophils # (A) 14.3 k/uL (1.3-7.7); Neutrophils % (A) 91 %; Platelet Count 299 k/uL (150-450); RBC 4.74 m/uL (3.80-5.40); RDW 13.2 % (11.5-15.5); WBC 15.7 k/uL (3.8-10.6)
[2018-12-24 22:03] LABS: ALT 29 U/L (9-52); AST 22 U/L (14-36); Alkaline Phosphatase 103 U/L (38-126); Anion Gap 11 mmol/L; Blood Urea Nitrogen 10 mg/dL (7-17); Calcium 9.9 mg/dL (8.4-10.2); Carbon Dioxide 23 mmol/L (22-30); Chloride 104 mmol/L (98-107); Glucose 198 mg/dL (74-99); Potassium 4.6 mmol/L (3.5-5.1); Sodium 138 mmol/L (137-145); Total Bilirubin 0.9 mg/dL (0.2-1.3); Total Protein 7.3 g/dL (6.3-8.2)
--- NOTE | 2018-12-24 22:04 | XR ---
EXAMINATION: XR chest 2V DATE AND TIME: 12/24/2018 9:45 PM CLINICAL INDICATION: PHH; Fever TECHNIQUE: Departmental protocol COMPARISON: 06/14/2017 FINDINGS: The lungs are clear. The pleural spaces are negative. The cardiac silhouette is not enlarged. The remainder of the mediastinal silhouette is unremarkable. The skeletal structures and soft tissues are negative for acute findings. IMPRESSION: NO ACUTE PROCESS.
[2018-12-24 22:25] LABS: Amorphous Sediment,Urine Rare /hpf; Appearance,Urine Turbid (Clear); Bacteria,Urine Moderate /hpf; Bilirubin,Urine Negative (Negative); Blood,Urine Negative (Negative); Color,Urine Yellow; Glucose,Urine (UA) Trace (Negative); Ketones,Urine 1+ (Negative); Leukocyte Esterase,Urine Large (Negative); Mucus,Urine Many /hpf; Nitrite,Urine Negative (Negative); PH, Urine 5.5 (5.0-8.0); Protein,Urine 1+ (Negative); RBC,Urine 2 /hpf (0-5); Specific Gravity,Urine 1.025 (1.001-1.035); Squamous Epithelial Cell,Urine 14 /hpf (0-4); WBC,Urine 25 /hpf (0-5)
[2018-12-24 23:14] VITALS: BP 121/60; PULSE 107; RESP 18; TEMP 98.9
== END 2018-12-24 23:19 | disposition home or self-care (01) ==
LOC: EC 20:49
DX: J06.9 Acute upper respiratory infection, unspecified (principal); R07.9 Chest pain, unspecified; M54.2 Cervicalgia; M54.9 Dorsalgia, unspecified; R11.10 Vomiting, unspecified; E11.9 Type 2 diabetes mellitus without complications; K21.9 Gastro-esophageal reflux disease without esophagitis; E78.5 Hyperlipidemia, unspecified; I10 Essential (primary) hypertension; E04.1 Nontoxic single thyroid nodule; Z85.828 Personal history of other malignant neoplasm of skin; Z79.82 Long term (current) use of aspirin; Z79.890 Hormone replacement therapy; Z79.84 Long term (current) use of oral hypoglycemic drugs; Z79.899 Other long term (current) drug therapy; Z91.048 Other nonmedicinal substance allergy status; Z88.0 Allergy status to penicillin; Z88.8 Allergy status to other drugs, medicaments and biological substances
CPT/HCPCS: 36415; 71046; 80053; 81001; 83605; 84484; 85025; 85610; 85730; 87040; 87086; 87502; 93005; 96360; 96361; 99284

== ENCOUNTER → 2019-03-07 | Outpatient (CLI) | payer MEDICARE ==
[2019-03-07 13:26] VITALS: RESP 16; BMI 38.8
--- NOTE | 2019-03-07 15:40 | P.HPBAR ---
Bariatric H&P - History & Physicial H&P Date: 03/07/19 History & Physicial: Visit/CC: Sleeve follow-up Patient initial contact: Initial weight: 138.799 kg Initial weight in pounds: 306.00 Height: 5 ft 2.5 in Initial BMI: 55.0 Last weight: Current weight: 97.976 kg Current weight in pounds: 216.00 Current BMI: 38.8 [place] body weight (based on NIH guidelines): 51.029 kg Excess body weight loss: 46.5% The patient is a 74 year-old F who presents for Bariatric Assessment. Patient presents today for sleeve gastrectomy follow-up. Her weight is stable. She's had some minimal GERD. Past Medical History Past Medical History: Cancer, Diabetes Mellitus, GERD/Reflux, Hyperlipidemia, Hypertension, Pneumonia, Thyroid Disorder Additional Past Medical History / Comment(s): Hx of Basal cell skin cancer, thyroid nodules, Pneumonia mult times 2016, esophageal stricture status post balloon dilatation, GERD, glaucoma pressures high side of normal, no meds History of Any Multi-Drug Resistant Organisms: None Reported Past Surgical History: Bariatric Surgery, Breast Surgery, Cholecystectomy, Hysterectomy Additional Past Surgical History / Comment(s): Lap band-inserted and removed, gastric sleeve, tummy tuck, skin cancer removal, right labia reduction , bilateral reduction upper thighs , thyroid biopsy, Right Thyroidectomy, Colonoscopy, Bronchoscopy, EGD. ira eye lid surgery, mult breast bx, EGD AND DILATION Hiatal hernia surgery. Past Anesthesia/Blood Transfusion Reactions: Family History of Problems w/ Anesthesia, Motion Sickness, Postoperative Nausea & Vomiting (PONV) Additional Past Anesthesia/Blood Transfusion Reaction / Comm: mother= ponv, CLAUSTERPHOBIC Past Psychological History: No Psychological Hx Reported Smoking Status: Never smoker Past Alcohol Use History: None Reported Past Drug Use History: None Reported - Past Family History Son(s) Family Medical History: Cancer Additional Family Medical History / Comment(s): Sq. cell Mother Family Medical History: Cancer, Deep Vein Thrombosis (DVT) Additional Family Medical History / Comment(s): breast ca, Father Family Medical History: Cancer Additional Family Medical History / Comment(s): leukemia Daughter(s) Family Medical History: Cancer Additional Family Medical History / Comment(s): from breast ca Surgical - Exam Vital Signs Resp 16 03/07/19 13:23 - General well developed, well nourished - Abdomen Abdomen: soft, non tender Bariatric Assessment & Plan Plan: Status post sleeve yesterday. Patient is doing quite well. Her GERD is minimal will be observed. She'll continue Prilosec. She'll follow-up in 4 weeks. Bariatric Checklist Checklist: Plan: Checklist: EGD: 1. Hiatal hernia: 2. H. Pylori: HgbA1c: Vitamin D: Smoking: Never smoker Primary care physician referral: dr rodas Psychiatry clearance: Cardiology clearance: Sleep study: Diet journal: VTE risk score: VTE risk level: Rehab needs at discharge:
== END ==
LOC: BARWHC3 12:34
PROVIDERS: ATTEND Surgery
DX: Z48.815 Encounter for surgical aftercare following surgery on the digestive system (principal); K21.9 Gastro-esophageal reflux disease without esophagitis; Z98.84 Bariatric surgery status; Z90.49 Acquired absence of other specified parts of digestive tract; Z90.710 Acquired absence of both cervix and uterus; Z79.899 Other long term (current) drug therapy
CPT/HCPCS: 99211

== ENCOUNTER → 2019-05-17 | Outpatient (CLI) | payer MEDICARE ==
--- NOTE | 2019-05-17 09:26 | US ---
EXAMINATION TYPE: US thyroid st tissue head/neck DATE OF EXAM: 05/17/2019 COMPARISON: US dated 05/24/2018 CLINICAL HISTORY: E04.1 Thyroid nodule. Right thyroidectomy; takes thyroid medication GLAND SIZE: Right Lobe: surgically removed Left Lobe: 6.4 x 2.3 x 1.9 cm Overall Parenchyma: heterogeneous Isthmus Thickness: 0.5 cm NODULES Right thyroidectomy. LEFT: # of nodules measured on left: 3 largest of multiple 1. 1.0 X 1.0 x 0.6 cm hypoechoic mixed nodule at the mid medial pole with well-defined margins. Th is nodule is wider than tall and shows intranodular vascularity. Prior size: 0.9 x 0.9 x 0.6 cm 2. 1.9 X 1.3 x 1.4 cm isoechoic mixed nodule at the mid medial pole with poorly defined margins. Th is nodule is taller than wide and shows no intranodular vascularity. Prior size: 1.6 x 1.3 x 1.1 cm 3. 2.0 X 1.8 x 2.0 cm hypoechoic mixed nodule at the medial lower pole with well-defined margins. T his nodule is taller than wide and shows intranodular vascularity. Prior size: not previously identified ISTHMUS: # of nodules measured in the isthmus: 0 Bilateral neck scanned: small right upper neck lymph node is seen = 0.7 x 0.5 x 0.3cm (previously portia sured 0.9 x 0.4 x 0.5 cm on the prior) and left upper neck 2 nodes are seen with larger node = 1.0 x 0.7 x 0.4cm IMPRESSION: 1. A new nodule is identified in the left thyroid lobe measuring 2.0 cm and there is slight interval growth of the second largest nodule previously measuring 1.6 cm and currently measuring 1.9 cm. Fine- needle aspiration is recommended. 2. Similar appearing overall size of the right sided lymph node adjacent to the surgical bed of the r ight thyroid gland.
--- NOTE | 2019-05-18 14:22 | MM ---
Reason for exam: screening (asymptomatic). Last mammogram was performed 1 year ago. History: Patient is postmenopausal and has history of other cancer at age 67. Family history of premenopausal breast cancer in mother at age 45 and premenopausal breast cancer in daughter at age 27. Benign left mammotome panel of the left breast, January 07, 2011. Benign excisional biopsy of the left breast, January 05, 2007. Benign stereotactic core biopsy of the left breast, February 22, 1998. Core biopsy of the right breast. Excisional biopsy of the left breast. Excisional biopsy of the right breast. Took hormonal contraceptives for 4 years beginning at age 21. Took estrogen for 6 years beginning at age 48. Physical Findings: A clinical breast exam by your physician is recommended on an annual basis and results should be correlated with mammographic findings. MG 3D Screening Mammo W/Cad Bilateral CC and MLO view(s) were taken. Prior study comparison: May 05, 2018, bilateral MG 3d screening mammo w/cad. April 20, 2017, bilateral MG 3d screening mammo w/cad. The breast tissue is heterogeneously dense. This may lower the sensitivity of mammography. Benign appearing bilateral calcifications. No suspicious abnormality. Left biopsy markers noted. Post surgical change of both breasts. No significant changes when compared with prior studies. ASSESSMENT: Benign, BI-RAD 2 RECOMMENDATION: Routine screening mammogram of both breasts in 1 year.
== END | disposition home or self-care (01) ==
LOC: RADMAMWWP 07:51
PROVIDERS: ATTEND Surgery
DX: Z12.31 Encounter for screening mammogram for malignant neoplasm of breast (principal); E04.2 Nontoxic multinodular goiter
CPT/HCPCS: 76536; 77063; 77067

== ENCOUNTER 2019-05-23 11:55 | Day surgery (SDC) | payer MEDICARE ==
[2019-05-23 13:48] VITALS: RESP 18; TEMP 98.1
[2019-05-23 15:11] VITALS: BP 137/68; PULSE 88
--- NOTE | 2019-05-23 15:57 | US ---
EXAMINATION TYPE: US FNA thyroid each add lesion, US FNA thyroid each add lesion, US FNA thyroid firs t lesion DATE OF EXAM: 05/23/2019 COMPARISON: EXAMINATION TYPE: US FNA thyroid each add lesion, US FNA thyroid each add lesion, US FNA thyroid first lesion DATE OF EXAM: 05/23/2019 COMPARISON: NONE HISTORY: Thyroid nodules. Maximal barrier technique was utilized. After informed consent, skin overlying the lower pole left t hyroid nodule was localized with ultrasound and the overlying skin prepped and draped. Ultrasound was utilized using sterile technique. Lidocaine was used for local anesthesia. Four passes with a 25-ga uge needle were made into the nodule and aspirated specimen was submitted to cytology. Using similar technique the midpole solid cystic nodule was sampled with 4 passes under ultrasound guidance with a 25-gauge needle. Finally, the upper pole nodule at the level of the isthmus on the left was sampled u sing similar technique with 4 passes with a 25-gauge needle. Aspirated specimens submitted to cytolog y. Following the procedure hemostasis achieved. No immediate complication. The patient discharged i n stable condition. IMPRESSION: STATUS POST ULTRASOUND GUIDED FINE NEEDLE ASPIRATION OF 3 DISCRETE THYROID NODULES, PATHO LOGY IS PENDING. THIS PROCEDURE WAS PERFORMED BY THE UNDERSIGNED.
== END 2019-05-23 15:00 | disposition home or self-care (01) ==
LOC: RADUSMAIN 11:55 → EDSTATUS 12:30 → RADUSMAIN 15:00
PROVIDERS: ATTEND Surgery
DX: E04.2 Nontoxic multinodular goiter (principal)
CPT/HCPCS: 10005; 10006; 88173; 88305

== ENCOUNTER → 2019-06-13 | Outpatient (CLI) | payer MEDICARE ==
[2019-06-13 15:01] VITALS: BP 136/62; PULSE 69; TEMP 98.2; BMI 39.4
--- NOTE | 2019-06-13 16:26 | P.HPBAR ---
Bariatric H&P - History & Physicial H&P Date: 06/13/19 History & Physicial: Visit/CC: follow up Patient initial contact: Initial weight: 138.799 kg Initial weight in pounds: 306.00 Height: 5 ft 2.5 in Initial BMI: 55.0 Last weight: Current weight: 99.337 kg Current weight in pounds: 219.00 Current BMI: 39.4 [place] body weight (based on NIH guidelines): 51.029 kg Excess body weight loss: 44.9% The patient is a 74 year-old F who presents for Bariatric Assessment. Patient presents today for sleeve gastrectomy follow-up. The patient has had mild chronic GERD. She states her GERD is been stable. She denies any abdominal pain. Past Medical History Past Medical History: Cancer, Diabetes Mellitus, GERD/Reflux, Hyperlipidemia, Hypertension, Pneumonia, Thyroid Disorder Additional Past Medical History / Comment(s): Hx of Basal cell skin cancer, thyroid nodules, Pneumonia mult times 2016, esophageal stricture status post balloon dilatation, GERD, glaucoma pressures high side of normal, no meds History of Any Multi-Drug Resistant Organisms: None Reported Past Surgical History: Bariatric Surgery, Breast Surgery, Cholecystectomy, Hysterectomy Additional Past Surgical History / Comment(s): Lap band-inserted and removed, gastric sleeve, tummy tuck, skin cancer removal, right labia reduction , bilateral reduction upper thighs , thyroid biopsy, Right Thyroidectomy, Colonoscopy, Bronchoscopy, EGD. ira eye lid surgery, mult breast bx, EGD AND DILATION Hiatal hernia surgery. Past Anesthesia/Blood Transfusion Reactions: Family History of Problems w/ Anesthesia, Motion Sickness, Postoperative Nausea & Vomiting (PONV) Additional Past Anesthesia/Blood Transfusion Reaction / Comm: mother= ponv, CLAUSTERPHOBIC Past Psychological History: No Psychological Hx Reported Smoking Status: Never smoker Past Alcohol Use History: None Reported Past Drug Use History: None Reported - Past Family History Son(s) Family Medical History: Cancer Additional Family Medical History / Comment(s): Sq. cell Mother Family Medical History: Cancer, Deep Vein Thrombosis (DVT) Additional Family Medical History / Comment(s): breast ca, Father Family Medical History: Cancer Additional Family Medical History / Comment(s): leukemia Daughter(s) Family Medical History: Cancer Additional Family Medical History / Comment(s): from breast ca Surgical - Exam Vital Signs Temp Pulse BP 98.2 F 69 136/62 06/13/19 14:54 06/13/19 14:54 06/13/19 14:54 - General well developed, well nourished, no distress - Eyes PERRL - ENT normal pinna - Neck no masses - Respiratory normal expansion - Cardiovascular Rhythm: regular - Abdomen Abdomen: soft, non tender Bariatric Assessment & Plan Plan: The patient has had chronic GERD. It has been stable. She's being adequately managed with medications. She'll follow-up in 2 months. Bariatric Checklist Checklist: Plan: Checklist: EGD: 1. Hiatal hernia: 2. H. Pylori: HgbA1c: Vitamin D: Smoking: Never smoker Primary care physician referral: dr rodas Psychiatry clearance: Cardiology clearance: Sleep study: Diet journal: VTE risk score: VTE risk level: Rehab needs at discharge:
== END | disposition home or self-care (01) ==
LOC: BARWHC3 13:27
PROVIDERS: ATTEND Surgery
DX: Z48.815 Encounter for surgical aftercare following surgery on the digestive system (principal); Z98.84 Bariatric surgery status; Z90.49 Acquired absence of other specified parts of digestive tract; Z90.710 Acquired absence of both cervix and uterus
CPT/HCPCS: 99211

== ENCOUNTER → 2019-09-05 | Outpatient (CLI) | payer MEDICARE ==
[2019-09-05 14:57] VITALS: BP 147/67; PULSE 75; TEMP 97.7; BMI 38.8
--- NOTE | 2019-10-23 12:54 | P.HPBAR ---
Bariatric H&P - History & Physicial H&P Date: 09/05/19 History & Physicial: Visit/CC: sleeve follow up Patient initial contact: Initial weight: 138.799 kg Initial weight in pounds: 306.00 Height: 5 ft 2.5 in Initial BMI: 55.0 Last weight: Current weight: 97.976 kg Current weight in pounds: 216.00 Current BMI: 38.8 [place] body weight (based on NIH guidelines): 51.029 kg Excess body weight loss: 46.5% The patient is a 74 year-old F who presents for Bariatric Assessment. Patient presents today for sleeve gastric follow-up. She lost another 8 pounds. She's had some mild GERD. Past Medical History Past Medical History: Cancer, Diabetes Mellitus, GERD/Reflux, Hyperlipidemia, Hypertension, Pneumonia, Thyroid Disorder Additional Past Medical History / Comment(s): Hx of Basal cell skin cancer, thyroid nodules, Pneumonia mult times 2016, esophageal stricture status post balloon dilatation, GERD, glaucoma pressures high side of normal, no meds History of Any Multi-Drug Resistant Organisms: None Reported Past Surgical History: Bariatric Surgery, Breast Surgery, Cholecystectomy, Hysterectomy Additional Past Surgical History / Comment(s): Lap band-inserted and removed, gastric sleeve, tummy tuck, skin cancer removal, right labia reduction , bilateral reduction upper thighs , thyroid biopsy, Right Thyroidectomy, Colonoscopy, Bronchoscopy, EGD. ira eye lid surgery, mult breast bx, EGD AND DILATION Hiatal hernia surgery. Past Anesthesia/Blood Transfusion Reactions: Family History of Problems w/ Anesthesia, Motion Sickness, Postoperative Nausea & Vomiting (PONV) Additional Past Anesthesia/Blood Transfusion Reaction / Comm: mother= ponv, CLAUSTERPHOBIC Past Psychological History: No Psychological Hx Reported Smoking Status: Never smoker Past Alcohol Use History: None Reported Past Drug Use History: None Reported - Past Family History Son(s) Family Medical History: Cancer Additional Family Medical History / Comment(s): Sq. cell Mother Family Medical History: Cancer, Deep Vein Thrombosis (DVT) Additional Family Medical History / Comment(s): breast ca, Father Family Medical History: Cancer Additional Family Medical History / Comment(s): leukemia Daughter(s) Family Medical History: Cancer Additional Family Medical History / Comment(s): from breast ca Surgical - Exam Vital Signs Temp Pulse BP 97.7 F 75 147/67 09/05/19 14:55 09/05/19 14:55 09/05/19 14:55 - General well developed, well nourished - Abdomen Abdomen: soft, non tender Bariatric Assessment & Plan Plan: Status post sleeve yesterday. Patient's weight loss has been stable. She is loss another 8 pounds. She will follow-up in the office in 4 weeks. Her GERD is minimal and will be observed. Bariatric Checklist Checklist: Plan: Checklist: EGD: 1. Hiatal hernia: 2. H. Pylori: HgbA1c: Vitamin D: Smoking: Never smoker Primary care physician referral: dr rodas Psychiatry clearance: Cardiology clearance: Sleep study: Diet journal: VTE risk score: VTE risk level: Rehab needs at discharge:
== END | disposition home or self-care (01) ==
LOC: BARWHC3 12:55
PROVIDERS: ATTEND Surgery
DX: Z48.815 Encounter for surgical aftercare following surgery on the digestive system (principal); K21.9 Gastro-esophageal reflux disease without esophagitis; Z98.84 Bariatric surgery status; Z90.49 Acquired absence of other specified parts of digestive tract
CPT/HCPCS: 99211

== ENCOUNTER → 2019-12-05 | Outpatient (CLI) | payer MEDICARE ==
[2019-12-05 13:15] VITALS: BP 148/77; PULSE 60; RESP 16; TEMP 98; BMI 39.7
== END | disposition home or self-care (01) ==
LOC: BARWHC3 12:35
PROVIDERS: ATTEND Surgery
DX: Z48.815 Encounter for surgical aftercare following surgery on the digestive system (principal); Z98.84 Bariatric surgery status; Z90.49 Acquired absence of other specified parts of digestive tract
CPT/HCPCS: 99211

== ENCOUNTER → 2020-02-20 | Outpatient (CLI) | payer MEDICARE ==
--- NOTE | 2020-02-20 13:58 | P.HPBAR ---
Bariatric H&P - History & Physicial H&P Date: 02/20/20 History & Physicial: Visit/CC: Patient initial contact: Initial weight: 138.799 kg Initial weight in pounds: Height: Initial BMI: Last weight: Current weight: Current weight in pounds: Current BMI: [place] body weight (based on NIH guidelines): Excess body weight loss: The patient is a 75 year-old F who presents for Bariatric Assessment. Patient presents today for sleeve gastrectomy follow-up. She's gained 2 pounds last visit. She states her GERD is intermittent. It is mostly mild in nature. Past Medical History Past Medical History: Cancer, Diabetes Mellitus, GERD/Reflux, Hyperlipidemia, Hypertension, Pneumonia, Thyroid Disorder Additional Past Medical History / Comment(s): Hx of Basal cell skin cancer, thyroid nodules, Pneumonia mult times 2016, esophageal stricture status post balloon dilatation, GERD, glaucoma pressures high side of normal, no meds History of Any Multi-Drug Resistant Organisms: None Reported Past Surgical History: Bariatric Surgery, Breast Surgery, Cholecystectomy, Hysterectomy Additional Past Surgical History / Comment(s): Lap band-inserted and removed, gastric sleeve, tummy tuck, skin cancer removal, right labia reduction , bilateral reduction upper thighs , thyroid biopsy, Right Thyroidectomy, Colonoscopy, Bronchoscopy, EGD. ira eye lid surgery, mult breast bx, EGD AND DILATION Hiatal hernia surgery. Past Anesthesia/Blood Transfusion Reactions: Family History of Problems w/ Anesthesia, Motion Sickness, Postoperative Nausea & Vomiting (PONV) Additional Past Anesthesia/Blood Transfusion Reaction / Comm: mother= ponv, CLAUSTERPHOBIC Past Psychological History: No Psychological Hx Reported Smoking Status: Never smoker Past Alcohol Use History: None Reported Past Drug Use History: None Reported - Past Family History Son(s) Family Medical History: Cancer Additional Family Medical History / Comment(s): Sq. cell Mother Family Medical History: Cancer, Deep Vein Thrombosis (DVT) Additional Family Medical History / Comment(s): breast ca, Father Family Medical History: Cancer Additional Family Medical History / Comment(s): leukemia Daughter(s) Family Medical History: Cancer Additional Family Medical History / Comment(s): from breast ca Surgical - Exam - General well developed, no distress - Eyes PERRL - ENT normal pinna - Neck no masses - Respiratory normal expansion - Cardiovascular Rhythm: regular - Abdomen Abdomen: soft, non tender Bariatric Assessment & Plan Plan: Morbid obesity. His minimal she'll continue medical management. She'll follow- up in 4 weeks. Bariatric Checklist Checklist: Plan: Checklist: EGD: 1. Hiatal hernia: 2. H. Pylori: HgbA1c: Vitamin D: Smoking: Never smoker Primary care physician referral: dr rodas Psychiatry clearance: Cardiology clearance: Sleep study: Diet journal: VTE risk score: VTE risk level: Rehab needs at discharge:
[2020-02-20 14:55] VITALS: BP 135/74; PULSE 61; RESP 20; TEMP 98.3
== END | disposition home or self-care (01) ==
LOC: BARWHC3 14:37
PROVIDERS: ATTEND Surgery
DX: Z48.815 Encounter for surgical aftercare following surgery on the digestive system (principal); E66.01 Morbid (severe) obesity due to excess calories; Z98.84 Bariatric surgery status
CPT/HCPCS: 99211

== ENCOUNTER → 2020-03-26 | Outpatient (CLI) | payer MEDICARE ==
[2020-03-26 14:09] VITALS: BP 144/85; PULSE 67; RESP 16; TEMP 98.3; BMI 40.3
--- NOTE | 2020-04-05 12:46 | P.HPBAR ---
Bariatric H&P - History & Physicial H&P Date: 03/26/20 History & Physicial: Visit/CC: sleeve f/u Patient initial contact: Initial weight: 138.799 kg Initial weight in pounds: 306.00 Height: 5 ft 2.5 in Initial BMI: 55.0 Last weight: Current weight: 101.605 kg Current weight in pounds: 224.00 Current BMI: 40.3 [place] body weight (based on NIH guidelines): 51.029 kg Excess body weight loss: 42.3% The patient is a 75 year-old F who presents for Bariatric Assessment.patient presents today for sleeve gastrectomy follow-up. She's had some mild component of GERD. She states her weight loss has been stable. Past Medical History Past Medical History: Cancer, Diabetes Mellitus, GERD/Reflux, Hyperlipidemia, Hypertension, Pneumonia, Thyroid Disorder Additional Past Medical History / Comment(s): Hx of Basal cell skin cancer, thyroid nodules, Pneumonia mult times 2016, esophageal stricture status post balloon dilatation, GERD, glaucoma pressures high side of normal, no meds History of Any Multi-Drug Resistant Organisms: None Reported Past Surgical History: Bariatric Surgery, Breast Surgery, Cholecystectomy, Hysterectomy Additional Past Surgical History / Comment(s): Lap band-inserted and removed, gastric sleeve, tummy tuck, skin cancer removal, right labia reduction , bilateral reduction upper thighs , thyroid biopsy, Right Thyroidectomy, Colonoscopy, Bronchoscopy, EGD. ira eye lid surgery, mult breast bx, EGD AND DILATION Hiatal hernia surgery. Past Anesthesia/Blood Transfusion Reactions: Family History of Problems w/ Anesthesia, Motion Sickness, Postoperative Nausea & Vomiting (PONV) Additional Past Anesthesia/Blood Transfusion Reaction / Comm: mother= ponv, CLAUSTERPHOBIC Past Psychological History: No Psychological Hx Reported Smoking Status: Never smoker Past Alcohol Use History: None Reported Past Drug Use History: None Reported - Past Family History Son(s) Family Medical History: Cancer Additional Family Medical History / Comment(s): Sq. cell Mother Family Medical History: Cancer, Deep Vein Thrombosis (DVT) Additional Family Medical History / Comment(s): breast ca, Father Family Medical History: Cancer Additional Family Medical History / Comment(s): leukemia Daughter(s) Family Medical History: Cancer Additional Family Medical History / Comment(s): from breast ca Surgical - Exam Vital Signs Temp Pulse Resp BP 98.3 F 67 16 144/85 03/26/20 14:06 03/26/20 14:06 03/26/20 14:06 03/26/20 14:06 - General well developed, no distress - Abdomen Abdomen: soft, non tender Bariatric Assessment & Plan Plan: status post sleeve yesterday. Patient's GERD is currently being treated with omeprazole. She'll follow up in 4 weeks. Bariatric Checklist Checklist: Plan: Checklist: EGD: 1. Hiatal hernia: 2. H. Pylori: HgbA1c: Vitamin D: Smoking: Never smoker Primary care physician referral: dr rodas Psychiatry clearance: Cardiology clearance: Sleep study: Diet journal: VTE risk score: VTE risk level: Rehab needs at discharge:
== END | disposition home or self-care (01) ==
LOC: BARWHC3 13:08
PROVIDERS: ATTEND Surgery
DX: Z48.815 Encounter for surgical aftercare following surgery on the digestive system (principal); Z98.84 Bariatric surgery status
CPT/HCPCS: 99211

== ENCOUNTER → 2020-04-09 | Outpatient (CLI) | payer MEDICARE ==
--- NOTE | 2020-04-09 11:07 | BD ---
EXAMINATION TYPE: Axial Bone Density DATE OF EXAM: 04/09/2020 COMPARISON: 03/09/2009 CLINICAL HISTORY: Height: 62 IN Weight: 223 LBS FRAX RISK QUESTIONS: History of Fracture in Adulthood: LT HUMERUS AGE 61, LT TIB/FIB AGE 63 Secondary Osteoporosis: 3. Menopause before 45: PARTIAL HYST AGE 32 RISK FACTORS HISTORY OF: Active: YES Diet low in dairy products/other sources of calcium: YES Postmenopausal woman: PARTIAL HYST AGE 32 Take estrogen and/or progesterone medications: NOT NOW How long: CONTROL FOR 3 YEARS MEDICATIONS: Thyroid Medications: YES Which medication: ARMOUR How Lon YEARS Additional Medications: CALCIUM, VIT D, ARMOUR, ATORVASTATIN, JANUVA,ASPIRIN 81 MG, LOSARTAN, OMEPRAZ OLE, METOPROLOL, HYDROCODONE, GLIMEPIRIDE, BIOTIN, PEPCID, B12 EXAM MEASUREMENTS: Bone mineral densitometry was performed using the goCatch System. Bone mineral density as measured about the Lumbar spine is: ----- L1-L4(G/cm2): 1.355 T Score Values are as follows: ----- L2: 1.9 ----- L3: 1.6 ----- L4: 0.3 ----- L1-L4: 1.5 Bone mineral density has: Increased 5.8% since study of: 03/09/2009 Bone mineral density about the R hip (g/cm2): 0.931 Bone mineral density about the L hip (g/cm2): 0.913 T Score values are as follows: -----R Neck: -0.8 -----L Neck: -0.9 -----R Total: -0.1 -----L Total: -0.8 Bone mineral density has: Decreased -4.7% since study of: 03/09/2009 IMPRESSION: No evidence for osteoporosis or osteopenia. NOTE: T-SCORE=SD OF THE YOUNG ADULT MEAN.
== END | disposition home or self-care (01) ==
LOC: RADBDWWP 09:30
PROVIDERS: ATTEND Family Medicine
DX: Z13.820 Encounter for screening for osteoporosis (principal)
CPT/HCPCS: 77080

== ENCOUNTER → 2020-05-14 | Outpatient (CLI) | payer MEDICARE ==
[2020-05-14 13:51] VITALS: BP 143/81; PULSE 74; RESP 16; TEMP 98.1; BMI 40.1
--- NOTE | 2020-05-14 15:17 | P.HPBAR ---
Bariatric H&P - History & Physicial H&P Date: 05/14/20 History & Physicial: Visit/CC: f/u Patient initial contact: Initial weight: 138.799 kg Initial weight in pounds: 306.00 Height: 5 ft 2.5 in Initial BMI: 55.0 Last weight: Current weight: 101.151 kg Current weight in pounds: 223.00 Current BMI: 40.1 [place] body weight (based on NIH guidelines): 51.029 kg Excess body weight loss: 42.8% The patient is a 75 year-old F who presents for Bariatric Assessment. Patient rents today for sleeve gastrectomy full. She's had mild GERD. Her weight is stable. Past Medical History Past Medical History: Cancer, Diabetes Mellitus, GERD/Reflux, Hyperlipidemia, Hypertension, Pneumonia, Thyroid Disorder Additional Past Medical History / Comment(s): Hx of Basal cell skin cancer, thyroid nodules, Pneumonia mult times 2016, esophageal stricture status post balloon dilatation, GERD, glaucoma pressures high side of normal, no meds History of Any Multi-Drug Resistant Organisms: None Reported Past Surgical History: Bariatric Surgery, Breast Surgery, Cholecystectomy, Hysterectomy Additional Past Surgical History / Comment(s): Lap band-inserted and removed, gastric sleeve, tummy tuck, skin cancer removal, right labia reduction , bilateral reduction upper thighs , thyroid biopsy, Right Thyroidectomy, Colonoscopy, Bronchoscopy, EGD. ira eye lid surgery, mult breast bx, EGD AND DILATION Hiatal hernia surgery. Past Anesthesia/Blood Transfusion Reactions: Family History of Problems w/ Anesthesia, Motion Sickness, Postoperative Nausea & Vomiting (PONV) Additional Past Anesthesia/Blood Transfusion Reaction / Comm: mother= ponv, CLAUSTERPHOBIC Past Psychological History: No Psychological Hx Reported Smoking Status: Unknown if ever smoked Past Alcohol Use History: None Reported Past Drug Use History: None Reported - Past Family History Son(s) Family Medical History: Cancer Additional Family Medical History / Comment(s): Sq. cell Mother Family Medical History: Cancer, Deep Vein Thrombosis (DVT) Additional Family Medical History / Comment(s): breast ca, Father Family Medical History: Cancer Additional Family Medical History / Comment(s): leukemia Daughter(s) Family Medical History: Cancer Additional Family Medical History / Comment(s): from breast ca Surgical - Exam Vital Signs Temp Pulse Resp BP 98.1 F 74 16 143/81 05/14/20 13:49 05/14/20 13:49 05/14/20 13:49 05/14/20 13:49 - General well developed, well nourished, no distress - Eyes PERRL - ENT normal pinna - Neck no masses - Respiratory normal expansion - Cardiovascular Rhythm: regular - Abdomen Abdomen: soft, non tender Bariatric Assessment & Plan Plan: Status post sleeve history. Patient's GERD is minimal be observed. She'll follow-up in 8 weeks. Bariatric Checklist Checklist: Plan: Checklist: EGD: 1. Hiatal hernia: 2. H. Pylori: HgbA1c: Vitamin D: Smoking: Never smoker Primary care physician referral: dr rodas Psychiatry clearance: Cardiology clearance: Sleep study: Diet journal: VTE risk score: VTE risk level: Rehab needs at discharge:
== END | disposition home or self-care (01) ==
LOC: BARWHC3 13:34
PROVIDERS: ATTEND Surgery
DX: Z48.815 Encounter for surgical aftercare following surgery on the digestive system (principal); K21.9 Gastro-esophageal reflux disease without esophagitis; Z98.84 Bariatric surgery status; Z90.49 Acquired absence of other specified parts of digestive tract; Z90.710 Acquired absence of both cervix and uterus
CPT/HCPCS: 99211

== ENCOUNTER → 2020-05-24 | Outpatient (CLI) | payer MEDICARE ==
--- NOTE | 2020-05-24 10:08 | US ---
EXAMINATION TYPE: US thyroid st tissue head/neck DATE OF EXAM: 05/24/2020 COMPARISON: 05/17/2019 CLINICAL HISTORY: E04.1 thyroid nodule. Patient takes thyroid medication. Has has nodules biopsied GLAND SIZE: Right Lobe: Surgically absent cm Left Lobe: 5.7 x 1.9 x 1.8 cm Overall Parenchyma: heterogeneous Isthmus Thickness: 0.6 cm NODULES RIGHT: # of nodules measured on right: 0 LEFT: # of nodules measured on left: 2 1. 1.6 X 0.7 x 1.3 cm hypoechoic solid nodule at the mid pole with well-defined margins; . This no dule is wider than tall and shows intranodular vascularity. Prior size: 1.0 x 0.6 x 1.0 cm Consolidation of multiple nodules, difficult to differentiate margins 2. 3.0 X 1.7 x 2.0 cm hypoechoic solid nodule at the mid pole with poorly defined margins; . This n odule is wider than tall and shows intranodular vascularity. ISTHMUS: # of nodules measured in the isthmus: 0 Bilateral neck scanned, no evidence of lymphadenopathy. IMPRESSION: Left thyroid is enlarged and heterogeneous correlate for thyroiditis. There is a 3 cm nodule within t he left lobe of thyroid with poorly defined margins. There is interval increase in size of a 1.6 cm n odule which previously measured 1 cm.
--- NOTE | 2020-05-25 10:04 | MM ---
Reason for exam: screening (asymptomatic). Last mammogram was performed 1 year ago. History: Patient is postmenopausal and has history of other cancer at age 67. Family history of premenopausal breast cancer in mother at age 45 and premenopausal breast cancer in daughter at age 27. Benign left mammotome panel of the left breast, January 07, 2011. Benign excisional biopsy of the left breast, January 05, 2007. Benign stereotactic core biopsy of the left breast, February 22, 1998. Core biopsy of the right breast. Excisional biopsy of the left breast. Excisional biopsy of the right breast. Took hormonal contraceptives for 4 years beginning at age 21. Took estrogen for 6 years beginning at age 48. Physical Findings: A clinical breast exam by your physician is recommended on an annual basis and results should be correlated with mammographic findings. MG 3D Screening Mammo W/Cad Bilateral CC and MLO view(s) were taken. XCCL view(s) were taken of the left breast. Prior study comparison: May 17, 2019, bilateral MG 3d screening mammo w/cad. May 05, 2018, bilateral MG 3d screening mammo w/cad. The breast tissue is heterogeneously dense. This may lower the sensitivity of mammography. Stable post operative distortion right breast. No significant changes when compared with prior studies. ASSESSMENT: Benign, BI-RAD 2 RECOMMENDATION: Routine screening mammogram of both breasts in 1 year.
== END | disposition home or self-care (01) ==
LOC: RADMAMWWP 08:48
PROVIDERS: ATTEND Surgery
DX: Z12.31 Encounter for screening mammogram for malignant neoplasm of breast (principal); E04.2 Nontoxic multinodular goiter
CPT/HCPCS: 76536; 77063; 77067

== ENCOUNTER 2020-06-21 12:05 | Day surgery (SDC) | payer MEDICARE ==
[2020-06-21 13:06] VITALS: TEMP 98.3
[2020-06-21 14:39] VITALS: RESP 16
[2020-06-21 14:40] VITALS: BP 140/67; PULSE 73
--- NOTE | 2020-06-21 14:53 | US ---
ULTRASOUND GUIDED FNA THYROID BIOPSY: CLINICAL HISTORY: Request for 2 left thyroid nodule biopsies FINDINGS: The procedure was explained to the patient. The risks, complications, benefits and alternatives were discussed and any questions were answered. Informed consent was obtained. Patient was placed supin e on the ultrasound table and prepped and draped in the usual sterile fashion. Utilizing a 25 gauge needle, five passes were made into the each of the 2 requested nodule. Patient was stable throughout the procedure. Pathology is pending. All elements of maximal barrier technique were utilized. IMPRESSION: 1. Successful ultrasound guided FNA thyroid biopsy.
== END 2020-06-21 14:20 | disposition home or self-care (01) ==
LOC: RADPROMAIN 12:05
PROVIDERS: ATTEND Surgery
DX: E04.1 Nontoxic single thyroid nodule (principal)
CPT/HCPCS: 10005; 10006; 88173; 88305

== ENCOUNTER → 2020-07-23 | Outpatient (CLI) | payer MEDICARE ==
[2020-07-23 13:08] VITALS: BP 156/87; PULSE 66; RESP 18; TEMP 98.5
--- NOTE | 2020-07-23 13:22 | P.HPBAR ---
Bariatric H&P - History & Physicial H&P Date: 07/23/20 History & Physicial: Visit/CC: follow up Patient initial contact: Initial weight: 138.799 kg Initial weight in pounds: 306.00 Height: 5 ft 2.5 in Initial BMI: Last weight: 223 Current weight: 102.058 kg Current weight in pounds: 225 Current BMI: [place] body weight (based on NIH guidelines): Excess body weight loss: The patient is a 75 year-old F who presents for Bariatric Assessment. Patient presents today for sleeve gastrectomy follow-up. She's had some mild GERD. Her weight has been stable. Past Medical History Past Medical History: Cancer, Diabetes Mellitus, GERD/Reflux, Hyperlipidemia, Hypertension, Pneumonia, Thyroid Disorder Additional Past Medical History / Comment(s): Hx of Basal cell skin cancer, thyroid nodules, Pneumonia mult times 2016, esophageal stricture status post balloon dilatation, GERD, glaucoma pressures high side of normal, no meds History of Any Multi-Drug Resistant Organisms: None Reported Past Surgical History: Bariatric Surgery, Breast Surgery, Cholecystectomy, Hysterectomy Additional Past Surgical History / Comment(s): Lap band-inserted and removed, gastric sleeve, tummy tuck, skin cancer removal, right labia reduction , bilateral reduction upper thighs , thyroid biopsy, Right Thyroidectomy, Colonoscopy, Bronchoscopy, EGD. ira eye lid surgery, mult breast bx, EGD AND DILATION Hiatal hernia surgery. Past Anesthesia/Blood Transfusion Reactions: Family History of Problems w/ Anesthesia, Motion Sickness, Postoperative Nausea & Vomiting (PONV) Additional Past Anesthesia/Blood Transfusion Reaction / Comm: mother= ponv, CLAUSTERPHOBIC Past Psychological History: No Psychological Hx Reported Smoking Status: Never smoker Past Alcohol Use History: None Reported Past Drug Use History: None Reported - Past Family History Son(s) Family Medical History: Cancer Additional Family Medical History / Comment(s): Sq. cell Mother Family Medical History: Cancer, Deep Vein Thrombosis (DVT) Additional Family Medical History / Comment(s): breast ca, Father Family Medical History: Cancer Additional Family Medical History / Comment(s): leukemia Daughter(s) Family Medical History: Cancer Additional Family Medical History / Comment(s): from breast ca Surgical - Exam Vital Signs Temp Pulse Resp BP 98.5 F 66 18 156/87 07/23/20 13:03 07/23/20 13:03 07/23/20 13:03 07/23/20 13:03 - General well developed, well nourished, no distress - Eyes PERRL - ENT normal pinna - Neck no masses - Respiratory normal expansion - Cardiovascular Rhythm: regular - Abdomen Abdomen: soft, non tender Bariatric Assessment & Plan Plan: Status post sleeve gastrectomy. Patient is a well. Her GERD is minimal will be observed. She'll follow-up in one month Bariatric Checklist Checklist: Plan: Checklist: EGD: 1. Hiatal hernia: 2. H. Pylori: HgbA1c: Vitamin D: Smoking: Never smoker Primary care physician referral: dr rodas Psychiatry clearance: Cardiology clearance: Sleep study: Diet journal: VTE risk score: VTE risk level: Rehab needs at discharge:
== END | disposition home or self-care (01) ==
LOC: BARWHC3 12:25
PROVIDERS: ATTEND Surgery
DX: Z48.815 Encounter for surgical aftercare following surgery on the digestive system (principal); Z46.51 Encounter for fitting and adjustment of gastric lap band; Z90.49 Acquired absence of other specified parts of digestive tract
CPT/HCPCS: 99211

== ENCOUNTER → 2020-09-17 | Outpatient (CLI) | payer MEDICARE ==
[2020-09-17 12:51] VITALS: BP 136/76; PULSE 60; RESP 18; TEMP 98.2; BMI 39.9
--- NOTE | 2020-09-17 15:57 | P.HPBAR ---
Bariatric H&P - History & Physicial H&P Date: 09/17/20 History & Physicial: Visit/CC: follow up Patient initial contact: Initial weight: 138.799 kg Initial weight in pounds: 306.00 Height: 5 ft 2.5 in Initial BMI: 55.0 Last weight: Current weight: 100.607 kg Current weight in pounds: 221.80 Current BMI: 39.9 [place] body weight (based on NIH guidelines): 51.029 kg Excess body weight loss: 43.5% The patient is a 75 year-old F who presents for Bariatric Assessment. Patient presents today for sleeve gastric and follow. She has complaints of mild GERD. Past Medical History Past Medical History: Cancer, Diabetes Mellitus, GERD/Reflux, Hyperlipidemia, Hypertension, Pneumonia, Thyroid Disorder Additional Past Medical History / Comment(s): Hx of Basal cell skin cancer, thyroid nodules, Pneumonia mult times 2016, esophageal stricture status post balloon dilatation, GERD, glaucoma pressures high side of normal, no meds History of Any Multi-Drug Resistant Organisms: None Reported Past Surgical History: Bariatric Surgery, Breast Surgery, Cholecystectomy, Hysterectomy Additional Past Surgical History / Comment(s): Lap band-inserted and removed, gastric sleeve, tummy tuck, skin cancer removal, right labia reduction , bilateral reduction upper thighs , thyroid biopsy, Right Thyroidectomy, Colonoscopy, Bronchoscopy, EGD. ira eye lid surgery, mult breast bx, EGD AND DILATION Hiatal hernia surgery. Past Anesthesia/Blood Transfusion Reactions: Family History of Problems w/ Anesthesia, Motion Sickness, Postoperative Nausea & Vomiting (PONV) Additional Past Anesthesia/Blood Transfusion Reaction / Comm: mother= ponv, CLAUSTERPHOBIC Past Psychological History: No Psychological Hx Reported Smoking Status: Never smoker Past Alcohol Use History: None Reported Past Drug Use History: None Reported - Past Family History Son(s) Family Medical History: Cancer Additional Family Medical History / Comment(s): Sq. cell Mother Family Medical History: Cancer, Deep Vein Thrombosis (DVT) Additional Family Medical History / Comment(s): breast ca, Father Family Medical History: Cancer Additional Family Medical History / Comment(s): leukemia Daughter(s) Family Medical History: Cancer Additional Family Medical History / Comment(s): from breast ca Surgical - Exam Vital Signs Temp Pulse Resp BP Pulse Ox 98.2 F 60 18 136/76 99 12/14/20 12:44 09/17/20 12:44 09/17/20 12:44 09/17/20 12:44 09/17/20 12:44 - General well developed, well nourished, no distress - Eyes PERRL - ENT normal pinna - Neck no masses - Respiratory normal expansion - Cardiovascular Rhythm: regular - Abdomen Abdomen: soft, non tender Bariatric Assessment & Plan Plan: Status post sleeve gastrectomy. Patient is minimal be observed. She'll follow- up in 4 weeks. Bariatric Checklist Checklist: Plan: Checklist: EGD: 1. Hiatal hernia: 2. H. Pylori: HgbA1c: Vitamin D: Smoking: Never smoker Primary care physician referral: dr rodas Psychiatry clearance: Cardiology clearance: Sleep study: Diet journal: VTE risk score: VTE risk level: Rehab needs at discharge:
== END | disposition home or self-care (01) ==
LOC: BARWHC3 12:35
PROVIDERS: ATTEND Surgery
DX: Z48.815 Encounter for surgical aftercare following surgery on the digestive system (principal); Z98.84 Bariatric surgery status
CPT/HCPCS: 99211

== ENCOUNTER → 2020-11-12 | Outpatient (CLI) | payer MEDICARE ==
[2020-11-12 13:04] VITALS: BP 137/79; PULSE 63; RESP 18; TEMP 97.7; BMI 39.7
--- NOTE | 2020-11-12 14:25 | P.HPBAR ---
Bariatric H&P - History & Physicial H&P Date: 11/12/20 History & Physicial: Visit/CC: follow up Patient initial contact: Initial weight: 138.799 kg Initial weight in pounds: 306.00 Height: 5 ft 2.5 in Initial BMI: 55.0 Last weight: Current weight: 100.244 kg Current weight in pounds: 221.00 Current BMI: 39.7 [place] body weight (based on NIH guidelines): 51.029 kg Excess body weight loss: 43.9% The patient is a 75 year-old F who presents for Bariatric Assessment. Patient presents today for sleeve gastrectomy fall. Her GERD has been slightly improved. Her weight has remained unchanged. Past Medical History Past Medical History: Cancer, Diabetes Mellitus, GERD/Reflux, Hyperlipidemia, Hypertension, Pneumonia, Thyroid Disorder Additional Past Medical History / Comment(s): Hx of Basal cell skin cancer, thyroid nodules, Pneumonia mult times 2016, esophageal stricture status post balloon dilatation, GERD, glaucoma pressures high side of normal, no meds; COVID [employer] vaccine (1st - 10/01/20, 2nd - 10/22/20) History of Any Multi-Drug Resistant Organisms: None Reported Past Surgical History: Bariatric Surgery, Breast Surgery, Cholecystectomy, Hysterectomy Additional Past Surgical History / Comment(s): Lap band-inserted and removed, gastric sleeve, tummy tuck, skin cancer removal, right labia reduction , bilateral reduction upper thighs , thyroid biopsy, Right Thyroidectomy, Colonoscopy, Bronchoscopy, EGD. ira eye lid surgery, mult breast bx, EGD AND DILATION Hiatal hernia surgery. Past Anesthesia/Blood Transfusion Reactions: Family History of Problems w/ Anesthesia, Motion Sickness, Postoperative Nausea & Vomiting (PONV) Additional Past Anesthesia/Blood Transfusion Reaction / Comm: mother= ponv, CLAUSTERPHOBIC Past Psychological History: No Psychological Hx Reported Smoking Status: Never smoker Past Alcohol Use History: None Reported Past Drug Use History: None Reported - Past Family History Son(s) Family Medical History: Cancer Additional Family Medical History / Comment(s): Sq. cell Mother Family Medical History: Cancer, Deep Vein Thrombosis (DVT) Additional Family Medical History / Comment(s): breast ca, Father Family Medical History: Cancer Additional Family Medical History / Comment(s): leukemia Daughter(s) Family Medical History: Cancer Additional Family Medical History / Comment(s): from breast ca Surgical - Exam Vital Signs Temp Pulse Resp BP 97.7 F 63 18 137/79 11/12/20 12:55 11/12/20 12:55 11/12/20 12:55 11/12/20 12:55 - General well developed, well nourished, no distress - Eyes PERRL - ENT normal pinna - Neck no masses - Respiratory normal expansion - Cardiovascular Rhythm: regular - Abdomen Abdomen: soft, non tender Bariatric Assessment & Plan Plan: Status post sleeve yesterday. Patient's GERD is minimal observed. She'll follow-up in 4 weeks. Bariatric Checklist Checklist: Plan: Checklist: EGD: 1. Hiatal hernia: 2. H. Pylori: HgbA1c: Vitamin D: Smoking: Never smoker Primary care physician referral: dr rodas Psychiatry clearance: Cardiology clearance: Sleep study: Diet journal: VTE risk score: VTE risk level: Rehab needs at discharge:
== END | disposition home or self-care (01) ==
LOC: BARWHC3 12:33
PROVIDERS: ATTEND Surgery
DX: Z48.815 Encounter for surgical aftercare following surgery on the digestive system (principal); Z98.84 Bariatric surgery status; K21.9 Gastro-esophageal reflux disease without esophagitis; Z98.890 Other specified postprocedural states; Z90.49 Acquired absence of other specified parts of digestive tract; Z90.710 Acquired absence of both cervix and uterus
CPT/HCPCS: 99211

== ENCOUNTER → 2021-01-14 | Outpatient (CLI) | payer MEDICARE ==
[2021-01-14 13:14] VITALS: BP 143/83; PULSE 60; RESP 18; TEMP 98.1; BMI 41.3
--- NOTE | 2021-02-12 12:17 | P.HPBAR ---
Bariatric H&P - History & Physicial H&P Date: 01/14/21 History & Physicial: Visit/CC: follow up Patient initial contact: Initial weight: 138.799 kg Initial weight in pounds: 306.00 Height: 5 ft 2.5 in Initial BMI: 55.0 Last weight: Current weight: 104.326 kg Current weight in pounds: 230.00 Current BMI: 41.3 [place] body weight (based on NIH guidelines): 51.029 kg Excess body weight loss: 39.2% The patient is a 76 year-old F who presents for Bariatric Assessment. Patient presents today for sleeve gastrectomy fall. She's had some complaints of GERD. She's gained 8 pounds since her last visit Past Medical History Past Medical History: Cancer, Diabetes Mellitus, GERD/Reflux, Hyperlipidemia, Hypertension, Pneumonia, Thyroid Disorder Additional Past Medical History / Comment(s): Hx of Basal cell skin cancer, t hyroid nodules, Pneumonia mult times 2016, esophageal stricture status post balloon dilatation, GERD, glaucoma pressures high side of normal, no meds; COVID [employer] vaccine (1st - 10/01/20, 2nd - 10/22/20) History of Any Multi-Drug Resistant Organisms: None Reported Past Surgical History: Bariatric Surgery, Breast Surgery, Cholecystectomy, Hysterectomy Additional Past Surgical History / Comment(s): Lap band-inserted and removed, gastric sleeve, tummy tuck, skin cancer removal, right labia reduction , bilateral reduction upper thighs , thyroid biopsy, Right Thyroidectomy, Colonoscopy, Bronchoscopy, EGD. ira eye lid surgery, mult breast bx, EGD AND DILATION Hiatal hernia surgery. Past Anesthesia/Blood Transfusion Reactions: Family History of Problems w/ Anesthesia, Motion Sickness, Postoperative Nausea & Vomiting (PONV) Additional Past Anesthesia/Blood Transfusion Reaction / Comm: mother= ponv, CLAUSTERPHOBIC Past Psychological History: No Psychological Hx Reported Smoking Status: Never smoker Past Alcohol Use History: None Reported Past Drug Use History: None Reported - Past Family History Son(s) Family Medical History: Cancer Additional Family Medical History / Comment(s): Sq. cell Mother Family Medical History: Cancer, Deep Vein Thrombosis (DVT) Additional Family Medical History / Comment(s): breast ca, Father Family Medical History: Cancer Additional Family Medical History / Comment(s): leukemia Daughter(s) Family Medical History: Cancer Additional Family Medical History / Comment(s): from breast ca Surgical - Exam Vital Signs Temp Pulse Resp BP 98.1 F 60 18 143/83 01/14/21 13:12 01/14/21 13:12 01/14/21 13:12 01/14/21 13:12 - General well developed, well nourished, no distress - Eyes PERRL - ENT normal pinna - Neck no masses - Respiratory normal expansion - Cardiovascular Rhythm: regular - Abdomen Abdomen: soft, non tender Bariatric Assessment & Plan Plan: Status post sleeve gastric. Patient's GERD is minimal will be observed. She'll follow-up in 4 weeks. Bariatric Checklist Checklist: Plan: Checklist: EGD: 1. Hiatal hernia: 2. H. Pylori: HgbA1c: Vitamin D: Smoking: Never smoker Primary care physician referral: dr rodas Psychiatry clearance: Cardiology clearance: Sleep study: Diet journal: VTE risk score: VTE risk level: Rehab needs at discharge:
== END ==
LOC: BARWHC3 12:30
PROVIDERS: ATTEND Surgery
DX: Z09 Encounter for follow-up examination after completed treatment for conditions other than malignant neoplasm (principal); K21.9 Gastro-esophageal reflux disease without esophagitis; Z98.84 Bariatric surgery status; E11.9 Type 2 diabetes mellitus without complications; I10 Essential (primary) hypertension; E78.5 Hyperlipidemia, unspecified; Z88.2 Allergy status to sulfonamides; Z88.0 Allergy status to penicillin
CPT/HCPCS: 99211

== ENCOUNTER → 2021-01-21 | Outpatient (CLI) | payer MEDICARE ==
[2021-01-21 13:14] VITALS: BP 144/64; PULSE 62; RESP 18; TEMP 98.8; BMI 41.0
--- NOTE | 2021-01-21 13:43 | P.HPBAR ---
Bariatric H&P - History & Physicial H&P Date: 01/21/21 History & Physicial: Visit/CC: follow up Patient initial contact: Initial weight: 138.799 kg Initial weight in pounds: 306.00 Height: 5 ft 2.5 in Initial BMI: 55.0 Last weight: Current weight: 103.419 kg Current weight in pounds: 228.00 Current BMI: 41.0 [place] body weight (based on NIH guidelines): 51.029 kg Excess body weight loss: 40.3% The patient is a 76 year-old F who presents for Bariatric Assessment. Patient presents today for sleeve gastrectomy fall. She lost 2 pounds her last visit. She's had some mild GERD. Past Medical History Past Medical History: Cancer, Diabetes Mellitus, GERD/Reflux, Hyperlipidemia, Hypertension, Pneumonia, Thyroid Disorder Additional Past Medical History / Comment(s): Hx of Basal cell skin cancer, thyroid nodules, Pneumonia mult times 2016, esophageal stricture status post balloon dilatation, GERD, glaucoma pressures high side of normal, no meds; COVID [employer] vaccine (1st - 10/01/20, 2nd - 10/22/20) History of Any Multi-Drug Resistant Organisms: None Reported Past Surgical History: Bariatric Surgery, Breast Surgery, Cholecystectomy, Hysterectomy Additional Past Surgical History / Comment(s): Lap band-inserted and removed, gastric sleeve, tummy tuck, skin cancer removal, right labia reduction , bilateral reduction upper thighs , thyroid biopsy, Right Thyroidectomy, Colonoscopy, Bronchoscopy, EGD. ira eye lid surgery, mult breast bx, EGD AND DILATION Hiatal hernia surgery. Past Anesthesia/Blood Transfusion Reactions: Family History of Problems w/ Anesthesia, Motion Sickness, Postoperative Nausea & Vomiting (PONV) Additional Past Anesthesia/Blood Transfusion Reaction / Comm: mother= ponv, CLAUSTERPHOBIC Past Psychological History: No Psychological Hx Reported Smoking Status: Never smoker Past Alcohol Use History: None Reported Past Drug Use History: None Reported - Past Family History Son(s) Family Medical History: Cancer Additional Family Medical History / Comment(s): Sq. cell Mother Family Medical History: Cancer, Deep Vein Thrombosis (DVT) Additional Family Medical History / Comment(s): breast ca, Father Family Medical History: Cancer Additional Family Medical History / Comment(s): leukemia Daughter(s) Family Medical History: Cancer Additional Family Medical History / Comment(s): from breast ca Surgical - Exam Vital Signs Temp Pulse Resp BP 98.8 F 62 18 144/64 01/21/21 13:10 01/21/21 13:10 01/21/21 13:10 01/21/21 13:10 - General well developed, well nourished, no distress - Eyes PERRL - ENT normal pinna - Neck no masses - Respiratory normal expansion - Cardiovascular Rhythm: regular - Abdomen Abdomen: soft, non tender Bariatric Assessment & Plan Plan: Status post sleeve yesterday. Patient appears minimal will be observed temperature follow-up in 4 weeks. Bariatric Checklist Checklist: Plan: Checklist: EGD: 1. Hiatal hernia: 2. H. Pylori: HgbA1c: Vitamin D: Smoking: Never smoker Primary care physician referral: dr rodas Psychiatry clearance: Cardiology clearance: Sleep study: Diet journal: VTE risk score: VTE risk level: Rehab needs at discharge:
== END ==
LOC: BARWHC3 12:38
PROVIDERS: ATTEND Surgery
DX: E66.01 Morbid (severe) obesity due to excess calories (principal); Z68.41 Body mass index [BMI] 40.0-44.9, adult; Z98.84 Bariatric surgery status; Z46.51 Encounter for fitting and adjustment of gastric lap band; E07.9 Disorder of thyroid, unspecified; E11.9 Type 2 diabetes mellitus without complications; K21.9 Gastro-esophageal reflux disease without esophagitis; E78.5 Hyperlipidemia, unspecified; I10 Essential (primary) hypertension
CPT/HCPCS: 99211

== ENCOUNTER → 2021-03-11 | Outpatient (CLI) | payer MEDICARE ==
[2021-03-11 13:06] VITALS: BP 117/72; PULSE 70; RESP 16; TEMP 98.3; BMI 40.8
--- NOTE | 2021-03-19 12:50 | P.HPBAR ---
Bariatric H&P - History & Physicial H&P Date: 03/11/21 History & Physicial: Visit/CC: F/U Patient initial contact: Initial weight: 138.799 kg Initial weight in pounds: 306.00 Height: 5 ft 2.5 in Initial BMI: 55.0 Last weight: Current weight: 102.965 kg Current weight in pounds: 227.00 Current BMI: 40.8 [place] body weight (based on NIH guidelines): 51.029 kg Excess body weight loss: 40.8% The patient is a 76 year-old F who presents for Bariatric Assessment. Patient presents today for sleeve gastrectomy follow-up. She's had some issues with GERD. Past Medical History Past Medical History: Cancer, Diabetes Mellitus, GERD/Reflux, Hyperlipidemia, Hypertension, Pneumonia, Thyroid Disorder Additional Past Medical History / Comment(s): Hx of Basal cell skin cancer, thyroid nodules, Pneumonia mult times 2016, esophageal stricture status post balloon dilatation, GERD, glaucoma pressures high side of normal, no meds; COVID [employer] vaccine (1st - 10/01/20, 2nd - 10/22/20) History of Any Multi-Drug Resistant Organisms: None Reported Past Surgical History: Bariatric Surgery, Breast Surgery, Cholecystectomy, Hysterectomy Additional Past Surgical History / Comment(s): Lap band-inserted and removed, gastric sleeve, tummy tuck, skin cancer removal, right labia reduction , bilateral reduction upper thighs , thyroid biopsy, Right Thyroidectomy, Colonoscopy, Bronchoscopy, EGD. ira eye lid surgery, mult breast bx, EGD AND DILATION Hiatal hernia surgery. Past Anesthesia/Blood Transfusion Reactions: Family History of Problems w/ Anesthesia, Motion Sickness, Postoperative Nausea & Vomiting (PONV) Additional Past Anesthesia/Blood Transfusion Reaction / Comm: mother= ponv, CLAUSTERPHOBIC Past Psychological History: No Psychological Hx Reported Smoking Status: Never smoker Past Alcohol Use History: None Reported Past Drug Use History: None Reported - Past Family History Son(s) Family Medical History: Cancer Additional Family Medical History / Comment(s): Sq. cell Mother Family Medical History: Cancer, Deep Vein Thrombosis (DVT) Additional Family Medical History / Comment(s): breast ca, Father Family Medical History: Cancer Additional Family Medical History / Comment(s): leukemia Daughter(s) Family Medical History: Cancer Additional Family Medical History / Comment(s): from breast ca Surgical - Exam Vital Signs Temp Pulse Resp BP 98.3 F 70 16 117/72 03/11/21 13:05 03/11/21 13:05 03/11/21 13:05 03/11/21 13:05 - General well developed, well nourished, no distress - Eyes PERRL - ENT normal pinna - Neck no masses - Respiratory normal expansion - Cardiovascular Rhythm: regular - Abdomen Abdomen: soft, non tender Bariatric Assessment & Plan Plan: Status post sleeve gastrectomy. Is guarded stable. She will continue medical management. She'll follow-up in 4 weeks. Bariatric Checklist Checklist: Plan: Checklist: EGD: 1. Hiatal hernia: 2. H. Pylori: HgbA1c: Vitamin D: Smoking: Never smoker Primary care physician referral: dr rodas Psychiatry clearance: Cardiology clearance: Sleep study: Diet journal: VTE risk score: VTE risk level: Rehab needs at discharge:
== END ==
LOC: BARWHC3 12:21
PROVIDERS: ATTEND Surgery
DX: Z09 Encounter for follow-up examination after completed treatment for conditions other than malignant neoplasm (principal); K21.9 Gastro-esophageal reflux disease without esophagitis; E11.9 Type 2 diabetes mellitus without complications; E78.5 Hyperlipidemia, unspecified; I10 Essential (primary) hypertension; Z98.84 Bariatric surgery status; Z88.0 Allergy status to penicillin; Z88.8 Allergy status to other drugs, medicaments and biological substances; Z91.048 Other nonmedicinal substance allergy status
CPT/HCPCS: 99211

== ENCOUNTER → 2021-05-06 | Outpatient (CLI) | payer MEDICARE ==
[2021-05-06 13:12] VITALS: BP 159/84; PULSE 74; RESP 18; TEMP 98.5; BMI 40.1
--- NOTE | 2021-05-06 15:04 | P.HPBAR ---
Bariatric H&P - History & Physicial H&P Date: 05/06/21 History & Physicial: Visit/CC: follow up Patient initial contact: Initial weight: 138.799 kg Initial weight in pounds: 306.00 Height: 5 ft 2.5 in Initial BMI: 55.0 Last weight: Current weight: 101.151 kg Current weight in pounds: 223.00 Current BMI: 40.1 [place] body weight (based on NIH guidelines): 51.029 kg Excess body weight loss: 42.8% The patient is a 76 year-old F who presents for Bariatric Assessment. She presents today for a sleeve follow-up. She's had some complaints of diarrhea and GERD. Past Medical History Past Medical History: Cancer, Diabetes Mellitus, GERD/Reflux, Hyperlipidemia, Hypertension, Pneumonia, Thyroid Disorder Additional Past Medical History / Comment(s): Hx of Basal cell skin cancer, thyroid nodules, Pneumonia mult times 2016, esophageal stricture status post balloon dilatation, GERD, glaucoma pressures high side of normal, no meds; COVID [employer] vaccine (1st - 10/01/20, 2nd - 10/22/20) History of Any Multi-Drug Resistant Organisms: None Reported Past Surgical History: Bariatric Surgery, Breast Surgery, Cholecystectomy, Hysterectomy Additional Past Surgical History / Comment(s): Lap band-inserted and removed, gastric sleeve, tummy tuck, skin cancer removal, right labia reduction , bilateral reduction upper thighs , thyroid biopsy, Right Thyroidectomy, Colonoscopy, Bronchoscopy, EGD. ira eye lid surgery, mult breast bx, EGD AND DILATION Hiatal hernia surgery. Past Anesthesia/Blood Transfusion Reactions: Family History of Problems w/ Anesthesia, Motion Sickness, Postoperative Nausea & Vomiting (PONV) Additional Past Anesthesia/Blood Transfusion Reaction / Comm: mother= ponv, CLAUSTERPHOBIC Past Psychological History: No Psychological Hx Reported Smoking Status: Never smoker Past Alcohol Use History: None Reported Past Drug Use History: None Reported - Past Family History Son(s) Family Medical History: Cancer Additional Family Medical History / Comment(s): Sq. cell Mother Family Medical History: Cancer, Deep Vein Thrombosis (DVT) Additional Family Medical History / Comment(s): breast ca, Father Family Medical History: Cancer Additional Family Medical History / Comment(s): leukemia Daughter(s) Family Medical History: Cancer Additional Family Medical History / Comment(s): from breast ca Surgical - Exam Vital Signs Temp Pulse Resp BP 98.5 F 74 18 159/84 05/06/21 13:07 05/06/21 13:07 05/06/21 13:07 05/06/21 13:07 - General well developed, well nourished, moderate distress - Abdomen Abdomen: soft, non tender Bariatric Assessment & Plan Plan: Status post sleeve gastric. Patient is minimal will be observed. Her diarrhea cells minimal. She'll be observed in follow-up in 4 weeks. If she has significant diarrhea. She'll undergo colonoscopy. Bariatric Checklist Checklist: Plan: Checklist: EGD: 1. Hiatal hernia: 2. H. Pylori: HgbA1c: Vitamin D: Smoking: Never smoker Primary care physician referral: dr rodas Psychiatry clearance: Cardiology clearance: Sleep study: Diet journal: VTE risk score: VTE risk level: Rehab needs at discharge:
== END ==
LOC: BARWHC3 12:27
PROVIDERS: ATTEND Surgery
DX: Z09 Encounter for follow-up examination after completed treatment for conditions other than malignant neoplasm (principal); R19.7 Diarrhea, unspecified; K21.9 Gastro-esophageal reflux disease without esophagitis; E11.9 Type 2 diabetes mellitus without complications; E78.5 Hyperlipidemia, unspecified; I10 Essential (primary) hypertension; Z98.84 Bariatric surgery status; Z91.048 Other nonmedicinal substance allergy status; Z88.0 Allergy status to penicillin; Z88.8 Allergy status to other drugs, medicaments and biological substances
CPT/HCPCS: 99211

== ENCOUNTER → 2021-06-17 | Outpatient (CLI) | payer MEDICARE ==
[2021-06-17 13:58] VITALS: BP 149/72; PULSE 74; RESP 18; TEMP 98.6; BMI 40.3
--- NOTE | 2021-08-15 20:07 | P.HPBAR ---
Bariatric H&P - History & Physicial H&P Date: 06/17/21 History & Physicial: Visit/CC: follow up Patient initial contact: Initial weight: 138.799 kg Initial weight in pounds: 306.00 Height: 5 ft 2.5 in Initial BMI: 55.0 Last weight: Current weight: 101.605 kg Current weight in pounds: 224.00 Current BMI: 40.3 [place] body weight (based on NIH guidelines): 51.029 kg Excess body weight loss: 42.3% The patient is a 76 year-old F who presents for Bariatric Assessment. Patient presents today for LAP-BAND follow-up. She's had some mild GERD. Her weight is remain stable Past Medical History Past Medical History: Cancer, Diabetes Mellitus, GERD/Reflux, Hyperlipidemia, Hypertension, Pneumonia, Thyroid Disorder Additional Past Medical History / Comment(s): Hx of Basal cell skin cancer, thyroid nodules, Pneumonia mult times 2016, esophageal stricture status post balloon dilatation, GERD, glaucoma pressures high side of normal, no meds; COVID [employer] vaccine (1st - 10/01/20, 2nd - 10/22/20) History of Any Multi-Drug Resistant Organisms: None Reported Past Surgical History: Bariatric Surgery, Breast Surgery, Cholecystectomy, Hysterectomy Additional Past Surgical History / Comment(s): Lap band-inserted and removed, gastric sleeve, tummy tuck, skin cancer removal, right labia reduction , bilateral reduction upper thighs , thyroid biopsy, Right Thyroidectomy, Colonoscopy, Bronchoscopy, EGD. ira eye lid surgery, mult breast bx, EGD AND DILATION Hiatal hernia surgery. Past Anesthesia/Blood Transfusion Reactions: Family History of Problems w/ Anesthesia, Motion Sickness, Postoperative Nausea & Vomiting (PONV) Additional Past Anesthesia/Blood Transfusion Reaction / Comm: mother= ponv, CLAUSTERPHOBIC Smoking Status: Never smoker - Past Family History Son(s) Family Medical History: Cancer Additional Family Medical History / Comment(s): Sq. cell Mother Family Medical History: Cancer, Deep Vein Thrombosis (DVT) Additional Family Medical History / Comment(s): breast ca, Father Family Medical History: Cancer Additional Family Medical History / Comment(s): leukemia Daughter(s) Family Medical History: Cancer Additional Family Medical History / Comment(s): from breast ca Surgical - Exam Vital Signs Temp Pulse Resp BP 98.6 F 74 18 149/72 06/17/21 13:56 06/17/21 13:56 06/17/21 13:56 06/17/21 13:56 - General well developed, well nourished, no distress - Eyes PERRL - ENT normal pinna - Neck no masses - Respiratory normal expansion - Cardiovascular Rhythm: regular - Abdomen Abdomen: soft, non tender Bariatric Assessment & Plan Plan: Morbid obesity. Her weight loss has been stable. Her GERD is minimal and will be observed. Patient did have some complaints of diarrhea. If this continues she'll undergo colonoscopy Bariatric Checklist Checklist: Plan: Checklist: EGD: 1. Hiatal hernia: 2. H. Pylori: HgbA1c: Vitamin D: Smoking: Never smoker Primary care physician referral: dr rodas Psychiatry clearance: Cardiology clearance: Sleep study: Diet journal: VTE risk score: VTE risk level: Rehab needs at discharge:
== END ==
LOC: BARWHC3 13:01
PROVIDERS: ATTEND Surgery
DX: E66.01 Morbid (severe) obesity due to excess calories (principal); K21.9 Gastro-esophageal reflux disease without esophagitis; R19.7 Diarrhea, unspecified; Z68.41 Body mass index [BMI] 40.0-44.9, adult; E11.9 Type 2 diabetes mellitus without complications; E78.5 Hyperlipidemia, unspecified; I10 Essential (primary) hypertension; Z98.84 Bariatric surgery status; Z88.0 Allergy status to penicillin; Z88.8 Allergy status to other drugs, medicaments and biological substances; Z91.048 Other nonmedicinal substance allergy status
CPT/HCPCS: 99211

== ENCOUNTER → 2021-06-28 | Outpatient (CLI) | payer MEDICARE ==
--- NOTE | 2021-06-28 14:59 | US ---
EXAMINATION TYPE: US thyroid st tissue head/neck DATE OF EXAM: 06/28/2021 COMPARISON: NONE CLINICAL HISTORY: E04.1 Thyroid nodule. GLAND SIZE: Right Lobe: Surgically absent Left Lobe: 6.4 x 2.2 x 2.4cm Overall Parenchyma: heterogeneous Isthmus Thickness: 0.6m NODULES RIGHT: # of nodules measured on right: 0 LEFT: # of nodules measured on left: 2 1. 1.1 x 0.7 x 1.1cm, upper, solid or almost completely solid, hypoechoic nodule, which is wider geno n tall, with smooth margins, without echogenic foci. Prior size: 1.6 X 0.7 x 1.3cm 2. 4.0 X 1.9 x 2.2 cm, lower, solid or almost completely solid, isoechoic nodule, which is wider t [place] tall, with ill-defined margins, without echogenic foci. Prior size: 3.0 X 1.7 x 2.0 cm ISTHMUS: # of nodules measured in the isthmus: 0 Bilateral neck scanned, no evidence of lymphadenopathy. IMPRESSION: Nonspecific thyroid nodularity. Need to biopsy should be made on a clinical basis.
--- NOTE | 2021-07-01 09:26 | MM ---
Reason for exam: screening (asymptomatic). Last mammogram was performed 1 year and 1 month ago. History: Patient is postmenopausal and has history of other cancer at age 67. Family history of premenopausal breast cancer in mother at age 45 and premenopausal breast cancer in daughter at age 27. Benign left mammotome panel of the left breast, January 07, 2011. Benign excisional biopsy of the left breast, January 05, 2007. Benign stereotactic core biopsy of the left breast, February 22, 1998. Core biopsy of the right breast. Excisional biopsy of the left breast. Excisional biopsy of the right breast. Took hormonal contraceptives for 4 years beginning at age 21. Took estrogen for 6 years beginning at age 48. Physical Findings: A clinical breast exam by your physician is recommended on an annual basis and results should be correlated with mammographic findings. MG 3D Screening Mammo W/Cad Bilateral CC and MLO view(s) were taken. Prior study comparison: May 24, 2020, bilateral MG 3d screening mammo w/cad. May 17, 2019, bilateral MG 3d screening mammo w/cad. May 05, 2018, bilateral MG 3d screening mammo w/cad. There are scattered fibroglandular densities. Finding #1: There is stable architectural distortion in the upper outer quadrant, central position of the right breast consistent with known excisional changes and stable posterior distortion left breast consistent with excisional change. Finding #2: There are typically benign round, diffuse and scattered calcifications in both breasts. Previous mammotome biopsy in the left breast. There is no new dominant lesion. New finding and increase in number of calcifications since May 24, 2020, May 17, 2019, and May 05, 2018. ASSESSMENT: Benign, BI-RAD 2 RECOMMENDATION: Routine screening mammogram of both breasts in 1 year.
== END | disposition home or self-care (01) ==
LOC: RADMAMWWP 13:25
PROVIDERS: ATTEND Surgery
DX: Z12.31 Encounter for screening mammogram for malignant neoplasm of breast (principal); Z80.3 Family history of malignant neoplasm of breast; E04.2 Nontoxic multinodular goiter
CPT/HCPCS: 76536; 77063; 77067

== ENCOUNTER 2021-07-16 11:50 | Day surgery (SDC) | payer MEDICARE ==
[2021-07-16 12:30] LABS: Glucose,Whole Blood 177 mg/dL (75-99)
[2021-07-16 14:07] VITALS: RESP 14
[2021-07-16 14:08] VITALS: TEMP 98
[2021-07-16 14:11] VITALS: BP 138/77; PULSE 72
--- NOTE | 2021-07-16 14:55 | US ---
EXAMINATION TYPE: US FNA thyroid first lesion DATE OF EXAM: 07/16/2021 COMPARISON: NONE HISTORY: Thyroid nodule left lobe. Maximal barrier technique was utilized. After informed consent, skin overlying the lesion was locali zed with ultrasound and the overlying skin prepped and draped. Ultrasound was utilized using sterile technique. Lidocaine was used for local anesthesia. Five passes with a 25-gauge needle were made int o the dominant nodule in the left lobe and aspirated specimen was submitted to cytology. Following t he procedure hemostasis achieved. No immediate complication. The patient discharged in stable condi tion. IMPRESSION: STATUS POST ULTRASOUND GUIDED FINE NEEDLE ASPIRATION OF THYROID NODULE, PATHOLOGY IS PEND ING. THIS PROCEDURE WAS PERFORMED BY THE UNDERSIGNED.
== END 2021-07-16 14:10 | disposition home or self-care (01) ==
LOC: RADPROMAIN 11:50
PROVIDERS: ATTEND Surgery
DX: E04.2 Nontoxic multinodular goiter (principal)
CPT/HCPCS: 10005; 88173; 88305

== ENCOUNTER → 2021-08-19 | Outpatient (CLI) | payer MEDICARE ==
[2021-08-19 13:21] VITALS: BP 157/73; PULSE 76; RESP 18; BMI 39.6
--- NOTE | 2021-08-20 12:55 | P.HPBAR ---
Bariatric H&P - History & Physicial H&P Date: 08/19/21 History & Physicial: Visit/CC: follow up Patient initial contact: Initial weight: 138.799 kg Initial weight in pounds: 306.00 Height: 5 ft 2.5 in Initial BMI: 55.0 Last weight: Current weight: 99.926 kg Current weight in pounds: 220.30 Current BMI: 39.6 [place] body weight (based on NIH guidelines): 51.029 kg Excess body weight loss: 44.2% The patient is a 76 year-old F who presents for Bariatric Assessment. Patient presents today for sleeve gastrectomy follow-up. She has lost a few pounds. She has some mild GERD. She states her GERD is getting better. Past Medical History Past Medical History: Cancer, Diabetes Mellitus, GERD/Reflux, Hyperlipidemia, Hypertension, Pneumonia, Thyroid Disorder Additional Past Medical History / Comment(s): Hx of Basal cell skin cancer, thyroid nodules, Pneumonia mult times 2016, esophageal stricture status post balloon dilatation, GERD, glaucoma pressures high side of normal, no meds; COVID [employer] vaccine (1st - 10/01/20, 2nd - 10/22/20) History of Any Multi-Drug Resistant Organisms: None Reported Past Surgical History: Bariatric Surgery, Breast Surgery, Cholecystectomy, Hysterectomy Additional Past Surgical History / Comment(s): Lap band-inserted and removed, gastric sleeve, tummy tuck, skin cancer removal, right labia reduction , ira ateral reduction upper thighs , thyroid biopsy, Right Thyroidectomy, Colonoscopy, Bronchoscopy, EGD. ira eye lid surgery, mult breast bx, EGD AND DILATION Hiatal hernia surgery. Past Anesthesia/Blood Transfusion Reactions: Family History of Problems w/ Anesthesia, Motion Sickness, Postoperative Nausea & Vomiting (PONV) Additional Past Anesthesia/Blood Transfusion Reaction / Comm: mother= ponv, CLAUSTERPHOBIC Smoking Status: Never smoker - Past Family History Son(s) Family Medical History: Cancer Additional Family Medical History / Comment(s): Sq. cell Mother Family Medical History: Cancer, Deep Vein Thrombosis (DVT) Additional Family Medical History / Comment(s): breast ca, Father Family Medical History: Cancer Additional Family Medical History / Comment(s): leukemia Daughter(s) Family Medical History: Cancer Additional Family Medical History / Comment(s): from breast ca Surgical - Exam Vital Signs Pulse Resp BP 76 18 157/73 08/19/21 13:17 08/19/21 13:17 08/19/21 13:17 - General well developed, well nourished, no distress - Eyes PERRL - ENT normal pinna - Neck no masses - Respiratory normal expansion - Cardiovascular Rhythm: regular - Abdomen Abdomen: soft, non tender Bariatric Assessment & Plan Plan: Status post irrigation. Patient is minimal will be observed. She'll follow-up in 4 weeks. Bariatric Checklist Checklist: Plan: Checklist: EGD: 1. Hiatal hernia: 2. H. Pylori: HgbA1c: Vitamin D: Smoking: Never smoker Primary care physician referral: dr rodas Psychiatry clearance: Cardiology clearance: Sleep study: Diet journal: VTE risk score: VTE risk level: Rehab needs at discharge:
== END ==
LOC: BARWHC3 12:24
PROVIDERS: ATTEND Surgery
DX: Z09 Encounter for follow-up examination after completed treatment for conditions other than malignant neoplasm (principal); K21.9 Gastro-esophageal reflux disease without esophagitis; E11.9 Type 2 diabetes mellitus without complications; E78.5 Hyperlipidemia, unspecified; I10 Essential (primary) hypertension; Z98.84 Bariatric surgery status; Z88.0 Allergy status to penicillin; Z91.048 Other nonmedicinal substance allergy status; Z88.1 Allergy status to other antibiotic agents; Z88.8 Allergy status to other drugs, medicaments and biological substances
CPT/HCPCS: 99211

== ENCOUNTER → 2021-09-23 | Outpatient (CLI) | payer MEDICARE ==
[2021-09-23 15:16] VITALS: BP 156/87; PULSE 76; RESP 18; TEMP 98; BMI 39.6
--- NOTE | 2021-09-23 16:54 | P.HPBAR ---
Bariatric H&P - History & Physicial H&P Date: 09/23/21 History & Physicial: Visit/CC: follow up Patient initial contact: Initial weight: 138.799 kg Initial weight in pounds: 306.00 Height: 5 ft 2.5 in Initial BMI: 55.0 Last weight: Current weight: 99.79 kg Current weight in pounds: 220.00 Current BMI: 39.6 [place] body weight (based on NIH guidelines): 51.029 kg Excess body weight loss: 44.4% The patient is a 76 year-old F who presents for Bariatric Assessment. Patient presents today for bariatric follow-up. Her weight is remain stable. She has minimal GERD. Her GERD is unchanged from her last visit. Past Medical History Past Medical History: Cancer, Diabetes Mellitus, GERD/Reflux, Hyperlipidemia, Hypertension, Pneumonia, Thyroid Disorder Additional Past Medical History / Comment(s): Hx of Basal cell skin cancer, thyroid nodules, Pneumonia mult times 2016, esophageal stricture status post balloon dilatation, GERD, glaucoma pressures high side of normal, no meds; COVID [employer] vaccine (1st - 10/01/20, 2nd - 10/22/20) History of Any Multi-Drug Resistant Organisms: None Reported Past Surgical History: Bariatric Surgery, Breast Surgery, Cholecystectomy, Hysterectomy Additional Past Surgical History / Comment(s): Lap band-inserted and removed, gastric sleeve, tummy tuck, skin cancer removal, right labia reduction , bilateral reduction upper thighs , thyroid biopsy, Right Thyroidectomy, Colonoscopy, Bronchoscopy, EGD. ira eye lid surgery, mult breast bx, EGD AND DILATION Hiatal hernia surgery. Past Anesthesia/Blood Transfusion Reactions: Family History of Problems w/ Anesthesia, Motion Sickness, Postoperative Nausea & Vomiting (PONV) Additional Past Anesthesia/Blood Transfusion Reaction / Comm: mother= ponv, CLAUSTERPHOBIC Past Psychological History: No Psychological Hx Reported Smoking Status: Never smoker Past Alcohol Use History: None Reported Past Drug Use History: None Reported - Past Family History Son(s) Family Medical History: Cancer Additional Family Medical History / Comment(s): Sq. cell Mother Family Medical History: Cancer, Deep Vein Thrombosis (DVT) Additional Family Medical History / Comment(s): breast ca, Father Family Medical History: Cancer Additional Family Medical History / Comment(s): leukemia Daughter(s) Family Medical History: Cancer Additional Family Medical History / Comment(s): from breast ca Surgical - Exam Vital Signs Temp Pulse Resp BP 98.0 F 76 18 156/87 09/23/21 15:10 09/23/21 15:10 09/23/21 15:10 09/23/21 15:10 - General well developed, well nourished, no distress - Eyes PERRL - ENT normal pinna - Neck no masses - Respiratory normal expansion - Cardiovascular Rhythm: regular - Abdomen Abdomen: soft, non tender Bariatric Assessment & Plan Plan: Improving lumbar release. Patient's creatinine is minimal elevated observed. She'll follow-up in 4 weeks. Bariatric Checklist Checklist: Plan: Checklist: EGD: 1. Hiatal hernia: 2. H. Pylori: HgbA1c: Vitamin D: Smoking: Never smoker Primary care physician referral: dr rodas Psychiatry clearance: Cardiology clearance: Sleep study: Diet journal: VTE risk score: VTE risk level: Rehab needs at discharge:
== END ==
LOC: BARWHC3 12:34
PROVIDERS: ATTEND Surgery
DX: Z09 Encounter for follow-up examination after completed treatment for conditions other than malignant neoplasm (principal); Z94.4 Liver transplant status; E11.9 Type 2 diabetes mellitus without complications; K21.9 Gastro-esophageal reflux disease without esophagitis; E78.5 Hyperlipidemia, unspecified; I10 Essential (primary) hypertension; Z98.84 Bariatric surgery status; Z91.048 Other nonmedicinal substance allergy status; Z88.0 Allergy status to penicillin; Z88.8 Allergy status to other drugs, medicaments and biological substances; Z79.84 Long term (current) use of oral hypoglycemic drugs; Z79.899 Other long term (current) drug therapy
CPT/HCPCS: 99211

== ENCOUNTER → 2021-12-02 | Outpatient (CLI) | payer MEDICARE ==
[2021-12-02 14:06] VITALS: BP 142/78; PULSE 76; TEMP 98.1; BMI 40.3
--- NOTE | 2021-12-09 15:29 | P.HPBAR ---
Bariatric H&P - History & Physicial H&P Date: 12/02/21 History & Physicial: Visit/CC: sleeve follow up Patient initial contact: Initial weight: 138.799 kg Initial weight in pounds: 306.00 Height: 5 ft 2.5 in Initial BMI: 55.0 Last weight: Current weight: 101.605 kg Current weight in pounds: 224.00 Current BMI: 40.3 [place] body weight (based on NIH guidelines): 51.029 kg Excess body weight loss: 42.3% The patient is a 76 year-old F who presents for Bariatric Assessment. Patient presents today for bariatric follow-up. She has complaints of GERD which has been chronic and stable. However she is newly diagnosed with the type 2 diabetes. Past Medical History Past Medical History: Cancer, Diabetes Mellitus, GERD/Reflux, Hyperlipidemia, Hypertension, Pneumonia, Thyroid Disorder Additional Past Medical History / Comment(s): Hx of Basal cell skin cancer, thyroid nodules, Pneumonia mult times 2016, esophageal stricture status post balloon dilatation, GERD, glaucoma pressures high side of normal, no meds; COVID [employer] vaccine (1st - 10/01/20, 2nd - 10/22/20) History of Any Multi-Drug Resistant Organisms: None Reported Past Surgical History: Bariatric Surgery, Breast Surgery, Cholecystectomy, Hysterectomy Additional Past Surgical History / Comment(s): Lap band-inserted and removed, gastric sleeve, tummy tuck, skin cancer removal, right labia reduction , bilateral reduction upper thighs , thyroid biopsy, Right Thyroidectomy, Colonoscopy, Bronchoscopy, EGD. ira eye lid surgery, mult breast bx, EGD AND DILATION Hiatal hernia surgery. Past Anesthesia/Blood Transfusion Reactions: Family History of Problems w/ Anesthesia, Motion Sickness, Postoperative Nausea & Vomiting (PONV) Additional Past Anesthesia/Blood Transfusion Reaction / Comm: mother= ponv, CLAUSTERPHOBIC Past Psychological History: No Psychological Hx Reported Smoking Status: Never smoker Past Alcohol Use History: None Reported Past Drug Use History: None Reported - Past Family History Son(s) Family Medical History: Cancer Additional Family Medical History / Comment(s): Sq. cell Mother Family Medical History: Cancer, Deep Vein Thrombosis (DVT) Additional Family Medical History / Comment(s): breast ca, Father Family Medical History: Cancer Additional Family Medical History / Comment(s): leukemia Daughter(s) Family Medical History: Cancer Additional Family Medical History / Comment(s): from breast ca Surgical - Exam Vital Signs Temp Pulse BP 98.1 F 76 142/78 12/02/21 14:04 12/02/21 14:04 12/02/21 14:04 - General well developed, well nourished, no distress - Eyes PERRL - ENT normal pinna - Neck no masses - Respiratory normal expansion - Cardiovascular Rhythm: regular - Abdomen Abdomen: soft, non tender Bariatric Assessment & Plan Plan: Morbid obesity. Patient's BMI is 40. Her GERD is stable. Patient will be counseled with her primary care doctor regarding her type 2 diabetes. She'll work on her dietary choices. Bariatric Checklist Checklist: Plan: Checklist: EGD: 1. Hiatal hernia: 2. H. Pylori: HgbA1c: Vitamin D: Smoking: Never smoker Primary care physician referral: dr rodas Psychiatry clearance: Cardiology clearance: Sleep study: Diet journal: VTE risk score: VTE risk level: Rehab needs at discharge:
== END ==
LOC: BARWHC3 12:25
PROVIDERS: ATTEND Surgery
DX: E66.01 Morbid (severe) obesity due to excess calories (principal); K21.9 Gastro-esophageal reflux disease without esophagitis; E11.9 Type 2 diabetes mellitus without complications; E78.5 Hyperlipidemia, unspecified; I10 Essential (primary) hypertension; Z68.41 Body mass index [BMI] 40.0-44.9, adult; Z88.0 Allergy status to penicillin; Z91.048 Other nonmedicinal substance allergy status; Z88.1 Allergy status to other antibiotic agents; Z88.8 Allergy status to other drugs, medicaments and biological substances
CPT/HCPCS: 99211

== ENCOUNTER 2021-12-17 14:34 | Emergency (ER) | payer MEDICARE ==
[2021-12-17 15:26] VITALS: BP 153/67; PULSE 74; RESP 20; TEMP 97.7
--- NOTE | 2021-12-17 16:30 | XR ---
EXAMINATION TYPE: XR knee complete LT DATE OF EXAM: 12/17/2021 CLINICAL HISTORY: Pain after fall injury. TECHNIQUE: Three views of the left knee are obtained. COMPARISON: None. FINDINGS: There is no acute fracture/dislocation evident in left knee. Mild to moderate narrowing me dial tibiofemoral compartment. Moderate narrowing patellofemoral compartment. Spurring anterior super ior and anterior inferior patella. Overlying clothing material is present. IMPRESSION: There is no acute fracture or dislocation in the left knee.
--- NOTE | 2021-12-17 16:32 | XR ---
EXAMINATION TYPE: XR wrist complete RT, XR hand complete RT DATE OF EXAM: 12/17/2021 CLINICAL HISTORY: Pain after fall injury. TECHNIQUE: Frontal, lateral and oblique images of the right wrist and hand are obtained. A fourth sc aphoid view right wrist is acquired. COMPARISON: None. FINDINGS: No acute fracture or dislocation in the right wrist. Severe narrowing with heterotopic ossi fication base of first metacarpal. Moderate triscaphe joint space narrowing. Overlying soft tissue is unremarkable. There is no acute fracture/dislocation evident in the right hand. Mild to moderate narrowing and mil d spurring throughout the PIP and DIP joints of the phalanges. The overlying soft tissue appears unr emarkable. IMPRESSION: There is no acute fracture or dislocation in the right wrist or hand.
--- NOTE | 2021-12-17 16:45 | CT ---
EXAMINATION TYPE: CT brain wo con DATE OF EXAM: 12/17/2021 COMPARISON: 10/17/2016 HISTORY: Fall, right maxillary injury, visual floaters. CT DLP: mGycm Automated exposure control for dose reduction was used. Ventricles have normal size. There is no mass effect or midline shift. There is no sign of intracrani al hemorrhage. There is advanced hyperostosis frontalis. There is extensive mucosal thickening in the sphenoid sinus on the right side. No focal bone destruction. There is normal aeration of the mastoid sinuses. Skull base is intact. IMPRESSION: No acute intracranial abnormality. There is right-sided sphenoid sinusitis which is new compared to o ld exam. Mucocele is possible.
--- NOTE | 2021-12-17 16:51 | CT ---
EXAMINATION TYPE: CT facial bones wo con DATE OF EXAM: 12/17/2021 COMPARISON: None HISTORY: Fall, right maxillary injury, visual floaters. CT DLP: mGycm Automated exposure control for dose reduction was used. Images obtained from the bottom of the mandible to the top of the frontal sinuses without contrast. The mandibular ring is intact. Temporomandibular joints are intact. Zygomatic arches appear normal. N edil bone is intact. There is normal aeration of the maxillary sinuses. There is soft tissue swelling anterior to the right zygoma. There is normal appearance of the orbital bones. No evidence of orbital blowout fracture. No retrocru ral orbital mass. There is mucosal thickening in the right side sphenoid sinus extending into the posterior ethmoid sin us. No focal bone destruction. IMPRESSION: Soft tissue swelling anterior to the right zygoma. No fracture seen. Right side sphenoid sinusitis that could be a mucocele..
--- NOTE | 2021-12-17 17:22 | ED ---
Fall HPI - General Chief Complaint: Fall Stated Complaint: trip & fall, wrist & facial pain Time Seen by Provider: 12/17/21 15:59 Source: patient, RN notes reviewed Mode of arrival: ambulatory - History of Present Illness Initial Comments: This is a 76-year-old female who presents to the emergency department after sustaining a fall. She was on her way to play bingo, and when she went to get out of her car, she tripped on a stone. When she fell, she injured her right wrist, left knee, and her face. At this point, the most pain is in her right wrist. States that she is unable to move it. She notes that she does have a floater in her vision on the right. Denies any blurry vision or eye pain. This is also the side of her face that took most of the impact with swelling and ecchymosis noted. The knee is not particularly painful, and she is able to ambulate without difficulty. MD Complaint: fall Fall From: standing When Fall Occurred: 1 hour OFFICE SERVICE COORDINATOR Fall Witnessed: no Place Fall Occurred: street Loss of Consciousness: none Prolonged Down Time?: no Symptoms Prior to Fall: none Location: face Location - Extremities: Left: Knee, Right: Hand Context: tripped/slipped - Related Data Home Medications Medication Instructions Recorded Confirmed Aspirin 81 mg PO DAILY 02/01/15 12/17/21 Atorvastatin [Lipitor] 20 mg PO DAILY 02/01/15 12/17/21 Cyanocobalamin [Vitamin B-12] 500 mcg PO DAILY 02/01/15 12/17/21 Omeprazole 40 mg PO DAILY 02/01/15 12/17/21 Thyroid,Pork [[place] Thyroid] 15 mg PO DAILY 05/12/16 12/17/21 Losartan Potassium [Cozaar] 25 mg PO DAILY 12/26/16 12/17/21 Multivitamins, Thera [Multivitamin 1 tab PO DAILY 12/26/16 12/17/21 (formulary)] Metoprolol Tartrate [Lopressor] 12.5 mg PO DAILY 05/04/17 12/17/21 Calcium Carbonate [Tums] 750 mg PO QID PRN 09/04/17 12/17/21 Famotidine [Pepcid] 20 mg PO DAILY 06/06/20 12/17/21 CHLORPHEN-HYDROcod 8-10mg/5ml 5 ml PO Q12H PRN 06/21/20 12/17/21 [Tussionex] Pioglitazone [Actos] 30 mg PO DAILY 12/03/21 12/17/21 Biotin 5 mg PO DAILY 12/17/21 12/17/21 Cholecalciferol [Vitamin D3 (25 50 mcg PO DAILY 12/17/21 12/17/21 Mcg = 1000 Iu)] Glimepiride [Amaryl] 4 mg PO DAILY 12/17/21 12/17/21 Hyoscyamine Sulfate [Levsin-Sl] 0.125 mg SL BID 12/17/21 12/17/21 Previous Rx's Medication Instructions Recorded HYDROcodone/APAP 5-325MG [[place] 1 tab PO Q6HR PRN 3 Days #12 tab 12/17/21 5-325] Allergies Allergy/AdvReac Type Severity Reaction Status Date / Time adhesive Allergy Rash/Hives Verified 12/17/21 17:36 adhesive tape Allergy Rash/Hives Verified 12/17/21 17:36 Penicillins Allergy Rash/Hives Verified 12/17/21 17:36 & Nausea & Vomiting & Diarrhea canagliflozin [From Invokana] AdvReac BLADDER Verified 12/17/21 17:36 INFECTION dapagliflozin [From Farxiga] AdvReac Nausea & Verified 12/17/21 17:36 Vomiting & Diarrhea metformin AdvReac Nausea & Verified 12/17/21 17:36 Vomiting/diarrhea/stomach cramps sitagliptin [From Januvia] AdvReac Nausea & Verified 12/17/21 17:36 Vomiting & Diarrhea Review of Systems ROS Statement: Those systems with pertinent positive or pertinent negative responses have been documented in the HPI. ROS Other: All systems not noted in ROS Statement are negative. Constitutional: Denies: fever, chills Eyes: Reports: eye pain, other (floater in vision). Denies: vision change ENT: Denies: ear pain, throat pain Respiratory: Denies: cough, dyspnea Cardiovascular: Denies: chest pain, palpitations Gastrointestinal: Denies: abdominal pain, nausea, vomiting, diarrhea Genitourinary: Denies: urgency, dysuria Musculoskeletal: Denies: back pain, joint swelling, arthralgia Skin: Denies: rash, lesions Neurological: Denies: headache Past Medical History Past Medical History: Cancer, Diabetes Mellitus, GERD/Reflux, Hyperlipidemia, Hypertension, Pneumonia, Thyroid Disorder Additional Past Medical History / Comment(s): Hx of Basal cell skin cancer, thyroid nodules, Pneumonia mult times 2017, esophageal stricture status post balloon dilatation, GERD, glaucoma pressures high side of normal, no meds; COVID [employer] vaccine (1st - 10/01/20, 2nd - 10/22/20) History of Any Multi-Drug Resistant Organisms: None Reported Past Surgical History: Bariatric Surgery, Breast Surgery, Cholecystectomy, Hysterectomy Additional Past Surgical History / Comment(s): Lap band-inserted and removed, gastric sleeve, tummy tuck, skin cancer removal, right labia reduction , bilateral reduction upper thighs , thyroid biopsy, Right Thyroidectomy, Colonosc opy, Bronchoscopy, EGD. ira eye lid surgery, mult breast bx, EGD AND DILATION Hiatal hernia surgery. Past Anesthesia/Blood Transfusion Reactions: Family History of Problems w/ Anesthesia, Motion Sickness, Postoperative Nausea & Vomiting (PONV) Additional Past Anesthesia/Blood Transfusion Reaction / Comment(s): mother= ponv, CLAUSTERPHOBIC Past Psychological History: No Psychological Hx Reported Smoking Status: Never smoker Past Alcohol Use History: None Reported Past Drug Use History: None Reported - Past Family History Son(s) Family Medical History: Cancer Additional Family Medical History / Comment(s): Sq. cell Mother Family Medical History: Cancer, Deep Vein Thrombosis (DVT) Additional Family Medical History / Comment(s): breast ca, Father Family Medical History: Cancer Additional Family Medical History / Comment(s): leukemia Daughter(s) Family Medical History: Cancer Additional Family Medical History / Comment(s): from breast ca General Exam Limitations: no limitations General appearance: alert, in no apparent distress Head exam: Present: atraumatic, normocephalic, normal inspection Eye exam: Present: normal appearance, PERRL, EOMI. Absent: scleral icterus, conjunctival injection, periorbital swelling, periorbital tenderness Pupils: Present: normal accommodation Respiratory exam: Present: normal lung sounds bilaterally. Absent: respiratory distress, wheezes, rales, rhonchi, stridor Cardiovascular Exam: Present: regular rate, normal rhythm, normal heart sounds. Absent: systolic murmur, diastolic murmur, rubs, gallop, clicks Right Hand Wrist exam: Present: tenderness (Tenderness over the dorsal aspect of the wrist), swelling (mild swelling over the dorsal aspect of the wrist). Absent: full ROM (ROM limited by pain), laceration, ecchymosis, deformity, dislocation Vascular: Present: normal capillary refill. Absent: vascular compromise Left Knee exam: Present: full ROM, abrasion (Just distal to the patella.). Absent: tenderness, swelling, ecchymosis, deformity, crepitus, dislocation, erythema Neurovascular tendon exam: Present: no vascular compromise Gait: observed and normal Neurological exam: Present: alert, oriented X3, CN II-XII intact Psychiatric exam: Present: normal affect, normal mood Skin exam: Present: warm, dry, normal color. Absent: rash Course Vital Signs 12/17/21 15:23 Temperature 97.7 F Pulse Rate 74 Respiratory 20 Rate Blood Pressure 153/67 O2 Sat by Pulse 97 Oximetry Medical Decision Making - Medical Decision Making This is a 76-year-old female who presents to the emergency department from an urgent care facility after sustaining a fall. She was noted to have a floater in the right eye after hitting her head. Urgent care and advised she come to the emergency department for imaging of her brain. She also has significant right wrist pain and swelling, as well as minor left knee pain. Computed tomogr aphy scan of the brain and facial bones revealed no acute abnormalities. X-ray of the right wrist and left knee also revealed no acute changes. Ultrasound of the right eye was obtained given the floater in her vision. The ultrasound did identify a possible abnormality in the back of the eye, with what appears as a white segment by vitreous fluid. Concern for retinal detachment or vitreous hemorrhage. Dr. Johnson with ophthalmology was contacted, and states that given her symptoms, urgent evaluation in the emergency department is not necessary. Advised she contact his office in the morning for an appointment and further evaluation. Patient was given a starter pack for tylenol #3 and a 3 day supply of [place] for the pain. Advised purchasing a wrist brace from her local pharmacy to limit unnecessary movement. Return precautions reviewed in depth, the patient is instructed to return to the emergency department if she develops symptoms including but not limited to, eye pain, blurry vision, visual changes, or headaches. Patient verbalized understanding. This case was discussed in detail with the attending ED physician. Presentation, findings, and treatment plan discussed in detail as well. - Radiology Data Radiology results: report reviewed, image reviewed Disposition Clinical Impression: Vitreous floaters of right eye, Fall Disposition: HOME SELF-CARE Instructions (If sedation given, give patient instructions): Fall Prevention for Older Adults (ED), Wrist Sprain (ED) Additional Instructions: Follow-up with Dr. Johnson tomorrow morning. Contact his office first thing in the morning for an appointment. Return to the emergency room promptly if you develop increasing eye pain, vision loss, or any changes in the vision. Ice the wrist for 48 hours, followed by heat thereafter. Short course of [place] provided, take this primarily at night until you know how this affects you. Do not drive or operate machinery when taking this. You can purchase a wrist splint at a local pharmacy, use this as tolerated/needed. Prescriptions: HYDROcodone/APAP 5-325MG [[place] 5-325] 1 tab PO Q6HR PRN 3 Days #12 tab PRN Reason: Pain Is patient prescribed a controlled substance at d/c from ED?: Yes When asked, does pt state using other controlled substances?: No If prescribed controlled substance>3 days was MAPS reviewed?: Prescribed <3 Days Referrals: Samina Christensen MD [Primary Care Provider] - 1-2 days Wilver Johnson MD [STAFF PHYSICIAN] - 1-2 days
[2021-12-17] MEDS ORDERED: HYDROcodone/APAP 5-325MG 1 EACH TAB PO STA (18:24)
[2021-12-17] MEDS ORDERED: ACET/COD 300 MG/30 MG STARTER PACK 6 TAB BTL PO STA (19:08)
== END 2021-12-17 19:26 | disposition home or self-care (01) ==
LOC: EC 14:34
DX: H43.391 Other vitreous opacities, right eye (principal); M25.531 Pain in right wrist; M25.562 Pain in left knee; E11.9 Type 2 diabetes mellitus without complications; I10 Essential (primary) hypertension; E78.5 Hyperlipidemia, unspecified; K21.9 Gastro-esophageal reflux disease without esophagitis; Z79.82 Long term (current) use of aspirin; Z79.84 Long term (current) use of oral hypoglycemic drugs; Z79.899 Other long term (current) drug therapy; W01.0XXA Fall on same level from slipping, tripping and stumbling without subsequent striking against object, initial encounter; Y92.410 Unspecified street and highway as the place of occurrence of the external cause
CPT/HCPCS: 70450; 70486; 99284

== ENCOUNTER → 2022-02-03 | Outpatient (CLI) | payer MEDICARE ==
[2022-02-03 13:05] VITALS: BP 146/68; PULSE 70; TEMP 98.2; BMI 41.0
--- NOTE | 2022-02-03 13:43 | P.HPBAR ---
Bariatric H&P - History & Physicial H&P Date: 02/03/22 History & Physicial: Visit/CC: sleeve f/u Patient initial contact: Initial weight: 138.799 kg Initial weight in pounds: 306.00 Height: 5 ft 2.5 in Initial BMI: 55.0 Last weight: Current weight: 103.419 kg Current weight in pounds: 228.00 Current BMI: 41.0 [place] body weight (based on NIH guidelines): 51.029 kg Excess body weight loss: 40.3% The patient is a 77 year-old F who presents for Bariatric Assessment.patient presents today for sleeve gastrectomy follow. She's gained some weight. She's had minimal GERD. She states she is eating some extra calories. Past Medical History Past Medical History: Cancer, Diabetes Mellitus, GERD/Reflux, Hyperlipidemia, Hypertension, Pneumonia, Thyroid Disorder Additional Past Medical History / Comment(s): Hx of Basal cell skin cancer, thyroid nodules, Pneumonia mult times 2016, esophageal stricture status post balloon dilatation, GERD, glaucoma pressures high side of normal, no meds; COVID [employer] vaccine (1st - 10/01/20, 2nd - 10/22/20) History of Any Multi-Drug Resistant Organisms: None Reported Past Surgical History: Bariatric Surgery, Breast Surgery, Cholecystectomy, Hysterectomy Additional Past Surgical History / Comment(s): Lap band-inserted and removed, gastric sleeve, tummy tuck, skin cancer removal, right labia reduction , bilateral reduction upper thighs , thyroid biopsy, Right Thyroidectomy, Colonoscopy, Bronchoscopy, EGD. ira eye lid surgery, mult breast bx, EGD AND DILATION Hiatal hernia surgery. Past Anesthesia/Blood Transfusion Reactions: Family History of Problems w/ Anesthesia, Motion Sickness, Postoperative Nausea & Vomiting (PONV) Additional Past Anesthesia/Blood Transfusion Reaction / Comm: mother= ponv, CLAUSTERPHOBIC Past Psychological History: No Psychological Hx Reported Smoking Status: Never smoker Past Alcohol Use History: None Reported Past Drug Use History: None Reported - Past Family History Son(s) Family Medical History: Cancer Additional Family Medical History / Comment(s): Sq. cell Mother Family Medical History: Cancer, Deep Vein Thrombosis (DVT) Additional Family Medical History / Comment(s): breast ca, Father Family Medical History: Cancer Additional Family Medical History / Comment(s): leukemia Daughter(s) Family Medical History: Cancer Additional Family Medical History / Comment(s): from breast ca Surgical - Exam Vital Signs Temp Pulse BP 98.2 F 70 146/68 02/03/22 13:03 02/03/22 13:03 02/03/22 13:03 - General well developed, well nourished, no distress - Eyes PERRL - ENT normal pinna - Neck no masses - Respiratory normal expansion - Cardiovascular Rhythm: regular - Abdomen Abdomen: soft, non tender Bariatric Assessment & Plan Plan: patient's GERD is minimal observed. She will work on improving her calorie intake. She'll follow-up in 8 weeks. Bariatric Checklist Checklist: Plan: Checklist: EGD: 1. Hiatal hernia: 2. H. Pylori: HgbA1c: Vitamin D: Smoking: Never smoker Primary care physician referral: dr rodas Psychiatry clearance: Cardiology clearance: Sleep study: Diet journal: VTE risk score: VTE risk level: Rehab needs at discharge:
== END ==
LOC: BARWHC3 12:28
PROVIDERS: ATTEND Surgery
DX: Z09 Encounter for follow-up examination after completed treatment for conditions other than malignant neoplasm (principal); K21.9 Gastro-esophageal reflux disease without esophagitis; E11.9 Type 2 diabetes mellitus without complications; E78.5 Hyperlipidemia, unspecified; I10 Essential (primary) hypertension; Z98.84 Bariatric surgery status; Z91.048 Other nonmedicinal substance allergy status; Z88.0 Allergy status to penicillin; Z88.8 Allergy status to other drugs, medicaments and biological substances
CPT/HCPCS: 99211

== ENCOUNTER → 2022-04-21 | Outpatient (CLI) | payer MEDICARE ==
[2022-04-21 12:56] VITALS: BP 134/69; PULSE 72; TEMP 98.2; BMI 41.5
--- NOTE | 2022-06-24 11:57 | P.HPBAR ---
Bariatric H&P - History & Physicial H&P Date: 04/21/22 History & Physicial: Visit/CC: sleeve f/u Patient initial contact: Initial weight: 138.799 kg Initial weight in pounds: 306.00 Height: 5 ft 2.5 in Initial BMI: 55.0 Last weight: Current weight: 104.734 kg Current weight in pounds: 230.90 Current BMI: 41.5 [place] body weight (based on NIH guidelines): 51.029 kg Excess body weight loss: 38.8% The patient is a 77 year-old F who presents for Bariatric Assessment. Patient presents today for bariatric follow-up. She's had some mild GERD. Her weight has been stable. Past Medical History Past Medical History: Cancer, Diabetes Mellitus, GERD/Reflux, Hyperlipidemia, Hypertension, Pneumonia, Thyroid Disorder Additional Past Medical History / Comment(s): Hx of Basal cell skin cancer, thyroid nodules, Pneumonia mult times 2016, esophageal stricture status post balloon dilatation, GERD, glaucoma pressures high side of normal, no meds; COVID [employer] vaccine (1st - 10/01/20, 2nd - 10/22/20) History of Any Multi-Drug Resistant Organisms: None Reported Past Surgical History: Bariatric Surgery, Breast Surgery, Cholecystectomy, Hysterectomy Additional Past Surgical History / Comment(s): Lap band-inserted and removed, gastric sleeve, tummy tuck, skin cancer removal, right labia reduction , bilateral reduction upper thighs , thyroid biopsy, Right Thyroidectomy, Colonoscopy, Bronchoscopy, EGD. ira eye lid surgery, mult breast bx, EGD AND DILATION Hiatal hernia surgery. Past Anesthesia/Blood Transfusion Reactions: Family History of Problems w/ Anesthesia, Motion Sickness, Postoperative Nausea & Vomiting (PONV) Additional Past Anesthesia/Blood Transfusion Reaction / Comm: mother= ponv, CLAUSTERPHOBIC Past Psychological History: No Psychological Hx Reported Smoking Status: Never smoker Past Alcohol Use History: None Reported Past Drug Use History: None Reported - Past Family History Son(s) Family Medical History: Cancer Additional Family Medical History / Comment(s): Sq. cell Mother Family Medical History: Cancer, Deep Vein Thrombosis (DVT) Additional Family Medical History / Comment(s): breast ca, Father Family Medical History: Cancer Additional Family Medical History / Comment(s): leukemia Daughter(s) Family Medical History: Cancer Additional Family Medical History / Comment(s): from breast ca Surgical - Exam Vital Signs Temp Pulse BP 98.2 F 72 134/69 04/21/22 12:54 04/21/22 12:54 04/21/22 12:54 - General well developed, well nourished, no distress - Eyes PERRL - ENT normal pinna - Neck no masses - Respiratory normal expansion - Cardiovascular Rhythm: regular - Abdomen Abdomen: soft, non tender Bariatric Assessment & Plan Plan: Status post sleeve gastrectomy. Patient's GERD is minimal and will be observed. She'll follow-up in 4 weeks. Bariatric Checklist Checklist: Plan: Checklist: EGD: 1. Hiatal hernia: 2. H. Pylori: HgbA1c: Vitamin D: Smoking: Never smoker Primary care physician referral: dr rodas Psychiatry clearance: Cardiology clearance: Sleep study: Diet journal: VTE risk score: VTE risk level: Rehab needs at discharge:
== END | disposition home or self-care (01) ==
LOC: BARWHC3 12:32
PROVIDERS: ATTEND Surgery
DX: E66.01 Morbid (severe) obesity due to excess calories (principal); Z68.41 Body mass index [BMI] 40.0-44.9, adult; Z91.048 Other nonmedicinal substance allergy status; Z88.0 Allergy status to penicillin; Z88.8 Allergy status to other drugs, medicaments and biological substances
CPT/HCPCS: 99211

== ENCOUNTER → 2022-06-30 | Outpatient (CLI) | payer MEDICARE ==
--- NOTE | 2022-06-30 16:03 | US ---
EXAMINATION TYPE: US thyroid st tissue head/neck DATE OF EXAM: 06/30/2022 COMPARISON: 06/28/2021 CLINICAL HISTORY: 77-year-old female E04.1 Thyroid Nodule. Right thyroid removed approximately 4 year s ago due to non-cancerous nodules. TECHNIQUE: Multiple sonographic images of the thyroid gland are obtained. FINDINGS: GLAND SIZE: Right Lobe: Surgically absent Left Lobe: 6.0 x 2.1 x 2.4 cm Overall Parenchyma: heterogeneous Isthmus Thickness: 0.67 cm NODULES LEFT: # of nodules measured on right: Innumerable, difficult to discern nodules vs. heterogeneous t issue. 1. 0.6 X 0.4 x 0.4 cm, upper mid, solid or almost completely solid, hypoechoic nodule, which is srikanth ler than wide, with smooth margins, without echogenic foci. 2. 1.8 X 1.2 x 1.7 cm, lower mid, solid or almost completely solid, TR4 hypoechoic nodule, which is wider than tall, with smooth margins, without echogenic foci. *Prior nodules not well defined on today's exam to be followed accurately. RIGHT: Thyroid bed appears wnl. ISTHMUS: # of nodules measured in the isthmus: 0 Bilateral neck scanned, no evidence of lymphadenopathy. IMPRESSION: 1. Status post right thyroidectomy. 2. Enlarged and very heterogeneous left lobe of the thyroid gland, possible goiter. 3. The degree of heterogeneity makes it difficult to delineate discrete nodules. There is the suggest ion of a solitary 1.8 cm TR4 nodule at the left midpole.
--- NOTE | 2022-07-01 09:24 | MM ---
Reason for Exam: Screening (asymptomatic). Last screening mammogram was performed 12 month(s) ago. Patient History: Menarche at age 13. First Full-Term at age 26. Right ovary removed at age 32. Hysterectomy at age 32. Postmenopausal. Other cancer, age 67. Estrogen for 6 years from age 48 until age 54. Hormonal Contraceptives for 4 years from age 21 until age 29. 01/05/2007, Benign Excisional Biopsy on the left side. Core Biopsy on the Right side. Excisional Biopsy on the Right side. Excisional Biopsy on the Left side. 01/07/2011, Benign Core Biopsy on the left side. 02/22/1998, Benign Stereotactic Core Biopsy on the left side. Daughter had breast cancer, age 27. Mother had breast cancer, age 45. Risk Values: Jana 5 year model risk: 9.0%. NCI Lifetime model risk: 17.4%. Prior Study Comparison: 05/17/2019 Bilateral Screening Mammogram, [facility]. 05/24/2020 Bilateral Screening Mammogram, [facility]. 06/28/2021 Bilateral Screening Mammogram, [facility]. Tissue Density: There are scattered fibroglandular densities. Findings: Analyzed By CAD. There is no suspicious group of microcalcifications or new suspicious mass in either breast. Overall Assessment: Benign, BI-RAD 2 Management: Screening Mammogram of both breasts in 1 year. A clinical breast exam by your physician is recommended on an annual basis and results should be correlated with mammographic findings. Electronically signed and approved by: Elmer Garcia M.D. Radiologis
== END | disposition home or self-care (01) ==
LOC: RADMAMWWP 09:43
PROVIDERS: ATTEND Surgery
DX: Z12.31 Encounter for screening mammogram for malignant neoplasm of breast (principal); E89.0 Postprocedural hypothyroidism; E04.2 Nontoxic multinodular goiter; Z78.0 Asymptomatic menopausal state; Z80.3 Family history of malignant neoplasm of breast
CPT/HCPCS: 76536; 77063; 77067

== ENCOUNTER → 2023-01-19 | Outpatient (CLI) | payer MEDICARE ==
[2023-01-19 13:43] VITALS: BP 144/75; PULSE 81; TEMP 98.4; BMI 41.3
--- NOTE | 2023-01-19 15:57 | P.HPBAR ---
Bariatric H&P - History & Physicial H&P Date: 01/19/23 History & Physicial: Visit/CC: sleeve F/U Patient initial contact: Initial weight: 138.799 kg Initial weight in pounds: 306.00 Height: 5 ft 2.5 in Initial BMI: 55.0 Last weight: Current weight: 104.326 kg Current weight in pounds: 230.00 Current BMI: 41.3 [place] body weight (based on NIH guidelines): 51.029 kg Excess body weight loss: 39.2% The patient is a 78 year-old F who presents for Bariatric Assessment. Patient presents today for sleeve gastrectomy fall. She is gained 1 pound since her last visit. She has some complaints of GERD. She has a recent diagnosis of laryngitis. Past Medical History Past Medical History: Cancer, Diabetes Mellitus, GERD/Reflux, Hyperlipidemia, Hypertension, Pneumonia, Thyroid Disorder Additional Past Medical History / Comment(s): Hx of Basal cell skin cancer, thyroid nodules, Pneumonia mult times 2016, esophageal stricture status post balloon dilatation, GERD, glaucoma pressures high side of normal, no meds; COVID [employer] vaccine (1st - 10/01/20, 2nd - 10/22/20) History of Any Multi-Drug Resistant Organisms: None Reported Past Surgical History: Bariatric Surgery, Breast Surgery, Cholecystectomy, Hysterectomy Additional Past Surgical History / Comment(s): Lap band-inserted and removed, gastric sleeve, tummy tuck, skin cancer removal, right labia reduction , bilateral reduction upper thighs , thyroid biopsy, Right Thyroidectomy, Colonoscopy, Bronchoscopy, EGD. ira eye lid surgery, mult breast bx, EGD AND DILATION Hiatal hernia surgery. Past Anesthesia/Blood Transfusion Reactions: Family History of Problems w/ Anesthesia, Motion Sickness, Postoperative Nausea & Vomiting (PONV) Additional Past Anesthesia/Blood Transfusion Reaction / Comm: mother= ponv, CLAUSTERPHOBIC Past Psychological History: No Psychological Hx Reported Smoking Status: Never smoker Past Alcohol Use History: None Reported Past Drug Use History: None Reported - Past Family History Son(s) Family Medical History: Cancer Additional Family Medical History / Comment(s): Sq. cell Mother Family Medical History: Cancer, Deep Vein Thrombosis (DVT) Additional Family Medical History / Comment(s): breast ca, Father Family Medical History: Cancer Additional Family Medical History / Comment(s): leukemia Daughter(s) Family Medical History: Cancer Additional Family Medical History / Comment(s): from breast ca Surgical - Exam Vital Signs Temp Pulse BP 98.4 F 81 144/75 01/19/23 13:41 01/19/23 13:41 01/19/23 13:41 - General well developed, well nourished, no distress - Eyes PERRL - ENT normal pinna - Neck no masses - Respiratory normal expansion - Cardiovascular Rhythm: regular - Abdomen Abdomen: soft, non tender Bariatric Assessment & Plan Plan: Resolving morbid obese. Her GERD is minimal observed. She'll follow-up in 4 weeks. Bariatric Checklist Checklist: Plan: Checklist: EGD: 1. Hiatal hernia: 2. H. Pylori: HgbA1c: Vitamin D: Smoking: Never smoker Primary care physician referral: dr rodas Psychiatry clearance: Cardiology clearance: Sleep study: Diet journal: VTE risk score: VTE risk level: Rehab needs at discharge:
== END ==
LOC: BARWHC3 12:55
PROVIDERS: ATTEND Surgery
DX: E66.01 Morbid (severe) obesity due to excess calories (principal); K21.9 Gastro-esophageal reflux disease without esophagitis; E11.9 Type 2 diabetes mellitus without complications; E78.5 Hyperlipidemia, unspecified; I10 Essential (primary) hypertension; Z68.41 Body mass index [BMI] 40.0-44.9, adult; Z91.048 Other nonmedicinal substance allergy status; Z88.0 Allergy status to penicillin; Z88.5 Allergy status to narcotic agent
CPT/HCPCS: 99211

== ENCOUNTER → 2023-05-25 | Outpatient (CLI) | payer MEDICARE ==
[2023-05-25 12:45] VITALS: BP 129/68; PULSE 69; TEMP 98.7; BMI 40.6
--- NOTE | 2023-05-26 13:52 | P.HPBAR ---
Bariatric H&P - History & Physicial H&P Date: 05/25/23 History & Physicial: Visit/CC: sleeve F/U Patient initial contact: Initial weight: 138.799 kg Initial weight in pounds: 306.00 Height: 5 ft 2.5 in Initial BMI: 55.0 Last weight: Current weight: 102.512 kg Current weight in pounds: 226.00 Current BMI: 40.6 [place] body weight (based on NIH guidelines): 51.029 kg Excess body weight loss: 41.3% The patient is a 78 year-old F who presents for Bariatric Assessment.Patient presents today for bariatric follow-up. She has been doing fairly well. Her GERD has been stable. She is actually lost 4 pounds her last visit. She has no other complaints. Past Medical History Past Medical History: Cancer, Diabetes Mellitus, GERD/Reflux, Hyperlipidemia, Hypertension, Pneumonia, Thyroid Disorder Additional Past Medical History / Comment(s): Hx of Basal cell skin cancer, thyroid nodules, Pneumonia mult times 2016, esophageal stricture status post balloon dilatation, GERD, glaucoma pressures high side of normal, no meds; COVID [employer] vaccine (1st - 10/01/20, 2nd - 10/22/20) History of Any Multi-Drug Resistant Organisms: None Reported Past Surgical History: Bariatric Surgery, Breast Surgery, Cholecystectomy, Hysterectomy Additional Past Surgical History / Comment(s): Lap band-inserted and removed, gastric sleeve, tummy tuck, skin cancer removal, right labia reduction , bilateral reduction upper thighs , thyroid biopsy, Right Thyroidectomy, Colonoscopy, Bronchoscopy, EGD. ira eye lid surgery, mult breast bx, EGD AND DILATION Hiatal hernia surgery. Past Anesthesia/Blood Transfusion Reactions: Family History of Problems w/ Anesthesia, Motion Sickness, Postoperative Nausea & Vomiting (PONV) Additional Past Anesthesia/Blood Transfusion Reaction / Comm: mother= ponv, CLAUSTERPHOBIC Past Psychological History: No Psychological Hx Reported Smoking Status: Never smoker Past Alcohol Use History: None Reported Past Drug Use History: None Reported - Past Family History Son(s) Family Medical History: Cancer Additional Family Medical History / Comment(s): Sq. cell Mother Family Medical History: Cancer, Deep Vein Thrombosis (DVT) Additional Family Medical History / Comment(s): breast ca, Father Family Medical History: Cancer Additional Family Medical History / Comment(s): leukemia Daughter(s) Family Medical History: Cancer Additional Family Medical History / Comment(s): from breast ca Surgical - Exam Vital Signs Temp Pulse BP 98.7 F 69 129/68 05/25/23 12:43 05/25/23 12:43 05/25/23 12:43 - General well developed, well nourished, no distress - Abdomen Abdomen soft nontender Bariatric Assessment & Plan Plan: status post sleeve gastrectomy. Patient's GERD is minimal will be observed. She will follow-up in 3 to 4 months. Bariatric Checklist Checklist: Plan: Checklist: EGD: 1. Hiatal hernia: 2. H. Pylori: HgbA1c: Vitamin D: Smoking: Never smoker Primary care physician referral: dr rodas Psychiatry clearance: Cardiology clearance: Sleep study: Diet journal: VTE risk score: VTE risk level: Rehab needs at discharge:
== END | disposition home or self-care (01) ==
LOC: BARWHC3 12:21
PROVIDERS: ATTEND Surgery
DX: E66.01 Morbid (severe) obesity due to excess calories (principal); K21.9 Gastro-esophageal reflux disease without esophagitis; E11.9 Type 2 diabetes mellitus without complications; E78.5 Hyperlipidemia, unspecified; I10 Essential (primary) hypertension; Z68.41 Body mass index [BMI] 40.0-44.9, adult; Z91.048 Other nonmedicinal substance allergy status; Z88.0 Allergy status to penicillin; Z88.8 Allergy status to other drugs, medicaments and biological substances; Z79.82 Long term (current) use of aspirin; Z98.84 Bariatric surgery status; Z79.899 Other long term (current) drug therapy
CPT/HCPCS: 99211

== ENCOUNTER → 2023-07-23 | Day surgery (SDC) | payer MEDICARE ==
[~2023-07-23] MED LIST changes: -DEXAMETHASONE SOD PHOSPHATE 10 MG/ML 1 ML VIAL IV ONE; -HEPARIN SODIUM,PORCINE 5,000 UNIT/ML 1 ML VIAL SQ ONE; -HYDROmorphone 0.5 MG/0.5 ML SYRINGE IVP PRN; +LIDOCAINE 1% (10MG/ML) FOR IV START INTRADERMA PRN; -LIDOCAINE 1% 20 ML VIAL (10MG/ML) FOR IV START INTRADERMA PRN; -ONDANSETRON 4 MG/2 ML VIAL IVP ONE; +PROPOFOL 10 MG/ML 20 ML VIAL IV ONE; -Pre Op ABX Message 1 EACH MISC MISCELLANE ONE; -SCOPOLAMINE 1.5MG/72HR PATCH TRANSDERM ONE
[2023-07-23 07:20] VITALS: RESP 16; TEMP 96.7
[2023-07-23 07:27] LABS: Glucose,Whole Blood 128 mg/dL (70-110)
--- NOTE | 2023-07-23 07:51 | P.OP ---
Date of Procedure: 07/23/23 Preoperative Diagnosis: Screening colonoscopy Postoperative Diagnosis: Severe diverticulosis of sigmoid colon Procedure(s) Performed: Colonoscopy Anesthesia: MAC Surgeon: Paul Kumar Pathology: none sent Condition: stable Disposition: PACU Description of Procedure: The patient's placed on the endoscopy table in the lateral position. She received IV sedation. Digital rectal exam is performed. There were external hemorrhoids noted. The flexible colonoscope was then placed patient anus and passed throughout the colon. Scope was passed beyond the proximal sigmoid colon secondary severe tortuosity valve. There is extensive diverticular changes. Scope was then withdrawn. The visualized sigmoid colon showed no evidence of polyps. The rectum appeared normal. Scope withdrawn through the anus and internal and external hemorrhage are noted. Patient was scheduled for a barium enema.
[2023-07-23 08:38] VITALS: BP 119/63; PULSE 74
--- NOTE | 2023-07-23 12:21 | FL ---
EXAMINATION TYPE: FL barium enema w air contrast DATE OF EXAM: 07/23/2023 COMPARISON: NONE HISTORY: incomplete colonoscopy, 2:47 fluoro, no DAP, LMF TECHNIQUE: Barium and air were instilled into the colon from the rectum to the cecum. Multiple spot and overhead images are obtained. FINDINGS: I do not see evidence for annular constricting lesion or fungating mass. No polypoid lesio ns are identified. Mucosal fold pattern has a normal appearance. No evidence for inflammatory bowel disease. Normal-appearing appendix which is retrocecal. Moderate diverticulosis seen of the sigmoid colon with circular muscle hypertrophy. Additional scattered diverticula seen throughout the colon. IMPRESSION: Moderate sigmoid diverticulosis without diverticulitis. No significant abnormality identi fied at this time.
== END | disposition home or self-care (01) ==
LOC: ORWHC2ENDO 06:33
PROVIDERS: ATTEND Surgery
DX: Z12.11 Encounter for screening for malignant neoplasm of colon (principal); K57.30 Diverticulosis of large intestine without perforation or abscess without bleeding; K64.4 Residual hemorrhoidal skin tags; K63.89 Other specified diseases of intestine; E11.9 Type 2 diabetes mellitus without complications; K21.9 Gastro-esophageal reflux disease without esophagitis; E07.9 Disorder of thyroid, unspecified; I10 Essential (primary) hypertension; E04.1 Nontoxic single thyroid nodule; E66.9 Obesity, unspecified; E78.5 Hyperlipidemia, unspecified; Z79.84 Long term (current) use of oral hypoglycemic drugs; Z79.899 Other long term (current) drug therapy; Z79.890 Hormone replacement therapy; Z85.828 Personal history of other malignant neoplasm of skin; Z90.49 Acquired absence of other specified parts of digestive tract; Z88.0 Allergy status to penicillin; Z88.8 Allergy status to other drugs, medicaments and biological substances; Z79.82 Long term (current) use of aspirin; Z88.1 Allergy status to other antibiotic agents; Z68.41 Body mass index [BMI] 40.0-44.9, adult
CPT/HCPCS: 74280; J2704; G0104; 45378

== ENCOUNTER → 2023-10-26 | Outpatient (CLI) | payer MEDICARE ==
[2023-10-26 10:58] VITALS: BP 135/80; PULSE 77; TEMP 98.8; BMI 40.3
--- NOTE | 2023-10-26 11:35 | P.HPBAR ---
Bariatric H&P - History & Physicial H&P Date: 10/26/23 History & Physicial: Visit/CC: sleeve F/U Patient initial contact: Initial weight: 138.799 kg Initial weight in pounds: 306.00 Height: 5 ft 2.5 in Initial BMI: 55.0 Last weight: Current weight: 101.605 kg Current weight in pounds: 224.00 Current BMI: 40.3 [place] body weight (based on NIH guidelines): 51.029 kg Excess body weight loss: 42.3% The patient is a 78 year-old F who presents for Bariatric Assessment. Patient presents today for better follow-up. She's had minimal points of GERD. She's lost 8 pounds since her last visit. Past Medical History Past Medical History: Cancer, Diabetes Mellitus, Eye Disorder, GERD/Reflux, Hyperlipidemia, Hypertension, Pneumonia, Thyroid Disorder Additional Past Medical History / Comment(s): Hx of Basal cell skin cancer, thyroid nodules, Pneumonia mult times 2016, esophageal stricture status post balloon dilatation, GERD, glaucoma pressures high side of normal, no meds; COVID [employer] vaccine (1st - 10/01/20, 2nd - 10/22/20). Macular degeneration History of Any Multi-Drug Resistant Organisms: None Reported Past Surgical History: Bariatric Surgery, Breast Surgery, Cholecystectomy, Hysterectomy Additional Past Surgical History / Comment(s): Lap band-inserted and removed, gastric sleeve, tummy tuck, skin cancer removal, right labia reduction , bilateral reduction upper thighs , thyroid biopsy, Right Thyroidectomy, Colonoscopy, Bronchoscopy, EGD. ira eye lid surgery, mult breast bx, EGD AND DILATION Hiatal hernia surgery. Past Anesthesia/Blood Transfusion Reactions: Family History of Problems w/ Anesthesia, Motion Sickness, Postoperative Nausea & Vomiting (PONV) Additional Past Anesthesia/Blood Transfusion Reaction / Comm: mother= ponv, CLAUSTERPHOBIC Past Psychological History: No Psychological Hx Reported Smoking Status: Never smoker Past Alcohol Use History: None Reported Past Drug Use History: None Reported - Past Family History Son(s) Family Medical History: Cancer Additional Family Medical History / Comment(s): Sq. cell Mother Family Medical History: Cancer, Deep Vein Thrombosis (DVT) Additional Family Medical History / Comment(s): breast ca, Father Family Medical History: Cancer Additional Family Medical History / Comment(s): leukemia Daughter(s) Family Medical History: Cancer Additional Family Medical History / Comment(s): from breast ca Surgical - Exam Vital Signs Temp Pulse BP 98.8 F 77 135/80 10/26/23 10:37 10/26/23 10:37 10/26/23 10:37 - General well developed, well nourished, no distress - Eyes PERRL - ENT normal pinna - Neck no masses - Respiratory normal expansion - Cardiovascular Rhythm: regular - Abdomen Abdomen: soft, non tender Bariatric Assessment & Plan Plan: Resolving morbid obesity. Patient's GERD is minimal and will be observed. She'll follow-up in 4 weeks. Bariatric Checklist Checklist: Plan: Checklist: EGD: 1. Hiatal hernia: 2. H. Pylori: HgbA1c: Vitamin D: Smoking: Never smoker Primary care physician referral: dr rodas Psychiatry clearance: Cardiology clearance: Sleep study: Diet journal: VTE risk score: VTE risk level: Rehab needs at discharge:
== END ==
LOC: BARWHC3 10:09
PROVIDERS: ATTEND Surgery
DX: E66.01 Morbid (severe) obesity due to excess calories (principal); K21.9 Gastro-esophageal reflux disease without esophagitis; E78.5 Hyperlipidemia, unspecified; I10 Essential (primary) hypertension; E11.9 Type 2 diabetes mellitus without complications; E07.9 Disorder of thyroid, unspecified; H40.9 Unspecified glaucoma; H42 Glaucoma in diseases classified elsewhere; Z86.16 Personal history of COVID-19; Z98.84 Bariatric surgery status; Z87.2 Personal history of diseases of the skin and subcutaneous tissue; Z98.890 Other specified postprocedural states; Z68.41 Body mass index [BMI] 40.0-44.9, adult; Z91.048 Other nonmedicinal substance allergy status; Z88.0 Allergy status to penicillin; Z88.8 Allergy status to other drugs, medicaments and biological substances; Z79.899 Other long term (current) drug therapy; Z79.890 Hormone replacement therapy; Z79.82 Long term (current) use of aspirin; Z79.84 Long term (current) use of oral hypoglycemic drugs
CPT/HCPCS: 99211

== ENCOUNTER 2023-11-16 07:14 | Day surgery (SDC) | payer MEDICARE ==
[2023-11-11 16:13] VITALS: BMI 36.3
[~2023-11-16 07:14] MED LIST changes: +HYDROmorphone 0.5 MG/0.5 ML SYRINGE IVP PRN; -LACTATED RINGERS 1,000 ML IV SCH; -PROPOFOL 10 MG/ML 20 ML VIAL IV ONE; +Pre Op ABX Message 1 EACH MISC MISCELLANE ONE
[2023-11-16 08:03] VITALS: TEMP 97.4
[2023-11-16] MEDS ORDERED: diphenhydrAMINE 50 MG/ML 1 ML VIAL ONE (08:14)
[2023-11-16 08:17] LABS: Basophils % (A) 0 %; Eosinophils # (A) 0.1 k/uL (0-0.7); Eosinophils % (A) 1 %; HGB 15.3 gm/dL (11.4-16.0); Lymphocytes # (A) 1.2 k/uL (1.0-4.8); Lymphocytes % (A) 15 %; MCH 31.6 pg (25.0-35.0); MCHC 34.1 g/dL (31.0-37.0); MCV 92.8 fL (80.0-100.0); Mean Platelet Volume 8.1; Monocytes # (A) 0.8 k/uL (0-1.0); Monocytes % (A) 10 %; Neutrophils # (A) 5.7 k/uL (1.3-7.7); Neutrophils % (A) 71 %; Platelet Count 231 k/uL (150-450); RBC 4.85 m/uL (3.80-5.40); RDW 13.1 % (11.5-15.5)
[2023-11-16] MEDS ORDERED: IPRATROPIUM-ALBUTEROL 3 ML NEB INHALATION STA (08:20)
[2023-11-16] MEDS: IPRATROPIUM-ALBUTEROL 3 ML NEB ONE (08:20)
[2023-11-16] MEDS: ONDANSETRON 4 MG/2 ML VIAL IVP ONE (08:24)
[2023-11-16] MEDS: diphenhydrAMINE 50 MG/ML 1 ML VIAL IVP ONE (08:24)
[2023-11-16 08:26] LABS: Glucose,Whole Blood 80 mg/dL (70-110)
[2023-11-16] MEDS: ACETAMINOPHEN TAB 500 MG TAB PO PRN (08:33)
[2023-11-16] MEDS: FAMOTIDINE 20 MG/2 ML VIAL IVP ONE (08:33)
[2023-11-16] MEDS: DEXAMETHASONE SOD PHOSPHATE 4 MG/ML 1 ML VIAL IVP ONE (08:40)
[2023-11-16] MEDS: LACTATED RINGERS 1,000 ML IV SCH (08:41)
[2023-11-16] MEDS: HEPARIN SODIUM,PORCINE 5,000 UNIT/ML 1 ML VIAL SQ PRN (08:42)
[2023-11-16] MEDS ORDERED: ceFAZolin 1 GM/50 ML BAG (PMX) ONE (09:05)
[2023-11-16] MEDS ORDERED: PROPOFOL 10 MG/ML 20 ML VIAL IV ONE (09:05)
[2023-11-16] MEDS ORDERED: fentaNYL (PF) 50 MCG/ML 2 ML AMP ONE (09:05)
[2023-11-16] MEDS ORDERED: KETAMINE HCL IN 0.9 % NACL 50 MG/5 ML SYRINGE ONE (09:05)
[2023-11-16] MEDS ORDERED: MIDAZOLAM 2 MG/2 ML VIAL ONE (09:05)
[2023-11-16] MEDS: SODIUM CHLORIDE 0.9% 50 ML with ceFAZolin 2,000 MG IV ONE (09:10)
[2023-11-16] MEDS: LIDOCAINE 0.5%-EPI 1:200,000 50 ML VIAL SQ ONE ×2 (09:45)
[2023-11-16 10:10] LABS: Glucose,Whole Blood 124 mg/dL (70-110)
[2023-11-16 11:03] VITALS: BP 115/78; PULSE 77; RESP 18
== END 2023-11-16 11:14 | disposition home or self-care (01) ==
LOC: OR 07:14
PROVIDERS: ATTEND Surgery
DX: D17.1 Benign lipomatous neoplasm of skin and subcutaneous tissue of trunk (principal); L82.1 Other seborrheic keratosis; E04.1 Nontoxic single thyroid nodule; L82.0 Inflamed seborrheic keratosis; I10 Essential (primary) hypertension; K57.32 Diverticulitis of large intestine without perforation or abscess without bleeding; E78.5 Hyperlipidemia, unspecified; E11.9 Type 2 diabetes mellitus without complications; K21.9 Gastro-esophageal reflux disease without esophagitis; Z85.828 Personal history of other malignant neoplasm of skin
CPT/HCPCS: 88305; 85025; J2250; J1200; J1644; J1100; J2405; J0690 ×2; J3010; J3490; J2704

== ENCOUNTER → 2024-02-22 | Outpatient (CLI) | payer MEDICARE ==
[2024-02-22 10:14] VITALS: BP 125/71; PULSE 73; TEMP 98.1; BMI 41.3
--- NOTE | 2024-04-21 12:39 | P.HPBAR ---
Bariatric H&P - History & Physicial H&P Date: 02/22/24 History & Physicial: Visit/CC: sleeve followup Patient initial contact: Initial weight: 138.799 kg Initial weight in pounds: 306.00 Height: 5 ft 2.5 in Initial BMI: 55.0 Last weight: Current weight: 104.326 kg Current weight in pounds: 230.00 Current BMI: 41.3 [place] body weight (based on NIH guidelines): 51.029 kg Excess body weight loss: 39.2% The patient is a 79 year-old F who presents for Bariatric Assessment. Patient has a for sleeve gastrectomy follow-up. She has minimal complaints. She has states her GERD is stable. She is gained 6 pounds. Past Medical History Past Medical History: Cancer, Diabetes Mellitus, GERD/Reflux, Hyperlipidemia, Hypertension, Pneumonia, Thyroid Disorder Additional Past Medical History / Comment(s): Hx of Basal cell skin cancer, thyroid nodules, Pneumonia mult times 2016, esophageal stricture status post balloon dilatation, GERD, glaucoma pressures high side of normal, no meds; COVID [employer] vaccine (1st - 10/01/20, 2nd - 10/22/20) History of Any Multi-Drug Resistant Organisms: None Reported Past Surgical History: Bariatric Surgery, Breast Surgery, Cholecystectomy, Hysterectomy Additional Past Surgical History / Comment(s): Lap band-inserted and removed, gastric sleeve, tummy tuck, skin cancer removal, right labia reduction , bilateral reduction upper thighs , thyroid biopsy, Right Thyroidectomy, Colonoscopy, Bronchoscopy, EGD. ira eye lid surgery, mult breast bx, EGD AND DILATION Hiatal hernia surgery. Past Anesthesia/Blood Transfusion Reactions: Family History of Problems w/ Anesthesia, Motion Sickness, Postoperative Nausea & Vomiting (PONV) Additional Past Anesthesia/Blood Transfusion Reaction / Comm: mother= ponv, CLAUSTERPHOBIC Past Psychological History: No Psychological Hx Reported Smoking Status: Never smoker Past Alcohol Use History: None Reported Past Drug Use History: None Reported - Past Family History Son(s) Family Medical History: Cancer Additional Family Medical History / Comment(s): Sq. cell Mother Family Medical History: Cancer, Deep Vein Thrombosis (DVT) Additional Family Medical History / Comment(s): breast ca, Father Family Medical History: Cancer Additional Family Medical History / Comment(s): leukemia Daughter(s) Family Medical History: Cancer Additional Family Medical History / Comment(s): from breast ca Surgical - Exam Vital Signs Temp Pulse BP 98.1 F 73 125/71 02/22/24 09:43 02/22/24 09:43 02/22/24 09:43 Abdomen is soft nontender Bariatric Assessment & Plan Plan: Patient is gerd is minimal will be observed. She will follow-up in 4 weeks. Bariatric Checklist Checklist: Plan: Checklist: EGD: 1. Hiatal hernia: 2. H. Pylori: HgbA1c: Vitamin D: Smoking: Never smoker Primary care physician referral: dr rodas Psychiatry clearance: Cardiology clearance: Sleep study: Diet journal: VTE risk score: VTE risk level: Rehab needs at discharge:
== END ==
LOC: BARWHC3 01-25 08:57
PROVIDERS: ATTEND Surgery
DX: E66.01 Morbid (severe) obesity due to excess calories (principal); K21.9 Gastro-esophageal reflux disease without esophagitis; Z98.84 Bariatric surgery status; Z90.3 Acquired absence of stomach [part of]; Z68.41 Body mass index [BMI] 40.0-44.9, adult; Z91.048 Other nonmedicinal substance allergy status; Z88.0 Allergy status to penicillin; Z88.8 Allergy status to other drugs, medicaments and biological substances
CPT/HCPCS: 99211

== ENCOUNTER → 2024-05-16 | Outpatient (CLI) | payer MEDICARE ==
--- NOTE | 2024-06-30 15:01 | CONS ---
CONSULTATION CHIEF COMPLAINT: GERD, morbid obesity. HISTORY OF PRESENT ILLNESS: This is a 79-year-old female who presents today for bariatric followup. Her GERD has been stable. She has actually gained weight. She weighs 234 pounds. She has gained 4 pounds since her last visit. PHYSICAL EXAMINATION: VITAL SIGNS: Appear stable. ABDOMEN: Soft, nontender. The patient's GERD is chronic. Will continue to be treated with omeprazole p.r.n. The patient will try to increase her activity. She will follow up in 12 weeks. MMODL / IJN: [id number] /
== END ==
LOC: BARWHC3 08:30
PROVIDERS: ATTEND Surgery
CPT/HCPCS: 99211

== ENCOUNTER → 2024-07-12 | Outpatient (CLI) | payer MEDICARE ==
--- NOTE | 2024-07-12 19:15 | US ---
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 FINDINGS: GLAND SIZE: Right Lobe: Surgically absent cm Left Lobe: 4.8 x 2.1 x 2.3 cm Overall Parenchyma: heterogeneous Isthmus Thickness: 0.4 cm NODULES LEFT: # of nodules measured on left: multiple, measured largest 1. 1.2 X 1.3 x 0.8 cm, mid , mixed cystic and solid, hypoechoic nodule, which is wider than tall, w ith smooth margins, without echogenic foci. Prior size: 1.4 x 1.4 x 0.8 cm ISTHMUS: # of nodules measured in the isthmus: 0 Bilateral neck scanned, no evidence of lymphadenopathy. IMPRESSION: 1. Status post right thyroidectomy without suspicious nodule within the thyroidectomy bed. 2. Enlarged heterogenous left thyroid lobe with stable nodules. Follow-up ultrasound in one year is r ecommended. [facility], , 07/12/2024 7:13 PM
--- NOTE | 2024-07-13 12:25 | MM ---
Reason for Exam: Screening (asymptomatic). Last mammogram was performed 1 year(s) and 1 month(s) ago. Patient History: Menarche at age 13. First Full-Term at age 26. Right ovary removed at age 32. Hysterectomy at age 32. Postmenopausal. Other cancer, age 67. Estrogen for 6 years from age 48 until age 54. Hormonal Contraceptives for 4 years from age 21 until age 29. 01/05/2007, Benign Excisional Biopsy on the left side. Core Biopsy on the Right side. Excisional Biopsy on the Right side. Excisional Biopsy on the Left side. 01/07/2011, Benign Core Biopsy on the left side. 02/22/1998, Benign Stereotactic Core Biopsy on the left side. Daughter had breast cancer, age 27. Mother had breast cancer, age 45. Risk Values: Jana 5 year model risk: 8.8%. NCI Lifetime model risk: 15.2%. Prior Study Comparison: 06/28/2021 Bilateral Screening Mammogram, [facility]. 06/30/2022 Bilateral MG 3D screening mammo w/cad, [facility]. 07/03/2023 Bilateral MG 3D screening mammo w/cad, [facility]. Tissue Density: There are scattered areas of fibroglandular density. Findings: Analyzed By CAD. There is no suspicious group of microcalcifications or new suspicious mass in either breast. Stable postoperative distortion right breast. Overall Assessment: Benign, BI-RAD 2 Management: Screening Mammogram of both breasts in 1 year. . Patient should continue monthly self-breast exams. A clinical breast exam by your physician is recommended on an annual basis. This exam should not preclude additional follow-up of suspicious palpable abnormalities. Note on Jana scores and lifetime risk: 1. A Jana score greater than 3% is considered moderate risk. If this is the case, consider specialist referral to assess eligibility for a risk reducing agent. 2. If overall lifetime risk for the development of breast cancer is 20% or higher, the patient may qualify for future screening with alternating mammogram and breast MRI. [facility], , 07/13/2024 12:22 PM. Electronically signed and approved by: Elmer Garcia M.D. Radiologis
== END | disposition home or self-care (01) ==
LOC: RADUSWWP 13:37
PROVIDERS: ATTEND Surgery
DX: Z12.31 Encounter for screening mammogram for malignant neoplasm of breast (principal); E04.1 Nontoxic single thyroid nodule; R92.323 Mammographic fibroglandular density, bilateral breasts; Z80.3 Family history of malignant neoplasm of breast
CPT/HCPCS: 76536; 77063; 77067

== ENCOUNTER → 2024-08-08 | Outpatient (CLI) | payer MEDICARE ==
[2024-08-08 09:06] VITALS: BP 144/76; PULSE 101; RESP 16; TEMP 98.2; BMI 42.5
--- NOTE | 2024-08-08 14:06 | P.HPBAR ---
Bariatric H&P - History & Physicial H&P Date: 08/08/24 History & Physicial: Visit/CC: follow up Patient initial contact: Initial weight: 138.799 kg Initial weight in pounds: 306.00 Height: 5 ft 2.5 in Initial BMI: 55.0 Last weight: Current weight: 107.048 kg Current weight in pounds: 236.00 Current BMI: 42.5 [place] body weight (based on NIH guidelines): 51.029 kg Excess body weight loss: 36.1% The patient is a 79 year-old F who presents for Bariatric Assessment. Patient presents today for bariatric follow-up. She has had normal complaints of GERD. Past Medical History Past Medical History: Cancer, Diabetes Mellitus, GERD/Reflux, Hyperlipidemia, Hypertension, Pneumonia, Thyroid Disorder Additional Past Medical History / Comment(s): Hx of Basal cell skin cancer, thyroid nodules, Pneumonia mult times 2016, esophageal stricture status post balloon dilatation, GERD, glaucoma pressures high side of normal, no meds; COVID [employer] vaccine (1st - 10/01/20, 2nd - 10/22/20) History of Any Multi-Drug Resistant Organisms: None Reported Past Surgical History: Bariatric Surgery, Breast Surgery, Cholecystectomy, Hysterectomy Additional Past Surgical History / Comment(s): Lap band-inserted and removed, gastric sleeve, tummy tuck, skin cancer removal, right labia reduction , bilateral reduction upper thighs , thyroid biopsy, Right Thyroidectomy, Colonoscopy, Bronchoscopy, EGD. ira eye lid surgery, mult breast bx, EGD AND DILATION Hiatal hernia surgery. Bilateral Cataracts Past Anesthesia/Blood Transfusion Reactions: Family History of Problems w/ Anesthesia, Motion Sickness, Postoperative Nausea & Vomiting (PONV) Additional Past Anesthesia/Blood Transfusion Reaction / Comm: mother= ponv, CLAUSTERPHOBIC Past Psychological History: No Psychological Hx Reported Smoking Status: Never smoker Past Alcohol Use History: None Reported Past Drug Use History: None Reported - Past Family History Son(s) Family Medical History: Cancer Additional Family Medical History / Comment(s): Sq. cell Mother Family Medical History: Cancer, Deep Vein Thrombosis (DVT) Additional Family Medical History / Comment(s): breast ca, Father Family Medical History: Cancer Additional Family Medical History / Comment(s): leukemia Daughter(s) Family Medical History: Cancer Additional Family Medical History / Comment(s): from breast ca Surgical - Exam Vital Signs Temp Pulse Resp BP 98.2 F 101 H 16 144/76 08/08/24 08:57 08/08/24 08:57 08/08/24 08:57 08/08/24 08:57 - General well developed, well nourished, no distress - Eyes PERRL - ENT normal pinna - Neck no masses - Respiratory normal expansion - Cardiovascular Rhythm: regular - Abdomen Abdomen: soft, non tender Bariatric Assessment & Plan Plan: Status post sleeve gastrectomy. Patient's gerd is minimal and will be observed. Her weight is remained stable. She will follow-up in 3 months. Bariatric Checklist Checklist: Plan: Checklist: EGD: 1. Hiatal hernia: 2. H. Pylori: HgbA1c: Vitamin D: Smoking: Never smoker Primary care physician referral: Dr. Samina Christensen Psychiatry clearance: Cardiology clearance: Sleep study: Diet journal: VTE risk score: VTE risk level: Rehab needs at discharge:
== END ==
LOC: BARWHC3 07:59
PROVIDERS: ATTEND Surgery
DX: Z46.51 Encounter for fitting and adjustment of gastric lap band (principal); E66.01 Morbid (severe) obesity due to excess calories; K21.9 Gastro-esophageal reflux disease without esophagitis; Z68.41 Body mass index [BMI] 40.0-44.9, adult; Z98.84 Bariatric surgery status; Z90.3 Acquired absence of stomach [part of]; Z88.0 Allergy status to penicillin; Z88.8 Allergy status to other drugs, medicaments and biological substances; Z91.048 Other nonmedicinal substance allergy status
CPT/HCPCS: 99211

== ENCOUNTER → 2024-08-09 | Outpatient (CLI) | payer MEDICARE ==
[2024-08-09 15:02] LABS: HCT 43.4 % (37.2-46.3); MCH 30.5 pg (27.0-32.0); MCHC 32.3 g/dL (32.0-37.0); MCV 94.6 FL (80.0-97.0); Mean Platelet Volume 10.6 FL (9.5-12.2); NRBC Per 100 WBC 0 X 10*3/uL (0.00-0.01); Platelet Count 249 X 10*3/uL (140-440); RBC 4.59 X 10*6/uL (4.10-5.20); RDW 13.5 % (11.5-14.5); WBC 6.19 X 10*3/uL (4.50-10.00)
[2024-08-09 15:38] LABS: % Iron Saturation 21.23 (12.00-45.00); ALT 15 U/L (8-44); AST 16 U/L (13-35); Albumin 3.9 g/dL (3.8-4.9); Alkaline Phosphatase 88 U/L (41-126); BUN/Creat Ratio 18.22 Ratio (12.00-20.00); Blood Urea Nitrogen 16.4 mg/dL (9.0-27.0); Calcium 9.4 mg/dL (8.7-10.3); Carbon Dioxide 26.2 mmol/L (21.6-31.8); Chloride 107 mmol/L (96-109); Ferritin 44.9 ng/mL (10.0-291.0); Globulin 2.6 g/dL (1.6-3.3); Glucose 129 mg/dL (70-110); Iron 76 UG/DL (50-170); Magnesium 1.9 mg/dL (1.5-2.4); Potassium 4.6 mmol/L (3.5-5.5); Sodium 143 mmol/L (135-145); Total Bilirubin 0.4 mg/dL (0.3-1.2); Total Iron Binding Capacity 358 UG/DL (228-460); Total Protein 6.5 g/dL (6.2-8.2)
[2024-08-10 09:24] LABS: Zinc, Serum 91 ug/dL (60-130)
[2024-08-11 05:19] LABS: Vit B1(Thiamine) 87 ug/L (38-122)
[2024-08-11 09:07] LABS: Vitamin A 59 ug/dL (38-106)
== END | disposition home or self-care (01) ==
LOC: LABWHC1 09:35
PROVIDERS: ATTEND Surgery
DX: D50.8 Other iron deficiency anemias (principal); E44.0 Moderate protein-calorie malnutrition; E55.9 Vitamin D deficiency, unspecified; T56.894A Toxic effect of other metals, undetermined, initial encounter; E45 Retarded development following protein-calorie malnutrition; E66.01 Morbid (severe) obesity due to excess calories
CPT/HCPCS: 36415; 80053; 82306; 82607; 82728; 82746; 83540; 83550; 83735; 84255; 84425; 84443; 84590; 84630; 85027

== ENCOUNTER → 2024-12-14 | Outpatient (CLI) | payer MEDICARE ==
[2024-12-14 17:10] LABS: Blood Urea Nitrogen 10.8 mg/dL (9.0-27.0); Chloride 105 mmol/L (96-109); Chol/HDL Ratio 3.48 Ratio; Glucose 104 mg/dL (70-110); LDL Cholesterol,Calculated 76.8 mg/dL (0.0-131.0); Potassium 4.2 mmol/L (3.5-5.5); Sodium 142 mmol/L (135-145)
[2024-12-14 17:11] LABS: ALT 17 U/L (8-44); AST 18 U/L (13-35); Albumin 3.9 g/dL (3.8-4.9); Albumin/Globulin Ratio 1.44 Ratio (1.60-3.17); Alkaline Phosphatase 95 U/L (41-126); Calcium 9.3 mg/dL (8.7-10.3); Carbon Dioxide 27.4 mmol/L (21.6-31.8); Globulin 2.7 g/dL (1.6-3.3); T4, Free (Free Thyroxine) 0.94 ng/dL (0.80-1.80); Total Bilirubin 0.3 mg/dL (0.3-1.2); Total Protein 6.6 g/dL (6.2-8.2)
== END | disposition home or self-care (01) ==
LOC: LABWHC1 08:41
PROVIDERS: ATTEND Nurse Practitioner Gerontology
DX: E11.65 Type 2 diabetes mellitus with hyperglycemia (principal); E89.0 Postprocedural hypothyroidism
CPT/HCPCS: 36415; 80053; 80061; 83036; 84439; 84443

== ENCOUNTER → 2025-02-13 | Outpatient (CLI) | payer MEDICARE ==
[2025-02-13 08:33] VITALS: BP 124/74; PULSE 78; RESP 16; TEMP 97.6; BMI 43.0
--- NOTE | 2025-02-21 16:32 | P.HPBAR ---
Bariatric H&P - History & Physicial H&P Date: 02/13/25 History & Physicial: Visit/CC: f/u Patient initial contact: Initial weight: 138.799 kg Initial weight in pounds: 306.00 Height: 5 ft 2.5 in Initial BMI: 55.0 Last weight: Current weight: 108.409 kg Current weight in pounds: 239.00 Current BMI: 43.0 [place] body weight (based on NIH guidelines): 51.13 kg Excess body weight loss: 34.6% The patient is a 80 year-old F who presents for Bariatric Assessment. patient presents today for. Follow-up. Patient's weight has been stable. She has some mild complaints of GERD. Past Medical History Past Medical History: Cancer, Diabetes Mellitus, GERD/Reflux, Hyperlipidemia, Hypertension, Pneumonia, Thyroid Disorder Additional Past Medical History / Comment(s): Hx of Basal cell skin cancer, thyroid nodules, Pneumonia mult times 2016, esophageal stricture status post balloon dilatation, GERD, glaucoma pressures high side of normal, no meds; COVID Pf[employer] vaccine (1st - 10/01/20, 2nd - 10/22/20), Macular Degeneration-gets injections. History of Any Multi-Drug Resistant Organisms: None Reported Past Surgical History: Bariatric Surgery, Breast Surgery, Cholecystectomy, Hysterectomy Additional Past Surgical History / Comment(s): Lap band-inserted and removed, gastric sleeve, tummy tuck, skin cancer removal, right labia reduction , bilateral reduction upper thighs , thyroid biopsy, Right Thyroidectomy, Colonoscopy, Bronchoscopy, EGD. ira eye lid surgery, mult breast bx, EGD AND DILATION Hiatal hernia surgery. Bilateral Cataract sx Past Anesthesia/Blood Transfusion Reactions: Family History of Problems w/ Anesthesia, Motion Sickness, Postoperative Nausea & Vomiting (PONV) Additional Past Anesthesia/Blood Transfusion Reaction / Comm: mother= ponv, CLAUSTERPHOBIC Past Psychological History: No Psychological Hx Reported Smoking Status: Never smoker Past Alcohol Use History: None Reported Past Drug Use History: None Reported - Past Family History Son(s) Family Medical History: Cancer Additional Family Medical History / Comment(s): Sq. cell Mother Family Medical History: Cancer, Deep Vein Thrombosis (DVT) Additional Family Medical History / Comment(s): breast ca, Father Family Medical History: Cancer Additional Family Medical History / Comment(s): leukemia Daughter(s) Family Medical History: Cancer Additional Family Medical History / Comment(s): from breast ca Surgical - Exam Vital Signs Temp Pulse Resp BP 97.6 F 78 16 124/74 02/13/25 08:30 02/13/25 08:30 02/13/25 08:30 02/13/25 08:30 - General well developed, well nourished, no distress - Eyes PERRL - ENT normal pinna - Neck no masses - Respiratory normal expansion - Cardiovascular Rhythm: regular - Abdomen Abdomen: soft, non tender Bariatric Assessment & Plan Plan: Status post sleeve gastric. Patient's GERD is minimal only observed. She will follow-up in 3 months. Bariatric Checklist Checklist: Plan: Checklist: EGD: 1. Hiatal hernia: 2. H. Pylori: HgbA1c: Vitamin D: Smoking: Never smoker Primary care physician referral: Dr. Samina Christensen Psychiatry clearance: Cardiology clearance: Sleep study: Diet journal: VTE risk score: VTE risk level: Rehab needs at discharge:
== END ==
LOC: BARWHC3 07:59
PROVIDERS: ATTEND Surgery
DX: E66.01 Morbid (severe) obesity due to excess calories (principal); K21.9 Gastro-esophageal reflux disease without esophagitis; Z68.41 Body mass index [BMI] 40.0-44.9, adult; Z91.048 Other nonmedicinal substance allergy status; Z88.0 Allergy status to penicillin; Z88.8 Allergy status to other drugs, medicaments and biological substances
CPT/HCPCS: 99211